=== PATIENT | male | born 1930 | race Two or more races ===

== ENCOUNTER 2016-03-23 20:17 | Inpatient (IN) | payer OTHER ==
[2016-03-23] MEDS ORDERED: SODIUM CHLORIDE 0.9% 1000 ML INFUS.BAG IV PRN (20:52)
[2016-03-23] MEDS ORDERED: ACETAMINOPHEN 1000 MG/100 ML VIAL (NON FORMULARY) IVPB ONE (20:52)
--- NOTE | 2016-03-23 20:52 | PDOC ---
History of Present Illness - General History Source: Patient, Family Exam Limitations: No Limitations - History of Present Illness Initial Comments: 03/23/16 21:26 The patient is a 85 year old male with significant past medical history of CAD , hypertension, hyperlipidemia, constipation, h/o SBO due to adhesions, and prostate CA s/p prostatectomy who presents to the ED BIBA from home with 1 day of not feeling well. As per family, at bedside, noted patient was not alert and not feeling well. At time of evaluation, patient only had complaints of discomfort in the right flank and periumbilical region. He denies nausea, vomiting, and diarrhea. He denies any urinary complaints. Patient states he is compliant with his daily medications. The patient denies fever, chills, diaphoresis, cough, SOB, chest pain, and palpitations. Allergies: NKDA Social History: No alcohol, tobacco, or drug use reported. Past Surgical History: s/p prostatectomy PCP: Dr. Danelle Gaytan <Fransisca Kang - Last Filed: 03/23/16 23:52> - General History Source: Patient, Family <Rah Mcintosh - Last Filed: 03/23/16 23:55> - General Stated Complaint: LETHARGY Time Seen by Provider: 03/23/16 20:48 Past History <Fransisca Kang - Last Filed: 03/23/16 23:52> - Past Medical History HTN: Yes Hypercholesterolemia: Yes - Immunization History Immunization Up to Date: Yes - Psycho/Social/Smoking Cessation Hx Suicidal Ideation: No Smoking Status: No Smoking History: Unknown if ever smoked Have you smoked in the past 12 months: No Number of Cigarettes Smoked Daily: 0 Hx Alcohol Use: No Drug/Substance Use Hx: No Substance Use Type: None Hx Substance Use Treatment: No <Rah Mcintosh - Last Filed: 03/23/16 23:55> - Past Medical History Allergies/Adverse Reactions: Allergies Allergy/AdvReac Type Severity Reaction Status Date / Time No Known Allergies Allergy Verified 03/23/16 20:39 Home Medications: Ambulatory Orders Amlodipine Besylate 10 mg PO DAILY 08/02/15 Atorvastatin Ca [Lipitor] 40 mg PO HS 08/02/15 Carvedilol 6.25 mg PO BID 08/02/15 Aspirin Coated [Ecotrin -] 81 mg PO DAILY tablet.ec 08/05/15 Losartan Potassium 25 mg PO DAILY 03/23/16 Tramadol HCl 50 mg PO PRN 03/23/16 Review of Systems - Review of Systems Able to Perform ROS?: Yes Comments:: 03/23/16 21:27 CONSTITUTIONAL: +not feeling well Absent: fever, chills, diaphoresis, loss of appetite HEENT: Absent: rhinorrhea, nasal congestion, throat pain, throat swelling, difficulty swallowing, mouth swelling, ear pain, eye pain, visual Changes CARDIOVASCULAR: Absent: chest pain, syncope, palpitations, irregular heart rate, lightheadedness , peripheral edema RESPIRATORY: Absent: cough, shortness of breath, dyspnea with exertion, orthopnea, wheezing, stridor, hemoptysis GASTROINTESTINAL: +periumbilical pain Absent: abdominal distension, nausea, vomiting, diarrhea, constipation, melena, hematochezia GENITOURINARY: +right flank pain Absent: dysuria, frequency, urgency, hesitancy, hematuria, genital pain MUSCULOSKELETAL: Absent: myalgia, arthralgia, joint swelling SKIN: Absent: rash, itching, pallor NEUROLOGIC: +not alert Absent: headache, focal weakness or paresthesias, dizziness, unsteady gait, seizure, bladder or bowel incontinence <Fransisca Kang - Last Filed: 03/23/16 23:52> *Physical Exam - Vital Signs Last Vital Signs Temp Pulse Resp BP Pulse Ox 104.7 F H 95 H 21 128/64 91 L 03/23/16 20:35 03/23/16 20:35 03/23/16 20:35 03/23/16 20:35 03/23/16 20:35 - Physical Exam Comments: 03/23/16 21:27 GENERAL: Well developed, well nourished. Awake and alert. No acute distress. HEENT: Normocephalic, atraumatic. PERRLA, EOMI. No conjunctival pallor. Sclera are non- icteric. Moist mucous membranes. Oropharynx is clear. NECK: Supple. Full ROM. No JVD. Carotid pulses 2+ and symmetric, without bruits. No thyromegaly. No lymphadenopathy. CARDIOVASCULAR: Regular rate and rhythm. No murmurs, rubs, or gallops. Distal pulses are 2+ and symmetric. PULMONARY: No evidence of respiratory distress. Lungs clear to auscultation bilaterally. No wheezing, rales or rhonchi. ABDOMINAL: Soft. Non-tender. Non-distended. No rebound or guarding. No organomegaly. Normoactive bowel sounds. MUSCULOSKELETAL Normal range of motion at all joints. No bony deformities or tenderness. No CVA tenderness. EXTREMITIES: No cyanosis. No clubbing. No edema. No calf tenderness. SKIN: Warm and dry. Normal capillary refill. No rashes. No jaundice. NEUROLOGICAL: Alert, awake, appropriate. Cranial nerves 2-12 intact. Moving all extremities. No focal neurological deficits. PSYCHIATRIC: Cooperative. Good eye contact. Appropriate mood and affect. <Fransisca Kang - Last Filed: 03/23/16 23:52> - Vital Signs Last Vital Signs Temp Pulse Resp BP Pulse Ox 104.7 F H 95 H 21 128/64 91 L 03/23/16 20:35 03/23/16 20:35 03/23/16 20:35 03/23/16 20:35 03/23/16 20:35 <Rah Mcintosh - Last Filed: 03/23/16 23:55> Heart Score/ECG Review - ECG Impressions Comment:: 03/23/16 21:27 NSR @95bpm Left axis deviation Incomplete RBBB Left ventricular hypertrophy with repolarization abnormality Cannot r/o septal infarct, age undetermined Abnormal ECG <Fransisca Kang - Last Filed: 03/23/16 23:52> ED Treatment Course - LABORATORY CBC & Chemistry Diagram: 03/23/16 21:06 03/23/16 21:06 - ADDITIONAL ORDERS Additional order review: 03/23/16 21:06 RBC 4.45 MCV 88.2 MCHC 32.8 RDW 13.5 MPV 8.1 Neutrophils % 87.6 H D Lymphocytes % 3.3 L D Monocytes % 7.9 Eosinophils % 0.0 D Basophils % 1.2 <Fransisca Kang - Last Filed: 03/23/16 23:52> - LABORATORY CBC & Chemistry Diagram: 03/23/16 21:06 03/23/16 21:06 <Rah Mcintosh - Last Filed: 03/23/16 23:55> Medical Decision Making - Medical Decision Making 03/23/16 23:[address] Danelle Gaytan (via answering service) at 23:[address] Gaytan responded back at 23:52 and patient's case was discussed <Fransisca Kang - Last Filed: 03/23/16 23:52> - Medical Decision Making 03/23/16 23:55 Dr. Mcintosh: The scribe's documentation has been prepared under my direction and personally reviewed by me in its entirery. I confirm that the note above accurately reflects all work, treatment, procedures, and medical decision making performed by me. <Rah Mcintosh - Last Filed: 03/23/16 23:55> *DC/Admit/Observation/Transfer - Attestations Scribe Attestion: 03/23/16 21:29 Documentation prepared by Fransisca Kang, acting as biomedical engineering professor for Rah Mcintosh MD <Fransisca Kang - Last Filed: 03/23/16 23:52> - Discharge Dispostion Admit: Yes <Rah Mcintosh - Last Filed: 03/23/16 23:55> Diagnosis at time of Disposition: Sepsis Qualifiers: Sepsis type: sepsis due to unspecified organism Qualified Code(s): A41.9 - Sepsis, unspecified organism Pneumonia Qualifiers: Pneumonia type: due to unspecified organism Laterality: left Lung location: lower lobe of lung Qualified Code(s): J18.9 - Pneumonia, unspecified organism - Referrals Referrals: Danelle Gaytan MD [Primary Care Provider] -
[2016-03-23 21:10] LABS: BASOPHIL 1.2 % (0-2.0); MCH 28.9 pg (25.7-33.7); MCHC 32.8 g/dl (32.0-35.9); MEAN CELL VOLUME 88.2 fl (80-96); MEAN PLT VOLUME 8.1 fl (7.5-11.1); NEUTROPHILS 87.6 % (42.8-82.8); PLATELET COUNT 173 K/MM3 (134-434); RDW 13.5 % (11.9-15.9); WHITE BLOOD COUNT 13.5 K/mm3 (4.0-10.0)
[2016-03-23 21:28] LABS: VENOUS BLOOD GAS HCO3 23.5 meq/L (22-29)
[2016-03-23 21:30] LABS: VENOUS PH 7.42 (7.31-7.41)
[2016-03-23 21:32] LABS: INR 1.35 (0.82-1.09); PROTHROMBIN TIME (PATIENT) 14.9 SEC (9.98-11.88)
[2016-03-23 21:35] LABS: ACTIVATED PTT 27.4 SECONDS (26.9-34.4)
[2016-03-23 21:43] LABS: ALBUMIN 3.5 g/dl (3.4-5.0); ANION GAP 8 (8-16); BILIRUBIN,TOTAL 1.2 mg/dL (0.2-1.0); CALCIUM 7.9 mg/dL (8.5-10.1); CO2 26 mmol/L (21-32); CREATININE 1.1 mg/dL (0.7-1.3); GLUCOSE,RANDOM 129 mg/dL (74-106); SGOT/AST 21 U/L (15-37); SGPT/ALT 24 U/L (12-78); TOT PROT 6.5 g/dl (6.4-8.2)
[2016-03-23 21:45] LABS: ALK PHOS 73 U/L (45-117); TROPONIN I < 0.02 ng/ml (0.00-0.05)
[2016-03-23 22:20] LABS: PH,URINE 5.5 (5.0-8.0); URINE APPEARANCE CLEAR; URINE BILIRUBIN NEGATIVE (NEGATIVE); URINE BLOOD NEGATIVE (NEGATIVE); URINE COLOR LT. YELLOW; URINE GLUCOSE (UA) NEGATIVE (NEGATIVE); URINE KETONE NEGATIVE (NEGATIVE); URINE LEUK ESTERASE NEGATIVE (NEGATIVE); URINE NITRITE NEGATIVE (NEGATIVE); URINE PROTEIN NEGATIVE (NEGATIVE); URINE UROBILINOGEN 0.2 E.U/dl E.U./dl (0.2-1.0)
[2016-03-23] MEDS ORDERED: CALCIUM CARBONATE 650 MG TABLET PO STA (23:28)
[2016-03-23] MEDS ORDERED: AZITHROMYCIN 250 MG TABLET (FP) PO STA (23:31)
[2016-03-23] MEDS ORDERED: AZITHROMYCIN 250 MG TABLET (FP) ONE (23:50)
[2016-03-23] MEDS ORDERED: CEFTRIAXONE 50 ML ONE (23:51)
[2016-03-24 01:58] VITALS: BMI 22.4
[2016-03-24 08:09] LABS: BASOPHIL 0.4 % (0-2.0); EOSINOPHIL 0.2 % (0-4.5); MEAN CELL VOLUME 88.4 fl (80-96); MEAN PLT VOLUME 7.9 fl (7.5-11.1); NEUTROPHILS 81.5 % (42.8-82.8); PLATELET COUNT 143 K/MM3 (134-434); RDW 13.5 % (11.9-15.9); WHITE BLOOD COUNT 13.1 K/mm3 (4.0-10.0)
--- NOTE | 2016-03-24 08:22 | CONSULT ---
Consultation: Consult: INFECTIOUS DISEASE CONSULT REQUEST: We have been asked to medically evaluate this patient for Sepsis. HISTORY OF PRESENT ILLNESS: History obtained using [employer] "[employer] interpretation" 85 year old swiss speaking male was brought in from home with the chief complaints of fever x 2 days and not feeling well x 1 week. Initially, patient was not feeling well, had dizziness but didn't fall. Developed fever, on/off, associated with profuse sweating but no chills or rigors. Denies runny nose, close contacts or h/o recent travel. Patient stated that he had right lower quadrant pain, dull in nature, on/off, radiating towards the back. Patient thought it would go away so didn't take any meds or seek medical attention. Denies urinary symptoms like burning urination, urgency, frequency. Moves bowel once in 2-3 days. Moved his bowel today. Denies headache, loss of conciousness, chest pain, cough, palpitation, sob, nausea or vomiting. On admission, patient presented with Tmax 104.7 F and oxygen saturation of 91% . Past Medical Hx: CAD, HTN, HLD, Umbilical hernia, constipation, H/O SBO due to adhesions, prostate CA s/p prastatectomy Allergies: NKDA Surgical Hx- prostate CA s/p Prostatectomy Hospitalization: 6 admissions in 2016, last admitted at [facility] on 01/13/2016 for back pain Social Hx- Doesn't smoke, doesn't drink alcohol or use illicit drugs Home Meds: Medication Instructions Recorded Amlodipine Besylate 10 mg PO DAILY 08/02/15 Atorvastatin Ca [Lipitor] 40 mg PO HS 08/02/15 Carvedilol 6.25 mg PO BID 08/02/15 Aspirin Coated [Ecotrin -] 81 mg PO DAILY tablet.ec 08/05/15 Losartan Potassium 25 mg PO DAILY 03/23/16 Tramadol HCl 50 mg PO PRN 03/23/16 REVIEW OF SYSTEMS: CONSTITUTIONAL: Present: Fever +, diaphoresis Absent: chills, generalized weakness, malaise, loss of appetite, weight change HEENT: Absent: rhinorrhea, nasal congestion, throat pain, throat swelling, difficulty swallowing, mouth swelling, ear pain, eye pain, visual changes CARDIOVASCULAR: Absent: chest pain, syncope, palpitations, irregular heart rate, lightheadedness , peripheral edema RESPIRATORY: Absent: cough, shortness of breath, dyspnea with exertion, orthopnea, wheezing, stridor, hemoptysis GASTROINTESTINAL Present: Abdominal pain Absent: abdominal distension, nausea, vomiting, diarrhea, constipation, melena , hematochezia GENITOURINARY: Absent: dysuria, frequency, urgency, hesitancy, hematuria, flank pain, genital pain MUSCULOSKELETAL: Absent: myalgia, arthralgia, joint swelling, back pain, neck pain SKIN: Absent: rash, itching, pallor HEMATOLOGIC/IMMUNOLOGIC: Absent: easy bleeding, easy bruising, lymphadenopathy, frequent infections ENDOCRINE: Absent: unexplained weight gain, unexplained weight loss, heat intolerance, cold intolerance NEUROLOGIC: Absent: headache, focal weakness or paresthesias, dizziness, unsteady gait, seizure, mental status changes, bladder or bowel incontinence PSYCHIATRIC: Absent: anxiety, depression, suicidal or homicidal ideation, hallucinations. PHYSICAL EXAMINATION GENERAL: Patient lying comfortably in bed, Awake, alert, and fully oriented, in no acute distress. HEAD: Normal with no signs of trauma. EYES: EOM intact, no pallor or icterus EARS, NOSE, THROAT: Ears normal NECK:Supple, no mass. LUNGS: Breath sounds equal, clear to auscultation bilaterally. No wheezes, and no crackles. No accessory muscle use. HEART: Regular rate and rhythm, normal S1 and S2, systolic murmur + ABDOMEN: Surgical scar jourdan +, Soft, nontender, not distended, normoactive bowel sounds, no guarding, no rebound, no masses. No hepatomegaly or splenomegaly. MUSCULOSKELETAL: Normal range of motion at all joints. No bony deformities or tenderness. No CVA tenderness. UPPER EXTREMITIES: 2+ pulses, warm, well-perfused. No cyanosis. No clubbing. No peripheral edema. LOWER EXTREMITIES: 2+ pulses, warm, well-perfused. No calf tenderness. No peripheral edema. NEUROLOGICAL: Cranial nerves II-XII intact. Normal speech. Normal gait. PSYCHIATRIC: Cooperative. Good eye contact. Appropriate mood and affect. SKIN: Warm, dry, normal turgor, no rashes or lesions noted. Laboratory Results - last 24 hr 03/24/16 03/24/16 06:35 07:50 WBC 13.1 H RBC 4.04 Hgb 12.1 Hct 35.7 MCV 88.4 MCHC 34.0 RDW 13.5 Plt Count 143 MPV 7.9 Neutrophils % 81.5 Lymphocytes % 7.8 L D Monocytes % 10.1 Eosinophils % 0.2 D Basophils % 0.4 POC Glucometer 114 Active Medications Generic Name Dose Route Start Last Admin Trade Name Freq PRN Reason Stop Dose Admin Acetaminophen 650 mg 03/24/16 01:25 Tylenol - PO Q4H PRN FEVER OR PAIN Albuterol Sulfate 1 amp 03/24/16 12:00 Ventolin 0.083% Nebulizer Soln - NEB QIDR PRIYANKA Amlodipine Besylate 10 mg 03/24/16 10:00 Norvasc - PO DAILY PRIYANKA Aspirin 81 mg 03/24/16 10:00 Ecotrin - PO DAILY PRIYANKA Atorvastatin Calcium 40 mg 03/24/16 22:00 Lipitor - PO HS PRIYANKA Carvedilol 6.25 mg 03/24/16 10:00 Coreg - PO BID PRIYANKA Heparin Sodium (Porcine) 5,000 unit 03/24/16 10:00 Heparin - SQ BID PRIYANKA Losartan Potassium 25 mg 03/24/16 10:00 Cozaar - PO DAILY [facility] Sodium Chloride 1,000 ml 03/23/16 20:52 03/23/16 21:12 Normal Saline - IV 1,000 ml Q20M PRN Administration MAP<65mm Hg OR SBP <90 Underlying problems:- 85 year old swiss speaking male was brought in from home with the chief complaints of fever x 2 days and not feeling well x 1 week. ASSESSMENT: 1. Sepsis unknown source 2. CAD 3. Hypertension 4. Hyperlipidemia 5. Umbilical hernia 6. Constipation 7. H/O SBO due to adhesions 8. Prostate CA s/p Prostatectomy. PLAN: # Sepsis unknown source Patient presented with Tmax 104.7 F and oxygen saturation of 91%, normal lactic acid. With no flu like symptoms except for fever, the possibility of viral infection is high. Bacterial infection less likely Chest was clear, no h/o cough, no infiltrate in cxr hence pneumonia less likely. In the ED, one dose of 1gm Ceftriaxone and 500mg of Azithromycin given Urine/Blood culture pending Influenza rapid test, Ab pending CXR showed Mild atelectatic changes in the left lung base. No infiltrate Empiric treatment with IV Ceftriaxone 1gm started daily until we get the cultures Monitor Vitals # FEN Not on IV fluids Electrolytes to be repeated tomorrow Sodium controlled diet # Prophylaxis For DVT: On Heparin sq For GI: Not indicated Illness, Investigation and Plan of care explained to the patient. He verbalized understanding. Case seen and discussed with Dr. Hager. Thank you for the consultative opportunity. Visit type - Emergency Visit Emergency Visit: Yes ED Registration Date: 03/24/16 Care time: The patient presented to the Emergency Department on the above date and was hospitalized for further evaluation of their emergent condition. - New Patient This patient is new to me today: Yes Date on this admission: 03/24/16 - Critical Care Critical Care patient: No
--- NOTE | 2016-03-24 08:52 | HP ---
Admitting History and Physical - Admission History of Present Illness: 85 year old male with significant past medical history of CAD , hypertension, hyperlipidemia, constipation, h/o SBO due to adhesions, and prostate CA s/p prostatectomy who presents to the ED BIBA from home with 1 day of not feeling well. As per family, at bedside, noted patient was not alert and not feeling well. At time of evaluation, patient only had complaints of discomfort in the right flank and periumbilical region. He denies nausea, vomiting, and diarrhea. He denies any urinary complaints. Patient states he is compliant with his daily medications. - Past Medical History Cardiovascular: Yes: CAD (non-obstructive per 01/2013 cardiac cath), HTN, Hyperlipdemia, Murmur Gastrointestinal: Yes: Constipation, Other (H/O SBO DUE TO ADHESIONS) Renal/: Yes: Other (PROSTATE CANCER S/P PROSTATECTOMY) - Past Surgical History Past Surgical History: Yes: None - Smoking History Smoking history: Unknown if ever smoked Have you smoked in the past 12 months: No Aproximately how many cigarettes per day: 0 - Alcohol/Substance Use Hx Alcohol Use: No Home Medications - Allergies Allergies/Adverse Reactions: Allergies Allergy/AdvReac Type Severity Reaction Status Date / Time No Known Allergies Allergy Verified 03/23/16 20:39 - Home Medications Home Medications: Ambulatory Orders Amlodipine Besylate 10 mg PO DAILY 08/02/15 Atorvastatin Ca [Lipitor] 40 mg PO HS 08/02/15 Carvedilol 6.25 mg PO BID 08/02/15 Aspirin Coated [Ecotrin -] 81 mg PO DAILY tablet.ec 08/05/15 Losartan Potassium 25 mg PO DAILY 03/23/16 Tramadol HCl 50 mg PO PRN 03/23/16 Review of Systems - Review of Systems Constitutional: reports: Fever, Lethargy, Malaise Cardiovascular: denies: Chest Pain Respiratory: denies: Cough, SOB Gastrointestinal: denies: Abdominal Pain Genitourinary: reports: No Symptoms Physical Examination Vital Signs: Vital Signs Temperature 98.6 F 03/24/16 01:34 Pulse Rate 67 03/24/16 01:34 Respiratory Rate 18 03/24/16 01:34 Blood Pressure 135/65 03/24/16 01:34 O2 Sat by Pulse Oximetry (%) 97 03/24/16 01:34 HENT: Yes: Normocephalic Neck: Yes: Supple Cardiovascular: Yes: Regular Rate and Rhythm Respiratory: Yes: Regular, CTA Bilaterally Gastrointestinal: Yes: Normal Bowel Sounds, Soft. No: Tenderness Edema: No Neurological: Yes: Alert, Oriented Labs: CBC, BMP 03/24/16 07:50 Imaging - Results X-ray: Report Reviewed Problem List - Problems (1) Fever Assessment/Plan: CULURES R/O PNA ABX MONITOR LABS ID Code(s): R50.9 - FEVER, UNSPECIFIED (2) Sepsis Assessment/Plan: ABOVE Code(s): A41.9 - SEPSIS, UNSPECIFIED ORGANISM Qualifiers: Sepsis type: sepsis due to unspecified organism Qualified Code(s): A41.9 - Sepsis, unspecified organism (3) CAD (coronary artery disease) Assessment/Plan: STABLE (4) HTN (hypertension) Assessment/Plan: MONITOR BP
[2016-03-24 08:54] LABS: ALBUMIN 2.8 g/dl (3.4-5.0); ALK PHOS 56 U/L (45-117); ANION GAP 7 (8-16); BILIRUBIN,TOTAL 1.1 mg/dL (0.2-1.0); CALCIUM 8.1 mg/dL (8.5-10.1); CO2 28 mmol/L (21-32); CREATININE 0.9 mg/dL (0.7-1.3); GLUCOSE,RANDOM 114 mg/dL (74-106); SGOT/AST 25 U/L (15-37); SGPT/ALT 23 U/L (12-78); TOT PROT 5.7 g/dl (6.4-8.2); TROPONIN I < 0.02 ng/ml (0.00-0.05)
--- NOTE | 2016-03-24 09:35 | EKG ---
Test Reason : Blood Pressure : / mmHG Vent. Rate : 095 BPM Atrial Rate : 095 BPM P-R Int : 146 ms QRS Dur : 106 ms QT Int : 350 ms P-R-T Axes : 040 -37 051 degrees QTc Int : 439 ms NORMAL SINUS RHYTHM LEFT AXIS DEVIATION INCOMPLETE RIGHT BUNDLE BRANCH BLOCK LEFT VENTRICULAR HYPERTROPHY WITH REPOLARIZATION ABNORMALITY CANNOT RULE OUT SEPTAL INFARCT , AGE UNDETERMINED ABNORMAL ECG WHEN COMPARED WITH ECG OF 08-SEP-2015 11:30, MINIMAL CRITERIA FOR SEPTAL INFARCT ARE NOW PRESENT T WAVE INVERSION NO LONGER EVIDENT IN INFERIOR LEADS Confirmed by ALEXY GORDILLO, JORJE ([id number]) on 03/24/2016 9:35:23 AM Referred By: Confirmed By:JORJE TRACEY MD
[2016-03-24] MEDS: amLODIPine BESYLATE 10 MG TABLET (FP) PO SCH (09:59)
[2016-03-24] MEDS: LOSARTAN POTASSIUM 25 MG TABLET PO SCH (09:59)
[2016-03-24] MEDS: CARVEDILOL 6.25 MG TABLET (FP) PO SCH ×2 (09:59→21:35)
[2016-03-24] MEDS: HEPARIN NA (PORCINE) 5,000 UNITS/ML 1ML VIAL SQ SCH ×2 (09:59→21:35)
[2016-03-24] MEDS: ASPIRIN COATED 81 MG TABLET.EC PO SCH (09:59)
--- NOTE | 2016-03-24 10:38 | PN ---
Progress Note (short form) - Note Progress Note: ID consult per resident note fevers/?pneumonia-abnl cxray, ?viral syndrome continue rocephin influenza screen repeat cxray pa and lateral f/u cultures
[2016-03-24] MEDS: CEFTRIAXONE 50 ML IVPB SCH (11:54)
[2016-03-24] MEDS: ALBUTEROL SO4 0.083% IH SOL 2.5 MG/3 ML VIAL.NEB. NEB SCH ×2 (11:54→18:30)
[2016-03-24] MEDS: ACETAMINOPHEN 325 MG TABLET (FP) PO PRN (15:15)
[2016-03-24] MEDS: ATORVASTATIN CA 40 MG TABLET (FP) PO SCH (21:34)
[2016-03-25] MEDS: ALBUTEROL SO4 0.083% IH SOL 2.5 MG/3 ML VIAL.NEB. NEB SCH ×5 (00:07→23:24)
[2016-03-25 08:06] LABS: BASOPHIL 0.2 % (0-2.0); EOSINOPHIL 0.8 % (0-4.5); MCH 30.5 pg (25.7-33.7); MCHC 34.3 g/dl (32.0-35.9); MEAN CELL VOLUME 89.1 fl (80-96); MEAN PLT VOLUME 8.4 fl (7.5-11.1); NEUTROPHILS 71.8 % (42.8-82.8); PLATELET COUNT 152 K/MM3 (134-434); RDW 13.2 % (11.9-15.9); WHITE BLOOD COUNT 8.7 K/mm3 (4.0-10.0)
--- NOTE | 2016-03-25 08:54 | PN ---
Progress Note, Physician History of Present Illness: FEELS BETTER - Current Medication List Current Medications: Active Medications Acetaminophen (Tylenol -) 650 mg PO Q4H PRN PRN Reason: FEVER OR PAIN Last Admin: 03/24/16 15:15 Dose: 650 mg Albuterol Sulfate (Ventolin 0.083% Nebulizer Soln -) 1 amp NEB QIDR [facility] Last Admin: 03/25/16 07:17 Dose: 1 amp Amlodipine Besylate (Norvasc -) 10 mg PO DAILY [facility] Last Admin: 03/24/16 09:59 Dose: 10 mg Aspirin (Ecotrin -) 81 mg PO DAILY [facility] Last Admin: 03/24/16 09:59 Dose: 81 mg Atorvastatin Calcium (Lipitor -) 40 mg PO HS [facility] Last Admin: 03/24/16 21:34 Dose: 40 mg Carvedilol (Coreg -) 6.25 mg PO BID [facility] Last Admin: 03/24/16 21:35 Dose: 6.25 mg Heparin Sodium (Porcine) (Heparin -) 5,000 unit SQ BID [facility] Last Admin: 03/24/16 21:35 Dose: 5,000 unit Ceftriaxone Sodium (Rocephin 1gm Ivpb (Pre-Docked)) 50 mls @ 100 mls/hr IVPB DAILY [facility] Last Admin: 03/24/16 11:54 Dose: 100 mls/hr Losartan Potassium (Cozaar -) 25 mg PO DAILY [facility] Last Admin: 03/24/16 09:59 Dose: 25 mg Sodium Chloride (Normal Saline -) 1,000 ml IV Q20M PRN PRN Reason: MAP<65mm Hg OR SBP <90 Last Admin: 03/23/16 21:12 Dose: 1,000 ml - Objective Vital Signs: Vital Signs Temperature 99.1 F 03/25/16 06:00 Pulse Rate 73 03/25/16 06:00 Respiratory Rate 20 03/25/16 06:00 Blood Pressure 140/70 03/25/16 06:00 O2 Sat by Pulse Oximetry (%) 96 03/24/16 21:00 Cardiovascular: Yes: Regular Rate and Rhythm Respiratory: Yes: Regular, CTA Bilaterally Gastrointestinal: Yes: Normal Bowel Sounds, Soft Labs: CBC, BMP 03/25/16 07:00 03/24/16 07:50 INR, PTT INR 1.35 (0.82-1.09) H 03/23/16 21:06 Problem List - Problems (1) Fever Assessment/Plan: CULTURES Microbiology 03/23/16 21:06 Blood Culture - Preliminary Blood - Peripheral Venous NO GROWTH OBTAINED AFTER 24 HOURS, INCUBATION TO CONTINUE FOR 4 DAYS. 03/23/16 21:06 Blood Culture - Preliminary Blood - Peripheral Venous NO GROWTH OBTAINED AFTER 24 HOURS, INCUBATION TO CONTINUE FOR 4 DAYS. 03/24/16 11:15 Legionella Antigen - Final Urine For Antigen Detection Streptococcus pneumoniae Antigen (M - Final 03/24/16 06:48 Influenza Types A,B Antigen (JOSEPH) - Final Nasopharyngeal Swab - Final R/O PNA--REPEAT CXR NEGATIVE--ID /U ABX MONITOR LABS ID Code(s): R50.9 - FEVER, UNSPECIFIED (2) Sepsis Assessment/Plan: ABOVE Code(s): A41.9 - SEPSIS, UNSPECIFIED ORGANISM Qualifiers: Sepsis type: sepsis due to unspecified organism Qualified Code(s): A41.9 - Sepsis, unspecified organism (3) CAD (coronary artery disease) Assessment/Plan: STABLE (4) HTN (hypertension) Assessment/Plan: MONITOR BP
[2016-03-25] MEDS: amLODIPine BESYLATE 10 MG TABLET (FP) PO SCH (10:21)
[2016-03-25] MEDS: LOSARTAN POTASSIUM 25 MG TABLET PO SCH (10:21)
[2016-03-25] MEDS: ASPIRIN COATED 81 MG TABLET.EC PO SCH (10:21)
[2016-03-25] MEDS: CARVEDILOL 6.25 MG TABLET (FP) PO SCH ×2 (10:21→23:53)
[2016-03-25] MEDS: HEPARIN NA (PORCINE) 5,000 UNITS/ML 1ML VIAL SQ SCH ×2 (10:21→23:53)
[2016-03-25] MEDS: CEFTRIAXONE 50 ML IVPB SCH (10:21)
--- NOTE | 2016-03-25 14:18 | PN ---
Addendum entered and electronically signed by Alyssia Vaughn RES 03/25/16 16 :53: Ordered CT abd with oral contrast Original Note: Physical Exam: SUBJECTIVE: Patient seen and examined at bed side this morning. Complaints of abdominal discomfort but denies pain. Moved his bowel 3 times today, non bloody , thick in consistency, scanty in amount. Yesterday, had Tmax-101.3 F and today 99F. OBJECTIVE: Vital Signs Period Temp Pulse Resp BP Sys/Escobedo Pulse Ox Last 24 Hr 98.4 F-101.3 F 65-73 20-22 114-145/59-77 94-96 GENERAL: Patient lying comfortably in bed, Awake, alert, and fully oriented, in no acute distress. HEAD: Normal with no signs of trauma. EYES: EOM intact, no pallor or icterus EARS, NOSE, THROAT: Ears normal NECK:Supple, no mass. LUNGS: Breath sounds equal, clear to auscultation bilaterally. No wheezes, and no crackles. No accessory muscle use. HEART: Regular rate and rhythm, normal S1 and S2, systolic murmur + ABDOMEN: Surgical scar jourdan +, Soft, nontender, not distended, normoactive bowel sounds, no guarding, no rebound, no masses. No hepatomegaly or splenomegaly. MUSCULOSKELETAL: Normal range of motion at all joints. No bony deformities or tenderness. No CVA tenderness. UPPER EXTREMITIES: 2+ pulses, warm, well-perfused. No cyanosis. No clubbing. No peripheral edema. LOWER EXTREMITIES: 2+ pulses, warm, well-perfused. No calf tenderness. No peripheral edema. NEUROLOGICAL: Cranial nerves II-XII intact. Normal speech. Normal gait. PSYCHIATRIC: Cooperative. Good eye contact. Appropriate mood and affect. SKIN: Warm, dry, normal turgor, no rashes or lesions noted. Laboratory Results - last 24 hr 03/25/16 03/25/16 06:33 07:00 WBC 8.7 D RBC 4.04 Hgb 12.3 Hct 36.0 MCV 89.1 MCHC 34.3 RDW 13.2 Plt Count 152 MPV 8.4 Neutrophils % 71.8 Lymphocytes % 13.3 D Monocytes % 13.9 H Eosinophils % 0.8 D Basophils % 0.2 POC Glucometer 107 Active Medications Generic Name Dose Route Start Last Admin Trade Name Freq PRN Reason Stop Dose Admin Acetaminophen 650 mg 03/24/16 01:25 03/24/16 15:15 Tylenol - PO 650 mg Q4H PRN Administration FEVER OR PAIN Albuterol Sulfate 1 amp 03/24/16 12:00 03/25/16 07:17 Ventolin 0.083% Nebulizer Soln - NEB 1 amp QIDR PRIYANKA Administration Amlodipine Besylate 10 mg 03/24/16 10:00 03/25/16 10:21 Norvasc - PO 10 mg DAILY PRIYANKA Administration Aspirin 81 mg 03/24/16 10:00 03/25/16 10:21 Ecotrin - PO 81 mg DAILY PRIYANKA Administration Atorvastatin Calcium 40 mg 03/24/16 22:00 03/24/16 21:34 Lipitor - PO 40 mg HS PRIYANKA Administration Carvedilol 6.25 mg 03/24/16 10:00 03/25/16 10:21 Coreg - PO 6.25 mg BID PRIYANKA Administration Heparin Sodium (Porcine) 5,000 unit 03/24/16 10:00 03/25/16 10:21 Heparin - SQ 5,000 unit BID PRIYANKA Administration Ceftriaxone Sodium 50 mls @ 100 mls/hr 03/24/16 11:00 03/25/16 10:21 Rocephin 1gm Ivpb (Pre-Docked) IVPB 100 mls/hr DAILY PRIYANKA Administration Losartan Potassium 25 mg 03/24/16 10:00 03/25/16 10:21 Cozaar - PO 25 mg DAILY PRIYANKA Administration Sodium Chloride 1,000 ml 03/23/16 20:52 03/23/16 21:12 Normal Saline - IV 1,000 ml Q20M PRN Administration MAP<65mm Hg OR SBP <90 Underlying problems:- 85 year old wolof speaking male was brought in from home with the chief complaints of fever x 2 days and not feeling well x 1 week. ASSESSMENT: 1. Sepsis unknown source 2. CAD 3. Hypertension 4. Hyperlipidemia 5. Umbilical hernia 6. Constipation 7. H/O SBO due to adhesions 8. Prostate CA s/p Prostatectomy. PLAN: # Sepsis unknown source Patient presented with Tmax 104.7 F and oxygen saturation of 91%, normal lactic acid. With no flu like symptoms except for fever, the possibility of viral infection is high. Bacterial infection less likely Fever yesterday Tmax-101.3, toay T-99.2F Chest was clear, no h/o cough, no infiltrate in cxr hence pneumonia less likely. In the ED, one dose of 1gm Ceftriaxone and 500mg of Azithromycin given Urine/Blood culture Negative. Influenza test negative. CXR showed Mild atelectatic changes in the left lung base. No infiltrate Empiric treatment with IV Ceftriaxone 1gm started daily until we get the cultures Monitor Vitals # FEN Not on IV fluids Electrolytes to be repeated tomorrow Sodium controlled diet # Prophylaxis For DVT: On Heparin sq For GI: Not indicated Illness, Investigation and Plan of care explained to the patient. He verbalized understanding. Case seen and discussed with Dr. Hager. Thank you for the consultative opportunity. Visit type - Emergency Visit Emergency Visit: Yes ED Registration Date: 03/24/16 Care time: The patient presented to the Emergency Department on the above date and was hospitalized for further evaluation of their emergent condition. - New Patient This patient is new to me today: No - Critical Care Critical Care patient: No
--- NOTE | 2016-03-25 16:36 | EKG ---
Test Reason : Blood Pressure : / mmHG Vent. Rate : 068 BPM Atrial Rate : 068 BPM P-R Int : 156 ms QRS Dur : 110 ms QT Int : 420 ms P-R-T Axes : 054 -26 008 degrees QTc Int : 446 ms NORMAL SINUS RHYTHM INCOMPLETE RIGHT BUNDLE BRANCH BLOCK VOLTAGE CRITERIA FOR LEFT VENTRICULAR HYPERTROPHY ABNORMAL ECG WHEN COMPARED WITH ECG OF 23-MAR-2016 20:29, MINIMAL CRITERIA FOR SEPTAL INFARCT ARE NO LONGER PRESENT Confirmed by BENJAMIN GORDILLO, GAVIOTA ([id number]) on 03/25/2016 4:35:41 PM Referred By: KLEVER PRO Confirmed By:GAVIOTA ALEXANDER MD
--- NOTE | 2016-03-25 16:52 | PN ---
Progress Note (short form) - Note Progress Note: notes abdominal discomfort for last three days- generalized! +BM no cough Vital Signs Period Temp Pulse Resp BP Sys/Escobedo Pulse Ox Last 24 Hr 98.4 F-99.3 F 65-73 20-20 126-145/59-77 94-96 cor-rrr lungs clear abd soft, some nonnspecific discomfort to exam, no rebound or guarding +well healed incision from prior surgery ext no edema CBC, BMP 03/25/16 07:00 03/24/16 07:50 Microbiology 03/24/16 06:48 Nasopharyngeal Swab Respiratory Virus Panel - Preliminary 03/23/16 22:09 Urine - Urine Clean Catch Urine Culture - Final NO GROWTH OBTAINED 03/23/16 21:06 Blood - Peripheral Venous Blood Culture - Preliminary NO GROWTH OBTAINED AFTER 24 HOURS, INCUBATION TO CONTINUE FOR 4 DAYS. 03/23/16 21:06 Blood - Peripheral Venous Blood Culture - Preliminary NO GROWTH OBTAINED AFTER 24 HOURS, INCUBATION TO CONTINUE FOR 4 DAYS. 03/24/16 11:15 Urine For Antigen Detection Legionella Antigen - Final 03/24/16 11:15 Urine For Antigen Detection Streptococcus pneumoniae Antigen (M - Final 03/24/16 06:48 Nasopharyngeal Swab Influenza Types A,B Antigen (JOSEPH) - Final 03/24/16 06:48 Nasopharyngeal Swab - Final a/p fevers- would get ct scan abd/pelvis continue rocephin f/u cultures in am
[2016-03-25] MEDS: ATORVASTATIN CA 40 MG TABLET (FP) PO SCH (23:53)
[2016-03-25] MEDS: ACETAMINOPHEN 325 MG TABLET (FP) PO PRN (23:54)
[2016-03-26] MEDS: ALBUTEROL SO4 0.083% IH SOL 2.5 MG/3 ML VIAL.NEB. NEB SCH ×2 (06:50→11:31)
[2016-03-26 08:31] LABS: BASOPHIL 0.1 % (0-2.0); EOSINOPHIL 0.5 % (0-4.5); MCHC 34.1 g/dl (32.0-35.9); MEAN PLT VOLUME 8.4 fl (7.5-11.1); NEUTROPHILS 79.8 % (42.8-82.8); PLATELET COUNT 169 K/MM3 (134-434); RDW 13.2 % (11.9-15.9); WHITE BLOOD COUNT 8.9 K/mm3 (4.0-10.0)
[2016-03-26 10:17] LABS: ERYTHROCYTE SEDIMENTATION RATE 45 mm/hr (0-20)
--- NOTE | 2016-03-26 10:39 | DS ---
Physical Examination Vital Signs: Vital Signs Temperature 98.3 F 03/26/16 07:00 Pulse Rate 72 03/26/16 07:00 Respiratory Rate 18 03/26/16 07:00 Blood Pressure 106/60 03/26/16 07:00 O2 Sat by Pulse Oximetry (%) 96 03/25/16 21:00 Findings/Remarks: NO COMPLAINTS Neck: Yes: Supple Cardiovascular: Yes: Regular Rate and Rhythm Respiratory: Yes: Regular, CTA Bilaterally Gastrointestinal: Yes: Normal Bowel Sounds, Soft. No: Tenderness Labs: CBC, BMP 03/26/16 08:17 03/24/16 07:50 Discharge Summary Reason For Visit: PNEUMONIA SEPSIS Current Active Problems Fever (Acute) Pneumonia (Acute) Sepsis (Acute) Hospital Course: 85 year old male with significant past medical history of CAD , hypertension, hyperlipidemia, constipation, h/o SBO due to adhesions, and prostate CA s/p prostatectomy who presents to the ED BIBA from home with 1 day of not feeling well. As per family, at bedside, noted patient was not alert and not feeling well. At time of evaluation, patient only had complaints of discomfort in the right flank and periumbilical region. He denies nausea, vomiting, and diarrhea. He denies any urinary complaints. Patient states he is compliant with his daily medications. - Past Medical History Cardiovascular: Yes: CAD (non-obstructive per 01/2013 cardiac cath), HTN, Hyperlipdemia, Murmur Gastrointestinal: Yes: Constipation, Other (H/O SBO DUE TO ADHESIONS) Renal/: Yes: Other (PROSTATE CANCER S/P PROSTATECTOMY) - Past Surgical History Past Surgical History: Yes: None - Problems (1) Fever Assessment/Plan: CULTURES Microbiology Microbiology 03/23/16 21:06 Blood Culture - Preliminary Blood - Peripheral Venous NO GROWTH OBTAINED AFTER 48 HOURS, INCUBATION TO CONTINUE FOR 3 DAYS. 03/23/16 21:06 Blood Culture - Preliminary Blood - Peripheral Venous NO GROWTH OBTAINED AFTER 48 HOURS, INCUBATION TO CONTINUE FOR 3 DAYS. 03/24/16 06:48 Respiratory Virus Panel - Preliminary Nasopharyngeal Swab 03/23/16 22:09 Urine Culture - Final Urine - Urine Clean Catch NO GROWTH OBTAINED R/O PNA--REPEAT CXR NEGATIVE--ID /U--DISCUSSED DC ABX AND DC HOME ABX MONITOR LABS ID Code(s): R50.9 - FEVER, UNSPECIFIED (2) Sepsis Assessment/Plan: ABOVE Code(s): A41.9 - SEPSIS, UNSPECIFIED ORGANISM Qualifiers: Sepsis type: sepsis due to unspecified organism Qualified Code(s): A41.9 - Sepsis, unspecified organism (3) CAD (coronary artery disease) Assessment/Plan: STABLE (4) HTN (hypertension) Assessment/Plan: MONITOR BP - Instructions Referrals: Danelle Gaytan MD [Primary Care Provider] - 1 Week Disposition: HOME - Home Medications Comprehensive Discharge Medication List: Ambulatory Orders Amlodipine Besylate 10 mg PO DAILY 08/02/15 Atorvastatin Ca [Lipitor] 40 mg PO HS 08/02/15 Carvedilol 6.25 mg PO BID 08/02/15 Aspirin Coated [Ecotrin -] 81 mg PO DAILY tablet.ec 08/05/15 Losartan Potassium 25 mg PO DAILY 03/23/16 Tramadol HCl 50 mg PO PRN 03/23/16
[2016-03-26 10:41] VITALS: BP 149/71; TEMP 98.4
[2016-03-26] MEDS: ASPIRIN COATED 81 MG TABLET.EC PO SCH (10:43)
[2016-03-26] MEDS: CARVEDILOL 6.25 MG TABLET (FP) PO SCH (10:43)
[2016-03-26] MEDS: LOSARTAN POTASSIUM 25 MG TABLET PO SCH (10:43)
[2016-03-26] MEDS: HEPARIN NA (PORCINE) 5,000 UNITS/ML 1ML VIAL SQ SCH (10:43)
[2016-03-26] MEDS: amLODIPine BESYLATE 10 MG TABLET (FP) PO SCH (10:44)
[2016-03-26] MEDS: CEFTRIAXONE 50 ML IVPB SCH (10:44)
[2016-03-26 11:31] VITALS: PULSE 72
== END 2016-03-26 13:08 | disposition home or self-care (01) | DRG 871 ==
LOC: JER 20:17 → JERBED 03-24 00:33 → UNDOADMIN 03-24 00:33 → J5S 03-24 02:49 → JERBED 03-24 02:49 → J5S 03-24 06:18 → JERBED 03-24 06:18
PROVIDERS: ADMIT Family Medicine; ATTEND Family Medicine
DX: A41.9 Sepsis, unspecified organism (principal); J18.9 Pneumonia, unspecified organism; E78.5 Hyperlipidemia, unspecified; I10 Essential (primary) hypertension; I25.10 Atherosclerotic heart disease of native coronary artery without angina pectoris; Z85.46 Personal history of malignant neoplasm of prostate; K59.00 Constipation, unspecified; K42.9 Umbilical hernia without obstruction or gangrene
CPT/HCPCS: 36415; 71010-TC; 71020-TC; 74176-TC; 80053; 81003; 82550; 82803; 83605; 84484; 85025; 85610; 85651; 85730; 86710; 86850; 86900; 86901; 87040; 87086; 87254; 87804; 87899; 93005; 93010; 94640; 99284-25; J1644; Q9967

== ENCOUNTER 2016-04-23 18:24 | Inpatient (IN) | payer OTHER ==
[2016-04-23 18:35] VITALS: BMI 22.0
--- NOTE | 2016-04-23 19:28 | PDOC ---
History of Present Illness - General History Source: Patient, Family, Spouse Exam Limitations: No Limitations - History of Present Illness Initial Comments: 04/23/16 20:27 The patient is a 85 year old female, with a significant past medical history of CAD, hypertension, hyperlipidemia, constipation, SBO due to adhesions, and prostate cancer (s/p prostatectomy 2000), who presents to the emergency department complaining of intermittent pain around the liver for several weeks. The patient reports he accompanied his to Dr. Cao office, where Dr. Gaytan suggested the patient receive blood work due to jaundice. The patients blood work revealed elevated liver function, and high levels of bilirubin and alkaline phosphatase.The patients reports, Dr. Gaytan suggested the patient present to the ED for further evaluation. As per son, the patient was found to have a minor cyst in his liver and kidney about 1 month ago. The son states the patient has been experiencing decreased appetite. The patient reports dark yellow urine output and white stool. The patient denies any nausea , vomiting, diarrhea, or constipation. The patient denies any dysuria, hematuria , frequency, or urgency. The patient reports diffuse back pain, but denies any chest pain, diaphoresis, palpitations, or shortness of breath. The patient denies any fever, chills, cough, headache, or dizziness. The patients son reports patient was recently admitted for pneumonia. Allergies: None reported. Past Surgical History: Prostatectomy Social History: Non-smoker. Denies alcohol or drug use. PCP: Dr. Danelle Gaytan <Clemente Padgett - Last Filed: 04/23/16 20:27> - History of Present Illness Initial Comments: 04/23/16 23:51 Fire Alarm Inspector: Dr. Ezequiel Rosas <Esperanza Cano - Last Filed: 04/24/16 01:09> <Kristin Vizcaino - Last Filed: 04/24/16 01:23> - General Chief Complaint: Revisit, Lab Variance Stated Complaint: high billirubin, juindice PCP SENT Time Seen by Provider: 04/23/16 19:21 Past History <Clemente Padgett - Last Filed: 04/23/16 20:27> <Esperanza Cano - Last Filed: 04/24/16 01:09> - Past Medical History HTN: Yes Hypercholesterolemia: Yes - Immunization History Immunization Up to Date: Yes - Psycho/Social/Smoking Cessation Hx Anxiety: No Suicidal Ideation: No Smoking Status: No Smoking History: Never smoked Have you smoked in the past 12 months: No Number of Cigarettes Smoked Daily: 0 Information on smoking cessation initiated: No Hx Alcohol Use: No Drug/Substance Use Hx: No Substance Use Type: None Hx Substance Use Treatment: No <Kristin Vizcaino - Last Filed: 04/24/16 01:23> - Past Medical History Allergies/Adverse Reactions: Allergies Allergy/AdvReac Type Severity Reaction Status Date / Time No Known Allergies Allergy Verified 04/23/16 18:30 Home Medications: Ambulatory Orders Amlodipine Besylate 10 mg PO DAILY 08/02/15 Atorvastatin Ca [Lipitor] 40 mg PO HS 08/02/15 Carvedilol 6.25 mg PO BID 08/02/15 Aspirin Coated [Ecotrin -] 81 mg PO DAILY tablet.ec 08/05/15 Losartan Potassium 25 mg PO DAILY 03/23/16 Tramadol HCl 50 mg PO PRN 03/23/16 Review of Systems - Review of Systems Able to Perform ROS?: Yes Comments:: 04/23/16 20:37 GENERAL/CONSTITUTIONAL: +Jaundice. No fever or chills. No weakness. HEAD, EYES, EARS, NOSE AND THROAT: No change in vision. No ear pain or discharge. No sore throat. CARDIOVASCULAR: No chest pain or shortness of breath. RESPIRATORY: No cough, wheezing, or hemoptysis. GASTROINTESTINAL: No nausea, vomiting, diarrhea or constipation. GENITOURINARY: No dysuria, frequency, or change in urination. MUSCULOSKELETAL: +Back pain. No joint or muscle swelling or pain. No neck pain. SKIN: No rash NEUROLOGIC: No headache, vertigo, loss of consciousness, or change in strength/ sensation. ENDOCRINE: +Decreased appetite, +kidney/liver cyst. No increased thirst. No abnormal weight change. HEMATOLOGIC/LYMPHATIC: No anemia, easy bleeding, or history of blood clots. ALLERGIC/IMMUNOLOGIC: No hives or skin allergy. <Esperanza Cano - Last Filed: 04/24/16 01:09> *Physical Exam - Vital Signs Last Vital Signs Temp Pulse Resp BP Pulse Ox 98.7 F 85 18 159/75 100 04/23/16 18:31 04/23/16 18:31 04/23/16 18:31 04/23/16 18:31 04/23/16 18:31 <Clemente Padgett - Last Filed: 04/23/16 20:27> - Vital Signs Last Vital Signs Temp Pulse Resp BP Pulse Ox 98.7 F 85 18 159/75 100 04/23/16 18:31 04/23/16 18:31 04/23/16 18:31 04/23/16 18:31 04/23/16 18:31 - Physical Exam Comments: 04/23/16 20:40 GENERAL: Awake, alert, and fully oriented, in no acute distress HEAD: No signs of trauma EYES: Scleral icterus. PERRLA, EOMI, conjunctiva clear ENT: Auricles normal inspection, hearing grossly normal, nares patent, oropharynx clear without exudates. Moist mucosa NECK: Normal ROM, supple, no lymphadenopathy, JVD, or masses LUNGS: Coarse breath sounds in right lung field. Left lung field normal. HEART: Regular rate and rhythm, normal S1 and S2, no murmurs, rubs or gallops ABDOMEN: No right upper quadrant tenderness to palpation. Soft, nontender, normoactive bowel sounds. No guarding, no rebound. No masses. EXTREMITIES: Normal range of motion, no edema. No clubbing or cyanosis. No cords, erythema, or tenderness NEUROLOGICAL: Cranial nerves II through XII grossly intact. Normal speech, normal gait SKIN: Jaundice. Warm, Dry, normal turgor, no rashes noted. Midline scar descending from the umbilicus, from colostomy. <Esperanza Cano - Last Filed: 04/24/16 01:09> - Vital Signs Last Vital Signs Temp Pulse Resp BP Pulse Ox 98.7 F 85 18 159/75 100 04/23/16 18:31 04/23/16 18:31 04/23/16 18:31 04/23/16 18:31 04/23/16 18:31 <Kristin Vizcaino - Last Filed: 04/24/16 01:23> Heart Score/ECG Review - ECG Impressions Comment:: 04/23/16 20:36 Vent. Rate: 76 bpm IMPRESSION: Normal sinus rhythm. Left axis deviation. Incomplete right bundle branch block. Voltage criteria for left ventricular hypertrophy. <Esperanza Cano - Last Filed: 04/24/16 01:09> ED Treatment Course - LABORATORY CBC & Chemistry Diagram: 04/23/16 20:10 04/23/16 20:10 - ADDITIONAL ORDERS Additional order review: 04/23/16 20:10 RBC 4.03 MCV 87.3 MCHC 33.7 RDW 13.9 MPV 8.1 Neutrophils % 70.1 Lymphocytes % 16.2 D Monocytes % 9.2 Eosinophils % 2.9 Basophils % 1.6 D - Medications Given in the ED: ED Medications Discontinued Medications Generic Name Dose Route Start Last Admin Trade Name Freq PRN Reason Stop Dose Admin Losartan Potassium 25 mg 04/23/16 19:51 04/23/16 20:23 Cozaar - PO 04/23/16 19:52 25 mg ONCE ONE Administration Sodium Chloride 1,000 ml 04/23/16 19:50 04/23/16 20:16 Normal Saline - IV 04/23/16 19:51 1,000 ml ONCE ONE Administration <Clemente Padgett - Last Filed: 04/23/16 20:27> - LABORATORY CBC & Chemistry Diagram: 04/23/16 20:10 04/23/16 20:10 - ADDITIONAL ORDERS Additional order review: 04/23/16 20:10 RBC 4.03 MCV 87.3 MCHC 33.7 RDW 13.9 MPV 8.1 Neutrophils % 70.1 Lymphocytes % 16.2 D Monocytes % 9.2 Eosinophils % 2.9 Basophils % 1.6 D - RADIOLOGY Radiograph Interpretation: 04/23/16 23:47 EXAM: CT abdomen and pelvis INTERPRETED BY: Dr. Negrete REVIEWED BY: Dr. Vizcaino IMPRESSION: Moderate distention of the biliary tree which abruptly transitions in the pancreatic head. A 16mm hypoattenuating process seen in the head of the pancreas adjacent to the ampulla suspicious for neoplasm. Further evaluation of this process is indicated. EXAM: Abdomen US INTERPRETED BY: Dr. Negrete REVIEWED BY: Dr. Vizcaino IMPRESSION: Cholelithiasis. Otherwise normal appearance of the gallbladder. Distended CBD. The distal CBD is not well visualized. Further evaluation should be considered. Heterogeneous appearance of liver due to fatty infiltration. Heterogeneous appearance of the visualized pancreas with a hypoechoic lesion seen in the pancreatic head adjacent to the duct. Suspect neoplasm. - Medications Given in the ED: ED Medications Discontinued Medications Generic Name Dose Route Start Last Admin Trade Name Wood PRN Reason Stop Dose Admin Losartan Potassium 25 mg 04/23/16 19:51 04/23/16 20:23 Cozaar - PO 04/23/16 19:52 25 mg ONCE ONE Administration Sodium Chloride 1,000 ml 04/23/16 19:50 04/23/16 20:16 Normal Saline - IV 04/23/16 19:51 1,000 ml ONCE ONE Administration <Esperanza Cano - Last Filed: 04/24/16 01:09> - LABORATORY CBC & Chemistry Diagram: 04/23/16 20:10 04/23/16 20:10 <Kristin Vizcaino - Last Filed: 04/24/16 01:23> Medical Decision Making - Medical Decision Making 04/23/16 23:49 First call placed to Dr. Rodriguez at 23:35. Awaiting call back. Case discussed with Dr. Rodriguez at 23:48. <Esperanza Cano - Last Filed: 04/24/16 01:09> - Medical Decision Making 04/23/16 20:29 Pt was sent to the ER for jaundice and elevated LFTs and elevated total bilirubin. Pt and his family didn't notice the jaundice. Pt complains of occasional RUQ pain, but niothing severe. Pt was accompanying his to her doctor's office, when the doctor noted his jaundice, sent him from labs and found the markedly abnormal labs. Pt was sent to the ER for admission. He has a history of prostate cancer that was resected in 2000; he likely has metastasis at this time, as on exam he has no RUQ tenderness with deep palpation. This is unlikely to be a stone or sludge in the GB. No pancreatic pain either on exam. 04/23/16 21:16 EKG: same pattern as old EKG from 08/2015; CXR same as old cxr; no pneumonia; midly enlarged heart Labs returned; mild LFT improvement from earlier today. 04/23/16 23:33 Patient Name: David Mann This is a preliminary report by imaging operations and maintenance technican Exam: Contrast-enhanced CT abdomen and pelvis Images: [id number] Clinical indication : Prostate cancer with elevated LFTs. Rule out metastases. Findings: Subsegmental dependent changes are noted in the lung bases. There is mild to moderate intrahepatic biliary duct dilatation noted. The spleen has a normal appearance. The body and tail of the pancreas are atrophied. A 16mm hypoattenuating process is seen in the pancreatic head posteriorly (image 43) and appears to occlude the distal CBD. Cholelithiasis noted in the gallbladder. The gallbladder is distended to 4.9 cm in diameter. The adrenal glands are unremarkable. A left renal hypodensity is noted. The kidneys have an otherwise normal appearance and enhance symmetrically. There is no evidence of urinary tract obstruction. The gastrointestinal tract does not appear obstructed. No thickened or dilated bowel is seen. Postsurgical changes are noted in an ileal loop in the right lower quadrant. The appendix has a normal appearance. The urinary bladder is unremarkable. The patient is status post prostatectomy. No abdominal or pelvic adenopathy is seen. No lytic or blastic destructive osseous lesions are seen. Impression: Moderate distention of the biliary tree which abruptly transitions in the pancreatic head. A 16mm hypoattenuating process seen in the head of the pancreas adjacent to the ampulla suspicious for neoplasm. Further evaluation of this process is indicated. THIS DOCUMENT HAS BEEN ELECTRONICALLY SIGNED Pt was sent by his PMD Annabi[facility] ; Dr. Rodriguez is covering [employer]. 04/24/16 01:04 Patient Name: David Mann This is a preliminary report by imaging operations and maintenance technican Exam: Abdominal sonogram Images: 45 Clinical indication: Jaundice. Gallstones. Rule out cholecystitis. Findings: The visualized pancreatic parenchyma appears heterogeneous. An area of decreased echogenicity is noted in the pancreatic head measuring approximately 1.8 cm in diameter (image 3). The visualized aorta has a normal caliber. Cholelithiasis is noted no mural thickening or pericholecystic fluid seen. The liver measures 13.2 cm in length within normal limits. The parenchyma is heterogeneous with increased echogenicity seen in the right lobe. he right kidney has a normal appearance a normal echotexture and measures 10 cm in length. No parenchymal mass, shadowing calculus or hydronephrosis is seen. The CBD is distended to 1.3 cm in diameter. Hepatopetal flow is demonstrated in the main portal vein. Impression: Cholelithiasis. Otherwise normal appearance of the gallbladder. Distended CBD. The distal CBD is not well visualized. Further evaluation should be considered. Heterogeneous appearance of liver due to fatty infiltration. Heterogeneous appearance of the visualized pancreas with a hypoechoic lesion seen in the pancreatic head adjacent to the duct. Suspect neoplasm. THIS DOCUMENT HAS BEEN ELECTRONICALLY SIGNED I spoke to Dr. Rodriguez; we discussed the fact that pt will not have MSCP or ERCP over the weekend in the hospital. Pt is stable for discharge home. Pt has been hydrated and he has Lipase normal. Afebrile; no abdominal pain. Dr. Rodriguez feels that this should be taken care of on an outpatient basis. Pt and his family are in agreement. They understand that they can return in the event of worsening symptoms, increased abdominal discomfort or fever. <Kristin Vizcaino - Last Filed: 04/24/16 01:23> *DC/Admit/Observation/Transfer - Attestations Scribe Attestion: 04/23/16 20:28 Documentation prepared by Esperanza Cano, acting as medical staff assistant for Kristin Vizcaino MD. <Clemente Padgett - Last Filed: 04/23/16 20:27> <Esperanza Cano - Last Filed: 04/24/16 01:09> - Discharge Dispostion Admit: No <Kristin Vizcaino - Last Filed: 04/24/16 01:23> Diagnosis at time of Disposition: Prostate CA, Pancreatic neoplasm, Common bile duct (CBD) obstruction, Jaundice of recent onset, Hyperbilirubinemia - Discharge Dispostion Disposition: HOME Condition at time of disposition: Stable - Referrals Referrals: Danelle Gaytan MD [Primary Care Provider] - - Patient Instructions Printed Discharge Instructions: DI for Jaundice, Liver Function Tests
[2016-04-23] MEDS ORDERED: SODIUM CHLORIDE 0.9% 500 ML INFUS.BAG IV ONE (19:50)
[2016-04-23] MEDS ORDERED: LOSARTAN POTASSIUM 25 MG TABLET PO ONE (19:51)
[2016-04-23 20:17] LABS: BASOPHIL 1.6 % (0-2.0); EOSINOPHIL 2.9 % (0-4.5); MCH 29.4 pg (25.7-33.7); MCHC 33.7 g/dl (32.0-35.9); MEAN CELL VOLUME 87.3 fl (80-96); MEAN PLT VOLUME 8.1 fl (7.5-11.1); NEUTROPHILS 70.1 % (42.8-82.8); PLATELET COUNT 288 K/MM3 (134-434); RDW 13.9 % (11.9-15.9)
[2016-04-23] MEDS ORDERED: LOSARTAN POTASSIUM 25 MG TABLET ONE (20:20)
[2016-04-23 20:29] LABS: INR 1.16 (0.82-1.09); PROTHROMBIN TIME (PATIENT) 12.8 SEC (9.98-11.88)
[2016-04-23 20:44] LABS: ALBUMIN 3.2 g/dl (3.4-5.0); AMYLASE 104 U/L (25-115); ANION GAP 10 (8-16); BILIRUBIN,TOTAL 6.6 mg/dL (0.2-1.0); CALCIUM 8.9 mg/dL (8.5-10.1); CO2 26 mmol/L (21-32); GLUCOSE,RANDOM 116 mg/dL (74-106); SGOT/AST 362 U/L (15-37); TOT PROT 6.8 g/dl (6.4-8.2)
[2016-04-23 20:56] LABS: ALK PHOS 978 U/L (45-117)
[2016-04-23 21:01] LABS: SGPT/ALT 424 U/L (12-78)
[2016-04-23 22:07] LABS: URINE APPEARANCE CLEAR; URINE BLOOD NEGATIVE (NEGATIVE); URINE COLOR AMBER; URINE GLUCOSE (UA) NEGATIVE (NEGATIVE); URINE KETONE NEGATIVE (NEGATIVE); URINE LEUK ESTERASE NEGATIVE (NEGATIVE); URINE NITRITE NEGATIVE (NEGATIVE); URINE PROTEIN NEGATIVE (NEGATIVE); URINE UROBILINOGEN 2.0 E.U/dl E.U./dl (0.2-1.0)
[2016-04-24 01:52] VITALS: BP 145/72; PULSE 81; TEMP 98.3
--- NOTE | 2016-04-24 13:17 | EKG ---
Test Reason : Blood Pressure : / mmHG Vent. Rate : 076 BPM Atrial Rate : 076 BPM P-R Int : 160 ms QRS Dur : 110 ms QT Int : 394 ms P-R-T Axes : 060 -35 034 degrees QTc Int : 443 ms NORMAL SINUS RHYTHM LEFT AXIS DEVIATION INCOMPLETE RIGHT BUNDLE BRANCH BLOCK VOLTAGE CRITERIA FOR LEFT VENTRICULAR HYPERTROPHY ABNORMAL ECG WHEN COMPARED WITH ECG OF 25-MAR-2016 08:42, NO SIGNIFICANT CHANGE WAS FOUND Confirmed by WAYLON PEDERSON MD ([id number]) on 04/24/2016 1:17:07 PM Referred By: Confirmed By:WAYLON PEDERSON MD
== END 2016-04-24 01:50 | disposition home or self-care (01) | DRG 442 ==
LOC: JER 18:24 → JERBED 18:25 → UNDOADMIN 23:35 → JER 04-24 01:50
PROVIDERS: ADMIT Family Medicine; ATTEND Family Medicine
DX: E80.6 Other disorders of bilirubin metabolism (principal); K80.51 Calculus of bile duct without cholangitis or cholecystitis with obstruction; R94.5 Abnormal results of liver function studies; D37.8 Neoplasm of uncertain behavior of other specified digestive organs; Z85.46 Personal history of malignant neoplasm of prostate; I10 Essential (primary) hypertension; E78.00 Pure hypercholesterolemia, unspecified
CPT/HCPCS: 36415; 71010-TC; 74177-TC; 76705-TC; 80053; 81003; 82150; 83690; 85025; 85610; 93005; 93010; 99284-25

== ENCOUNTER 2016-04-28 20:04 | Inpatient (IN) | payer OTHER ==
[2016-04-28 12:25] VITALS: BMI 24.1
[~2016-04-28 20:04] MED LIST: INDOMETHACIN 50 MG RECTAL SUPPOSITORY PR ONE; LEVOFLOXACIN 500 MG IVPB 100 ML IVPB ONE; LEVOFLOXACIN 500 MG PREMIX BAG IVPB ONE; LIDOCAINE HCL/PF 1% SDV 5ML VIAL ONE; ONDANSETRON 4 MG/2 ML VIAL IVPB PRN; PROPOFOL 20 ML ONE; SUCCINYLCHOLINE CHLORIDE 200 MG/10 ML VIAL ONE
[2016-04-28] MEDS ORDERED: PIPERACILLIN/TAZOB 3.375 GM/50 ML PRE-DOCKED IVPB SCH (20:15)
[2016-04-28] MEDS: D5-1/2NS+20 MEQ KCL - 1,000 ML IV SCH (21:07)
[2016-04-28] MEDS: CARVEDILOL 6.25 MG TABLET (FP) PO SCH (21:21)
[2016-04-28] MEDS: PIPERACILLIN/TAZOB 3.375 GM/50 ML PRE-DOCKED IVPB SCH (21:21)
[2016-04-28] MEDS: HEPARIN NA (PORCINE) 5,000 UNITS/ML 1ML VIAL SQ SCH (21:21)
[2016-04-29] MEDS: PIPERACILLIN/TAZOB 3.375 GM/50 ML PRE-DOCKED IVPB SCH (05:33)
[2016-04-29 07:07] LABS: INR 1.25 (0.82-1.09); PROTHROMBIN TIME (PATIENT) 13.8 SEC (9.98-11.88)
[2016-04-29 07:29] LABS: AMYLASE 155 U/L (25-115)
--- NOTE | 2016-04-29 09:28 | HP ---
Admitting History and Physical - Admission History of Present Illness: 85 Y/O MALE PRESENTED WITH A SUDDEN ONSET OF JAUNDICE AND WAS FOUND TO HAVE HIGH BILLIRUBIN PT CT SCAN WITH A POSSIBLE PANCREATIC MASS--STENT PLACED - Past Medical History Cardiovascular: Yes: CAD (non-obstructive per 01/2013 cardiac cath), HTN, Hyperlipdemia, Murmur Gastrointestinal: Yes: Constipation, Other (H/O SBO DUE TO ADHESIONS) Renal/: Yes: Other (PROSTATE CANCER S/P PROSTATECTOMY) - Past Surgical History Past Surgical History: Yes: Prostatectomy - Smoking History Smoking history: Never smoked Have you smoked in the past 12 months: No Aproximately how many cigarettes per day: 0 - Alcohol/Substance Use Hx Alcohol Use: No Home Medications - Allergies Allergies/Adverse Reactions: Allergies Allergy/AdvReac Type Severity Reaction Status Date / Time No Known Allergies Allergy Verified 04/23/16 18:30 - Home Medications Home Medications: Ambulatory Orders Amlodipine Besylate 10 mg PO DAILY 08/02/15 Carvedilol 6.25 mg PO BID 08/02/15 Aspirin Coated [Ecotrin -] 81 mg PO DAILY tablet.ec 08/05/15 Diphenhydramine HCl [Benadryl Capsule -] 25 mg PO Q6H PRN #0 capsule 04/30/16 Review of Systems - Review of Systems Constitutional: reports: Loss of Appetite, Weakness Gastrointestinal: denies: Abdominal Pain, Diarrhea, Nausea, Vomiting Physical Examination Vital Signs: Vital Signs Temperature 98.0 F 04/29/16 06:00 Pulse Rate 68 04/29/16 06:00 Respiratory Rate 20 04/29/16 06:00 Blood Pressure 126/66 04/29/16 06:00 O2 Sat by Pulse Oximetry (%) 98 04/28/16 22:00 Cardiovascular: Yes: Regular Rate and Rhythm Respiratory: Yes: Regular, CTA Bilaterally Gastrointestinal: Yes: Normal Bowel Sounds, Soft Edema: No Problem List - Problems (1) Common bile duct (CBD) obstruction Assessment/Plan: STENT PLACED AWAIT LABS Code(s): K83.1 - OBSTRUCTION OF BILE DUCT (2) HTN (hypertension) Assessment/Plan: MONITOR BP (3) Hyperbilirubinemia Assessment/Plan: AWAIT REPEAT LABS Code(s): E80.6 - OTHER DISORDERS OF BILIRUBIN METABOLISM (4) Jaundice of recent onset Code(s): R17 - UNSPECIFIED JAUNDICE (5) Pancreatic neoplasm Assessment/Plan: WILL NEED FURTHER W/U Code(s): D49.0 - NEOPLASM OF UNSPECIFIED BEHAVIOR OF DIGESTIVE SYSTEM (6) Prostate CA Code(s): C61 - MALIGNANT NEOPLASM OF PROSTATE
[2016-04-29] MEDS: D5-1/2NS+20 MEQ KCL - 1,000 ML IV SCH ×3 (10:12→23:40)
[2016-04-29] MEDS: HEPARIN NA (PORCINE) 5,000 UNITS/ML 1ML VIAL SQ SCH ×2 (10:13→21:20)
[2016-04-29] MEDS: CARVEDILOL 6.25 MG TABLET (FP) PO SCH ×2 (10:13→21:20)
[2016-04-29] MEDS: amLODIPine BESYLATE 10 MG TABLET (FP) PO SCH (10:13)
[2016-04-29 10:14] LABS: BASOPHIL 0.3 % (0-2.0); EOSINOPHIL 1.8 % (0-4.5); MCH 29.7 pg (25.7-33.7); MCHC 33.7 g/dl (32.0-35.9); MEAN CELL VOLUME 88.1 fl (80-96); MEAN PLT VOLUME 8.8 fl (7.5-11.1); NEUTROPHILS 79.3 % (42.8-82.8); PLATELET COUNT 282 K/MM3 (134-434); RDW 14.3 % (11.9-15.9); WHITE BLOOD COUNT 6.4 K/mm3 (4.0-10.0)
[2016-04-29 10:33] LABS: ALBUMIN 2.7 g/dl (3.4-5.0); ALK PHOS 836 U/L (45-117); ANION GAP 11 (8-16); BILIRUBIN,TOTAL 11.1 mg/dL (0.2-1.0); CALCIUM 8.7 mg/dL (8.5-10.1); CO2 25 mmol/L (21-32); CREATININE 1.1 mg/dL (0.7-1.3); GLUCOSE,RANDOM 138 mg/dL (74-106); SGOT/AST 215 U/L (15-37); SGPT/ALT 375 U/L (12-78); TOT PROT 6.2 g/dl (6.4-8.2)
--- NOTE | 2016-04-29 16:03 | EKG ---
Test Reason : Blood Pressure : / mmHG Vent. Rate : 066 BPM Atrial Rate : 066 BPM P-R Int : 154 ms QRS Dur : 108 ms QT Int : 414 ms P-R-T Axes : 057 -26 -06 degrees QTc Int : 434 ms NORMAL SINUS RHYTHM INCOMPLETE RIGHT BUNDLE BRANCH BLOCK MODERATE VOLTAGE CRITERIA FOR LVH, MAY BE NORMAL VARIANT BORDERLINE ECG WHEN COMPARED WITH ECG OF 23-APR-2016 20:27, INVERTED T WAVES HAVE REPLACED NONSPECIFIC T WAVE ABNORMALITY IN INFERIOR LEADS Confirmed by GAVIOTA ALEXANDER MD ([id number]) on 04/29/2016 4:02:52 PM Referred By: Ezequiel Rosas Confirmed By:GAVIOTA ALEXANDER MD
[2016-04-29] MEDS: PIPERACILLIN/TAZOB 3.375 GM 50 ML IVPB SCH (17:08)
--- NOTE | 2016-04-29 19:13 | CONS ---
DATE OF CONSULTATION: An 85-year-old male evaluated for possible biliary sepsis. He was recently hospitalized with a viral syndrome. He had presented to his PMD where he was noted to be jaundiced. Liver enzymes were noted to be marked elevated. A CAT scan was performed and showed a pancreatic mass at the pancreatic head with biliary tract obstruction. He underwent an ERCP on April 28, 2016, and a stent was placed. Concern was expressed over possible biliary sepsis. He is presently comfortable. He denies any abdominal pain. He has been afebrile with a normal white blood cell count. Denies any fever or shaking chills, nausea, vomiting, diarrhea. No complaints of chest pain, shortness of breath, cough, or sputum production. No dysuria or hematuria. PAST MEDICAL HISTORY: Positive for mild dementia, coronary artery disease, hypertension, hyperlipidemia, prostate cancer, history of small bowel obstruction. PAST SURGICAL HISTORY: Status post prostatectomy. ALLERGIES: No known allergies. MEDICATION: Norvasc, carvedilol, aspirin, losartan, Lipitor. SOCIAL HISTORY: Lives at home with his , nonsmoker. No alcohol abuse. SYSTEMS REVIEW: Neurologic: No loss of consciousness, seizure activity, or focal weakness. Cardiac: Negative chest pain or palpitations. Respiratory: Negative cough or sputum production. Gastrointestinal: As per HPI. Genitourinary: Negative for urinary tract infection. LABORATORY DATA: White count 6.4, hematocrit 34.4, platelet count 282. BUN 19, creatinine 1.1, total bilirubin 1.1, alkaline phosphatase 836, AST 215. PHYSICAL EXAMINATION: General: He is awake and responsive, ambulatory, in no acute distress. Patient is jaundiced. Vital signs: Temperature 98.4, blood pressure 133/61, pulse 68 regular, respirations 20 per minute. HEENT: Sclerae icteric. Dry mucous membranes. Cardiovascular: Heart sounds S1, S2. Respiratory: Lungs clear. Abdomen: Soft. No tenderness elicited. No mass, rebound, or rigidity. Extremities: Negative for edema. IMPRESSION: 1. Biliary tract obstruction, possible biliary sepsis. 2. Pancreatic mass likely neoplasm. Pending cultures, empiric antibiotic coverage with Zosyn. Tissue diagnosis of pancreatic mass. Thank you for the kind referral. WAYLON JOSE M.D. [id number]
[2016-04-29] MEDS ORDERED: ATORVASTATIN CA 20 MG TABLET (FP) PO SCH (22:00)
[2016-04-30] MEDS: PIPERACILLIN/TAZOB 3.375 GM 50 ML IVPB SCH ×3 (01:31→17:02)
[2016-04-30] MEDS: CARVEDILOL 6.25 MG TABLET (FP) PO SCH (09:46)
[2016-04-30] MEDS: amLODIPine BESYLATE 10 MG TABLET (FP) PO SCH (09:46)
[2016-04-30] MEDS: HEPARIN NA (PORCINE) 5,000 UNITS/ML 1ML VIAL SQ SCH (09:46)
[2016-04-30 10:17] LABS: BASOPHIL 0.6 % (0-2.0); EOSINOPHIL 3.8 % (0-4.5); MCH 29.5 pg (25.7-33.7); MCHC 33.3 g/dl (32.0-35.9); MEAN CELL VOLUME 88.6 fl (80-96); MEAN PLT VOLUME 8.6 fl (7.5-11.1); NEUTROPHILS 73.1 % (42.8-82.8); PLATELET COUNT 321 K/MM3 (134-434); RDW 14.3 % (11.9-15.9); WHITE BLOOD COUNT 5.6 K/mm3 (4.0-10.0)
[2016-04-30 10:51] LABS: ALBUMIN 2.8 g/dl (3.4-5.0); ALK PHOS 750 U/L (45-117); ANION GAP 9 (8-16); BILIRUBIN,TOTAL 6.9 mg/dL (0.2-1.0); CALCIUM 8.8 mg/dL (8.5-10.1); CO2 28 mmol/L (21-32); GLUCOSE,RANDOM 120 mg/dL (74-106); SGOT/AST 190 U/L (15-37); SGPT/ALT 340 U/L (12-78); TOT PROT 6.4 g/dl (6.4-8.2)
[2016-04-30] MEDS ORDERED: diphenhydrAMINE HCL 25 MG CAPSULE (FP) PO PRN (10:58)
[2016-04-30 11:12] VITALS: TEMP 98
[2016-04-30 14:28] VITALS: BP 135/68; PULSE 70
--- NOTE | 2016-04-30 15:00 | DS ---
Physical Examination Vital Signs: Vital Signs Temperature 98.0 F 04/30/16 14:26 Pulse Rate 70 04/30/16 14:26 Respiratory Rate 20 04/30/16 08:00 Blood Pressure 135/68 04/30/16 14:26 O2 Sat by Pulse Oximetry (%) 98 04/30/16 08:00 Labs: CBC, BMP 04/30/16 09:15 04/30/16 09:15 Discharge Summary Reason For Visit: PRURITIS/OBSTRUCTIVE JAUNDICE Hospital Course: 85 Y/O MALE PRESENTED WITH A SUDDEN ONSET OF JAUNDICE AND WAS FOUND TO HAVE HIGH BILLIRUBIN PT CT SCAN WITH A POSSIBLE PANCREATIC MASS--STENT PLACED - Past Medical History Cardiovascular: Yes: CAD (non-obstructive per 01/2013 cardiac cath), HTN, Hyperlipdemia, Murmur Gastrointestinal: Yes: Constipation, Other (H/O SBO DUE TO ADHESIONS) Renal/: Yes: Other (PROSTATE CANCER S/P PROSTATECTOMY) Problems (1) Common bile duct (CBD) obstruction Assessment/Plan: STENT PLACED LABS noted Code(s): K83.1 - OBSTRUCTION OF BILE DUCT (2) HTN (hypertension) Assessment/Plan: MONITOR BP (3) Hyperbilirubinemia Assessment/Plan: AWAIT REPEAT LABS Code(s): E80.6 - OTHER DISORDERS OF BILIRUBIN METABOLISM (4) Jaundice of recent onset Code(s): R17 - UNSPECIFIED JAUNDICE (5) Pancreatic neoplasm Assessment/Plan: WILL NEED FURTHER W/U Code(s): D49.0 - NEOPLASM OF UNSPECIFIED BEHAVIOR OF DIGESTIVE SYSTEM (6) Prostate CA Code(s): C61 - MALIGNANT NEOPLASM OF PROSTATE Condition: Improved - Instructions Referrals: Danelle Gaytan MD [Primary Care Provider] - 1 Week Disposition: HOME - Home Medications Comprehensive Discharge Medication List: Ambulatory Orders Amlodipine Besylate 10 mg PO DAILY 08/02/15 Carvedilol 6.25 mg PO BID 08/02/15 Aspirin Coated [Ecotrin -] 81 mg PO DAILY tablet.ec 08/05/15 Diphenhydramine HCl [Benadryl Capsule -] 25 mg PO Q6H PRN #0 capsule 04/30/16
--- NOTE | 2016-04-30 15:45 | PN ---
Progress Note, Physician History of Present Illness: C/O bilateral mid-abdoinal pain with movement; generalized pruritis No N/V/D No fever/ chills - Current Medication List Current Medications: Active Medications Amlodipine Besylate (Norvasc -) 10 mg PO DAILY [facility] Last Admin: 04/30/16 09:46 Dose: 10 mg Atorvastatin Calcium (Lipitor -) 20 mg PO HS [facility] Last Admin: 04/29/16 21:20 Dose: 20 mg Carvedilol (Coreg -) 6.25 mg PO BID [facility] Last Admin: 04/30/16 09:46 Dose: 6.25 mg Diphenhydramine HCl (Benadryl -) 25 mg PO Q6H PRN PRN Reason: FOR ITCHING Last Admin: 04/30/16 13:13 Dose: 25 mg Heparin Sodium (Porcine) (Heparin -) 5,000 unit SQ BID [facility] Last Admin: 04/30/16 09:46 Dose: 5,000 unit Potassium Chloride/Dextrose/Sod Cl (D5-1/2ns+20 Meq Kcl -) 1,000 mls @ 83 mls/ hr IV ASDIR [facility] Last Admin: 04/29/16 23:40 Dose: 83 mls/hr Piperacillin Sod/Tazobactam Sod (Zosyn 3.375gm Ivpb (Pre-Docked)) 50 mls @ 100 mls/hr IVPB Q8H-IV PRIYANKA PRN Reason: Protocol Last Admin: 04/30/16 09:47 Dose: 100 mls/hr Ondansetron HCl (Zofran Injection) 4 mg IVPB Q6H PRN PRN Reason: NAUSEA - Objective Vital Signs: Vital Signs Temperature 98.0 F 04/30/16 14:26 Pulse Rate 70 04/30/16 14:26 Respiratory Rate 20 04/30/16 08:00 Blood Pressure 135/68 04/30/16 14:26 O2 Sat by Pulse Oximetry (%) 98 04/30/16 08:00 Constitutional: Yes: No Distress Eyes: Yes: Conjunctiva Clear, Sclera Icterus Cardiovascular: Yes: Regular Rate and Rhythm, S1, S2 Respiratory: Yes: CTA Bilaterally Gastrointestinal: Yes: Normal Bowel Sounds, Soft. No: Tenderness Edema: No Integumentary: Yes: Jaundice Labs: CBC, BMP 04/30/16 09:15 04/30/16 09:15 INR, PTT INR 1.25 (0.82-1.09) H 04/29/16 06:30 Assessment/Plan Pancreatitic mass/ obstructive jaundice S/P stent Substitute po levaquin 500g qd x7d Outpatient referral for pancreatic mass bx
[2016-04-30] MEDS: D5-1/2NS+20 MEQ KCL - 1,000 ML IV SCH (16:04)
== END 2016-04-30 18:28 | disposition home or self-care (01) | DRG 446 ==
LOC: J6S 20:04 → JASUSAT 20:04 → J6S 20:30 → JASUSAT 20:30
PROVIDERS: ADMIT Internal Medicine Gastroenterology; ATTEND Internal Medicine Gastroenterology
PROC: 0F798DZ Dilation of Common Bile Duct with Intraluminal Device, Via Natural or Artificial Opening Endoscopic (ICD-10-PCS; principal; 2016-04-28 14:00)
DX: K83.1 Obstruction of bile duct (principal); D49.0 Neoplasm of unspecified behavior of digestive system; I10 Essential (primary) hypertension; E78.5 Hyperlipidemia, unspecified; R01.1 Cardiac murmur, unspecified; Z85.46 Personal history of malignant neoplasm of prostate; I25.10 Atherosclerotic heart disease of native coronary artery without angina pectoris; Z98.61 Coronary angioplasty status
CPT/HCPCS: 36415; 74176-TC; 76001-TC; 80053; 82150; 83690; 85025; 85610; 87040; 93005; 93010; 94760; 97116-GP; 97162-PG; J1644

== ENCOUNTER 2016-07-06 07:07 | Day surgery (SDC) | payer OTHER ==
[2016-07-06] MEDS ORDERED: SODIUM CHLORIDE 250 ML IV ONE (08:00)
[2016-07-06] MEDS ORDERED: DEXAMETHASONE INJECTION 10 MG in SODIUM CHLORIDE 50 ML IVPB ONE (08:00)
[2016-07-06] MEDS ORDERED: PALONOSETRON HCL 0.25 MG in SODIUM CHLORIDE 50 ML IVPB ONE (08:00)
[2016-07-06] MEDS ORDERED: SODIUM CHLORIDE IVPB ONE ×2 (08:30→15:00)
[2016-07-06] MEDS ORDERED: PACLITAXEL PROTEIN BOUND IVPB ONE (08:30)
[2016-07-06] MEDS ORDERED: SODIUM CHLORIDE IV ONE (09:00)
[2016-07-06] MEDS ORDERED: GEMCITABINE HCL IV ONE (09:00)
[2016-07-06 11:20] LABS: BASOPHIL 0.5 % (0-2.0); EOSINOPHIL 1.1 % (0-4.5); MCH 29.1 pg (25.7-33.7); MCHC 33.6 g/dl (32.0-35.9); MEAN CELL VOLUME 86.6 fl (80-96); MEAN PLT VOLUME 7.6 fl (7.5-11.1); NEUTROPHILS 78.9 % (42.8-82.8); PLATELET COUNT 260 K/MM3 (134-434); RDW 14.2 % (11.9-15.9); WHITE BLOOD COUNT 7.6 K/mm3 (4.0-10.0)
[2016-07-06 12:11] VITALS: TEMP 97.9
[2016-07-06 12:15] LABS: ANION GAP 11 (8-16); BILIRUBIN,TOTAL 0.7 mg/dL (0.2-1.0); CALCIUM 9.1 mg/dL (8.5-10.1); CO2 25 mmol/L (21-32); COCKROFT - GAULT 47; CREATININE 1.1 mg/dL (0.7-1.3); GLUCOSE,RANDOM 175 mg/dL (74-106); MAGNESIUM 2.3 mg/dL (1.8-2.4); SGOT/AST 19 U/L (15-37); SGPT/ALT 22 U/L (12-78)
[2016-07-06 12:16] LABS: ALK PHOS 169 U/L (45-117)
[2016-07-06] MEDS: DEXAMETHASONE INJECTION 12 MG in SODIUM CHLORIDE 50 ML IVPB ONE ×2 (14:06→14:15)
[2016-07-06] MEDS ORDERED: ACETAMINOPHEN 325 MG TABLET (FP) ONE (14:17)
[2016-07-06] MEDS ORDERED: ACETAMINOPHEN 325 MG TABLET (FP) PO ONE ×2 (14:30→14:45)
[2016-07-06] MEDS ORDERED: DEXAMETHASONE INJECTION 20 MG in SODIUM CHLORIDE 50 ML IVPB ONE (14:45)
[2016-07-06] MEDS ORDERED: RANITIDINE IVPB ONE (15:00)
[2016-07-06 18:33] VITALS: BP 135/68; PULSE 66
== END 2016-07-06 19:20 | disposition home or self-care (01) ==
LOC: JONCCHEMO 07:07 → J7W 11:52 → JONCCHEMO 19:20
PROVIDERS: ATTEND Internal Medicine Hematology & Oncology
PROC: 3E04305 Introduction of Other Antineoplastic into Central Vein, Percutaneous Approach (ICD-10-PCS; principal; 2016-07-06)
PROC: 3E043GC Introduction of Other Therapeutic Substance into Central Vein, Percutaneous Approach (ICD-10-PCS; 2016-07-06)
PROC: 3E0437Z Introduction of Electrolytic and Water Balance Substance into Central Vein, Percutaneous Approach (ICD-10-PCS; 2016-07-06)
DX: Z51.11 Encounter for antineoplastic chemotherapy (principal); C25.0 Malignant neoplasm of head of pancreas; D70.1 Agranulocytosis secondary to cancer chemotherapy
CPT/HCPCS: 96361; 96375; 96413; 96417; J9201; J9267; 36415; 80053; 83735; 85025; 96360; 96367; J2469; J9264

== ENCOUNTER 2016-07-13 07:05 | Day surgery (SDC) | payer OTHER ==
[2016-07-13] MEDS ORDERED: DEXAMETHASONE INJECTION 12 MG in SODIUM CHLORIDE 50 ML IVPB ONE (08:00)
[2016-07-13] MEDS ORDERED: PALONOSETRON HCL 0.25 MG in SODIUM CHLORIDE 50 ML IVPB ONE (08:00)
[2016-07-13] MEDS ORDERED: SODIUM CHLORIDE 250 ML IV ONE (08:00)
[2016-07-13] MEDS ORDERED: PACLITAXEL PROTEIN BOUND IVPB ONE (08:30)
[2016-07-13] MEDS ORDERED: SODIUM CHLORIDE IVPB ONE (08:30)
[2016-07-13] MEDS ORDERED: SODIUM CHLORIDE IV ONE (09:00)
[2016-07-13] MEDS ORDERED: GEMCITABINE HCL IV ONE (09:00)
[2016-07-13 09:31] LABS: BASOPHIL 0.9 % (0-2.0); EOSINOPHIL 3.7 % (0-4.5); MCH 28.7 pg (25.7-33.7); MCHC 33.2 g/dl (32.0-35.9); MEAN CELL VOLUME 86.5 fl (80-96); MEAN PLT VOLUME 8.1 fl (7.5-11.1); NEUTROPHILS 51.8 % (42.8-82.8); PLATELET COUNT 144 K/MM3 (134-434); RDW 14.2 % (11.9-15.9); WHITE BLOOD COUNT 2.7 K/mm3 (4.0-10.0)
[2016-07-13 09:53] LABS: ALBUMIN 3.8 g/dl (3.4-5.0); ANION GAP 9 (8-16); CALCIUM 8.9 mg/dL (8.5-10.1); CO2 29 mmol/L (21-32); COCKROFT - GAULT 52; GLUCOSE,RANDOM 108 mg/dL (74-106); MAGNESIUM 2.2 mg/dL (1.8-2.4); SGOT/AST 18 U/L (15-37); SGPT/ALT 25 U/L (12-78)
[2016-07-13 09:55] LABS: ALK PHOS 139 U/L (45-117); BILIRUBIN,TOTAL 0.7 mg/dL (0.2-1.0); TOT PROT 7.2 g/dl (6.4-8.2)
[2016-07-13] MEDS ORDERED: PORTA CATH FLUSH 10 ML IVPUSH ONE (14:33)
[2016-07-13 16:57] VITALS: TEMP 98.2
[2016-07-13 17:04] VITALS: BP 136/77; PULSE 76
[2016-07-16 00:10] LABS: HEP B SURFACE AB Reactive (.)
== END 2016-07-13 18:11 | disposition home or self-care (01) ==
LOC: JONCCHEMO 07:05 → J7W 10:55 → JONCCHEMO 18:11
PROVIDERS: ATTEND Internal Medicine Hematology & Oncology
PROC: 3E04305 Introduction of Other Antineoplastic into Central Vein, Percutaneous Approach (ICD-10-PCS; principal; 2016-07-13)
PROC: 3E043GC Introduction of Other Therapeutic Substance into Central Vein, Percutaneous Approach (ICD-10-PCS; 2016-07-13)
PROC: 3E0437Z Introduction of Electrolytic and Water Balance Substance into Central Vein, Percutaneous Approach (ICD-10-PCS; 2016-07-13)
DX: Z51.11 Encounter for antineoplastic chemotherapy (principal); C25.0 Malignant neoplasm of head of pancreas; D70.1 Agranulocytosis secondary to cancer chemotherapy
CPT/HCPCS: 96361; 96375; 96413; 96417; J9201; J9267; 36415; 80053; 82728; 83735; 85025; 86704; 86706; 86708; 87340; 96360; 96367; J2469; J9264

== ENCOUNTER 2016-07-20 07:10 | Day surgery (SDC) | payer OTHER ==
[2016-07-20] MEDS ORDERED: PALONOSETRON HCL 0.25 MG in SODIUM CHLORIDE 50 ML IVPB ONE (08:00)
[2016-07-20] MEDS ORDERED: SODIUM CHLORIDE 250 ML IV ONE (08:00)
[2016-07-20] MEDS ORDERED: DEXAMETHASONE INJECTION 12 MG in SODIUM CHLORIDE 50 ML IVPB ONE (08:00)
[2016-07-20] MEDS ORDERED: PACLITAXEL PROTEIN BOUND IVPB ONE (08:30)
[2016-07-20] MEDS ORDERED: SODIUM CHLORIDE IVPB ONE (08:30)
[2016-07-20] MEDS ORDERED: SODIUM CHLORIDE IV ONE (09:00)
[2016-07-20] MEDS ORDERED: GEMCITABINE HCL IV ONE (09:00)
[2016-07-20 09:36] LABS: MCHC 33.6 g/dl (32.0-35.9); MEAN CELL VOLUME 86.5 fl (80-96); MEAN PLT VOLUME 7.7 fl (7.5-11.1); PLATELET COUNT 115 K/MM3 (134-434); RDW 14.3 % (11.9-15.9); WHITE BLOOD COUNT 5.3 K/mm3 (4.0-10.0)
[2016-07-20 10:07] LABS: ALBUMIN 3.7 g/dl (3.4-5.0); ALK PHOS 150 U/L (45-117); ANION GAP 10 (8-16); BILIRUBIN,TOTAL 0.5 mg/dL (0.2-1.0); CALCIUM 8.6 mg/dL (8.5-10.1); CO2 28 mmol/L (21-32); COCKROFT - GAULT 47; CREATININE 1.1 mg/dL (0.7-1.3); GLUCOSE,RANDOM 105 mg/dL (74-106); MAGNESIUM 2.2 mg/dL (1.8-2.4); SGOT/AST 17 U/L (15-37); SGPT/ALT 31 U/L (12-78)
[2016-07-20] MEDS ORDERED: PORTA CATH FLUSH 10 ML IVPUSH ONE (11:35)
[2016-07-20 14:33] LABS: METAMYELOCYTE 6 % (0-2)
[2016-07-20 14:34] LABS: PLATELET ESTIMATE DECREASED (NORMAL)
--- NOTE | 2016-07-20 16:41 | CON.CARD ---
Cardiology Consult (text) - Consultation Consultation Note: This is an 85 year old male with a PMH of CAD, HTN, HLD, atrial fibrillation, and pancreatic CA. He is receiving chemotherapy for pancreatic Ca. I saw him in the infusion unit and he has no specific complaint. He specifically denies chest pain, palpitaitons, and SOB. He was on apixaban 5 mg BID for atrial fibrillation and was also on aspirin 81 mg for a history of CAD. He has a cardiac cath 01/31/13 at [facility] which showed only luminal irregularities noted in the LAD and RCA. He has had syncope in the past and was hospitalized 07/27 with a negative work up. An echocardiogram was performed on 08/04/15 which showed normal LV function and mild TR with moderate AI. Home medications: Coreg 6.25 mg PO BID Norvasc 10 mg daily NKDA Labs PLT 115 Cr 1.1 Vitals 155/95 mmHg P 70 No JVD Lungs CTA Cor S1S2, 2/4 diastolic M RUSB Ab Soft Ex no edema Neuro Grossly non focal A/P Atrial fibrillation, anticoagulation decision Risks vs Benefits Given the low platlet count and lack of severe CAD on prior cath, as well as no angina, I would DC aspirin for this patient. In terms of anticoagulation with apixaban, would given 5 mg q12 hours. Would only give the lower dose if renal insuffiency develops. Would stop AC all together if PLTs drop below 50. Can always temporarily hold AC if the PLT count seems to be dropping fast. He has a [id number] of 3 and my be even more hypercoaguable in the setting of pancreatic Ca, so would favor AC as long as it remains safe in the setting of low PLTs.
[2016-07-20 16:57] VITALS: BP 126/72; PULSE 86; TEMP 98.4
== END 2016-07-20 18:12 | disposition home or self-care (01) ==
LOC: JONCCHEMO 07:10 → J7W 10:24 → JONCCHEMO 18:12
PROVIDERS: ATTEND Internal Medicine Hematology & Oncology
PROC: 3E04305 Introduction of Other Antineoplastic into Central Vein, Percutaneous Approach (ICD-10-PCS; principal; 2016-07-20)
PROC: 3E043GC Introduction of Other Therapeutic Substance into Central Vein, Percutaneous Approach (ICD-10-PCS; 2016-07-20)
PROC: 3E0437Z Introduction of Electrolytic and Water Balance Substance into Central Vein, Percutaneous Approach (ICD-10-PCS; 2016-07-20)
DX: Z51.11 Encounter for antineoplastic chemotherapy (principal); C25.0 Malignant neoplasm of head of pancreas; D70.1 Agranulocytosis secondary to cancer chemotherapy
CPT/HCPCS: 96361; 96375; 96413; 96417; J9201; J9267; 36415; 80053; 83735; 85025; 96360; 96367; J2469; J9264

== ENCOUNTER 2016-07-26 10:29 | Inpatient (IN) | payer OTHER ==
[2016-07-26 10:34] VITALS: BMI 24.4
--- NOTE | 2016-07-26 12:20 | PDOC ---
History of Present Illness <Alaina Valera - Last Filed: 07/26/16 14:05> <Shira Jaimes - Last Filed: 07/26/16 15:45> - General Chief Complaint: Blood Pressure Problem Stated Complaint: PRESSURE PROBLEM Time Seen by Provider: 07/26/16 12:09 - History of Present Illness Initial Comments: 07/26/16 12:21 Patient is an 85 year old male with significant medical hx of pancreatic CA ( last chemo one week ago), CAD (non-obstructive per 01/2013 cardiac cath), HTN, HLD, prostate CA s/p prostatectomy who is presenting to the ED with intermittent chest pain and lightheadedness for the past year. Patient reports having episodes of sudden chest tightness with lightheadedness that are occasionally followed with brief syncope. The patient states that his episodes only last for a few seconds at a time and are relieved with sitting down. His episodes have become more frequent over the past few days; family member notes that the patient had three episodes today. Family member also reports that the patient experiences rapid heart rate prior to these episodes, as high at 138 bpm , that go down after his chest tightness passes. Patient called PMD today and was referred to the ED. Patient had a stress test within the past year that was WNL. Denies any vertigo, weakness, peripheral edema, palpitations, fever, chills, cough, nausea, vomiting, or diarrhea. Denies any hx of MN or CVA. PMD: Danelle Gaytan MD Rack Pusher: Gustavo Riley MD Social Hx: Denies tobacco use or alcohol use. (Alaina Valera) Past History <Alaina Valera - Last Filed: 07/26/16 14:05> - Past Medical History Cancer: Yes (PROSTATE,Pancreas) Cardiac Disorders: Yes (CAD) HTN: Yes Hypercholesterolemia: Yes - Immunization History Immunization Up to Date: Yes - Psycho/Social/Smoking Cessation Hx Anxiety: No Suicidal Ideation: No Smoking Status: No Smoking History: Never smoked Have you smoked in the past 12 months: No Number of Cigarettes Smoked Daily: 0 Information on smoking cessation initiated: No Hx Alcohol Use: No Drug/Substance Use Hx: No Substance Use Type: None Hx Substance Use Treatment: No <Shira Jaimes - Last Filed: 07/26/16 15:45> - Past Medical History Allergies/Adverse Reactions: Allergies Allergy/AdvReac Type Severity Reaction Status Date / Time No Known Allergies Allergy Verified 07/26/16 10:34 Home Medications: Ambulatory Orders Amlodipine Besylate 10 mg PO DAILY 08/02/15 Apixaban [Eliquis] 5 mg PO BID 07/26/16 Hydrochlorothiazide [Hctz -] 12.5 mg PO DAILY 07/26/16 Losartan Potassium 50 mg PO DAILY 07/26/16 Metoprolol Tartrate 25 mg PO DAILY 07/26/16 Pantoprazole Sodium 40 mg PO DAILY 07/26/16 Review of Systems <Alaina Valera - Last Filed: 07/26/16 14:05> <Shira Jaimes - Last Filed: 07/26/16 15:45> - Review of Systems Comments:: 07/26/16 12:22 CONSTITUTIONAL: Absent: fever, chills, diaphoresis, generalized weakness, malaise, loss of appetite HEENT: Absent: rhinorrhea, nasal congestion, throat pain, throat swelling, difficulty swallowing, mouth swelling, ear pain, eye pain, visual changes CARDIOVASCULAR: Present: chest pain, syncope, lightheadedness, rapid heart rate Absent: palpitations, peripheral edema RESPIRATORY: Absent: cough, shortness of breath, dyspnea with exertion, orthopnea, wheezing, stridor, hemoptysis GASTROINTESTINAL: Absent: abdominal pain, abdominal distension, nausea, vomiting, diarrhea, constipation, melena, hematochezia GENITOURINARY: Absent: dysuria, frequency, urgency, hesitancy, hematuria, flank pain, genital pain MUSCULOSKELETAL: Absent: myalgia, arthralgia, joint swelling SKIN: Absent: rash, itching, pallor HEMATOLOGIC/IMMUNOLOGIC: Absent: easy bleeding, easy bruising, lymphadenopathy, frequent infections ENDOCRINE: Absent: unexplained weight gain, unexplained weight loss, heat intolerance, cold intolerance NEUROLOGIC: Absent: headache, focal weakness or paresthesia, dizziness, unsteady gait, seizure, mental status changes, bladder or bowel incontinence. PSYCHIATRIC: Absent: anxiety, depression, suicidal or homicidal ideation, hallucinations (Alaina Valera) *Physical Exam <Alaina Valera - Last Filed: 07/26/16 14:05> <Shira Jaimes - Last Filed: 07/26/16 15:45> - Vital Signs Last Vital Signs Temp Pulse Resp BP Pulse Ox 98.1 F 81 18 141/75 99 07/26/16 10:32 07/26/16 15:00 07/26/16 15:00 07/26/16 15:00 07/26/16 15:00 - Physical Exam Comments: 07/26/16 12:26 GENERAL: Well developed, well nourished. Awake and alert. No acute distress. HEENT: Normocephalic, atraumatic. PERRLA, EOMI. No conjunctival pallor. Sclera are non- icteric. Moist mucous membranes. Oropharynx is clear. NECK: Supple. Full ROM. No JVD. Carotid pulses 2+ and symmetric, without bruits. No thyromegaly. No lymphadenopathy. CARDIOVASCULAR: Regular rate and rhythm. Small murmur. No rubs or gallops. Distal pulses are 2+ and symmetric. PULMONARY: No evidence of respiratory distress. Lungs clear to auscultation bilaterally. No wheezing, rales or rhonchi. ABDOMINAL: Soft. Non-tender. Non-distended. No rebound or guarding. No organomegaly. Normoactive bowel sounds. MUSCULOSKELETAL: Normal range of motion at all joints. No bony deformities or tenderness. No CVA tenderness. EXTREMITIES: Well profused. No cyanosis. No clubbing. No edema. No calf tenderness. SKIN: Right chest port that is clean, intact, without any swelling. Infraumbilical scar. Warm and dry. Normal capillary refill. No rashes. No jaundice. NEUROLOGICAL: Alert, awake, appropriate. Moving all extremities. Normal speech. PSYCHIATRIC: Cooperative. Good eye contact. Appropriate mood and affect. (Alaina Valera) Heart Score/ECG Review <Alaina Valera - Last Filed: 07/26/16 14:05> <Shira Jaimes - Last Filed: 07/26/16 15:45> #1 07/26/16 14:04 Normal sinus rhythm at 80 bpm Incomplete right bundle branch block Minimal voltage criteria for LVH, may be normal variant Borderline ECG (Alaina Valera) ED Treatment Course - LABORATORY CBC & Chemistry Diagram: 07/26/16 12:21 07/26/16 12:23 <Alaina Valera - Last Filed: 07/26/16 14:05> - LABORATORY CBC & Chemistry Diagram: 07/26/16 12:21 07/26/16 12:23 <Shira Jaimes - Last Filed: 07/26/16 15:45> - ADDITIONAL ORDERS Additional order review: Laboratory Results 07/26/16 12:23 Sodium 142 Potassium 4.6 Chloride 105 Carbon Dioxide 28 Anion Gap 9 BUN 19 H Creatinine 1.0 Creat Clearance w eGFR > 60 Random Glucose 113 H Calcium 8.3 L Magnesium 2.3 Total Bilirubin 0.5 AST 11 L D ALT 23 D Alkaline Phosphatase 131 H Creatine Kinase 33 L Troponin I < 0.02 Total Protein 6.1 L Albumin 3.2 L TSH 2.21 07/26/16 12:21 RBC 3.84 L MCV 86.4 MCHC 33.2 RDW 14.4 MPV 8.5 D Neutrophils % 83.8 H D Lymphocytes % 12.0 D Monocytes % 3.6 L Eosinophils % 0.4 D Basophils % 0.2 - RADIOLOGY Radiology Studies Ordered: Category Date Time Status CHEST PA & LAT [RAD] Stat Radiology 07/26/16 12:21 Completed Radiograph Interpretation: 07/26/16 14:05 Chest X-Ray Impression: No evidence of active pulmonary disease. Reported By: Chadwick Chavez MD (Alaina Valera) - Medications Given in the ED: ED Medications Discontinued Medications Generic Name Dose Route Start Last Admin Trade Name Freq PRN Reason Stop Dose Admin Sodium Chloride 1,000 mls @ 1,000 mls/hr 07/26/16 12:21 07/26/16 12:57 Normal Saline - IV 07/26/16 13:20 1,000 mls/hr ASDIR STA Administration Medical Decision Making <Alaina Valera - Last Filed: 07/26/16 14:05> <Shira Jaimes - Last Filed: 07/26/16 15:45> - Medical Decision Making 07/26/16 12:10 85 yo M wtih recently diagnosed pancreatic cancer ( on chemo, last treated 1 week ago) hTN CAD, HLD murmer, afib here with recurrent syncopal episodes. has been happending intermittently over the last year, last week happened more frequently, including three times today. describes episodes of chest pain, followed by lightheaded episodes. has had episdoes of LOC. last few seconds. heart rate on home monitor as high as 138bpm. no f/c eating ok. has had constipation. on exam pt wtih nad, lungs CTAB. port right chest clean and dry no erythema. cardiac murmur 2/6, reg rate rhythm, abd soft. MDM : differential hypothyroid, dehydration, electrolyte abnormality poor rate control afib with intermittent RVR. plan hydrate. labs tsh cardiac workup ekg tele will d/w alison, and cardiology dr. Riley oncologist dr. gomes (Shira Jaimes) *DC/Admit/Observation/Transfer <Alaina Valera - Last Filed: 07/26/16 14:05> - Discharge Dispostion Admit: Yes <Shira Jaimes - Last Filed: 07/26/16 15:45> Diagnosis at time of Disposition: Syncope and collapse, Malignant neoplasm of pancreas - Referrals Referrals: Danelle Gaytan MD [Primary Care Provider] - - Attestations Scribe Attestion: 07/26/16 12:28 Documentation prepared by Alaina Valera, acting as diagnostic medical sonographer for Shira Jaimes MD. (Alaina Valera)
[2016-07-26] MEDS ORDERED: SODIUM CHLORIDE 1,000 ML IV STA (12:21)
[2016-07-26 13:03] LABS: ALBUMIN 3.2 g/dl (3.4-5.0); ANION GAP 9 (8-16); BILIRUBIN,TOTAL 0.5 mg/dL (0.2-1.0); CALCIUM 8.3 mg/dL (8.5-10.1); CO2 28 mmol/L (21-32); COCKROFT - GAULT 52.78; GLUCOSE,RANDOM 113 mg/dL (74-106); MAGNESIUM 2.3 mg/dL (1.8-2.4); SGOT/AST 11 U/L (15-37); SGPT/ALT 23 U/L (12-78); TOT PROT 6.1 g/dl (6.4-8.2)
[2016-07-26 13:12] LABS: ALK PHOS 131 U/L (45-117); THYROID STIMULATING HORMONE 2.21 uIU/ml (0.358-3.74); TROPONIN I < 0.02 ng/ml (0.00-0.05)
[2016-07-26 13:33] LABS: MCH 28.7 pg (25.7-33.7); MCHC 33.2 g/dl (32.0-35.9); MEAN CELL VOLUME 86.4 fl (80-96); PLATELET COUNT 152 K/MM3 (134-434); RDW 14.4 % (11.9-15.9); WHITE BLOOD COUNT 6.6 K/mm3 (4.0-10.0)
[2016-07-26 13:34] LABS: BASOPHIL 0.2 % (0-2.0); EOSINOPHIL 0.4 % (0-4.5); MEAN PLT VOLUME 8.5 fl (7.5-11.1); NEUTROPHILS 83.8 % (42.8-82.8)
[2016-07-26 13:42] LABS: INR 1.43 (0.82-1.09); PROTHROMBIN TIME (PATIENT) 15.9 SEC (9.98-11.88)
--- NOTE | 2016-07-26 14:08 | EKG ---
Test Reason : Blood Pressure : / mmHG Vent. Rate : 080 BPM Atrial Rate : 080 BPM P-R Int : 138 ms QRS Dur : 108 ms QT Int : 380 ms P-R-T Axes : 052 -28 016 degrees QTc Int : 438 ms NORMAL SINUS RHYTHM MINIMAL VOLTAGE CRITERIA FOR LVH, MAY BE NORMAL VARIANT BORDERLINE ECG WHEN COMPARED WITH ECG OF 29-APR-2016 08:31, NO SIGNIFICANT CHANGE WAS FOUND Confirmed by MICHELLE LAUREN MD ([id number]) on 07/26/2016 2:07:48 PM Referred By: Confirmed By:MICHELLE LAUREN MD
[2016-07-26 21:34] LABS: URINE APPEARANCE CLEAR; URINE BILIRUBIN NEGATIVE (NEGATIVE); URINE BLOOD NEGATIVE (NEGATIVE); URINE COLOR STRAW; URINE GLUCOSE (UA) NEGATIVE (NEGATIVE); URINE KETONE NEGATIVE (NEGATIVE); URINE LEUK ESTERASE NEGATIVE (NEGATIVE); URINE NITRITE NEGATIVE (NEGATIVE); URINE PROTEIN NEGATIVE (NEGATIVE); URINE UROBILINOGEN NEGATIVE E.U./dl (0.2-1.0)
[2016-07-26] MEDS ORDERED: ATORVASTATIN CA 40 MG TABLET (FP) ONE (22:37)
[2016-07-26] MEDS: ATORVASTATIN CA 20 MG TABLET (FP) PO SCH (22:45)
[2016-07-26] MEDS: APIXABAN 5 MG TABLET PO SCH (22:45)
[2016-07-26 23:49] LABS: TROPONIN I < 0.02 ng/ml (0.00-0.05)
[2016-07-27 06:52] LABS: MCHC 33.5 g/dl (32.0-35.9); MEAN CELL VOLUME 86.4 fl (80-96); MEAN PLT VOLUME 7.9 fl (7.5-11.1); PLATELET COUNT 157 K/MM3 (134-434); RDW 14.1 % (11.9-15.9); WHITE BLOOD COUNT 6.5 K/mm3 (4.0-10.0)
[2016-07-27 07:04] LABS: ALBUMIN 3.3 g/dl (3.4-5.0); ANION GAP 8 (8-16); CALCIUM 8.6 mg/dL (8.5-10.1); CHOLESTEROL 197 mg/dL (50-200); CO2 28 mmol/L (21-32); COCKROFT - GAULT 58.65; CREATININE 0.9 mg/dL (0.7-1.3); GLUCOSE,RANDOM 98 mg/dL (74-106); SGOT/AST 15 U/L (15-37); SGPT/ALT 22 U/L (12-78)
[2016-07-27 07:06] LABS: ALK PHOS 126 U/L (45-117); BILIRUBIN,TOTAL 0.5 mg/dL (0.2-1.0); LDL CHOLESTEROL (ONLY SJRH) 90 mg/dL (5-100); TOT PROT 6.6 g/dl (6.4-8.2); TROPONIN I < 0.02 ng/ml (0.00-0.05)
--- NOTE | 2016-07-27 09:14 | HP ---
Admitting History and Physical - Admission History of Present Illness: 85 year old male with significant medical hx of pancreatic CA (last chemo one week ago), CAD (non-obstructive per 01/2013 cardiac cath), HTN, HLD, prostate CA s/p prostatectomy who is presenting to the ED with episodes of sudden chest tightness with lightheadedness that are occasionally followed with brief syncope. The patient states that his episodes only last for a few seconds at a time and are relieved with sitting down. His episodes have become more frequent over the past few days; family member notes that the patient had three episodes yesterday. Family member also reports that the patient experiences rapid heart rate prior to these episodes, as high at 138 bpm, that go down after his chest tightness passes. Patient had a stress test within the past year that was WNL. Denies any vertigo, weakness, peripheral edema, palpitations, fever, chills, cough, nausea, vomiting, or diarrhea. PT STATES HE DID LOSE CONSCIOUSNESS - Past Medical History Cardiovascular: Yes: CAD (non-obstructive per 01/2013 cardiac cath), HTN, Hyperlipdemia, Murmur Gastrointestinal: Yes: Constipation, Other (H/O SBO DUE TO ADHESIONS) Renal/: Yes: Other (PROSTATE CANCER S/P PROSTATECTOMY) - Past Surgical History Past Surgical History: Yes: Prostatectomy - Smoking History Smoking history: Never smoked Have you smoked in the past 12 months: No Aproximately how many cigarettes per day: 0 - Alcohol/Substance Use Hx Alcohol Use: No Home Medications - Allergies Allergies/Adverse Reactions: Allergies Allergy/AdvReac Type Severity Reaction Status Date / Time No Known Allergies Allergy Verified 07/26/16 10:34 - Home Medications Home Medications: Ambulatory Orders Amlodipine Besylate 10 mg PO DAILY 08/02/15 Apixaban [Eliquis] 5 mg PO BID 07/26/16 Hydrochlorothiazide [Hctz -] 12.5 mg PO DAILY 07/26/16 Losartan Potassium 50 mg PO DAILY 07/26/16 Metoprolol Tartrate 25 mg PO DAILY 07/26/16 Pantoprazole Sodium 40 mg PO DAILY 07/26/16 Review of Systems - Review of Systems Cardiovascular: reports: Chest Pain Respiratory: denies: SOB, SOB on Exertion Gastrointestinal: reports: No Symptoms Genitourinary: reports: No Symptoms Neurological: reports: Change in LOC, Syncope Physical Examination Vital Signs: Vital Signs Temperature 98.1 F 07/27/16 06:28 Pulse Rate 78 07/27/16 06:28 Respiratory Rate 18 07/27/16 06:28 Blood Pressure 130/73 07/27/16 06:28 O2 Sat by Pulse Oximetry (%) 98 07/27/16 06:28 Cardiovascular: Yes: Regular Rate and Rhythm Respiratory: Yes: Regular, CTA Bilaterally Gastrointestinal: Yes: Normal Bowel Sounds, Soft Edema: No Neurological: Yes: Alert, Oriented. No: Confusion, Facial Droop, Tremors Labs: CBC, BMP 07/27/16 06:10 07/27/16 06:10 Problem List - Problems (1) Syncope and collapse Assessment/Plan: R/O ARRYTHMIA--R/O METS--R/O SEIZURE MONITOR CARDIO MRI OF HEAD NEURO Code(s): R55 - SYNCOPE AND COLLAPSE (2) Pancreatic cancer Assessment/Plan: ONCOLOGY CONSULT Code(s): C25.9 - MALIGNANT NEOPLASM OF PANCREAS, UNSPECIFIED (3) CAD (coronary artery disease) Assessment/Plan: FOLLOW CE (4) HTN (hypertension) Assessment/Plan: MONITOR ON CURRENT MEDS
[2016-07-27 09:19] LABS: PLATELET ESTIMATE ADEQUATE (NORMAL)
[2016-07-27] MEDS: amLODIPine BESYLATE 10 MG TABLET (FP) PO SCH (12:00)
[2016-07-27] MEDS: HYDROCHLOROTHIAZIDE 12.5 MG CAPSULE (FP) PO SCH (12:00)
[2016-07-27] MEDS: APIXABAN 5 MG TABLET PO SCH ×2 (12:00→21:50)
[2016-07-27] MEDS: LOSARTAN POTASSIUM 50 MG TABLET (FP) PO SCH (12:00)
[2016-07-27] MEDS: METOPROLOL TARTRATE 25 MG TABLET (FP) PO SCH (12:00)
[2016-07-27] MEDS: PANTOPRAZOLE 40 MG TABLET (FP) PO SCH (12:00)
[2016-07-27] MEDS: ASPIRIN 81 MG CHEWABLE TABLETS PO SCH (13:00)
--- NOTE | 2016-07-27 15:03 | CON.CARD ---
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 As per the patient, he has had chronic feelings of lightheaded and dizzy but recently more frequent and associated with very brief syncope lasting seconds. Symptoms seem to improve with sitting down. Chest pain as per chart but denies any chest pain to me. No palpitations. No pnd, orthopnea, or dyspnea. No edema. As per the chart, the femily member reported that the HR was elevated prior to events (as high as 138bpm). Echocardiogram 09/08/15: lv normal size, normal lv systolic function, no wall motion abnormalities, mild TR, mild aortic sclerosis, moderate aortic regurgitation. No pericardial effusion. As per the chart, patient had a stress test within the past year that was WNL. - History Source History Provided By: Patient, Family Member, Medical Record - Past Medical History Cardio/Vascular: Yes: CAD (non-obstructive per 01/2013 cardiac cath), HTN, Hyperlipdemia, Murmur Gastrointestinal: Yes: Constipation, Other (H/O SBO DUE TO ADHESIONS) Renal/: Yes: Other (PROSTATE CANCER S/P PROSTATECTOMY) - Past Surgical History Past Surgical History: Yes: Prostatectomy - Alcohol/Substance Use Hx Alcohol Use: No - Smoking History Smoking history: Never smoked Have you smoked in the past 12 months: No Aproximately how many cigarettes per day: 0 Home Medications - Allergies Allergies/Adverse Reactions: Allergies Allergy/AdvReac Type Severity Reaction Status Date / Time No Known Allergies Allergy Verified 07/26/16 10:34 - Home Medications Home Medications: Ambulatory Orders Amlodipine Besylate 10 mg PO DAILY 08/02/15 Apixaban [Eliquis] 5 mg PO BID 07/26/16 Hydrochlorothiazide [Hctz -] 12.5 mg PO DAILY 07/26/16 Losartan Potassium 50 mg PO DAILY 07/26/16 Metoprolol Tartrate 25 mg PO DAILY 07/26/16 Pantoprazole Sodium 40 mg PO DAILY 07/26/16 Vital Signs: Vital Signs Temperature 98.6 F 07/27/16 13:20 Pulse Rate 77 07/27/16 13:20 Respiratory Rate 18 07/27/16 13:20 Blood Pressure 129/77 07/27/16 13:20 O2 Sat by Pulse Oximetry (%) 98 07/27/16 13:20 Constitutional: Yes: No Distress Neck: Yes: WNL Respiratory: Yes: CTA Bilaterally Gastrointestinal: Yes: WNL Cardiovascular: Yes: Regular Rate and Rhythm JVD: No Carotid Bruit: No Heart Sounds: Yes: S1, S2 Murmur: Yes: Systolic Murmur, Grade 3 (HSM upper sternal border) Extremities: Yes: WNL Edema: No - Other Data Labs, Other Data: CBC, BMP 07/27/16 06:10 07/27/16 06:10 INR, PTT INR 1.43 (0.82-1.09) H 07/26/16 12:21 Troponin, BNP 07/26/16 07/27/16 23:05 06:10 Troponin I < 0.02 < 0.02 Troponin, BNP 07/26/16 07/27/16 23:05 06:10 Troponin I < 0.02 < 0.02 Echo: Image Reviewed Imaging - Results Chest X-ray: Report Reviewed EKG: Image Reviewed Problem List - Problems (1) Syncope and collapse Code(s): R55 - SYNCOPE AND COLLAPSE Assessment/Plan 85 year old male with a pmhx of htn, hld, 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 1) Syncope/Afib Symptoms could be related to orthostatics or afib with rvr (family reports elevated HR's at home during events). Would monitor on tele which have been sinus so far. Continue metoprolol. Check orthostatics on home bp meds. Would monitor on telemetry to r/o arrhythmia especially useful if has any symptoms while on the monitor. Would repeat echocardiogram Brain imaging to r/o mets. 2) CAD nonobstructive CAD on cath 01/2013 report is that stress test within one year ago wnl On aspirin/statin/beta eladia EKG with no acute changes. CE's negative On telemetry.
--- NOTE | 2016-07-27 17:08 | EKG ---
Test Reason : Blood Pressure : / mmHG Vent. Rate : 077 BPM Atrial Rate : 077 BPM P-R Int : 146 ms QRS Dur : 108 ms QT Int : 396 ms P-R-T Axes : 058 -35 025 degrees QTc Int : 448 ms NORMAL SINUS RHYTHM LEFT AXIS DEVIATION EARLY TRANSITION OF R WAVE IN V2 MINIMAL VOLTAGE CRITERIA FOR LVH, MAY BE NORMAL VARIANT ABNORMAL ECG WHEN COMPARED WITH ECG OF 26-JUL-2016 19:38, NO SIGNIFICANT CHANGE WAS FOUND Confirmed by XIN GORDILLO, MICHELLE ([id number]) on 07/27/2016 5:08:17 PM Referred By: Flynn CHAN Confirmed By:MICHELLE LAUREN MD
--- NOTE | 2016-07-27 17:10 | EKG ---
Test Reason : Blood Pressure : / mmHG Vent. Rate : 078 BPM Atrial Rate : 078 BPM P-R Int : 144 ms QRS Dur : 106 ms QT Int : 388 ms P-R-T Axes : 053 -27 032 degrees QTc Int : 442 ms NORMAL SINUS RHYTHM EARLY TRANSITION OF R WAVE BORDERLINE ECG WHEN COMPARED WITH ECG OF 26-JUL-2016 10:57, NO SIGNIFICANT CHANGE WAS FOUND Confirmed by MICHELLE LAUREN MD ([id number]) on 07/27/2016 5:10:24 PM Referred By: Confirmed By:MICHELLE LAUREN MD
--- NOTE | 2016-07-27 21:20 | CONSULT ---
Consult Consult Specialty:: Oncology Referred by:: Dr. Gaytan Reason for Consultation:: Near syncope in a patient receiving chemotherapy for pancreatic ca. - History of Present Illness Chief Complaint: Near syncope, tacycardia - History Source History Provided By: Patient, Medical Record - Past Medical History Cardio/Vascular: Yes: CAD (non-obstructive per 01/2013 cardiac cath), HTN, Hyperlipdemia, Murmur Gastrointestinal: Yes: Constipation, Other (H/O SBO DUE TO ADHESIONS) Renal/: Yes: Cancer Heme/Onc: Yes: Hypercoaguable State - Past Surgical History Past Surgical History: Yes: Prostatectomy - Alcohol/Substance Use Hx Alcohol Use: No - Smoking History Smoking history: Never smoked Have you smoked in the past 12 months: No Aproximately how many cigarettes per day: 0 Home Medications - Allergies Allergies/Adverse Reactions: Allergies Allergy/AdvReac Type Severity Reaction Status Date / Time No Known Allergies Allergy Verified 07/26/16 10:34 - Home Medications Home Medications: Ambulatory Orders Amlodipine Besylate 10 mg PO DAILY 08/02/15 Apixaban [Eliquis] 5 mg PO BID 07/26/16 Hydrochlorothiazide [Hctz -] 12.5 mg PO DAILY 07/26/16 Losartan Potassium 50 mg PO DAILY 07/26/16 Metoprolol Tartrate 25 mg PO DAILY 07/26/16 Pantoprazole Sodium 40 mg PO DAILY 07/26/16 Review of Systems - Review of Systems Constitutional: reports: Malaise, Weakness. denies: Fever, Night Sweats Eyes: denies: Blurred Vision, Double Vision HENT: reports: Epistaxis. denies: Difficult Swallowing, Throat Pain Neck: denies: Stiffness, Tenderness Cardiovascular: denies: Chest Pain, Shortness of Breath Respiratory: denies: Hemoptysis, SOB, SOB on Exertion Gastrointestinal: reports: Constipation. denies: Diarrhea, Nausea, Vomiting Genitourinary: denies: Burning, Dysuria, Frequency Musculoskeletal: denies: Back Pain Integumentary: denies: Bruising Neurological: reports: No Symptoms Endocrine: reports: No Symptoms Hematology/Lymphatic: denies: Excessive Bleeding, Swollen Glands Psychiatric: reports: No Symptoms Physical Exam Vital Signs: Vital Signs Temperature 98.4 F 07/27/16 18:00 Pulse Rate 69 07/27/16 18:00 Respiratory Rate 20 07/27/16 18:00 Blood Pressure 124/67 07/27/16 18:00 O2 Sat by Pulse Oximetry (%) 98 07/27/16 17:05 Constitutional: Yes: No Distress Eyes: Yes: PERRL. No: Ptosis, Sclera Icterus HENT: No: Epistaxis, Hoarseness, Pharyngeal Erythema, Tonsillar Exudate Neck: Yes: Trachea Midline. No: Lymphadenopathy, Tenderness, Thyromegaly Cardiovascular: Yes: Regular Rate and Rhythm Respiratory: Yes: CTA Bilaterally Gastrointestinal: Yes: Normal Bowel Sounds, Other (surgical scar). No: Abdomen , Obese, Ascites, Hepatomegaly, Splenomegaly Musculoskeletal: No: Back Pain, Muscle Pain Extremities: No: Calf Tenderness, Cyanosis Edema: No Integumentary: No: Erythema, Jaundice ...Motor Strength: WNL Psychiatric: Yes: WNL Labs: CBC, BMP 07/27/16 06:10 07/27/16 06:10 Imaging - Results X-ray: Report Reviewed, Image Reviewed Problem List - Problems (1) Pancreatic cancer Assessment/Plan: Receiving chemotherapy with abraxane and gemzar. Tolerating well to date. Need to monitor and follow cbc s/p treatment. Code(s): C25.9 - MALIGNANT NEOPLASM OF PANCREAS, UNSPECIFIED (2) Syncope and collapse Assessment/Plan: For cardiac and neurologic evaluation Code(s): R55 - SYNCOPE AND COLLAPSE (3) Fever Assessment/Plan: Spiked temp- jean culture . If fevers persist - coverage to inclde GI and biliary tract. Code(s): R50.9 - FEVER, UNSPECIFIED (4) Prostate CA Assessment/Plan: S/P prostatectomy Code(s): C61 - MALIGNANT NEOPLASM OF PROSTATE (5) Pulmonary embolism Assessment/Plan: Hypercoagulable with pancreatic ca and on chemotheapy. Continue with a/c. Code(s): I26.99 - OTHER PULMONARY EMBOLISM WITHOUT ACUTE COR PULMONALE Qualifiers: Pulmonary embolism type: other Chronicity: chronic Acute cor pulmonale presence: without acute cor pulmonale Qualified Code(s): I27.82 - Chronic pulmonary embolism
[2016-07-27] MEDS: ATORVASTATIN CA 20 MG TABLET (FP) PO SCH (21:50)
--- NOTE | 2016-07-28 09:05 | PN ---
Progress Note, Physician History of Present Illness: NO FURTHER EPISODES - Current Medication List Current Medications: Active Medications Amlodipine Besylate (Norvasc -) 10 mg PO DAILY [facility] Last Admin: 07/27/16 12:00 Dose: 10 mg Apixaban (Eliquis -) 5 mg PO BID [facility] Last Admin: 07/27/16 21:50 Dose: 5 mg Aspirin (Asa -) 81 mg PO DAILY [facility] Last Admin: 07/27/16 13:00 Dose: 81 mg Atorvastatin Calcium (Lipitor -) 20 mg PO HS [facility] Last Admin: 07/27/16 21:50 Dose: 20 mg Hydrochlorothiazide (Hctz -) 12.5 mg PO DAILY [facility] Last Admin: 07/27/16 12:00 Dose: 12.5 mg Losartan Potassium (Cozaar -) 50 mg PO DAILY [facility] Last Admin: 07/27/16 12:00 Dose: 50 mg Metoprolol Tartrate (Lopressor -) 25 mg PO DAILY [facility] Last Admin: 07/27/16 12:00 Dose: 25 mg Pantoprazole Sodium (Protonix -) 40 mg PO DAILY [facility] Last Admin: 07/27/16 12:00 Dose: 40 mg - Objective Vital Signs: Vital Signs Temperature 98.1 F 07/28/16 06:00 Pulse Rate 75 07/28/16 06:00 Respiratory Rate 18 07/28/16 06:00 Blood Pressure 116/60 07/28/16 06:00 O2 Sat by Pulse Oximetry (%) 98 07/27/16 21:00 Cardiovascular: Yes: Regular Rate and Rhythm Respiratory: Yes: Regular, CTA Bilaterally Gastrointestinal: Yes: Normal Bowel Sounds, Soft Edema: No Labs: CBC, BMP 07/27/16 06:10 07/27/16 06:10 INR, PTT INR 1.43 (0.82-1.09) H 07/26/16 12:21 Problem List - Problems (1) Syncope and collapse Assessment/Plan: R/O ARRYTHMIA--R/O METS--R/O SEIZURE MONITOR--NO SIG ARRYTHMIA CARDIO NOTED MRI OF HEAD----- NAD NEURO PENDING Code(s): R55 - SYNCOPE AND COLLAPSE (2) Pancreatic cancer Assessment/Plan: ONCOLOGY CONSULT NOTED Code(s): C25.9 - MALIGNANT NEOPLASM OF PANCREAS, UNSPECIFIED (3) CAD (coronary artery disease) Assessment/Plan: FOLLOW CE (4) HTN (hypertension) Assessment/Plan: MONITOR ON CURRENT MEDS
[2016-07-28] MEDS: PANTOPRAZOLE 40 MG TABLET (FP) PO SCH (09:53)
[2016-07-28] MEDS: HYDROCHLOROTHIAZIDE 12.5 MG CAPSULE (FP) PO SCH (09:53)
[2016-07-28] MEDS: APIXABAN 5 MG TABLET PO SCH ×2 (09:53→22:03)
[2016-07-28] MEDS: METOPROLOL TARTRATE 25 MG TABLET (FP) PO SCH (09:53)
[2016-07-28] MEDS: amLODIPine BESYLATE 10 MG TABLET (FP) PO SCH (09:53)
[2016-07-28] MEDS: ASPIRIN 81 MG CHEWABLE TABLETS PO SCH (09:53)
[2016-07-28] MEDS: LOSARTAN POTASSIUM 50 MG TABLET (FP) PO SCH (09:53)
[2016-07-28 09:57] LABS: MCH 28.9 pg (25.7-33.7); MCHC 33.4 g/dl (32.0-35.9); MEAN CELL VOLUME 86.4 fl (80-96); PLATELET COUNT 163 K/MM3 (134-434); RDW 14.8 % (11.9-15.9); WHITE BLOOD COUNT 6.8 K/mm3 (4.0-10.0)
[2016-07-28 10:21] LABS: ALBUMIN 3.4 g/dl (3.4-5.0); BILIRUBIN,TOTAL 0.5 mg/dL (0.2-1.0); CALCIUM 8.6 mg/dL (8.5-10.1); COCKROFT - GAULT 42.64; CREATININE 1.2 mg/dL (0.7-1.3); TOT PROT 6.5 g/dl (6.4-8.2)
[2016-07-28 10:58] LABS: URINE APPEARANCE CLEAR; URINE BILIRUBIN NEGATIVE (NEGATIVE); URINE BLOOD NEGATIVE (NEGATIVE); URINE COLOR YELLOW; URINE GLUCOSE (UA) NEGATIVE (NEGATIVE); URINE KETONE NEGATIVE (NEGATIVE); URINE LEUK ESTERASE NEGATIVE (NEGATIVE); URINE NITRITE NEGATIVE (NEGATIVE); URINE PROTEIN NEGATIVE (NEGATIVE); URINE UROBILINOGEN NEGATIVE E.U./dl (0.2-1.0)
--- NOTE | 2016-07-28 15:03 | PN ---
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 - Current Medication List Current Medications: Active Medications Amlodipine Besylate (Norvasc -) 10 mg PO DAILY [facility] Last Admin: 07/28/16 09:53 Dose: 10 mg Apixaban (Eliquis -) 5 mg PO BID [facility] Last Admin: 07/28/16 09:53 Dose: 5 mg Aspirin (Asa -) 81 mg PO DAILY [facility] Last Admin: 07/28/16 09:53 Dose: 81 mg Atorvastatin Calcium (Lipitor -) 20 mg PO HS [facility] Last Admin: 07/27/16 21:50 Dose: 20 mg Hydrochlorothiazide (Hctz -) 12.5 mg PO DAILY [facility] Last Admin: 07/28/16 09:53 Dose: 12.5 mg Losartan Potassium (Cozaar -) 50 mg PO DAILY [facility] Last Admin: 07/28/16 09:53 Dose: 50 mg Metoprolol Tartrate (Lopressor -) 25 mg PO DAILY [facility] Last Admin: 07/28/16 09:53 Dose: 25 mg Pantoprazole Sodium (Protonix -) 40 mg PO DAILY [facility] Last Admin: 07/28/16 09:53 Dose: 40 mg - Objective Vital Signs: Vital Signs Temperature 98.1 F 07/28/16 06:00 Pulse Rate 75 07/28/16 06:00 Respiratory Rate 18 07/28/16 06:00 Blood Pressure 116/60 07/28/16 06:00 O2 Sat by Pulse Oximetry (%) 98 07/27/16 21:00 Constitutional: Yes: No Distress Neck: Yes: WNL Cardiovascular: Yes: Regular Rate and Rhythm, S1, S2 Respiratory: Yes: CTA Bilaterally Gastrointestinal: Yes: Normal Bowel Sounds, Soft Edema: No Labs: CBC, BMP 07/28/16 09:35 07/28/16 09:35 INR, PTT INR 1.43 (0.82-1.09) H 07/26/16 12:21 Problem List - Problems (1) Syncope and collapse Code(s): R55 - SYNCOPE AND COLLAPSE Assessment/Plan 85 year old male with a pmhx of htn, hld, 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 1) Syncope/Afib Symptoms could be related to orthostatics or afib with rvr however no tachyarrhythmias or bradycardic events on radiation monitor over last 24 hours. MRI brain no mets Continue metoprolol. Would repeat echocardiogram If blood pressure stays on low normal sign or if signs of orthostatic hypotension (recent supine bp 116/60) than would consider stopping hctz Brain imaging to r/o mets. Consider outpatient event monitor if no etiology of syncope discovered 2) CAD nonobstructive CAD on cath 01/2013 report is that stress test within one year ago wnl On aspirin/statin/beta eladia EKG with no acute changes. CE's negative No further invasive cardiac testing.
[2016-07-28 17:57] LABS: METAMYELOCYTE 2 % (0-2); PLATELET ESTIMATE ADEQUATE (NORMAL)
--- NOTE | 2016-07-28 18:12 | PN ---
Progress Note (short form) - Note Progress Note: PAtient seen and examined Denies any complaints Last Vital Signs Temp Pulse Resp BP Pulse Ox 98.8 F 65 18 101/53 98 07/28/16 14:00 07/28/16 14:00 07/28/16 14:00 07/28/16 14:00 07/28/16 10:00 Cor: RSR, No murmurs, No gallops Lungs: Clear to P&A Abd: Soft, Normal bowel sounds, No organomegaly Ext:No significant edema Abnormal Lab Results 07/28/16 07/28/16 09:35 09:35 RBC 3.97 L Hgb 11.5 L Hct 34.3 L Monocytes % 12.0 H D Myelocytes 4 H D BUN 23 H D Random Glucose 152 H D AST 14 L Alkaline Phosphatase 127 H Active Medications Amlodipine Besylate (Norvasc -) 10 mg PO DAILY [facility] Last Admin: 07/28/16 09:53 Dose: 10 mg Apixaban (Eliquis -) 5 mg PO BID [facility] Last Admin: 07/28/16 09:53 Dose: 5 mg Aspirin (Asa -) 81 mg PO DAILY [facility] Last Admin: 07/28/16 09:53 Dose: 81 mg Atorvastatin Calcium (Lipitor -) 20 mg PO HS [facility] Last Admin: 07/27/16 21:50 Dose: 20 mg Hydrochlorothiazide (Hctz -) 12.5 mg PO DAILY [facility] Last Admin: 07/28/16 09:53 Dose: 12.5 mg Losartan Potassium (Cozaar -) 50 mg PO DAILY [facility] Last Admin: 07/28/16 09:53 Dose: 50 mg Metoprolol Tartrate (Lopressor -) 25 mg PO DAILY [facility] Last Admin: 07/28/16 09:53 Dose: 25 mg Pantoprazole Sodium (Protonix -) 40 mg PO DAILY [facility] Last Admin: 07/28/16 09:53 Dose: 40 mg A/P 85 y/o patient with pancreatic cancer, on neoadjuvant gem/abraxane, admitted with syncopal episodes [id number] MRI brain neg. not orthostatic cardiology following --? outpatient event monitor on eliquis/asa will discuss with cardio/neuro f/u cultures gentle hydration
[2016-07-28] MEDS ORDERED: SODIUM CHLORIDE 1,000 ML IV SCH (18:15)
--- NOTE | 2016-07-28 19:31 | CONSULT ---
Consult - text type - Consultation Consultation Note: NEUROLOGY CONSULTATION is greatly appreciated: This 85 yo man lives with his family. PMH sig for Pancreatic Ca currently on Chemo RX (last Rx-last week). Also HTN, Chol, ASHD, AFib (?), Prostatic Ca. Maintained on Amlodipine (10 mg), elixis, HCTZ, Losartan, metoprolol, atorvastatin and pantoprazoale. Now admitted after three to four days of increasing dizziness with lightheadedness with positional changes and one syncopal episode following stereotyped (recurrent) prodromal lightheadedness. Patient c/o pain and fullness in his ears but denies spinning vertigo or tinnitus. MRI of brain (reviewed): Moderate, diffuse atrophy with periventricular and subcortical microvascular changes. BP's as low as 101/53 documented without orthostatic changes. H/H= JOSE: No bruits. No head trauma. Cor: Reg NEURO: MS/speech: Normal CN II-XII: Normal without nystagmus Motor: No drift or tremor. Normal strength, bulk and tone. Normal reflexes. Toes downgoing. Coord: No FTN dystaxia Sensory: Normal. Romberg Neg. Gait: Normal IMP: Normal neurological exam. Syncope/Presyncope. Orthostatic hypotension. R/O arrhythmia. Suggest: Reduce BP meds slightly. Agree with telemetry. Consider Halter and ambulatory BP recording as out patient. ENT as out pt if ear complaints persist. Thank you very much, Abilio Gay MD
[2016-07-28] MEDS: ATORVASTATIN CA 20 MG TABLET (FP) PO SCH (22:03)
[2016-07-29 07:44] VITALS: BP 115/59; PULSE 85; TEMP 98.1
[2016-07-29 08:22] LABS: ALBUMIN 3.4 g/dl (3.4-5.0); ANION GAP 12 (8-16); CO2 27 mmol/L (21-32); GLUCOSE,RANDOM 94 mg/dL (74-106)
--- NOTE | 2016-07-29 08:25 | DS ---
Physical Examination Vital Signs: Vital Signs Temperature 98.1 F 07/29/16 07:44 Pulse Rate 85 07/29/16 07:44 Respiratory Rate 20 07/29/16 07:44 Blood Pressure 115/59 07/29/16 07:44 O2 Sat by Pulse Oximetry (%) 96 07/28/16 21:00 Cardiovascular: Yes: Regular Rate and Rhythm Respiratory: Yes: Regular, CTA Bilaterally Gastrointestinal: Yes: Normal Bowel Sounds, Soft. No: Tenderness Edema: No Neurological: Yes: Alert, Oriented Discharge Summary Reason For Visit: SYNCOPE Current Active Problems Pancreatic cancer (Acute) Syncope and collapse (Acute) Hospital Course: 85 year old male with significant medical hx of pancreatic CA (last chemo one week ago), CAD (non-obstructive per 01/2013 cardiac cath), HTN, HLD, prostate CA s/p prostatectomy who is presenting to the ED with episodes of sudden chest tightness with lightheadedness that are occasionally followed with brief syncope. The patient states that his episodes only last for a few seconds at a time and are relieved with sitting down. His episodes have become more frequent over the past few days; family member notes that the patient had three episodes yesterday. Family member also reports that the patient experiences rapid heart rate prior to these episodes, as high at 138 bpm, that go down after his chest tightness passes. Patient had a stress test within the past year that was WNL. Denies any vertigo, weakness, peripheral edema, palpitations, fever, chills, cough, nausea, vomiting, or diarrhea. PT STATES HE DID LOSE CONSCIOUSNESS - Past Medical History Cardiovascular: Yes: CAD (non-obstructive per 01/2013 cardiac cath), HTN, Hyperlipdemia, Murmur Gastrointestinal: Yes: Constipation, Other (H/O SBO DUE TO ADHESIONS) Renal/: Yes: Other (PROSTATE CANCER S/P PROSTATECTOMY) - Past Surgical History Past Surgical History: Yes: Prostatectomy - Problems (1) Syncope and collapse Assessment/Plan: R/O ARRYTHMIA--R/O METS--R/O SEIZURE MONITOR CARDIO MRI OF HEAD NEURO IMP: Normal neurological exam. Syncope/Presyncope. Orthostatic hypotension. R/O arrhythmia. Suggest: Reduce BP meds slightly. Agree with telemetry. Consider Halter and ambulatory BP recording as out patient. ENT as out pt if ear complaints persist. Code(s): R55 - SYNCOPE AND COLLAPSE (2) Pancreatic cancer Assessment/Plan: ONCOLOGY CONSULT Code(s): C25.9 - MALIGNANT NEOPLASM OF PANCREAS, UNSPECIFIED (3) CAD (coronary artery disease) Assessment/Plan: FOLLOW CE CARDIO CONSULT 1) Syncope/Afib Symptoms could be related to orthostatics or afib with rvr however no tachyarrhythmias or bradycardic events on oleo hasher and renderer over last 24 hours. MRI brain no mets Continue metoprolol. Would repeat echocardiogram If blood pressure stays on low normal sign or if signs of orthostatic hypotension (recent supine bp 116/60) than would consider stopping hctz Brain imaging to r/o mets. Consider outpatient event monitor if no etiology of syncope discovered 2) CAD nonobstructive CAD on cath 01/2013 report is that stress test within one year ago wnl On aspirin/statin/beta eladia EKG with no acute changes. CE's negative No further invasive cardiac testing. (4) HTN (hypertension) Assessment/Plan: MONITOR ON CURRENT MEDS Condition: Improved - Instructions Referrals: Danelle Gaytan MD [Primary Care Provider] - 2 Weeks Disposition: HOME - Home Medications Comprehensive Discharge Medication List: Ambulatory Orders Amlodipine Besylate 10 mg PO DAILY 08/02/15 Apixaban [Eliquis] 5 mg PO BID 07/26/16 Losartan Potassium 50 mg PO DAILY 07/26/16 Metoprolol Tartrate 25 mg PO DAILY 07/26/16 Pantoprazole Sodium 40 mg PO DAILY 07/26/16 Atorvastatin Ca [Lipitor] 20 mg PO HS #30 tablet 07/29/16
[2016-07-29 08:26] LABS: ALK PHOS 142 U/L (45-117); BILIRUBIN,TOTAL 0.9 mg/dL (0.2-1.0); COCKROFT - GAULT 46.43; CREATININE 1.1 mg/dL (0.7-1.3); SGOT/AST 13 U/L (15-37); SGPT/ALT 21 U/L (12-78); TOT PROT 6.9 g/dl (6.4-8.2)
[2016-07-29 08:35] LABS: MCH 28.9 pg (25.7-33.7); MCHC 33.4 g/dl (32.0-35.9); MEAN CELL VOLUME 86.5 fl (80-96); MEAN PLT VOLUME 8.6 fl (7.5-11.1); PLATELET COUNT 201 K/MM3 (134-434); RDW 14.5 % (11.9-15.9); WHITE BLOOD COUNT 8.6 K/mm3 (4.0-10.0)
[2016-07-29] MEDS: PANTOPRAZOLE 40 MG TABLET (FP) PO SCH (09:14)
[2016-07-29] MEDS: APIXABAN 5 MG TABLET PO SCH (09:14)
[2016-07-29] MEDS: ASPIRIN 81 MG CHEWABLE TABLETS PO SCH (09:14)
[2016-07-29] MEDS: LOSARTAN POTASSIUM 50 MG TABLET (FP) PO SCH (09:15)
[2016-07-29] MEDS: amLODIPine BESYLATE 10 MG TABLET (FP) PO SCH (09:15)
[2016-07-29] MEDS: METOPROLOL TARTRATE 25 MG TABLET (FP) PO SCH (09:15)
[2016-07-29 10:30] LABS: METAMYELOCYTE 3 % (0-2); PLATELET ESTIMATE ADEQUATE (NORMAL)
== END 2016-07-29 12:00 | disposition home or self-care (01) | DRG 312 ==
LOC: JER 10:29 → JERBED 15:46 → J4W 07-27 13:23
PROVIDERS: ADMIT Family Medicine; ATTEND Family Medicine
DX: R55 Syncope and collapse (principal); C25.9 Malignant neoplasm of pancreas, unspecified; I27.82 Chronic pulmonary embolism; I25.10 Atherosclerotic heart disease of native coronary artery without angina pectoris; I10 Essential (primary) hypertension; E78.5 Hyperlipidemia, unspecified; E78.00 Pure hypercholesterolemia, unspecified; I48.91 Unspecified atrial fibrillation; R01.1 Cardiac murmur, unspecified; Z85.46 Personal history of malignant neoplasm of prostate
CPT/HCPCS: 36415; 70552-TC; 71020-TC; 80053; 80061; 81003; 82550; 83036; 83721; 83735; 84443; 84484; 85025; 85610; 87040; 87086; 93005; 93010; 93306-TC; 99285-25

== ENCOUNTER 2016-08-03 07:21 | Day surgery (SDC) | payer OTHER ==
[2016-08-03 09:17] LABS: BASOPHIL 0.9 % (0-2.0); EOSINOPHIL 2.5 % (0-4.5); MCH 28.9 pg (25.7-33.7); MCHC 33.6 g/dl (32.0-35.9); MEAN CELL VOLUME 86.1 fl (80-96); MEAN PLT VOLUME 8.2 fl (7.5-11.1); NEUTROPHILS 71.5 % (42.8-82.8); PLATELET COUNT 288 K/MM3 (134-434); RDW 14.9 % (11.9-15.9); WHITE BLOOD COUNT 7.4 K/mm3 (4.0-10.0)
[2016-08-03 09:35] LABS: ALBUMIN 3.8 g/dl (3.4-5.0); CALCIUM 8.9 mg/dL (8.5-10.1); CREATININE 1.3 mg/dL (0.7-1.3); MAGNESIUM 2.3 mg/dL (1.8-2.4)
[2016-08-03 09:37] LABS: BILIRUBIN,TOTAL 0.4 mg/dL (0.2-1.0); TOT PROT 7.2 g/dl (6.4-8.2)
[2016-08-03] MEDS ORDERED: PALONOSETRON HCL 0.25 MG in SODIUM CHLORIDE 50 ML IVPB ONE (10:00)
[2016-08-03] MEDS ORDERED: DEXAMETHASONE INJECTION 12 MG in SODIUM CHLORIDE 50 ML IVPB ONE (10:00)
[2016-08-03] MEDS ORDERED: SODIUM CHLORIDE 250 ML IV ONE (10:00)
[2016-08-03] MEDS ORDERED: SODIUM CHLORIDE 500 ML IV ONE (10:15)
[2016-08-03] MEDS ORDERED: PORTA CATH FLUSH 10 ML IVPUSH ONE (10:15)
[2016-08-03] MEDS ORDERED: SODIUM CHLORIDE IVPB ONE (10:30)
[2016-08-03] MEDS ORDERED: PACLITAXEL PROTEIN BOUND IVPB ONE (10:30)
[2016-08-03] MEDS ORDERED: GEMCITABINE HCL IV ONE (11:00)
[2016-08-03] MEDS ORDERED: SODIUM CHLORIDE IV ONE (11:00)
[2016-08-03 16:20] VITALS: BP 130/66; PULSE 71; TEMP 98.1
== END 2016-08-03 16:29 | disposition home or self-care (01) ==
LOC: JONCCHEMO 07:21 → J7W 09:47 → JONCCHEMO 16:29
PROVIDERS: ATTEND Internal Medicine Hematology & Oncology
PROC: 3E04305 Introduction of Other Antineoplastic into Central Vein, Percutaneous Approach (ICD-10-PCS; principal; 2016-08-03)
PROC: 3E043GC Introduction of Other Therapeutic Substance into Central Vein, Percutaneous Approach (ICD-10-PCS; 2016-08-03)
PROC: 3E0437Z Introduction of Electrolytic and Water Balance Substance into Central Vein, Percutaneous Approach (ICD-10-PCS; 2016-08-03)
DX: Z51.11 Encounter for antineoplastic chemotherapy (principal); C25.0 Malignant neoplasm of head of pancreas; D70.1 Agranulocytosis secondary to cancer chemotherapy
CPT/HCPCS: 96361; 96375; 96411; 96413; J9201; J9267; 36415; 80053; 83735; 85025; 96360; 96367; 96417; J2469; J9264

== ENCOUNTER 2016-08-10 07:23 | Day surgery (SDC) | payer OTHER ==
[2016-08-10 09:22] LABS: MCH 29.2 pg (25.7-33.7); MCHC 33.7 g/dl (32.0-35.9); MEAN CELL VOLUME 86.6 fl (80-96); MEAN PLT VOLUME 8.4 fl (7.5-11.1); PLATELET COUNT 294 K/MM3 (134-434); RDW 14.7 % (11.9-15.9); WHITE BLOOD COUNT 5.2 K/mm3 (4.0-10.0)
[2016-08-10 09:42] LABS: ALBUMIN 3.3 g/dl (3.4-5.0); ANION GAP 10 (8-16); BILIRUBIN,TOTAL 0.5 mg/dL (0.2-1.0); CALCIUM 8.9 mg/dL (8.5-10.1); CO2 21 mmol/L (21-32); COCKROFT - GAULT 58; CREATININE 0.9 mg/dL (0.7-1.3); GLUCOSE,RANDOM 123 mg/dL (74-106); MAGNESIUM 2.4 mg/dL (1.8-2.4); SGOT/AST 27 U/L (15-37); SGPT/ALT 22 U/L (12-78); TOT PROT 6.6 g/dl (6.4-8.2)
[2016-08-10 09:43] LABS: ALK PHOS 141 U/L (45-117)
[2016-08-10] MEDS ORDERED: PALONOSETRON HCL 0.25 MG in SODIUM CHLORIDE 50 ML IVPB ONE (10:00)
[2016-08-10] MEDS ORDERED: SODIUM CHLORIDE 250 ML IV ONE (10:00)
[2016-08-10] MEDS ORDERED: DEXAMETHASONE INJECTION 12 MG in SODIUM CHLORIDE 50 ML IVPB ONE (10:00)
[2016-08-10 10:14] LABS: PLATELET ESTIMATE ADEQUATE (NORMAL)
[2016-08-10] MEDS ORDERED: SODIUM CHLORIDE IVPB ONE (10:30)
[2016-08-10] MEDS ORDERED: PACLITAXEL PROTEIN BOUND IVPB ONE (10:30)
[2016-08-10] MEDS ORDERED: SODIUM CHLORIDE IV ONE (11:00)
[2016-08-10] MEDS ORDERED: GEMCITABINE HCL IV ONE (11:00)
[2016-08-10] MEDS ORDERED: DEXAMETHASONE INJECTION 8 MG in SODIUM CHLORIDE 50 ML IVPB ONE (11:00)
[2016-08-10 11:05] VITALS: TEMP 97.9
[2016-08-10] MEDS ORDERED: PORTA CATH FLUSH 10 ML IVPUSH ONE (11:05)
[2016-08-10 13:02] VITALS: BP 127/76; PULSE 100
--- NOTE | 2016-08-10 13:36 | CON.CARD ---
Consult Consult Specialty:: Oncology - History of Present Illness History of Present Illness: Asked to evaluate this 85 yo M in the chemotherapy room. He has PAF, HTN and pancreatic cancer and is getting Gemzar and Abraxane. There is no history of LV dysfunction. He was recently admitted with frequent bouts of syncope thought to be due to low BP and orthopstatic hypotension which have improved with lowering of BP medications. There has been no orthopnea or PND and there is mile edema. No palpitations. His HR remains elevated at times and is being worked up by his professor in family studies Dr. Chung as an out patient. There is no history of obstructive CAD. Meds Amlodipne, Eliquis, Losartan 50qd, pantoprazole, lipitor. - History Source History Provided By: Patient, Family Member Limitations to Obtaining History: No Limitations - Past Medical History Cardio/Vascular: Yes: CAD (non-obstructive per 01/2013 cardiac cath), HTN, Hyperlipdemia, Murmur Gastrointestinal: Yes: Constipation, Other (H/O SBO DUE TO ADHESIONS) Renal/: Yes: Cancer - Past Surgical History Past Surgical History: Yes: Prostatectomy - Alcohol/Substance Use Hx Alcohol Use: No - Smoking History Smoking history: Never smoked Have you smoked in the past 12 months: No Aproximately how many cigarettes per day: 0 Home Medications - Allergies Allergies/Adverse Reactions: Allergies Allergy/AdvReac Type Severity Reaction Status Date / Time No Known Allergies Allergy Verified 07/26/16 10:34 - Home Medications Home Medications: Ambulatory Orders Amlodipine Besylate 10 mg PO DAILY 08/02/15 Apixaban [Eliquis] 5 mg PO BID 07/26/16 Losartan Potassium 50 mg PO DAILY 07/26/16 Metoprolol Tartrate 25 mg PO DAILY 07/26/16 Pantoprazole Sodium 40 mg PO DAILY 07/26/16 Atorvastatin Ca [Lipitor] 20 mg PO HS #30 tablet 07/29/16 Review of Systems - Review of Systems Constitutional: reports: No Symptoms Eyes: reports: No Symptoms HENT: reports: No Symptoms Neck: reports: No Symptoms Cardiovascular: reports: No Symptoms Respiratory: reports: No Symptoms Gastrointestinal: reports: No Symptoms Genitourinary: reports: No Symptoms Vital Signs: Vital Signs Temperature 97.9 F 08/10/16 12:58 Pulse Rate 100 H 08/10/16 12:58 Respiratory Rate 16 08/10/16 12:58 Blood Pressure 127/76 08/10/16 12:58 O2 Sat by Pulse Oximetry (%) Constitutional: Yes: Thin Eyes: Yes: WNL HENT: Yes: WNL Neck: Yes: WNL Respiratory: Yes: WNL Gastrointestinal: Yes: WNL Cardiovascular: Yes: Pulse Irregular JVD: No Carotid Bruit: No PMI: Non-Displaced Heart Sounds: Yes: S1, S2 Extremities: Yes: WNL Edema: Yes Edema: LLE: Trace, RLE: Trace - Other Data Labs, Other Data: CBC, BMP 08/10/16 08:53 08/10/16 08:53 Echo: Report Reviewed (From 08/2015 showed preserved LV function with mild and mod AR.) Ejection Fraction %: LVEF > or = 40 % Imaging - Results Chest X-ray: Report Reviewed Problem List - Problems (1) Prostate CA Assessment/Plan: 85 M with PAF and episodes of rapid ventricular response. He is taking Metoprolol XL bid. A holter is planned as an out patient to determine adequacy of HR control. There are no clinical signs of heart failure or uncontrolled atrial arrhythmia. ECG today with Afib and HR 100 BPM no STT changes. No cardiac contraindications to starting Abraxane. Follow up with professor in family studies Dr. Riley for holter. Code(s): C61 - MALIGNANT NEOPLASM OF PROSTATE
--- NOTE | 2016-08-10 14:04 | EKG ---
Test Reason : Blood Pressure : / mmHG Vent. Rate : 100 BPM Atrial Rate : 044 BPM P-R Int : 000 ms QRS Dur : 098 ms QT Int : 304 ms P-R-T Axes : 000 -14 013 degrees QTc Int : 392 ms ATRIAL FIBRILLATION MINIMAL VOLTAGE CRITERIA FOR LVH, MAY BE NORMAL VARIANT ABNORMAL ECG WHEN COMPARED WITH ECG OF 27-JUL-2016 09:14, ATRIAL FIBRILLATION HAS REPLACED SINUS RHYTHM QT HAS SHORTENED Confirmed by XIN GORDILLO, MICHELLE ([id number]) on 08/10/2016 2:03:55 PM Referred By: MOHSEN MARTINEZ DRDZILTH-NA-O-DITH-HLE HEALTH CENTERJacquelin Confirmed By:MICHELLE LAUREN MD
== END 2016-08-10 14:37 | disposition home or self-care (01) ==
LOC: JONCCHEMO 07:23 → J7W 09:53 → JONCCHEMO 14:37
PROVIDERS: ATTEND Internal Medicine Hematology & Oncology
DX: Z51.11 Encounter for antineoplastic chemotherapy (principal); C25.0 Malignant neoplasm of head of pancreas; D70.1 Agranulocytosis secondary to cancer chemotherapy
CPT/HCPCS: 36415; 71020-TC; 80053; 83735; 85025; 93005; 93010; 96367; 96375; 96413; J2469

== ENCOUNTER 2016-08-14 17:12 | Inpatient (IN) | payer OTHER ==
[2016-08-14 17:18] VITALS: BMI 25.4
--- NOTE | 2016-08-14 17:34 | PDOC ---
History of Present Illness - General History Source: Patient, Family Exam Limitations: No Limitations <Amber Rae - Last Filed: 08/14/16 20:13> <Karis Lea - Last Filed: 08/14/16 20:16> - General Chief Complaint: Syncope/Near Syncope Stated Complaint: FALL/HEAD INJURY Time Seen by Provider: 08/14/16 17:34 - History of Present Illness Initial Comments: 08/14/16 18:19 The patient is a 85 year old male, with significant past medical history of syncopal episodes, pancreatic cancer (last chemo was 4 days ago), CAD (non- obstructive per 01/2013 cardiac cath),HTN, HLD, prostate cancer s/p prostatectomy , who presents today after 1 syncopal episode today at approximately 3:30pm. The patient explains that he was in his basement when he felt like something was "grabbing his neck" for a couple of seconds, then he suddenly lost consciousness and hit his head on the floor. He denies dizziness , headache, or chest pain prior to LOC. He immediately regained consciousness and denies any confusion. After the fall, he reports a bruise on the back of the head and neck pain. He denies any other injuries or pain. The patient notes that he is taking eliquis. He denies chest pain, SOB. He denies headache, dizziness, lightheadedness. He denies changes in vision. He denies fever, chills, nausea, vomiting Allergies: none reported Social Hx: No tobacco use. PCP- Dr. Danelle Gaytan (Amber Rae) Past History <Amber Rae - Last Filed: 08/14/16 20:13> - Past Medical History Cancer: Yes (PROSTATE,Pancreas) Cardiac Disorders: Yes (CAD) HTN: Yes Hypercholesterolemia: Yes - Surgical History Abdominal Surgery: Yes (EXP LAP) GI Surgery: Yes (COLOSTOMY WITH REVERSAL) - Immunization History Immunization Up to Date: Yes - Psycho/Social/Smoking Cessation Hx Anxiety: No Suicidal Ideation: No Smoking Status: No Smoking History: Never smoked Have you smoked in the past 12 months: No Number of Cigarettes Smoked Daily: 0 Hx Alcohol Use: No Drug/Substance Use Hx: No Substance Use Type: None Hx Substance Use Treatment: No <Karis Lea - Last Filed: 08/14/16 20:16> - Past Medical History Allergies/Adverse Reactions: Allergies Allergy/AdvReac Type Severity Reaction Status Date / Time No Known Allergies Allergy Verified 08/14/16 17:19 Home Medications: Ambulatory Orders Amlodipine Besylate 10 mg PO DAILY 08/02/15 Apixaban [Eliquis] 5 mg PO BID 07/26/16 Losartan Potassium 50 mg PO DAILY 07/26/16 Pantoprazole Sodium 40 mg PO DAILY 07/26/16 Atorvastatin Ca [Lipitor] 20 mg PO HS #30 tablet 07/29/16 Metoprolol Succinate [Toprol Xl -] 25 mg PO DAILY 08/14/16 Review of Systems - Review of Systems Able to Perform ROS?: Yes <Amber Rae - Last Filed: 08/14/16 20:13> <Karis Lea - Last Filed: 08/14/16 20:16> - Review of Systems Comments:: 08/14/16 18:21 GENERAL/CONSTITUTIONAL: No fever or chills. No weakness. HEAD, EYES, EARS, NOSE AND THROAT: +bruising to the back of the head. No change in vision. No ear pain or discharge. No sore throat. CARDIOVASCULAR: No chest pain or shortness of breath. RESPIRATORY: No cough, wheezing, or hemoptysis. GASTROINTESTINAL: No nausea, vomiting, diarrhea or constipation. GENITOURINARY: No dysuria, frequency, or change in urination. MUSCULOSKELETAL: +neck pain. No joint or muscle swelling or pain. No back pain. SKIN: No rash NEUROLOGIC: Yes: Loss of consciousness. No headache, vertigo, or change in strength/sensation. ENDOCRINE: No increased thirst. No abnormal weight change. HEMATOLOGIC/LYMPHATIC: No anemia, easy bleeding, or history of blood clots. ALLERGIC/IMMUNOLOGIC: No hives or skin allergy. (Amber Rae) *Physical Exam <Amber Rae - Last Filed: 08/14/16 20:13> <Karis Lea - Last Filed: 08/14/16 20:16> - Vital Signs Last Vital Signs Temp Pulse Resp BP Pulse Ox 98.1 F 88 20 144/74 98 08/14/16 17:15 08/14/16 17:15 08/14/16 17:15 08/14/16 17:15 08/14/16 17:40 - Physical Exam Comments: 08/14/16 18:23 GENERAL: Awake, alert, and fully oriented, in no acute distress HEAD: +2cm ecchymosis to the posterior head. EYES: PERRLA, EOMI, sclera anicteric, conjunctiva clear ENT: Auricles normal inspection, hearing grossly normal, nares patent, oropharynx clear without exudates. Moist mucosa NECK: Normal ROM, supple, no lymphadenopathy, JVD, or masses LUNGS: Breath sounds equal, clear to auscultation bilaterally. No wheezes, and no crackles HEART: Regular rate and rhythm, normal S1 and S2, no murmurs, rubs or gallops ABDOMEN: Soft, nontender, normoactive bowel sounds. No guarding, no rebound. No masses EXTREMITIES: Normal range of motion, no edema. No clubbing or cyanosis. No cords, erythema, or tenderness NEUROLOGICAL: Cranial nerves II through XII grossly intact. Normal speech, normal gait SKIN: +right chest port. Warm, Dry, normal turgor, no rashes or lesions noted. (Amber Rae) ED Treatment Course - LABORATORY CBC & Chemistry Diagram: 08/14/16 18:15 08/14/16 18:15 <Amber Rae - Last Filed: 08/14/16 20:13> - LABORATORY CBC & Chemistry Diagram: 08/14/16 18:15 08/14/16 18:15 <Karis Lea - Last Filed: 08/14/16 20:16> - ADDITIONAL ORDERS Additional order review: Laboratory Results 08/14/16 18:15 Sodium 142 Potassium 4.4 D Chloride 107 Carbon Dioxide 27 D Anion Gap 8 BUN 20 H Creatinine 0.9 Creat Clearance w eGFR > 60 Random Glucose 116 H Calcium 8.7 Total Bilirubin 0.4 AST 18 D ALT 39 D Alkaline Phosphatase 153 H Creatine Kinase 42 Troponin I < 0.02 Total Protein 6.3 L Albumin 3.4 08/14/16 18:15 RBC 3.40 L MCV 86.7 MCHC 33.1 RDW 15.5 MPV 7.9 Neutrophils % 87.6 H D Lymphocytes % 9.3 D Monocytes % 1.0 L D Eosinophils % 1.8 Basophils % 0.3 D - RADIOLOGY Radiology Studies Ordered: Category Date Time Status CERVICAL SPINE CT W/O CONTR [CT] Stat CT Scan 08/14/16 17:[address] WITHOUT CONTRAST [CT] Stat CT Scan 08/14/16 17:45 Taken Radiograph Interpretation: 08/14/16 19:41 EXAM: CT of the cervical spine without contrast HISTORY:Trauma COMPARISON: None. FINDINGS:Serial transaxial images of the cervical spine are available without subarachnoid contrast agent. Sagittal and coronal reformatted imaging is available. Alignment is within normal limits. There is generalized mild osteopenia. There is intervertebral disc space narrowing at all levels with vacuum signs at C5-C6 and C6-C7. No acute osseous abnormality is seen. Mild arthritic changes of the facet joints are seen at several levels. Incidental note is made of fusion of the spinous processes C7 and T1. IMPRESSION: Degenerative changes THIS DOCUMENT HAS BEEN ELECTRONICALLY SIGNED Kareem Rosas MD 08/14/2016 19: 06 BOB Garza Please call Imaging Boat Outfitting Supervisor [phone] with questions. EXAM: CT of the brain without contrast HISTORY:Trauma COMPARISON: None. FINDINGS:Serial transaxial images of the brain are available without intravenous contrast agent. There is generalized cortical atrophy with associated ventricular prominence. There is no midline shift or mass-effect or acute hemorrhage. No abnormal fluid collections are seen. The mastoid air cells are well-aerated. The paranasal sinuses are well-aerated. The calvarium appears intact IMPRESSION: Findings of chronic parenchymal changes THIS DOCUMENT HAS BEEN ELECTRONICALLY SIGNED Kareem Rosas MD 08/14/2016 19: 03 EST Natalie. Please call Imaging Boat Outfitting Supervisor [phone] with questions. (Amber Rae) Medical Decision Making <Amber Rae - Last Filed: 08/14/16 20:13> <Karis Lea - Last Filed: 08/14/16 20:16> - Medical Decision Making 08/14/16 19:42 Dr. Gaytan was paged via paging service at 7:40pm. Awaiting call back. A second page was placed for Dr. Gaytan at 8:04pm. Dr. Gaytan called at 8:12pm and spoke with Dr. Lea regarding the patient's care. (Amber Rae) 08/14/16 18:28 Pt presents to the ED after unwitnessed syncope today. Patient denies prodromal symptoms except for momentary sensation that "someone was chocking" him. Patient has a history of a fib and is on eliquis. Hit his head when he fell and syncopized, has large ecchymosis on top of his head. Will check CT head to rule out intracranial bleed. After previous admission for syncope, patient was diagnosed with orthostatic hypotension. Given multiple episodes of syncope and history of fall on eliquis, I do not feel that the patient is safe to be discharged. Will admit to observation for continued cardiac monitoring. (Karis Lea) *DC/Admit/Observation/Transfer <Amber Rae - Last Filed: 08/14/16 20:13> - Discharge Dispostion Admit: Yes <Karis Lea - Last Filed: 08/14/16 20:16> Diagnosis at time of Disposition: Syncope - Discharge Dispostion Condition at time of disposition: Good Decision to Admit order Date/Time: 08/14/16 20:15 (Karis Lea) - Referrals Referrals: Danelle Gaytan MD [Primary Care Provider] - - Attestations Scribe Attestion: 08/14/16 18:24 Documentation prepared by ZACKERY Avendano, acting as medical equipment repair technician for Karis Lea MD. (Amber Rae)
[2016-08-14 18:27] LABS: BASOPHIL 0.3 % (0-2.0); EOSINOPHIL 1.8 % (0-4.5); MCH 28.7 pg (25.7-33.7); MCHC 33.1 g/dl (32.0-35.9); MEAN CELL VOLUME 86.7 fl (80-96); MEAN PLT VOLUME 7.9 fl (7.5-11.1); NEUTROPHILS 87.6 % (42.8-82.8); PLATELET COUNT 225 K/MM3 (134-434); RDW 15.5 % (11.9-15.9); WHITE BLOOD COUNT 7.4 K/mm3 (4.0-10.0)
[2016-08-14 18:48] LABS: ALBUMIN 3.4 g/dl (3.4-5.0); ANION GAP 8 (8-16); CALCIUM 8.7 mg/dL (8.5-10.1); CO2 27 mmol/L (21-32); COCKROFT - GAULT 61; CREATININE 0.9 mg/dL (0.7-1.3); GLUCOSE,RANDOM 116 mg/dL (74-106); SGOT/AST 18 U/L (15-37); SGPT/ALT 39 U/L (12-78)
[2016-08-14 18:51] LABS: ALK PHOS 153 U/L (45-117); BILIRUBIN,TOTAL 0.4 mg/dL (0.2-1.0); TOT PROT 6.3 g/dl (6.4-8.2); TROPONIN I < 0.02 ng/ml (0.00-0.05)
[2016-08-15 00:20] LABS: TROPONIN I < 0.02 ng/ml (0.00-0.05)
[2016-08-15 07:18] LABS: ALBUMIN 3.2 g/dl (3.4-5.0); ANION GAP 8 (8-16); CALCIUM 8.3 mg/dL (8.5-10.1); CO2 27 mmol/L (21-32); GLUCOSE,RANDOM 93 mg/dL (74-106)
[2016-08-15 07:24] LABS: ALK PHOS 133 U/L (45-117); BILIRUBIN,TOTAL 0.7 mg/dL (0.2-1.0); CREATININE 0.9 mg/dL (0.7-1.3); SGOT/AST 16 U/L (15-37); SGPT/ALT 36 U/L (12-78); TROPONIN I < 0.02 ng/ml (0.00-0.05)
[2016-08-15 08:29] LABS: BASOPHIL 0.4 % (0-2.0); EOSINOPHIL 2.4 % (0-4.5); MCH 29.3 pg (25.7-33.7); MCHC 34.2 g/dl (32.0-35.9); MEAN CELL VOLUME 85.7 fl (80-96); MEAN PLT VOLUME 8.1 fl (7.5-11.1); NEUTROPHILS 81.2 % (42.8-82.8); PLATELET COUNT 208 K/MM3 (134-434); RDW 14.9 % (11.9-15.9); WHITE BLOOD COUNT 6.8 K/mm3 (4.0-10.0)
[2016-08-15] MEDS: METOPROLOL SUCCINATE 25 MG TAB.SR.24H (FP) PO SCH (09:11)
[2016-08-15] MEDS: LOSARTAN POTASSIUM 50 MG TABLET (FP) PO SCH (09:11)
[2016-08-15] MEDS: amLODIPine BESYLATE 10 MG TABLET (FP) PO SCH (09:11)
[2016-08-15] MEDS: PANTOPRAZOLE 40 MG TABLET (FP) PO SCH (09:11)
[2016-08-15] MEDS: APIXABAN 5 MG TABLET PO SCH ×2 (09:11→21:30)
--- NOTE | 2016-08-15 12:44 | HP ---
Admitting History and Physical - Admission History of Present Illness: 85 year old male, with significant past medical history of syncopal episodes, pancreatic cancer (last chemo was 4 days ago), CAD (non-obstructive per 2012 cardiac cath),HTN, HLD, prostate cancer s/p prostatectomy , who presents after 1 syncopal episode today at approximately 3:30pm yesterday. The patient explains that he was in his basement when he felt like something was "grabbing his neck" for a couple of seconds, then he suddenly lost consciousness and hit his head on the floor. He denies dizziness, headache, or chest pain prior to LOC. He immediately regained consciousness and denies any confusion. After the fall, he reports a bruise on the back of the head and neck pain. He denies any other injuries or pain. The patient notes that he is taking eliquis. - Past Medical History Cardiovascular: Yes: CAD (non-obstructive per 01/2013 cardiac cath), HTN, Hyperlipdemia, Murmur Gastrointestinal: Yes: Constipation, Other (H/O SBO DUE TO ADHESIONS) Renal/: Yes: Cancer Heme/Onc: Yes: Hypercoaguable State - Past Surgical History Past Surgical History: Yes: Prostatectomy - Smoking History Smoking history: Never smoked Have you smoked in the past 12 months: No Aproximately how many cigarettes per day: 0 - Alcohol/Substance Use Hx Alcohol Use: No Home Medications - Allergies Allergies/Adverse Reactions: Allergies Allergy/AdvReac Type Severity Reaction Status Date / Time No Known Allergies Allergy Verified 08/14/16 17:19 - Home Medications Home Medications: Ambulatory Orders Amlodipine Besylate 10 mg PO DAILY 08/02/15 Apixaban [Eliquis] 5 mg PO BID 07/26/16 Losartan Potassium 50 mg PO DAILY 07/26/16 Pantoprazole Sodium 40 mg PO DAILY 07/26/16 Atorvastatin Ca [Lipitor] 20 mg PO HS #30 tablet 07/29/16 Metoprolol Succinate [Toprol Xl -] 25 mg PO DAILY 08/14/16 Review of Systems - Review of Systems Cardiovascular: denies: Chest Pain, Shortness of Breath Respiratory: denies: Cough, PND, SOB Gastrointestinal: reports: No Symptoms Genitourinary: reports: No Symptoms Neurological: reports: Syncope Physical Examination Vital Signs: Vital Signs Temperature 98.8 F 08/15/16 02:00 Pulse Rate 81 08/15/16 05:54 Respiratory Rate 16 08/15/16 05:54 Blood Pressure 131/64 08/15/16 05:54 O2 Sat by Pulse Oximetry (%) 98 08/14/16 23:16 HENT: Yes: Normocephalic Cardiovascular: Yes: S1, S2 Respiratory: Yes: Regular, CTA Bilaterally Gastrointestinal: Yes: Normal Bowel Sounds, Soft Labs: CBC, BMP 08/15/16 05:35 08/15/16 05:35 Imaging - Results Cat Scan: Report Reviewed Problem List - Problems (1) Syncope Assessment/Plan: RECURRENT F/U CT NEURO AND CARDIO (2) CAD (coronary artery disease) Assessment/Plan: SAME MEDS Troponin, BNP 08/14/16 08/14/16 08/15/16 18:15 23:00 05:35 Troponin I < 0.02 < 0.02 < 0.02 (3) Pancreatic cancer Assessment/Plan: ONCOLOGY CONSULT Code(s): C25.9 - MALIGNANT NEOPLASM OF PANCREAS, UNSPECIFIED (4) Afib Assessment/Plan: ON ELIQUIS Code(s): I48.91 - UNSPECIFIED ATRIAL FIBRILLATION
--- NOTE | 2016-08-15 15:51 | CON.CARD ---
Consult Consult Specialty:: Cardiology Reason for Consultation:: Syncope - History of Present Illness Chief Complaint: Syncope History of Present Illness: This is as 85 year old male with a PMH of CAD, HTN, HLD, atrial fibrillation ( on Eliquis)n and pancreatic Ca on chemo. The patient presents to the ED today with a syncopal event that was unwitnessed. Prior to the LOC, he fe3lt like someone was chocking him. He hit his head with the event and has an area of ecchymosis. Presently he is comfortable and denies new complaints. - Past Medical History Cardio/Vascular: Yes: AFIB, CAD (non-obstructive per 01/2013 cardiac cath), HTN , Hyperlipdemia, Murmur Gastrointestinal: Yes: Constipation, Other (H/O SBO DUE TO ADHESIONS, pancreatic Ca) Renal/: Yes: Cancer - Past Surgical History Past Surgical History: Yes: Prostatectomy - Alcohol/Substance Use Hx Alcohol Use: No - Smoking History Smoking history: Never smoked Have you smoked in the past 12 months: No Aproximately how many cigarettes per day: 0 Home Medications - Allergies Allergies/Adverse Reactions: Allergies Allergy/AdvReac Type Severity Reaction Status Date / Time No Known Allergies Allergy Verified 08/14/16 17:19 - Home Medications Home Medications: Ambulatory Orders Amlodipine Besylate 10 mg PO DAILY 08/02/15 Apixaban [Eliquis] 5 mg PO BID 07/26/16 Losartan Potassium 50 mg PO DAILY 07/26/16 Pantoprazole Sodium 40 mg PO DAILY 07/26/16 Atorvastatin Ca [Lipitor] 20 mg PO HS #30 tablet 07/29/16 Metoprolol Succinate [Toprol Xl -] 25 mg PO DAILY 08/14/16 Review of Systems Findings/Remarks: As Per HPI Vital Signs: Vital Signs Temperature 98 F 08/15/16 15:00 Pulse Rate 80 08/15/16 15:00 Respiratory Rate 20 08/15/16 15:00 Blood Pressure 140/82 08/15/16 15:00 O2 Sat by Pulse Oximetry (%) 98 08/15/16 15:00 Constitutional: Yes: No Distress Neck: Yes: WNL Respiratory: Yes: CTA Bilaterally Gastrointestinal: Yes: Soft Cardiovascular: Yes: Regular Rate and Rhythm JVD: No Carotid Bruit: No PMI: Non-Displaced Heart Sounds: Yes: S1, S2 (No MRHG) Edema: LLE: Trace, RLE: Trace Neurological: Yes: Alert, Oriented (Grossly non focal) - Other Data Labs, Other Data: CBC, BMP 08/15/16 05:35 08/15/16 05:35 Troponin, BNP 08/14/16 08/15/16 23:00 05:35 Troponin I < 0.02 < 0.02 Troponin, BNP 08/14/16 08/15/16 23:00 05:35 Troponin I < 0.02 < 0.02 Assessment/Plan [facility] *LIVE* Syncope Telem monitoring Check Othostatic BP's Obtain an echocardiogram Watch for the development of a subdural hematoma with Neuro checks Would continue metoprolol and Losartan but would consider DC'ing Norvasc ( amlodipine) as it can contribute to syncope May consider Tilt Table testing depending on clinical course Will follow with you.
--- NOTE | 2016-08-15 16:25 | EKG ---
Test Reason : Blood Pressure : / mmHG Vent. Rate : 084 BPM Atrial Rate : 084 BPM P-R Int : 144 ms QRS Dur : 106 ms QT Int : 378 ms P-R-T Axes : 056 -27 025 degrees QTc Int : 446 ms NORMAL SINUS RHYTHM INCOMPLETE RIGHT BUNDLE BRANCH BLOCK MINIMAL VOLTAGE CRITERIA FOR LVH, MAY BE NORMAL VARIANT BORDERLINE ECG WHEN COMPARED WITH ECG OF 14-AUG-2016 18:10, NO SIGNIFICANT CHANGE WAS FOUND Confirmed by DOLORES OROPEZA MD ([id number]) on 08/15/2016 4:24:52 PM Referred By: Flynn CHAN Confirmed By:DOLORES OROPEZA MD
--- NOTE | 2016-08-15 16:28 | EKG ---
Test Reason : Blood Pressure : / mmHG Vent. Rate : 083 BPM Atrial Rate : 083 BPM P-R Int : 144 ms QRS Dur : 106 ms QT Int : 376 ms P-R-T Axes : 054 -19 031 degrees QTc Int : 441 ms NORMAL SINUS RHYTHM INCOMPLETE RIGHT BUNDLE BRANCH BLOCK MINIMAL VOLTAGE CRITERIA FOR LVH, MAY BE NORMAL VARIANT BORDERLINE ECG WHEN COMPARED WITH ECG OF 10-AUG-2016 10:53, SINUS RHYTHM HAS REPLACED ATRIAL FIBRILLATION Confirmed by DOLORES OROPEZA MD ([id number]) on 08/15/2016 4:27:55 PM Referred By: Confirmed By:DOLORES OROPEZA MD
[2016-08-15] MEDS: ATORVASTATIN CA 20 MG TABLET (FP) PO SCH (21:30)
--- NOTE | 2016-08-16 09:30 | PN ---
Progress Note, Physician History of Present Illness: no cp or sob - Current Medication List Current Medications: Active Medications Amlodipine Besylate (Norvasc -) 10 mg PO DAILY [facility] Last Admin: 08/15/16 09:11 Dose: 10 mg Apixaban (Eliquis -) 5 mg PO BID [facility] Last Admin: 08/15/16 21:30 Dose: 5 mg Atorvastatin Calcium (Lipitor -) 20 mg PO HS [facility] Last Admin: 08/15/16 21:30 Dose: 20 mg Losartan Potassium (Cozaar -) 50 mg PO DAILY [facility] Last Admin: 08/15/16 09:11 Dose: 50 mg Metoprolol Succinate (Toprol Xl -) 25 mg PO DAILY [facility] Last Admin: 08/15/16 09:11 Dose: 25 mg Pantoprazole Sodium (Protonix -) 40 mg PO DAILY [facility] Last Admin: 08/15/16 09:11 Dose: 40 mg - Objective Vital Signs: Vital Signs Temperature 98.2 F 08/16/16 05:59 Pulse Rate 70 08/16/16 05:59 Respiratory Rate 16 08/16/16 05:59 Blood Pressure 155/73 08/16/16 05:59 O2 Sat by Pulse Oximetry (%) 98 08/15/16 21:00 Neck: Yes: Supple Cardiovascular: Yes: Regular Rate and Rhythm Respiratory: Yes: Regular, CTA Bilaterally Gastrointestinal: Yes: Normal Bowel Sounds, Soft Edema: No Neurological: Yes: Alert, Oriented Labs: CBC, BMP 08/15/16 05:35 08/15/16 05:35 Problem List - Problems (1) Syncope Assessment/Plan: RECURRENT F/U CT NEURO PENDING CARDIO--NOTED--TILT TABLE--??EP (2) CAD (coronary artery disease) Assessment/Plan: SAME MEDS Troponin, BNP 08/14/16 08/14/16 08/15/16 18:15 23:00 05:35 Troponin I < 0.02 < 0.02 < 0.02 (3) Pancreatic cancer Assessment/Plan: ONCOLOGY CONSULT Code(s): C25.9 - MALIGNANT NEOPLASM OF PANCREAS, UNSPECIFIED (4) Afib Assessment/Plan: ON ELIQUIS Code(s): I48.91 - UNSPECIFIED ATRIAL FIBRILLATION (5) Anemia Assessment/Plan: MONITOR Code(s): D64.9 - ANEMIA, UNSPECIFIED
[2016-08-16] MEDS: PANTOPRAZOLE 40 MG TABLET (FP) PO SCH (09:38)
[2016-08-16] MEDS: METOPROLOL SUCCINATE 25 MG TAB.SR.24H (FP) PO SCH (09:39)
[2016-08-16] MEDS: APIXABAN 5 MG TABLET PO SCH ×2 (09:39→21:01)
[2016-08-16] MEDS: amLODIPine BESYLATE 10 MG TABLET (FP) PO SCH (09:39)
[2016-08-16] MEDS: LOSARTAN POTASSIUM 50 MG TABLET (FP) PO SCH (09:39)
--- NOTE | 2016-08-16 15:59 | PN ---
Progress Note, Physician Chief Complaint: No complaints today Tele: sinus with HR 70s History of Present Illness: This is as 85 year old male with a PMH of CAD, HTN, HLD, atrial fibrillation ( on Eliquis)n and pancreatic Ca on chemo. The patient presents to the ED today with a syncopal event that was unwitnessed. Prior to the LOC, he felt like someone was chocking him. He hit his head with the event and has an area of ecchymosis. Presently he is comfortable and denies new complaints. - Current Medication List Current Medications: Active Medications Amlodipine Besylate (Norvasc -) 10 mg PO DAILY [facility] Last Admin: 08/16/16 09:39 Dose: 10 mg Apixaban (Eliquis -) 5 mg PO BID [facility] Last Admin: 08/16/16 09:39 Dose: 5 mg Atorvastatin Calcium (Lipitor -) 20 mg PO HS [facility] Last Admin: 08/15/16 21:30 Dose: 20 mg Losartan Potassium (Cozaar -) 50 mg PO DAILY [facility] Last Admin: 08/16/16 09:39 Dose: 50 mg Metoprolol Succinate (Toprol Xl -) 25 mg PO DAILY [facility] Last Admin: 08/16/16 09:39 Dose: 25 mg Pantoprazole Sodium (Protonix -) 40 mg PO DAILY [facility] Last Admin: 08/16/16 09:38 Dose: 40 mg - Objective Vital Signs: Vital Signs Temperature 98.2 F 08/16/16 15:50 Pulse Rate 71 08/16/16 15:50 Respiratory Rate 20 08/16/16 15:50 Blood Pressure 126/70 08/16/16 15:50 O2 Sat by Pulse Oximetry (%) 98 08/16/16 09:00 Constitutional: Yes: No Distress Cardiovascular: Yes: Regular Rate and Rhythm, S1, S2. No: JVD, Murmur Respiratory: Yes: CTA Bilaterally Gastrointestinal: Yes: Normal Bowel Sounds, Soft Edema: LLE: Trace, RLE: Trace Labs: CBC, BMP 08/15/16 05:35 08/15/16 05:35 Problem List - Problems (1) Afib Code(s): I48.91 - UNSPECIFIED ATRIAL FIBRILLATION Assessment/Plan This is as 85 year old male with a PMH of CAD, HTN, HLD, atrial fibrillation ( on Eliquis)n and pancreatic Ca on chemo admitted after syncope event 1) Syncope -continue telemetry monitoring -Continue frequent neuro checks given on apixaban. -On losartan, metoprolol, and amlodipine for htn. Would consider lowering amlodipine to 5mg daily and treating standing blood pressure. Check orthostatics -Would get an echocardiogram . Consider carotid duplex study if no previous carotid studies available. Will need outpatient event monitor placed
[2016-08-16] MEDS: ATORVASTATIN CA 20 MG TABLET (FP) PO SCH (21:01)
--- NOTE | 2016-08-16 21:25 | CONSULT ---
Consult - text type - Consultation Consultation Note: NEUROLOGY CONSULTATION is greatly appreciated: This 85 yo RH man with h/o HTN, Chol, ASHD, and Pancreatic cancer last received ChemoRx last week. On amlodipine, apixaban, losartan, pantoprazole, atorvastatin, and metoprolol. Admitted after unwitnessed syncope with occipital head trauma. Patient relates other, brief, milder, "dizzy" spells over the last 2 weeks. He felt Choked prior to LOC but denies diaphoresis. No headaches or sequellae. CT scans of head (both reviewed): Mild atrophy. Calcified vertebrobasilar system. No bleeding or focal lesions. JOSE: Tender Occipital hematoma NEURO: Awake, alert. Ox [facility]. August,. Fluent ion Setswana CN II-XII: Normal Motor: No drift or tremor. Normal strength, tone, bulk and reflexes ( symmetrically brisk). Toes downgoing. Coord: No FTN dystaxia Sensory: Normal; Romberg Neg Gait: Normal IMP: Non-focal exam sig for mild, B/L cerebral dysfunction (MIld OMS). Sycope vs seizure. Suggest: Cont on telemetry. May need out patient, ambulatory EEG (72 hrs). Check orthostatic BP's Check with oncology Re: cardiotoxic chemoRx? Thank you very much, Abilio Gay MD
--- NOTE | 2016-08-16 22:43 | CONSULT ---
Consult - text type - Consultation Consultation Note: Patient seen and examined 85 y/o with h/o pancreatic cancer, was on gemzar/abraxane for pancreatic cancer Readmitted for syncope/fall/occipital trauma Abraxane could potentiate arrhythmias Abraxane was stopped last week Received only gemzar last week will discuss with cardiology/neurology
--- NOTE | 2016-08-17 09:29 | PN ---
Progress Note, Physician History of Present Illness: no cp or sob NO DIZZINESS - Current Medication List Current Medications: Active Medications Amlodipine Besylate (Norvasc -) 10 mg PO DAILY COUNT INCLUDES [facility] Last Admin: 08/16/16 09:39 Dose: 10 mg Apixaban (Eliquis -) 5 mg PO BID [facility]CLUD[facility] Last Admin: 08/16/16 21:01 Dose: 5 mg Atorvastatin Calcium (Lipitor -) 20 mg PO HS [facility]CLUD[facility] Last Admin: 08/16/16 21:01 Dose: 20 mg Losartan Potassium (Cozaar -) 50 mg PO DAILY [facility] Last Admin: 08/16/16 09:39 Dose: 50 mg Metoprolol Succinate (Toprol Xl -) 25 mg PO DAILY [facility] Last Admin: 08/16/16 09:39 Dose: 25 mg Pantoprazole Sodium (Protonix -) 40 mg PO DAILY [facility]CLUD[facility] Last Admin: 08/16/16 09:38 Dose: 40 mg - Objective Vital Signs: Vital Signs Temperature 99.3 F 08/17/16 05:00 Pulse Rate 75 08/17/16 05:00 Respiratory Rate 18 08/17/16 05:00 Blood Pressure 128/65 08/17/16 05:00 O2 Sat by Pulse Oximetry (%) 98 08/16/16 21:00 Cardiovascular: Yes: Regular Rate and Rhythm Respiratory: Yes: Regular, CTA Bilaterally Gastrointestinal: Yes: Normal Bowel Sounds, Soft Edema: No Neurological: Yes: Alert, Oriented Labs: CBC, BMP 08/15/16 05:35 08/15/16 05:35 Problem List - Problems (1) Syncope Assessment/Plan: RECURRENT F/U CT NEURO NOTED---EEG OUTPATIENT CARDIO--NOTED--TILT TABLE--??EP (2) CAD (coronary artery disease) Assessment/Plan: SAME MEDS Troponin, BNP 08/14/16 08/14/16 08/15/16 18:15 23:00 05:35 Troponin I < 0.02 < 0.02 < 0.02 (3) Pancreatic cancer Assessment/Plan: ONCOLOGY CONSULT NOTED-- Code(s): C25.9 - MALIGNANT NEOPLASM OF PANCREAS, UNSPECIFIED (4) Afib Assessment/Plan: ON ELIQUIS Code(s): I48.91 - UNSPECIFIED ATRIAL FIBRILLATION (5) Anemia Assessment/Plan: MONITOR Code(s): D64.9 - ANEMIA, UNSPECIFIED
[2016-08-17] MEDS: APIXABAN 5 MG TABLET PO SCH ×2 (09:43→21:39)
[2016-08-17] MEDS: METOPROLOL SUCCINATE 25 MG TAB.SR.24H (FP) PO SCH (09:43)
[2016-08-17] MEDS: amLODIPine BESYLATE 10 MG TABLET (FP) PO SCH (09:43)
[2016-08-17] MEDS: PANTOPRAZOLE 40 MG TABLET (FP) PO SCH (09:43)
[2016-08-17] MEDS: LOSARTAN POTASSIUM 50 MG TABLET (FP) PO SCH (09:44)
[2016-08-17 10:35] LABS: MCH 29.1 pg (25.7-33.7); MCHC 33.4 g/dl (32.0-35.9); MEAN CELL VOLUME 87.2 fl (80-96); MEAN PLT VOLUME 7.4 fl (7.5-11.1); PLATELET COUNT 187 K/MM3 (134-434); RDW 15.5 % (11.9-15.9); WHITE BLOOD COUNT 3.8 K/mm3 (4.0-10.0)
[2016-08-17 10:59] LABS: ALBUMIN 3.8 g/dl (3.4-5.0); ANION GAP 9 (8-16); CALCIUM 9.1 mg/dL (8.5-10.1); CO2 28 mmol/L (21-32); COCKROFT - GAULT 52.92; GLUCOSE,RANDOM 94 mg/dL (74-106); SGOT/AST 16 U/L (15-37); SGPT/ALT 30 U/L (12-78); TOT PROT 7.3 g/dl (6.4-8.2)
[2016-08-17 11:00] LABS: ALK PHOS 156 U/L (45-117)
[2016-08-17 12:00] LABS: PLATELET ESTIMATE ADEQUATE (NORMAL)
--- NOTE | 2016-08-17 16:21 | PN ---
Progress Note, Physician Chief Complaint: No complaints today Tele: sinus with episodes of afib rvr to 140s Conversion pauses 2-3 seconds History of Present Illness: This is as 85 year old male with a PMH of CAD, HTN, HLD, atrial fibrillation ( on Eliquis)n and pancreatic Ca on chemo. The patient presents to the ED today with a syncopal event that was unwitnessed. Prior to the LOC, he felt like someone was chocking him. He hit his head with the event and has an area of ecchymosis. Presently he is comfortable and denies new complaints. - Current Medication List Current Medications: Active Medications Amlodipine Besylate (Norvasc -) 10 mg PO DAILY [facility] Last Admin: 08/17/16 09:43 Dose: 10 mg Apixaban (Eliquis -) 5 mg PO BID [facility] Last Admin: 08/17/16 09:43 Dose: 5 mg Atorvastatin Calcium (Lipitor -) 20 mg PO HS [facility] Last Admin: 08/16/16 21:01 Dose: 20 mg Losartan Potassium (Cozaar -) 50 mg PO DAILY [facility] Last Admin: 08/17/16 09:44 Dose: 50 mg Metoprolol Succinate (Toprol Xl -) 25 mg PO DAILY [facility] Last Admin: 08/17/16 09:43 Dose: 25 mg Pantoprazole Sodium (Protonix -) 40 mg PO DAILY [facility] Last Admin: 08/17/16 09:43 Dose: 40 mg - Objective Vital Signs: Vital Signs Temperature 99.2 F 08/17/16 15:11 Pulse Rate 73 08/17/16 15:11 Respiratory Rate 18 08/17/16 15:11 Blood Pressure 130/71 08/17/16 15:11 O2 Sat by Pulse Oximetry (%) 98 08/17/16 09:00 Constitutional: Yes: No Distress Neck: Yes: Supple, Trachea Midline Cardiovascular: Yes: Tachycardia, Murmur (2/6 HSM upper sternal border), S1, S2. No: Regular Rate and Rhythm, JVD Respiratory: Yes: CTA Bilaterally Gastrointestinal: Yes: Normal Bowel Sounds, Soft Edema: No Labs: CBC, BMP 08/17/16 10:15 08/17/16 10:15 Problem List - Problems (1) Afib Code(s): I48.91 - UNSPECIFIED ATRIAL FIBRILLATION Assessment/Plan This is as 85 year old male with a PMH of CAD, HTN, HLD, atrial fibrillation ( on Eliquis)n and pancreatic Ca on chemo admitted after syncope event 1) Syncope -continue telemetry monitoring -Continue frequent neuro checks given on apixaban. -On losartan, metoprolol, and amlodipine for htn. Check orthostatics -Would get an echocardiogram . On tele sinus at rest around 70 bpm but has episodes of Afib with RVR to 140s. Conversion pauses are little more than 2 seconds with some sinus daisy right after pause followed by HR 70bpm. Question whether this tachy/daisy is causing his syncope even though no significant pause and no symptoms during episode in the hospital. Will discuss with arrhythmia service at [facility] regarding EP study and also possibility of amiodarone to keep him out of afib. Reports of elevated lfts in past but believe it was in setting of obstruction but would have to clarify.
[2016-08-17] MEDS: ATORVASTATIN CA 20 MG TABLET (FP) PO SCH (21:39)
[2016-08-18 08:58] VITALS: BP 132/72; PULSE 80; TEMP 98.5
[2016-08-18] MEDS: METOPROLOL SUCCINATE 25 MG TAB.SR.24H (FP) PO SCH (10:03)
[2016-08-18] MEDS: PANTOPRAZOLE 40 MG TABLET (FP) PO SCH (10:03)
[2016-08-18] MEDS: LOSARTAN POTASSIUM 50 MG TABLET (FP) PO SCH (10:03)
[2016-08-18] MEDS: APIXABAN 5 MG TABLET PO SCH (10:03)
[2016-08-18] MEDS: amLODIPine BESYLATE 10 MG TABLET (FP) PO SCH (10:03)
--- NOTE | 2016-08-18 12:27 | CONSULT ---
Consultation: REQUESTING PROVIDER: CONSULT REQUEST: We have been asked to medically evaluate this patient for ( specify). HISTORY OF PRESENT ILLNESS: REVIEW OF SYSTEMS: CONSTITUTIONAL: Absent: fever, chills, diaphoresis, generalized weakness, malaise, loss of appetite, weight change HEENT: Absent: rhinorrhea, nasal congestion, throat pain, throat swelling, difficulty swallowing, mouth swelling, ear pain, eye pain, visual changes CARDIOVASCULAR: Absent: chest pain, syncope, palpitations, irregular heart rate, lightheadedness , peripheral edema RESPIRATORY: Absent: cough, shortness of breath, dyspnea with exertion, orthopnea, wheezing, stridor, hemoptysis GASTROINTESTINAL: Absent: abdominal pain, abdominal distension, nausea, vomiting, diarrhea, constipation, melena, hematochezia GENITOURINARY: Absent: dysuria, frequency, urgency, hesitancy, hematuria, flank pain, genital pain MUSCULOSKELETAL: Absent: myalgia, arthralgia, joint swelling, back pain, neck pain SKIN: Absent: rash, itching, pallor HEMATOLOGIC/IMMUNOLOGIC: Absent: easy bleeding, easy bruising, lymphadenopathy, frequent infections ENDOCRINE: Absent: unexplained weight gain, unexplained weight loss, heat intolerance, cold intolerance NEUROLOGIC: Absent: headache, focal weakness or paresthesias, dizziness, unsteady gait, seizure, mental status changes, bladder or bowel incontinence PSYCHIATRIC: Absent: anxiety, depression, suicidal or homicidal ideation, hallucinations. PHYSICAL EXAMINATION Vital Signs - 24 hr 08/17/16 08/17/16 08/17/16 15:11 17:00 21:00 Temperature 99.2 F 99.1 F Pulse Rate 73 66 Respiratory 18 20 20 Rate Blood Pressure 130/71 133/64 O2 Sat by Pulse 98 Oximetry (%) 08/17/16 08/18/16 08/18/16 22:00 02:00 06:00 Temperature 97.8 F 99.4 F 98.2 F Pulse Rate 68 68 68 Respiratory 20 20 20 Rate Blood Pressure 124/58 113/59 119/59 O2 Sat by Pulse Oximetry (%) 08/18/16 08:55 Temperature 98.5 F Pulse Rate 80 Respiratory 20 Rate Blood Pressure 132/72 O2 Sat by Pulse 98 Oximetry (%) GENERAL: Awake, alert, and fully oriented, in no acute distress. HEAD: Normal with no signs of trauma. EYES: Pupils equal, round and reactive to light, extraocular movements intact, sclera anicteric, conjunctiva clear. No lid lag. EARS, NOSE, THROAT: Ears normal, nares patent, oropharynx clear without exudates. Moist mucous membranes. NECK: Normal range of motion, supple without lymphadenopathy, JVD, or masses. LUNGS: Breath sounds equal, clear to auscultation bilaterally. No wheezes, and no crackles. No accessory muscle use. HEART: Regular rate and rhythm, normal S1 and S2 without murmur, rub or gallop. ABDOMEN: Soft, nontender, not distended, normoactive bowel sounds, no guarding, no rebound, no masses. No hepatomegaly or splenomegaly. MUSCULOSKELETAL: Normal range of motion at all joints. No bony deformities or tenderness. No CVA tenderness. UPPER EXTREMITIES: 2+ pulses, warm, well-perfused. No cyanosis. No clubbing. Cap refill <2 seconds. No peripheral edema. LOWER EXTREMITIES: 2+ pulses, warm, well-perfused. No calf tenderness. No peripheral edema. NEUROLOGICAL: Cranial nerves II-XII intact. Normal speech. Normal gait. PSYCHIATRIC: Cooperative. Good eye contact. Appropriate mood and affect. SKIN: Warm, dry, normal turgor, no rashes or lesions noted. Laboratory Results - last 24 hr 08/18/16 05:19 POC Glucometer 99 Active Medications Generic Name Dose Route Start Last Admin Trade Name Freq PRN Reason Stop Dose Admin Amlodipine Besylate 10 mg 08/15/16 10:00 08/18/16 10:03 Norvasc - PO 10 mg DAILY PRIYANKA Administration Apixaban 5 mg 08/15/16 10:00 08/18/16 10:03 Eliquis - PO 5 mg BID PRIYANKA Administration Atorvastatin Calcium 20 mg 08/15/16 22:00 08/17/16 21:39 Lipitor - PO 20 mg HS PRIYANKA Administration Losartan Potassium 50 mg 08/15/16 10:00 08/18/16 10:03 Cozaar - PO 50 mg DAILY PRIYANKA Administration Metoprolol Succinate 25 mg 08/15/16 10:00 08/18/16 10:03 Toprol Xl - PO 25 mg DAILY PRIYANKA Administration Pantoprazole Sodium 40 mg 08/15/16 10:00 08/18/16 10:03 Protonix - PO 40 mg DAILY PRIYANKA Administration ASSESSMENT/PLAN: Dispo: We will continue to follow the patient. Thank you for this consultative opportunity.
--- NOTE | 2016-08-18 12:35 | HOSP ---
Subjective - Review of Symptoms General: No: Chills HEENT: No: Head Aches, Visual Changes Pulmonary: Yes: Dyspnea Cardiovascular: Yes: Palpitations, Light Headedness Gastrointestinal: No: Nausea, Vomiting, Abdominal Pain Physical Examination Vital Signs: Vital Signs Temperature 98.5 F 08/18/16 08:55 Pulse Rate 80 08/18/16 08:55 Respiratory Rate 20 08/18/16 08:55 Blood Pressure 132/72 08/18/16 08:55 O2 Sat by Pulse Oximetry (%) 98 08/18/16 08:55 Constitutional: Yes: Well Nourished, No Distress, Calm Eyes: Yes: WNL, Conjunctiva Clear, EOM Intact HENT: Yes: WNL Cardiovascular: Yes: Tachycardia, Pulse Irregular, Murmur, S1, S2. No: JVD Respiratory: Yes: CTA Bilaterally. No: Accessory Muscle Use Gastrointestinal: Yes: Normal Bowel Sounds, Soft. No: Tenderness Peripheral Pulses: Left Radial: 2+, Right Radial: 2+, Left Doralis Pedis: 2+, Right Dorsalis Pedis: 2+ Neurological: Yes: Alert, Oriented, Cran Nerves II-XII Intact. No: Facial Droop , Numbness ...Motor Strength: WNL Labs: CBC, BMP 08/17/16 10:15 08/17/16 10:15 Hospitalist Encounter Assessment: I was called to bedside s/p pre-syncopal episode. Upon arrival, patient was supine in bed. AA&Ox3. Telemetry review revealed episode of tachycardia with rate of 130-140 followed by a 2 second pause at the time of the event. Patient is scheduled for transfer to [facility] for evaluation and further w/u of these symptoms. FSBG- 89. VS as recorded. Repeat EKG ordered. Neuro exam as documented. Outcome: P: pre-syncope - EKG - FSBG- 89 - transfer as planned to [facility] for continued w/u Primary Physician Notified: Danelle Gaytan (MARYA Fernando) Time PMD Notified: 12:40 Recommendations/Interventions: MARYA Fernando to evaluate further.
--- NOTE | 2016-08-18 15:24 | PN ---
Progress Note, Physician Chief Complaint: Episode of dizziness this morning Appears to be related to when patient converts from afib rvr 140s to sinus as is briefly in sinus daisy 40 before HR picks up to 60s History of Present Illness: This is as 85 year old male with a PMH of CAD, HTN, HLD, atrial fibrillation ( on Eliquis)n and pancreatic Ca on chemo. The patient presents to the ED today with a syncopal event that was unwitnessed. Prior to the LOC, he felt like someone was chocking him. He hit his head with the event and has an area of ecchymosis. Presently he is comfortable and denies new complaints. - Current Medication List Current Medications: Active Medications Amlodipine Besylate (Norvasc -) 10 mg PO DAILY [facility] Last Admin: 08/18/16 10:03 Dose: 10 mg Apixaban (Eliquis -) 5 mg PO BID [facility] Last Admin: 08/18/16 10:03 Dose: 5 mg Atorvastatin Calcium (Lipitor -) 20 mg PO [facility] Last Admin: 08/17/16 21:39 Dose: 20 mg Losartan Potassium (Cozaar -) 50 mg PO DAILY [facility] Last Admin: 08/18/16 10:03 Dose: 50 mg Metoprolol Succinate (Toprol Xl -) 25 mg PO DAILY [facility] Last Admin: 08/18/16 10:03 Dose: 25 mg Pantoprazole Sodium (Protonix -) 40 mg PO DAILY [facility] Last Admin: 08/18/16 10:03 Dose: 40 mg - Objective Vital Signs: Vital Signs Temperature 98.5 F 08/18/16 08:55 Pulse Rate 80 08/18/16 08:55 Respiratory Rate 20 08/18/16 08:55 Blood Pressure 132/72 08/18/16 08:55 O2 Sat by Pulse Oximetry (%) 98 08/18/16 08:55 Constitutional: Yes: No Distress Neck: Yes: Supple Cardiovascular: Yes: Pulse Irregular, Murmur (2/6 HSM upper sternal border), S1 , S2. No: JVD Respiratory: Yes: CTA Bilaterally Gastrointestinal: Yes: Normal Bowel Sounds, Soft Edema: No Labs: CBC, BMP 08/17/16 10:15 08/17/16 10:15 Problem List - Problems (1) Afib Code(s): I48.91 - UNSPECIFIED ATRIAL FIBRILLATION Assessment/Plan This is as 85 year old male with a PMH of CAD, HTN, HLD, atrial fibrillation ( on Eliquis)n and pancreatic Ca on chemo admitted after syncope event 1) Syncope -continue telemetry monitoring -Continue frequent neuro checks given on apixaban. -On losartan, metoprolol, and amlodipine for htn. Check orthostatics -Echocardiogram with normal LVEF. CARRIE 1.7cm2, CARRIE mean grad 9, AV PHT 435 Appears to be related to when patient converts from afib rvr 140s to sinus as is briefly in sinus daisy 40 before HR picks up to 60s. Will plan to transfer to [facility] for evaluation by arrhythmia service for possible EP study/PPM and also possibility of amiodarone to keep him out of afib.
--- NOTE | 2016-08-18 15:55 | PN ---
Progress Note, Physician Chief Complaint: Syncope History of Present Illness: PATIENT CAME IN THE HOSPITAL WITH SYNCOPAL EPISODE. TODAY HE HAD AN EPISODE OF HIS HR INCREASING TO 140'S FOLLOWED BY 2 SECOND PAUSE,DURING WHICH HE FELT LIGHT HEADED. HE LIED DOWN IN THE BED, FELT BETTER. - Current Medication List Current Medications: Active Medications Amlodipine Besylate (Norvasc -) 10 mg PO DAILY [facility] Last Admin: 08/18/16 10:03 Dose: 10 mg Apixaban (Eliquis -) 5 mg PO BID [facility] Last Admin: 08/18/16 10:03 Dose: 5 mg Atorvastatin Calcium (Lipitor -) 20 mg PO HS [facility] Last Admin: 08/17/16 21:39 Dose: 20 mg Losartan Potassium (Cozaar -) 50 mg PO DAILY [facility] Last Admin: 08/18/16 10:03 Dose: 50 mg Metoprolol Succinate (Toprol Xl -) 25 mg PO DAILY [facility] Last Admin: 08/18/16 10:03 Dose: 25 mg Pantoprazole Sodium (Protonix -) 40 mg PO DAILY [facility] Last Admin: 08/18/16 10:03 Dose: 40 mg - Objective Vital Signs: Vital Signs Temperature 98.5 F 08/18/16 08:55 Pulse Rate 80 08/18/16 08:55 Respiratory Rate 20 08/18/16 08:55 Blood Pressure 132/72 08/18/16 08:55 O2 Sat by Pulse Oximetry (%) 98 08/18/16 08:55 Constitutional: Yes: Well Nourished, No Distress, Calm Cardiovascular: Yes: Pulse Irregular Respiratory: Yes: Regular Gastrointestinal: Yes: Normal Bowel Sounds Musculoskeletal: Yes: WNL Extremities: Yes: WNL Edema: No Peripheral Pulses WNL: Yes Neurological: Yes: Alert, Oriented Psychiatric: Yes: Alert, Oriented Labs: CBC, BMP 08/17/16 10:15 08/17/16 10:15 Problem List - Problems (1) Afib Assessment/Plan: ON Code(s): I48.91 - UNSPECIFIED ATRIAL FIBRILLATION Qualifiers: Atrial fibrillation type: chronic Qualified Code(s): I48.2 - Chronic atrial fibrillation (2) Syncope Assessment/Plan: BEING TRANSFERRED TO [facility] FOR EP STUDIES Assessment/Plan TRANSFER TO [facility] FOR EP STUDIES CAROTID STUDIES? CONTINUE TELEMETRY MONITORING
--- NOTE | 2016-08-19 10:32 | EKG ---
Test Reason : Blood Pressure : / mmHG Vent. Rate : 106 BPM Atrial Rate : 108 BPM P-R Int : 000 ms QRS Dur : 098 ms QT Int : 310 ms P-R-T Axes : 000 -23 037 degrees QTc Int : 411 ms ATRIAL FIBRILLATION WITH RAPID VENTRICULAR RESPONSE INCOMPLETE RIGHT BUNDLE BRANCH BLOCK MODERATE VOLTAGE CRITERIA FOR LVH, MAY BE NORMAL VARIANT NONSPECIFIC ST ABNORMALITY ABNORMAL ECG WHEN COMPARED WITH ECG OF 15-AUG-2016 09:22, ATRIAL FIBRILLATION HAS REPLACED SINUS RHYTHM Confirmed by GAVIOTA ALEXANDER MD ([id number]) on 08/19/2016 10:32:34 AM Referred By: KLEVER PRO Confirmed By:GAVIOTA ALEXANDER MD
== END 2016-08-18 18:11 | disposition short-term general hospital (02) | DRG 312 ==
LOC: JER 17:12 → JERBED 20:16 → J4W 21:42
PROVIDERS: ADMIT Family Medicine; ATTEND Family Medicine
DX: R55 Syncope and collapse (principal); C25.9 Malignant neoplasm of pancreas, unspecified; S09.90XA Unspecified injury of head, initial encounter; I48.2 Chronic atrial fibrillation; I25.10 Atherosclerotic heart disease of native coronary artery without angina pectoris; I10 Essential (primary) hypertension; E78.5 Hyperlipidemia, unspecified; Z85.46 Personal history of malignant neoplasm of prostate; Z79.01 Long term (current) use of anticoagulants; D64.9 Anemia, unspecified; W18.30XA Fall on same level, unspecified, initial encounter; Y93.89 Activity, other specified; Y92.89 Other specified places as the place of occurrence of the external cause; Y99.8 Other external cause status
CPT/HCPCS: 36415; 70450-TC; 72125-TC; 80053; 82550; 84484; 85025; 87040; 87086; 93005; 93010; 93306-TC; 99285-25

== ENCOUNTER 2016-08-31 07:40 | Day surgery (SDC) | payer OTHER ==
[2016-08-31 09:07] LABS: BASOPHIL 1.2 % (0-2.0); EOSINOPHIL 3.6 % (0-4.5); MCH 28.8 pg (25.7-33.7); MCHC 33.4 g/dl (32.0-35.9); MEAN CELL VOLUME 86.3 fl (80-96); NEUTROPHILS 75.8 % (42.8-82.8); PLATELET COUNT 360 K/MM3 (134-434); RDW 16.6 % (11.9-15.9); WHITE BLOOD COUNT 8.2 K/mm3 (4.0-10.0)
[2016-08-31 09:35] LABS: ALBUMIN 3.5 g/dl (3.4-5.0); ANION GAP 10 (8-16); BILIRUBIN,TOTAL 0.4 mg/dL (0.2-1.0); CO2 23 mmol/L (21-32); GLUCOSE,RANDOM 151 mg/dL (74-106); MAGNESIUM 2.2 mg/dL (1.8-2.4); SGOT/AST 31 U/L (15-37); SGPT/ALT 32 U/L (12-78); TOT PROT 6.9 g/dl (6.4-8.2)
[2016-08-31 09:36] LABS: ALK PHOS 224 U/L (45-117)
[2016-08-31] MEDS ORDERED: PALONOSETRON HCL 0.25 MG in SODIUM CHLORIDE 50 ML IVPB ONE (10:00)
[2016-08-31] MEDS ORDERED: DEXAMETHASONE INJECTION 12 MG in SODIUM CHLORIDE 50 ML IVPB ONE (10:00)
[2016-08-31] MEDS ORDERED: SODIUM CHLORIDE 250 ML IV ONE (10:00)
[2016-08-31] MEDS ORDERED: PORTA CATH FLUSH 10 ML IVPUSH ONE (10:22)
[2016-08-31] MEDS ORDERED: PACLITAXEL PROTEIN BOUND IVPB ONE (10:30)
[2016-08-31] MEDS ORDERED: SODIUM CHLORIDE IVPB ONE (10:30)
[2016-08-31] MEDS ORDERED: GEMCITABINE HCL IV ONE (11:00)
[2016-08-31] MEDS ORDERED: SODIUM CHLORIDE IV ONE (11:00)
[2016-08-31 13:25] VITALS: BP 135/82; PULSE 79; TEMP 98.2
== END 2016-08-31 14:00 | disposition home or self-care (01) ==
LOC: JONCCHEMO 07:40 → J7W 10:11 → JONCCHEMO 14:00
PROVIDERS: ATTEND Internal Medicine Hematology & Oncology
PROC: 3E04305 Introduction of Other Antineoplastic into Central Vein, Percutaneous Approach (ICD-10-PCS; principal; 2016-08-31)
PROC: 3E043GC Introduction of Other Therapeutic Substance into Central Vein, Percutaneous Approach (ICD-10-PCS; 2016-08-31)
PROC: 3E0437Z Introduction of Electrolytic and Water Balance Substance into Central Vein, Percutaneous Approach (ICD-10-PCS; 2016-08-31)
DX: Z51.11 Encounter for antineoplastic chemotherapy (principal); C25.0 Malignant neoplasm of head of pancreas; D70.1 Agranulocytosis secondary to cancer chemotherapy
CPT/HCPCS: 96361; 96375; 96413; J9201; 36415; 80053; 83735; 85025; 86301; J2469

== ENCOUNTER 2016-09-07 07:45 | Day surgery (SDC) | payer OTHER ==
[~2016-09-07 07:45] MED LIST changes: +DEXAMETHASONE INJECTION 12 MG in SODIUM CHLORIDE 50 ML IVPB ONE; +GEMCITABINE HCL IV ONE; -INDOMETHACIN 50 MG RECTAL SUPPOSITORY PR ONE; -LEVOFLOXACIN 500 MG IVPB 100 ML IVPB ONE; -LEVOFLOXACIN 500 MG PREMIX BAG IVPB ONE; -LIDOCAINE HCL/PF 1% SDV 5ML VIAL ONE; -ONDANSETRON 4 MG/2 ML VIAL IVPB PRN; +PACLITAXEL PROTEIN BOUND IVPB ONE; +PALONOSETRON HCL 0.25 MG in SODIUM CHLORIDE 50 ML IVPB ONE; -PROPOFOL 20 ML ONE; +SODIUM CHLORIDE 250 ML IV ONE; +SODIUM CHLORIDE IV ONE; +SODIUM CHLORIDE IVPB ONE; -SUCCINYLCHOLINE CHLORIDE 200 MG/10 ML VIAL ONE
[2016-09-07 09:03] LABS: MCH 28.8 pg (25.7-33.7); MCHC 33.2 g/dl (32.0-35.9); MEAN CELL VOLUME 86.7 fl (80-96); PLATELET COUNT 202 K/MM3 (134-434); RDW 16.5 % (11.9-15.9); WHITE BLOOD COUNT 3.3 K/mm3 (4.0-10.0)
[2016-09-07 09:40] LABS: ALBUMIN 3.4 g/dl (3.4-5.0); ALK PHOS 169 U/L (45-117); ANION GAP 7 (8-16); BILIRUBIN,DIRECT 0.2 mg/dL (0.0-0.2); BILIRUBIN,TOTAL 0.7 mg/dL (0.2-1.0); CALCIUM 8.7 mg/dL (8.5-10.1); CO2 28 mmol/L (21-32); GLUCOSE,RANDOM 109 mg/dL (74-106); MAGNESIUM 2.1 mg/dL (1.8-2.4); SGOT/AST 20 U/L (15-37); SGPT/ALT 28 U/L (12-78); TOT PROT 6.9 g/dl (6.4-8.2)
[2016-09-07 09:59] LABS: PLATELET ESTIMATE ADEQUATE (NORMAL)
[2016-09-07] MEDS ORDERED: DEXAMETHASONE INJECTION 8 MG in SODIUM CHLORIDE 50 ML IVPB ONE (10:00)
[2016-09-07] MEDS ORDERED: PALONOSETRON HCL 0.25 MG in SODIUM CHLORIDE 50 ML IVPB ONE (10:00)
[2016-09-07] MEDS ORDERED: amLODIPine BESYLATE 5 MG TABLET (FP) PO ONE ×2 (10:00→12:45)
[2016-09-07] MEDS ORDERED: DEXAMETHASONE INJECTION 12 MG in SODIUM CHLORIDE 50 ML IVPB ONE (10:00)
[2016-09-07] MEDS ORDERED: SODIUM CHLORIDE 250 ML IV ONE (10:00)
[2016-09-07] MEDS ORDERED: PORTA CATH FLUSH 10 ML IVPUSH ONE (10:06)
[2016-09-07] MEDS ORDERED: SODIUM CHLORIDE IV ONE (10:30)
[2016-09-07] MEDS ORDERED: GEMCITABINE HCL IV ONE (10:30)
[2016-09-07 12:39] VITALS: PULSE 70; TEMP 98.2
[2016-09-07 13:08] VITALS: BP 159/81
--- NOTE | 2016-09-09 15:08 | PN ---
Progress Note (short form) - Note Progress Note: ID Consult dictated Leukocytosis- suspect secondary to Filgrastim/ Dexamethasone Pancreatic ca Chest pain syndrome Await c/s Observe off antibiotics
== END 2016-09-07 14:45 | disposition home or self-care (01) ==
LOC: JONCCHEMO 07:45 → J7W 09:50 → JONCCHEMO 14:45
PROVIDERS: ATTEND Internal Medicine Hematology & Oncology
PROC: 3E04305 Introduction of Other Antineoplastic into Central Vein, Percutaneous Approach (ICD-10-PCS; principal; 2016-09-07)
PROC: 3E043GC Introduction of Other Therapeutic Substance into Central Vein, Percutaneous Approach (ICD-10-PCS; 2016-09-07)
PROC: 3E0437Z Introduction of Electrolytic and Water Balance Substance into Central Vein, Percutaneous Approach (ICD-10-PCS; 2016-09-07)
DX: Z51.11 Encounter for antineoplastic chemotherapy (principal); C25.0 Malignant neoplasm of head of pancreas; I10 Essential (primary) hypertension; E78.00 Pure hypercholesterolemia, unspecified; I25.10 Atherosclerotic heart disease of native coronary artery without angina pectoris; I48.91 Unspecified atrial fibrillation
CPT/HCPCS: 96361; 96375; 96413; J9201; 36415; 80053; 80076; 83735; 85025; J2469

== ENCOUNTER 2016-09-09 04:30 | Inpatient (IN) | payer OTHER ==
[2016-09-09 04:38] VITALS: BMI 25.7
--- NOTE | 2016-09-09 04:38 | PDOC ---
History of Present Illness - General History Source: Patient Exam Limitations: No Limitations - History of Present Illness Initial Comments: 09/09/16 04:53 The patient is a 85 year old male with significant past medical history of Syncopal episodes, pancreatic CA (last chemo 2 days ago), CAD (non-obstructive per 01/2013 cardiac cath), hypertension, hyperlipidemia, prostate CA s/p prostatectomy who presents to the ED for chest pain and SOB prior to arrival. Patient reports he was in his usual state of health prior to going to bed last night when he awoke with chest pain and SOB around 3am. He describes his pain as nonradiating and pressure-like sensation around the mid sternal and epigastric region. States he has not been able to take his medications yet as he normally takes his medications in the morning. Denies lightheadedness, diaphoresis, jaw pain, shoulder pain, arm pain, leg swelling, nausea, or vomiting. The patient denies fever, chills, cough, abdominal pain and diarrhea. Allergies: NKDA Social History: No alcohol, tobacco, or drug use reported. Past Surgical History: s/p prostatectomy PCP: Dr. Danelle Gaytan <Fransisca Kang - Last Filed: 09/09/16 06:17> - General History Source: Patient <Rah Mcintosh - Last Filed: 09/09/16 19:32> - General Chief Complaint: Chest Pain Stated Complaint: CHEST PAIN/JAW PAIN Time Seen by Provider: 09/09/16 04:38 Past History <Fransisca Kang - Last Filed: 09/09/16 06:17> - Past Medical History Cancer: Yes (PROSTATE,Pancreas) Cardiac Disorders: Yes (CAD) HTN: Yes Hypercholesterolemia: Yes - Surgical History Abdominal Surgery: Yes (EXP LAP) GI Surgery: Yes (COLOSTOMY WITH REVERSAL) - Immunization History Immunization Up to Date: Yes - Psycho/Social/Smoking Cessation Hx Anxiety: No Suicidal Ideation: No Smoking Status: No Smoking History: Never smoked Have you smoked in the past 12 months: No Number of Cigarettes Smoked Daily: 0 Hx Alcohol Use: No Drug/Substance Use Hx: No Substance Use Type: None Hx Substance Use Treatment: No <Rah Mcintosh - Last Filed: 09/09/16 19:32> - Past Medical History Allergies/Adverse Reactions: Allergies Allergy/AdvReac Type Severity Reaction Status Date / Time No Known Allergies Allergy Verified 09/09/16 04:35 Home Medications: Ambulatory Orders Amlodipine Besylate 10 mg PO DAILY 08/02/15 Apixaban [Eliquis] 5 mg PO BID 07/26/16 Losartan Potassium 50 mg PO DAILY 07/26/16 Pantoprazole Sodium 40 mg PO DAILY 07/26/16 Atorvastatin Ca [Lipitor] 20 mg PO HS #30 tablet 07/29/16 Metoprolol Succinate [Toprol Xl -] 25 mg PO DAILY 08/14/16 Filgrastim-Sndz [Zarxio] 300 mcg IJ PRN 09/09/16 Review of Systems - Review of Systems Able to Perform ROS?: Yes Comments:: 09/09/16 04:53 CONSTITUTIONAL: Absent: fever, chills, diaphoresis, generalized weakness, malaise, loss of appetite HEENT: Absent: rhinorrhea, nasal congestion, throat pain, throat swelling, difficulty swallowing, ear pain, eye pain, visual Changes CARDIOVASCULAR: +chest pain Absent: chest pain, syncope, palpitations, lightheadedness, peripheral edema RESPIRATORY: +SOB Absent: cough, dyspnea with exertion, orthopnea, wheezing, stridor, hemoptysis GASTROINTESTINAL: Absent: abdominal pain, abdominal distension, nausea, vomiting, diarrhea, constipation, melena, hematochezia GENITOURINARY: Absent: dysuria, frequency, urgency, hesitancy, hematuria, flank pain, genital pain MUSCULOSKELETAL: Absent: myalgia, arthralgia, joint swelling SKIN: Absent: rash, itching, pallor NEUROLOGIC: Absent: headache, focal weakness or paresthesias, dizziness, unsteady gait, seizure, mental status changes, bladder or bowel incontinence <Fransisca Kang - Last Filed: 09/09/16 06:17> *Physical Exam - Vital Signs Last Vital Signs Temp Pulse Resp BP Pulse Ox 97.5 F L 146 H 14 157/116 99 09/09/16 04:36 09/09/16 04:36 09/09/16 04:36 09/09/16 04:36 09/09/16 04:36 - Physical Exam Comments: 09/09/16 04:53 GENERAL: Well developed, well nourished. Awake and alert. Mild distress. HEENT: Normocephalic, atraumatic. PERRLA, EOMI. No conjunctival pallor. Sclera are non- icteric. Moist mucous membranes. Oropharynx is clear. NECK: Supple. Full ROM. No JVD. Carotid pulses 2+ and symmetric, without bruits. No thyromegaly. No lymphadenopathy. CARDIOVASCULAR: Irregularly irregular. Tachycardia. No murmurs, rubs, or gallops. Distal pulses are 2+ and symmetric. PULMONARY: No evidence of respiratory distress. Lungs clear to auscultation bilaterally. No wheezing, rales or rhonchi. ABDOMINAL: Soft. Non-tender. Non-distended. No rebound or guarding. No organomegaly. Normoactive bowel sounds. MUSCULOSKELETAL Normal range of motion at all joints. No bony deformities or tenderness. No CVA tenderness. EXTREMITIES: No cyanosis. No clubbing. No edema. No calf tenderness. SKIN: Warm and dry. Normal capillary refill. No rashes. No jaundice. NEUROLOGICAL: Alert, awake, appropriate. Cranial nerves 2-12 intact. Moving all extremities equally. No gross neurological deficits. <Fransisca Kang - Last Filed: 09/09/16 06:17> Heart Score/ECG Review - ECG Impressions Comment:: 09/09/16 04:54 Atrial fibrillation with rapid ventricular response @150bpm Moderate voltage criteria for LVH, may be normal variant ST & T wave abnormality, consider lateral ischemia Abnormal ECG <Fransisca Kang - Last Filed: 09/09/16 06:17> ED Treatment Course - LABORATORY CBC & Chemistry Diagram: 09/09/16 04:49 09/09/16 04:49 - Medications Given in the ED: ED Medications Discontinued Medications Generic Name Dose Route Start Last Admin Trade Name Freq PRN Reason Stop Dose Admin Diltiazem HCl 20 mg 09/09/16 04:42 09/09/16 04:53 Cardizem Injection - IVPUSH 09/09/16 04:43 20 mg ONCE ONE Administration <Fransisca Kang - Last Filed: 09/09/16 06:17> - LABORATORY CBC & Chemistry Diagram: 09/09/16 04:49 09/09/16 04:49 <Rah Mcintosh - Last Filed: 09/09/16 19:32> Medical Decision Making - Medical Decision Making 09/09/16 06:[address] Juan Ramon Rodriguez who is covering for Dr. Danelle Gaytan (via answering service) and patient's case was discussed. <Fransisca Kang - Last Filed: 09/09/16 06:17> - Medical Decision Making 09/09/16 19:32 Dr. Mcintosh: The scribe's documentation has been prepared under my direction and personally reviewed by me in its entirery. I confirm that the note above accurately reflects all work, treatment, procedures, and medical decision making performed by me. <Rah Mcintosh - Last Filed: 09/09/16 19:32> *DC/Admit/Observation/Transfer - Attestations Scribe Attestion: 09/09/16 04:55 Documentation prepared by Fransisca Kang, acting as medical management specialist for Rah Mcintosh MD/DO. <Fransisca Kang - Last Filed: 09/09/16 06:17> - Discharge Dispostion Admit: Yes <Rah Mcintosh - Last Filed: 09/09/16 19:32> Diagnosis at time of Disposition: Afib, Pancreatic neoplasm, Leukocytosis
[2016-09-09] MEDS ORDERED: APIXABAN 5 MG TABLET PO STA (04:42)
[2016-09-09] MEDS ORDERED: dilTIAZem HCL 50 MG/10 ML - 10 ML VIAL IVPUSH ONE (04:42)
[2016-09-09] MEDS ORDERED: dilTIAZem HCL 50 MG/10 ML - 10 ML VIAL ONE (04:46)
[2016-09-09 05:08] LABS: MCH 27.5 pg (25.7-33.7); MCHC 31.9 g/dl (32.0-35.9); MEAN CELL VOLUME 86.1 fl (80-96); MEAN PLT VOLUME 8.9 fl (7.5-11.1); PLATELET COUNT 198 K/MM3 (134-434); RDW 16.5 % (11.9-15.9); WHITE BLOOD COUNT 28.5 K/mm3 (4.0-10.0)
[2016-09-09 05:22] LABS: INR 1.3 (0.82-1.09); PROTHROMBIN TIME (PATIENT) 14.4 SEC (9.98-11.88)
[2016-09-09 05:30] LABS: ALBUMIN 3.7 g/dl (3.4-5.0); ANION GAP 11 (8-16); BILIRUBIN,TOTAL 0.7 mg/dL (0.2-1.0); CALCIUM 8.5 mg/dL (8.5-10.1); CO2 25 mmol/L (21-32); GLUCOSE,RANDOM 114 mg/dL (74-106); MAGNESIUM 2.2 mg/dL (1.8-2.4); SGOT/AST 25 U/L (15-37); SGPT/ALT 28 U/L (12-78); TOT PROT 7.1 g/dl (6.4-8.2)
[2016-09-09 05:32] LABS: ALK PHOS 159 U/L (45-117); TROPONIN I < 0.02 ng/ml (0.00-0.05)
[2016-09-09 07:22] LABS: PLATELET ESTIMATE ADEQUATE (NORMAL)
[2016-09-09] MEDS ORDERED: ACETAMINOPHEN 325 MG TABLET (FP) PO PRN (07:25)
[2016-09-09] MEDS: METOPROLOL SUCCINATE 25 MG TAB.SR.24H (FP) PO SCH (09:28)
[2016-09-09] MEDS: LOSARTAN POTASSIUM 50 MG TABLET (FP) PO SCH (09:28)
[2016-09-09] MEDS: amLODIPine BESYLATE 10 MG TABLET (FP) PO SCH (09:28)
[2016-09-09] MEDS: APIXABAN 5 MG TABLET PO SCH ×3 (09:29→21:51)
[2016-09-09] MEDS: PANTOPRAZOLE 40 MG TABLET (FP) PO SCH (09:36)
--- NOTE | 2016-09-09 11:05 | EKG ---
Test Reason : Blood Pressure : / mmHG Vent. Rate : 150 BPM Atrial Rate : 159 BPM P-R Int : 000 ms QRS Dur : 096 ms QT Int : 316 ms P-R-T Axes : 000 -25 127 degrees QTc Int : 499 ms ATRIAL FIBRILLATION WITH RAPID VENTRICULAR RESPONSE MODERATE VOLTAGE CRITERIA FOR LVH, MAY BE NORMAL VARIANT ABNORMAL ECG WHEN COMPARED WITH ECG OF 18-AUG-2016 15:52, ST NOW DEPRESSED IN ANTEROLATERAL LEADS Confirmed by BENJAMIN GORDILLO, GAVIOTA ([id number]) on 09/09/2016 11:04:41 AM Referred By: Confirmed By:GAVIOTA ALEXANDER MD
--- NOTE | 2016-09-09 12:06 | HP ---
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 Patient reports he was in his usual state of health prior to going to bed last night when he awoke with chest pain and SOB around 3am. He describes his pain as nonradiating and pressure-like sensation around the mid sternal and epigastric region. States he has not been able to take his medications yet as he normally takes his medications in the morning. Denies lightheadedness, diaphoresis, jaw pain, shoulder pain, arm pain, leg swelling, nausea, or vomiting. The patient denies fever, chills, cough, abdominal pain and diarrhea. Allergies: NKDA Social History: No alcohol, tobacco, or drug use reported. Past Surgical History: s/p prostatectomy PCP: Dr. Danelle Gaytan currently in bed says he has chest pressure and found to have elevated WBC on labs EKG found to be in afib History Source: Patient, Medical Record Limitations to Obtaining History: Language Barrier - Past Medical History Cardiovascular: Yes: AFIB, CAD (non-obstructive per 01/2013 cardiac cath), HTN, Hyperlipdemia, Murmur Pulmonary: Yes: Other (chronic lung disease) Gastrointestinal: Yes: Constipation, Other (H/O SBO DUE TO ADHESIONS, pancreatic Ca) Renal/: Yes: Cancer Heme/Onc: Yes: Hypercoaguable State - Past Surgical History Past Surgical History: Yes: Prostatectomy - Smoking History Smoking history: Never smoked Have you smoked in the past 12 months: No Aproximately how many cigarettes per day: 0 - Alcohol/Substance Use Hx Alcohol Use: No Home Medications - Allergies Allergies/Adverse Reactions: Allergies Allergy/AdvReac Type Severity Reaction Status Date / Time No Known Allergies Allergy Verified 09/09/16 04:35 - Home Medications Home Medications: Ambulatory Orders Amlodipine Besylate 10 mg PO DAILY 08/02/15 Apixaban [Eliquis] 5 mg PO BID 07/26/16 Losartan Potassium 50 mg PO DAILY 07/26/16 Pantoprazole Sodium 40 mg PO DAILY 07/26/16 Atorvastatin Ca [Lipitor] 20 mg PO HS #30 tablet 07/29/16 Metoprolol Succinate [Toprol Xl -] 25 mg PO DAILY 08/14/16 Filgrastim-Sndz [Zarxio] 300 mcg IJ PRN 09/09/16 Physical Examination Vital Signs: Vital Signs Temperature 98 F 09/09/16 08:57 Pulse Rate 94 H 09/09/16 08:57 Respiratory Rate 20 09/09/16 09:09 Blood Pressure 110/60 09/09/16 08:57 O2 Sat by Pulse Oximetry (%) 95 09/09/16 09:09 Respiratory: Yes: SOB Imaging - Results Chest X-ray: Report Reviewed Cat Scan: Report Reviewed Problem List - Problems (1) Afib Assessment/Plan: tele cardio check tsh rate control eliquis echo Code(s): I48.91 - UNSPECIFIED ATRIAL FIBRILLATION Qualifiers: (2) Leukocytosis Assessment/Plan: check esr, crp,LAP ID and heme eval Code(s): D72.829 - ELEVATED WHITE BLOOD CELL COUNT, UNSPECIFIED (3) Pancreatic neoplasm Assessment/Plan: oncology eval Code(s): D49.0 - NEOPLASM OF UNSPECIFIED BEHAVIOR OF DIGESTIVE SYSTEM (4) SOB (shortness of breath) Assessment/Plan: CTA negative chronic lung changes pulm eval trend cardiac enzymes Code(s): R06.02 - SHORTNESS OF BREATH
[2016-09-09 12:34] LABS: URINE APPEARANCE CLEAR; URINE BILIRUBIN NEGATIVE (NEGATIVE); URINE BLOOD NEGATIVE (NEGATIVE); URINE COLOR LTYELLOW; URINE GLUCOSE (UA) NEGATIVE (NEGATIVE); URINE KETONE NEGATIVE (NEGATIVE); URINE LEUK ESTERASE NEGATIVE (NEGATIVE); URINE NITRITE NEGATIVE (NEGATIVE); URINE PROTEIN NEGATIVE (NEGATIVE); URINE UROBILINOGEN NEGATIVE E.U./dl (0.2-1.0)
--- NOTE | 2016-09-09 12:47 | CON.PULM ---
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 Apparent life long non-smoker. Admitted via the ER due chest pain and SOB hilda woke him up out of sleep at 3 AM. No overt history consistent with OSAS. No travel history or sick contacts. No fever or chills. No night sweats or hemoptysis. No URI symptoms, cough, sputum etc. CTA : No PE / mild chronic interstitial changes. ECHO : reviewed (+) Valvular disease / Diastolic dysfunction / Moderate PAH - History Source History Provided By: Patient Limitations to Obtaining History: No Limitations - Past Medical History Cardio/Vascular: Yes: AFIB, CAD (non-obstructive per 01/2013 cardiac cath), HTN , Hyperlipdemia, Murmur Pulmonary: Yes: Other (chronic lung disease) Gastrointestinal: Yes: Constipation, Other (H/O SBO DUE TO ADHESIONS, pancreatic Ca) Renal/: Yes: Cancer - Past Surgical History Past Surgical History: Yes: Prostatectomy - Alcohol/Substance Use Hx Alcohol Use: No - Smoking History Smoking history: Never smoked Have you smoked in the past 12 months: No Aproximately how many cigarettes per day: 0 Home Medications - Allergies Allergies/Adverse Reactions: Allergies Allergy/AdvReac Type Severity Reaction Status Date / Time No Known Allergies Allergy Verified 09/09/16 04:35 - Home Medications Home Medications: Ambulatory Orders Amlodipine Besylate 10 mg PO DAILY 08/02/15 Apixaban [Eliquis] 5 mg PO BID 07/26/16 Losartan Potassium 50 mg PO DAILY 07/26/16 Pantoprazole Sodium 40 mg PO DAILY 07/26/16 Atorvastatin Ca [Lipitor] 20 mg PO HS #30 tablet 07/29/16 Metoprolol Succinate [Toprol Xl -] 25 mg PO DAILY 08/14/16 Filgrastim-Sndz [Zarxio] 300 mcg IJ PRN 09/09/16 Review of Systems - Review of Systems Constitutional: denies: Chills, Fever, Night Sweats, Unintentional Wgt. Loss, Weakness Eyes: reports: No Symptoms HENT: reports: No Symptoms Neck: reports: No Symptoms Cardiovascular: reports: Chest Pain, Shortness of Breath. denies: Edema, Palpitations Respiratory: reports: SOB, SOB on Exertion. denies: Cough, Hemoptysis, Orthopnea, Snoring, Wheezing Gastrointestinal: reports: Constipation Genitourinary: reports: No Symptoms Breasts: reports: No Symptoms Reported Musculoskeletal: reports: No Symptoms Integumentary: reports: No Symptoms Neurological: reports: No Symptoms Endocrine: reports: No Symptoms Hematology/Lymphatic: reports: No Symptoms Psychiatric: reports: No Symptoms Physical Exam Vital Sings: Vital Signs Temperature 98 F 09/09/16 08:57 Pulse Rate 94 H 09/09/16 08:57 Respiratory Rate 20 09/09/16 09:09 Blood Pressure 110/60 09/09/16 08:57 O2 Sat by Pulse Oximetry (%) 95 09/09/16 09:09 Constitutional: Yes: No Distress, Thin Eyes: Yes: Conjunctiva Clear HENT: Yes: Atraumatic, Normocephalic Neck: Yes: Supple, Trachea Midline Cardiovascular: Yes: Pulse Irregular Respiratory: No: Accessory Muscle Use, Cough, Dullness, Rales, Rhonchi, Stridor , Tachypnea, Wheezes ...Inspection: Yes: WNL ...Clubbing: No Gastrointestinal: Yes: Normal Bowel Sounds, Soft Renal/: Yes: WNL Breast(s): Yes: WNL Musculoskeletal: Yes: WNL Extremities: Yes: WNL Edema: No Peripheral Pulses WNL: Yes Integumentary: Yes: WNL Neurological: Yes: Alert, Oriented ...Motor Strength: WNL Psychiatric: Yes: WNL, Alert, Oriented Imaging - Results Chest X-ray: Report Reviewed, Image Reviewed Cat Scan: Report Reviewed, Image Reviewed Problem List - Problems (1) Afib Code(s): I48.91 - UNSPECIFIED ATRIAL FIBRILLATION Qualifiers: (2) Leukocytosis Code(s): D72.829 - ELEVATED WHITE BLOOD CELL COUNT, UNSPECIFIED (3) Pancreatic neoplasm Code(s): D49.0 - NEOPLASM OF UNSPECIFIED BEHAVIOR OF DIGESTIVE SYSTEM (4) SOB (shortness of breath) Code(s): R06.02 - SHORTNESS OF BREATH (5) Anemia Code(s): D64.9 - ANEMIA, UNSPECIFIED (7) Constipation Code(s): K59.00 - CONSTIPATION, UNSPECIFIED (9) Pancreatic cancer Code(s): C25.9 - MALIGNANT NEOPLASM OF PANCREAS, UNSPECIFIED Assessment/Plan PLAN: Suspect patient's symptoms are multifactorial and due in part to PAH/ deconditioning/and possible cardiac factors Low suspicion for OSAS No occult lung pathology noted on CTA / O2 saturation normal on RA Do not suspect PNA Do not suspect Bronchospasm Leukocytosis to be further evaluated O2 as needed VTE prophylaxis PFTs after D/C Will follow Thank you. Dr Hurst
--- NOTE | 2016-09-09 14:32 | CON.CARD ---
Consult Consult Specialty:: cardiology Referred by:: Lucila Reason for Consultation:: Chest pain - History of Present Illness Chief Complaint: Chest pain History of Present Illness: The patient is an 85-year-old man, with a history of hypertension, hyperlipidemia, paroxysmal atrial fibrillation, on Eliquis, status post permanent pacemaker, pancreatic cancer on chemotherapy, recent syncopal event, nonobstructive coronary artery disease (cardiac catheterization 01/24), now presenting after waking up with retrosternal chest tightness and pressure radiating to his jaw. The symptoms lasted approximately 10 minutes. The patient is currently comfortable and symptom free. Chest pains did not recur. The patient reports no exertional chest pains. Denied dyspnea on effort. Denied any other associated symptoms. - History Source History Provided By: Patient Limitations to Obtaining History: No Limitations - Past Medical History Cardio/Vascular: Yes: AFIB, CAD (non-obstructive per 01/2013 cardiac cath), HTN , Hyperlipdemia, Murmur Pulmonary: Yes: Other (chronic lung disease) Gastrointestinal: Yes: Constipation, Other (H/O SBO DUE TO ADHESIONS, pancreatic Ca) Renal/: Yes: Cancer - Past Surgical History Past Surgical History: Yes: Prostatectomy - Alcohol/Substance Use Hx Alcohol Use: No - Smoking History Smoking history: Never smoked Have you smoked in the past 12 months: No Aproximately how many cigarettes per day: 0 Home Medications - Allergies Allergies/Adverse Reactions: Allergies Allergy/AdvReac Type Severity Reaction Status Date / Time No Known Allergies Allergy Verified 09/09/16 04:35 - Home Medications Home Medications: Ambulatory Orders Amlodipine Besylate 10 mg PO DAILY 08/02/15 Apixaban [Eliquis] 5 mg PO BID 07/26/16 Losartan Potassium 50 mg PO DAILY 07/26/16 Pantoprazole Sodium 40 mg PO DAILY 07/26/16 Atorvastatin Ca [Lipitor] 20 mg PO HS #30 tablet 07/29/16 Metoprolol Succinate [Toprol Xl -] 25 mg PO DAILY 08/14/16 Filgrastim-Sndz [Zarxio] 300 mcg IJ PRN 09/09/16 Review of Systems - Review of Systems Constitutional: reports: No Symptoms Eyes: reports: No Symptoms HENT: reports: No Symptoms Neck: reports: No Symptoms Cardiovascular: reports: Chest Pain, Palpitations Respiratory: reports: No Symptoms Gastrointestinal: reports: No Symptoms Genitourinary: reports: No Symptoms Breasts: reports: No Symptoms Reported Musculoskeletal: reports: No Symptoms Integumentary: reports: No Symptoms Neurological: reports: No Symptoms Endocrine: reports: No Symptoms Hematology/Lymphatic: reports: No Symptoms Psychiatric: reports: No Symptoms - Risk Factors Known Risk Factors: Yes: Hypercholesterolemia, Hypertension Vital Signs: Vital Signs Temperature 98 F 09/09/16 08:57 Pulse Rate 94 H 09/09/16 08:57 Respiratory Rate 20 09/09/16 09:09 Blood Pressure 110/60 09/09/16 08:57 O2 Sat by Pulse Oximetry (%) 95 09/09/16 09:09 Constitutional: Yes: Well Nourished, No Distress, Calm Eyes: Yes: WNL HENT: Yes: WNL Neck: Yes: WNL, Supple Respiratory: Yes: WNL Gastrointestinal: Yes: WNL Renal/: Yes: WNL Cardiovascular: Yes: Pulse Irregular JVD: No Carotid Bruit: No PMI: Non-Displaced Heart Sounds: Yes: S1, S2 Murmur: Yes: Systolic Murmur, Grade 2 - Other Data Labs, Other Data: INR, PTT INR 1.30 (0.82-1.09) H 09/09/16 04:49 Assessment/Plan Elderly man with multiple medical problems, now presenting with chest pains at rest. There is no evidence of ischemia nor acute coronary syndrome. The symptoms did not recur. The echocardiogram showed normal biventricular systolic function. No segmental wall motion abnormalities noted. Telemetry showed paroxysmal atrial fibrillation with demand ventricular pacing. No ventricular tachycardias documented. Continue current regimen. Starting imdur 30 mg daily. I will arrange for a pharmacological stress test. The patient should not consume any caffeinated fluids or foods, until the stress test is completed. There is no need for further cardiac workup at this point. The patient is stable and symptom-free.
--- NOTE | 2016-09-09 15:59 | CONS ---
INFECTIOUS DISEASE CONSULTATION DATE OF CONSULTATION: 09/09/2016 The patient is an 85-year-old male with a history of pancreatic CA on chemotherapy, evaluated for elevated white blood cell count. The patient was admitted to the hospital on September 09, with complaints of chest pain and shortness of breath. A CAT scan of the chest was negative for pulmonary embolism or pneumonitis. His admitting laboratories showed a white count of 28. Of note, the patient received chemotherapy for his pancreatic CA on September 07, 2016. It appears that he received filgrastim as well as a dose of dexamethasone on the . At the present time, he is awake and alert. He has no complaints of chest pain. He denies any shortness of breath, cough, or sputum production. No vomiting or diarrhea. No complaints of dysuria or hematuria. He has no complaints of erythema or tenderness at the port site. PAST MEDICAL HISTORY: Positive for pancreatic CA on chemotherapy, history of coronary artery disease, hypertension, hyperlipidemia, prostate cancer. PAST SURGICAL HISTORY: Status post prostatectomy, status post biliary stent placement, and permanent pacemaker. ALLERGIES: No known allergies. MEDICATIONS: Amlodipine, Eliquis, losartan, Lipitor, Toprol, filgrastim. SOCIAL HISTORY: Negative for tobacco and alcohol use. SYSTEMS REVIEW: Neurologic: No loss of consciousness, seizure activity, or focal weakness. Cardiac: As per HPI. Respiratory: Negative cough or sputum production. Gastrointestinal: Negative vomiting or diarrhea. Genitourinary: Negative for urinary tract infection. LABORATORY DATA: White count 28.5, neutrophils 88, lymphocytes 4, monocytes 2, bands 6; hematocrit 33.9; platelet count 198. BUN 24, creatinine 1.0. CAT scan of the chest negative for acute infiltrate. Urinalysis negative. PHYSICAL EXAMINATION: General: He is awake and alert. He is not acutely toxic appearing. Vital Signs: Temperature is 97.5; blood pressure 157/116; pulse 140, irregular; respirations 14 per minute. Eyes: Sclerae are anicteric. Heart: Sounds S1 and S2. A 2/6 pansystolic murmur. Lungs: Clear bilaterally. No rhonchi, rales, or wheezing. Abdomen: Soft, obese. Healed midline surgical scar. Extremities: Negative for edema. Chest: There is a pacemaker present in the left upper chest and a port placement in the right upper chest. No evidence of infection. IMPRESSION: 1. Leukocytosis, suspect leukemoid reaction secondary to filgrastim and dexamethasone. 2. Pancreatic cancer status post chemotherapy. 3. Chest pain syndrome. Suspect elevated white blood cell count is as a result of filgrastim and dexamethasone. At the present time, he is afebrile, without clear focus of infection. We will observe off antibiotic therapy. Await cultures. Should he develop fever or have any change in his clinical condition, we will empirically start treatment for possible biliary sepsis. However, in the interim, we will observe. We will follow. Thank you for the kind referral. WAYLON JOSE M.D. [id number]
--- NOTE | 2016-09-09 18:51 | CONSULT ---
Consult - text type - Consultation Consultation Note: The patient is a 85 year old male with significant past medical history of Syncopal episodes, pancreatic CA (last chemo 2 days ago), CAD (non-obstructive per 01/2013 cardiac cath), hypertension, hyperlipidemia, prostate CA s/p prostatectomy who presents to the ED for chest pain and SOB prior to arrival. Patient reports he was in his usual state of health prior to going to bed last night when he awoke with chest pain and SOB around 3am. He describes his pain as nonradiating and pressure-like sensation around the mid sternal and epigastric region. Denies lightheadedness, diaphoresis, jaw pain, shoulder pain , arm pain, leg swelling, nausea, or vomiting. The patient denies fever, chills, cough, abdominal pain and diarrhea. Allergies: NKDA Past Surgical History: s/p prostatectomy - Past Medical History Cancer: Yes (PROSTATE,Pancreas) Cardiac Disorders: Yes (CAD) HTN: Yes Hypercholesterolemia: Yes - Surgical History Abdominal Surgery: Yes (EXP LAP) GI Surgery: Yes (COLOSTOMY WITH REVERSAL) - Immunization History Immunization Up to Date: Yes - Psycho/Social/Smoking Cessation Hx Smoking History: Never smoked - Past Medical History Allergies/Adverse Reactions: Allergies Allergy/AdvReac Type Severity Reaction Status Date / Time No Known Allergies Allergy Verified 09/09/16 04:35 Home Medications: Ambulatory Orders Amlodipine Besylate 10 mg PO DAILY 08/02/15 Apixaban [Eliquis] 5 mg PO BID 07/26/16 Losartan Potassium 50 mg PO DAILY 07/26/16 Pantoprazole Sodium 40 mg PO DAILY 07/26/16 Atorvastatin Ca [Lipitor] 20 mg PO HS #30 tablet 07/29/16 Metoprolol Succinate [Toprol Xl -] 25 mg PO DAILY 08/14/16 Filgrastim-Sndz [Zarxio] 300 mcg IJ PRN 09/09/16 - Vital Signs Last Vital Signs Temp Pulse Resp BP Pulse Ox 97.5 F L 146 H 14 157/116 99 09/09/16 04:36 09/09/16 04:36 09/09/16 04:36 09/09/16 04:36 09/09/16 04:36 HEENT: [place], EOM Intact Oropharynx: No thrush, No mucositis Cor: RSR, No murmurs, No gallops Lungs: Clear to P&A Abd: Soft, Normal bowel sounds, No organomegaly Ext:No significant edema Abnormal Lab Results 09/09/16 09/09/16 09/09/16 04:49 04:49 04:49 WBC 28.5 H D RBC 3.94 L Hgb 10.8 L Hct 33.9 L MCHC 31.9 L RDW 16.5 H Neutrophils % 88.0 H D Lymphocytes % 4.0 L D Monocytes % 2.0 L INR 1.30 H BUN 24 H D Random Glucose 114 H Alkaline Phosphatase 159 H A?P 85 y/o patient with pancreativc cancer, on neoadjuvant gemzar C3 D11 Abraxane had been stopped due to recent arrhythmia/Afib ? SSS s/p pacemaker Comes in with chest pain and shortness of breath CTA--no PE, cardiomegaly, chronic interstitial lung disease for cardiology f/u cultures pendong s/p chemotherapy and neupogen Chest pain possibly related to neupogen use for PET-CT after C3
[2016-09-09] MEDS: ISOSORBIDE MONONITRATE 30 MG TAB.SR.24H (FP) PO SCH (18:54)
[2016-09-09] MEDS ORDERED: ATORVASTATIN CA 20 MG TABLET (FP) PO SCH (22:00)
[2016-09-10 07:37] LABS: MCH 28.8 pg (25.7-33.7); MCHC 33.4 g/dl (32.0-35.9); MEAN CELL VOLUME 86.3 fl (80-96); MEAN PLT VOLUME 8.4 fl (7.5-11.1); PLATELET COUNT 155 K/MM3 (134-434); RDW 16.6 % (11.9-15.9); WHITE BLOOD COUNT 22.9 K/mm3 (4.0-10.0)
[2016-09-10 08:41] LABS: C-REACTIVE PROTEIN 0.3 MG/DL (0.00-0.3); TROPONIN I 0.02 ng/ml (0.00-0.05)
--- NOTE | 2016-09-10 08:47 | PN ---
Progress Note, Physician History of Present Illness: no cp breathing better - Current Medication List Current Medications: Active Medications Acetaminophen (Tylenol -) 650 mg PO Q6H PRN PRN Reason: FEVER OR PAIN Amlodipine Besylate (Norvasc -) 10 mg PO DAILY [facility] Last Admin: 09/09/16 09:28 Dose: 10 mg Apixaban (Eliquis -) 5 mg PO BID [facility] Last Admin: 09/09/16 21:51 Dose: 5 mg Atorvastatin Calcium (Lipitor -) 20 mg PO HS [facility] Last Admin: 09/09/16 21:52 Dose: 20 mg Isosorbide Mononitrate (Imdur -) 30 mg PO DAILY [facility] Last Admin: 09/09/16 18:54 Dose: 30 mg Losartan Potassium (Cozaar -) 50 mg PO DAILY [facility] Last Admin: 09/09/16 09:28 Dose: 50 mg Metoprolol Succinate (Toprol Xl -) 25 mg PO DAILY [facility] Last Admin: 09/09/16 09:28 Dose: 25 mg Pantoprazole Sodium (Protonix -) 40 mg PO DAILY [facility] Last Admin: 09/09/16 09:36 Dose: 40 mg - Objective Vital Signs: Vital Signs Temperature 97.8 F 09/10/16 02:00 Pulse Rate 67 09/10/16 02:00 Respiratory Rate 20 09/10/16 02:00 Blood Pressure 117/67 09/10/16 02:00 O2 Sat by Pulse Oximetry (%) 98 09/09/16 21:00 Cardiovascular: Yes: Regular Rate and Rhythm Respiratory: Yes: Regular, CTA Bilaterally Gastrointestinal: Yes: Normal Bowel Sounds, Soft. No: Tenderness Labs: CBC, BMP 09/10/16 06:00 INR, PTT INR 1.30 (0.82-1.09) H 09/09/16 04:49 Assessment/Plan Problems (1) Afib Assessment/Plan: tele cardio check tsh rate control eliquis echo Code(s): I48.91 - UNSPECIFIED ATRIAL FIBRILLATION Qualifiers: (2) Leukocytosis Assessment/Plan: may be due to neupogen check esr, crp,LAP ID and heme eval Code(s): D72.829 - ELEVATED WHITE BLOOD CELL COUNT, UNSPECIFIED (3) Pancreatic neoplasm Assessment/Plan: oncology eval Code(s): D49.0 - NEOPLASM OF UNSPECIFIED BEHAVIOR OF DIGESTIVE SYSTEM (4) SOB (shortness of breath) Assessment/Plan: CTA negative chronic lung changes pulm eval trend cardiac enzymes cardio--stress test today Code(s): R06.02 - SHORTNESS OF BREATH
[2016-09-10] MEDS ORDERED: DIPYRIDAMOLE 50 MG/10 ML VIAL IVPB ONE (10:45)
[2016-09-10 11:48] LABS: PLATELET ESTIMATE ADEQUATE (NORMAL)
[2016-09-10] MEDS: ISOSORBIDE MONONITRATE 30 MG TAB.SR.24H (FP) PO SCH (12:54)
[2016-09-10] MEDS: PANTOPRAZOLE 40 MG TABLET (FP) PO SCH (12:55)
[2016-09-10] MEDS: METOPROLOL SUCCINATE 25 MG TAB.SR.24H (FP) PO SCH (12:55)
[2016-09-10] MEDS: amLODIPine BESYLATE 10 MG TABLET (FP) PO SCH (12:55)
[2016-09-10] MEDS: APIXABAN 5 MG TABLET PO SCH (12:55)
[2016-09-10] MEDS: LOSARTAN POTASSIUM 50 MG TABLET (FP) PO SCH (12:56)
--- NOTE | 2016-09-10 13:26 | PN ---
Progress Note, Physician Chief Complaint: The patient has been comfortable and well. Reports no further chest pains. History of Present Illness: The patient is an 85-year-old man, with a history of hypertension, hyperlipidemia, paroxysmal atrial fibrillation, on Eliquis, status post permanent pacemaker, pancreatic cancer on chemotherapy, recent syncopal event, nonobstructive coronary artery disease (cardiac catheterization 01/24), now presenting after waking up with retrosternal chest tightness and pressure radiating to his jaw. The symptoms lasted approximately 10 minutes. The patient is currently comfortable and symptom free. Chest pains did not recur. The patient reports no exertional chest pains. Denied dyspnea on effort. Denied any other associated symptoms. - Current Medication List Current Medications: Active Medications Acetaminophen (Tylenol -) 650 mg PO Q6H PRN PRN Reason: FEVER OR PAIN Amlodipine Besylate (Norvasc -) 10 mg PO DAILY [facility] Last Admin: 09/10/16 12:55 Dose: 10 mg Apixaban (Eliquis -) 5 mg PO BID [facility] Last Admin: 09/10/16 12:55 Dose: 5 mg Atorvastatin Calcium (Lipitor -) 20 mg PO HS [facility] Last Admin: 09/09/16 21:52 Dose: 20 mg Isosorbide Mononitrate (Imdur -) 30 mg PO DAILY [facility] Last Admin: 09/10/16 12:54 Dose: 30 mg Losartan Potassium (Cozaar -) 50 mg PO DAILY [facility] Last Admin: 09/10/16 12:56 Dose: 50 mg Metoprolol Succinate (Toprol Xl -) 25 mg PO DAILY [facility] Last Admin: 09/10/16 12:55 Dose: 25 mg Pantoprazole Sodium (Protonix -) 40 mg PO DAILY [facility] Last Admin: 09/10/16 12:55 Dose: 40 mg - Objective Vital Signs: Vital Signs Temperature 97.8 F 09/10/16 02:00 Pulse Rate 67 09/10/16 02:00 Respiratory Rate 20 09/10/16 02:00 Blood Pressure 117/67 09/10/16 02:00 O2 Sat by Pulse Oximetry (%) 98 09/09/16 21:00 Constitutional: Yes: Well Nourished, No Distress Eyes: Yes: WNL HENT: Yes: WNL Neck: Yes: WNL Cardiovascular: Yes: Pulse Irregular, S1, S2 Respiratory: Yes: WNL Gastrointestinal: Yes: WNL ...Rectal Exam: Yes: Deferred Musculoskeletal: Yes: WNL Extremities: Yes: WNL Edema: No Peripheral Pulses: Left Radial: 2+, Right Radial: 2+, Left Doralis Pedis: 1+, Right Dorsalis Pedis: 1+, Left Femoral: 2+, Right Femoral: 2+ Integumentary: Yes: WNL Labs: CBC, BMP 09/10/16 06:00 INR, PTT INR 1.30 (0.82-1.09) H 09/09/16 04:49 Assessment/Plan The patient has been stable from the cardiac standpoint. He reports no recurrence of the chest pains. Exercise nuclear stress test performed earlier today showed normal myocardial perfusion, with apical thinning, and normal left ventricular systolic function. Telemetry shows atrial fibrillation with demand ventricular pacing. There is no need for further cardiac workup at this point. Continue present regimen. May stop telemetry. Please call us PRN.
--- NOTE | 2016-09-10 14:10 | PN ---
Progress Note (short form) - Note Progress Note: Patient seen and examined Denies chest pain or SOB Had neupogen injection day prior to chest and jaw pain. Prior neupogen - not associated with any bony pains. Last Vital Signs Temp Pulse Resp BP Pulse Ox 97.8 F 67 20 117/67 98 09/10/16 02:00 09/10/16 02:00 09/10/16 02:00 09/10/16 02:00 09/09/16 21:00 HEENT: [place], EOM Intact Oropharynx: No thrush, No mucositis, upper bite plate Cor: RSR, systolic murmur Lungs:diminished breath sounds bilaterally Abd: Soft, Normal bowel sounds, No organomegaly Ext:No significant edema Skin: No rashes, Integument intact CBC, BMP 09/10/16 06:00 09/09/16 04:49 Current Medications Generic Name Dose Route Start Last Admin Trade Name Freq PRN Reason Stop Dose Admin Acetaminophen 650 mg 09/09/16 07:25 Tylenol - PO Q6H PRN FEVER OR PAIN Amlodipine Besylate 10 mg 09/09/16 10:00 09/10/16 12:55 Norvasc - PO 10 mg DAILY PRIYANKA Administration Apixaban 5 mg 09/09/16 10:00 09/10/16 12:55 Eliquis - PO 5 mg BID PRIYANKA Administration Atorvastatin Calcium 20 mg 09/09/16 22:00 09/09/16 21:52 Lipitor - PO 20 mg HS PRIYANKA Administration Isosorbide Mononitrate 30 mg 09/09/16 15:00 09/10/16 12:54 Imdur - PO 30 mg DAILY PRIYANKA Administration Losartan Potassium 50 mg 09/09/16 10:00 09/10/16 12:56 Cozaar - PO 50 mg DAILY PRIYANKA Administration Metoprolol Succinate 25 mg 09/09/16 10:00 09/10/16 12:55 Toprol Xl - PO 25 mg DAILY PRIYANKA Administration Pantoprazole Sodium 40 mg 09/09/16 10:00 09/10/16 12:55 Protonix - PO 40 mg DAILY PRIYANKA Administration Impression: Chest pain syndrome Pancreatic ca Neoadjuvant chemothrpay Leucocytosis secondary to neupogen Chest pain - no prior bone pains with neupogen - likely not related Out patient f/u when discharged.
--- NOTE | 2016-09-10 14:15 | PN ---
Progress Note (short form) - Note Progress Note: ID ID follow up for leukocytosis Remains afebrile and no antibiotics given Selected Entries 09/10/16 02:00 Temperature 97.8 F Pulse Rate 67 Respiratory 20 Rate Blood Pressure 117/67 Microbiology 09/09/16 07:11 Blood - Peripheral Venous Blood Culture - Preliminary NO GROWTH OBTAINED AFTER 24 HOURS, INCUBATION TO CONTINUE FOR 4 DAYS. 09/09/16 07:11 Blood - Peripheral Venous Blood Culture - Preliminary NO GROWTH OBTAINED AFTER 24 HOURS, INCUBATION TO CONTINUE FOR 4 DAYS. Assessment Pancreatic CA / Neupogen/ steroids/ Post chemotherapy PLan No ID issue/ Will sign off Adam GORDILLO
[2016-09-10 19:26] VITALS: BP 143/65; PULSE 71; TEMP 98.8
[2016-09-11 06:06] LABS: SERUM IRON 49 ug/dL (38-169); TOTAL IRON BINDING CAPACITY 237 ug/dL (250-450); UIBC 188 ug/dL (111-343)
== END 2016-09-10 18:07 | disposition home or self-care (01) | DRG 309 ==
LOC: JER 04:30 → JERBED 06:25 → UNDOADMIN 06:49 → JERBED 06:49 → J4W 07:46
PROVIDERS: ADMIT Family Medicine; ATTEND Family Medicine
DX: I48.0 Paroxysmal atrial fibrillation (principal); C25.9 Malignant neoplasm of pancreas, unspecified; D68.69 Other thrombophilia; T45.1X5A Adverse effect of antineoplastic and immunosuppressive drugs, initial encounter; R55 Syncope and collapse; I25.10 Atherosclerotic heart disease of native coronary artery without angina pectoris; I10 Essential (primary) hypertension; E78.5 Hyperlipidemia, unspecified; D72.828 Other elevated white blood cell count; J98.4 Other disorders of lung; K59.09 Other constipation; R07.89 Other chest pain; R01.1 Cardiac murmur, unspecified; D64.9 Anemia, unspecified; Z95.0 Presence of cardiac pacemaker; Z85.46 Personal history of malignant neoplasm of prostate; Z95.5 Presence of coronary angioplasty implant and graft
CPT/HCPCS: 36415; 71010-TC; 71275-TC; 78452-TC; 80053; 81003; 82550; 82728; 83540; 83550; 83735; 84484; 85025; 85610; 85651; 86140; 87040; 87086; 93005; 93010; 93017; 93306-TC; 99284-25; A9502

== ENCOUNTER 2016-09-15 07:48 | Day surgery (SDC) | payer OTHER ==
[2016-09-15] MEDS ORDERED: DEXAMETHASONE INJECTION 12 MG in SODIUM CHLORIDE 50 ML IVPB ONE (10:00)
[2016-09-15] MEDS ORDERED: SODIUM CHLORIDE 250 ML IV ONE (10:00)
[2016-09-15] MEDS ORDERED: PALONOSETRON HCL 0.25 MG in SODIUM CHLORIDE 50 ML IVPB ONE (10:00)
[2016-09-15] MEDS ORDERED: GEMCITABINE HCL IV ONE (10:30)
[2016-09-15] MEDS ORDERED: SODIUM CHLORIDE IV ONE (10:30)
[2016-09-15 12:59] LABS: MCH 28.6 pg (25.7-33.7); MEAN CELL VOLUME 86.6 fl (80-96); MEAN PLT VOLUME 8.3 fl (7.5-11.1); PLATELET COUNT 130 K/MM3 (134-434); RDW 16.4 % (11.9-15.9); WHITE BLOOD COUNT 6.9 K/mm3 (4.0-10.0)
[2016-09-15 13:30] LABS: ALBUMIN 3.8 g/dl (3.4-5.0); ANION GAP 6 (8-16); CALCIUM 8.7 mg/dL (8.5-10.1); CO2 31 mmol/L (21-32); GLUCOSE,RANDOM 91 mg/dL (74-106); MAGNESIUM 2.4 mg/dL (1.8-2.4); SGOT/AST 25 U/L (15-37); SGPT/ALT 36 U/L (12-78)
[2016-09-15 13:32] LABS: ALK PHOS 210 U/L (45-117); BILIRUBIN,TOTAL 0.8 mg/dL (0.2-1.0)
[2016-09-15] MEDS ORDERED: PORTA CATH FLUSH 10 ML IVPUSH ONE (13:55)
[2016-09-15 13:58] LABS: METAMYELOCYTE 1 % (0-2); PLATELET ESTIMATE DECREASED (NORMAL)
[2016-09-15 16:29] VITALS: BP 133/65; PULSE 65; TEMP 98.1
== END 2016-09-15 17:58 | disposition home or self-care (01) ==
LOC: JONCCHEMO 07:48 → J7W 13:48 → JONCCHEMO 17:58
PROVIDERS: ATTEND Internal Medicine Hematology & Oncology
DX: Z51.11 Encounter for antineoplastic chemotherapy (principal); C25.0 Malignant neoplasm of head of pancreas
CPT/HCPCS: 36415; 80053; 83735; 85025; 96361; 96375; 96413; J2469

== ENCOUNTER 2016-09-28 07:43 | Day surgery (SDC) | payer OTHER ==
[2016-09-28] MEDS ORDERED: SODIUM CHLORIDE 250 ML IV ONE (08:00)
[2016-09-28] MEDS ORDERED: DEXAMETHASONE INJECTION 12 MG in SODIUM CHLORIDE 50 ML IVPB ONE (08:30)
[2016-09-28] MEDS ORDERED: PALONOSETRON HCL 0.25 MG in SODIUM CHLORIDE 50 ML IVPB ONE (08:30)
[2016-09-28] MEDS ORDERED: SODIUM CHLORIDE IV ONE (09:00)
[2016-09-28] MEDS ORDERED: GEMCITABINE HCL IV ONE (09:00)
[2016-09-28 09:14] VITALS: TEMP 97.9
[2016-09-28 09:19] LABS: BASOPHIL 0.5 % (0-2.0); EOSINOPHIL 2.7 % (0-4.5); MCH 28.4 pg (25.7-33.7); MCHC 33.2 g/dl (32.0-35.9); MEAN CELL VOLUME 85.6 fl (80-96); MEAN PLT VOLUME 8.2 fl (7.5-11.1); NEUTROPHILS 62.4 % (42.8-82.8); PLATELET COUNT 278 K/MM3 (134-434); RDW 17.3 % (11.9-15.9); WHITE BLOOD COUNT 5.7 K/mm3 (4.0-10.0)
[2016-09-28 09:44] LABS: ALBUMIN 3.5 g/dl (3.4-5.0); ANION GAP 9 (8-16); BILIRUBIN,DIRECT 0.2 mg/dL (0.0-0.2); CALCIUM 8.7 mg/dL (8.5-10.1); CO2 25 mmol/L (21-32); GLUCOSE,RANDOM 111 mg/dL (74-106); MAGNESIUM 2.2 mg/dL (1.8-2.4); SGOT/AST 20 U/L (15-37); SGPT/ALT 25 U/L (12-78)
[2016-09-28 09:46] LABS: ALK PHOS 187 U/L (45-117); BILIRUBIN,TOTAL 0.5 mg/dL (0.2-1.0)
[2016-09-28] MEDS ORDERED: PORTA CATH FLUSH 10 ML IVPUSH ONE (10:13)
[2016-09-28] MEDS ORDERED: SODIUM CHLORIDE 125 ML IVPB ONE (11:00)
[2016-09-28 14:53] VITALS: BP 111/67; PULSE 66
== END 2016-09-28 13:30 | disposition home or self-care (01) ==
LOC: JONCCHEMO 07:43 → J7W 10:00 → JONCCHEMO 13:30
PROVIDERS: ATTEND Internal Medicine Hematology & Oncology
PROC: 3E04305 Introduction of Other Antineoplastic into Central Vein, Percutaneous Approach (ICD-10-PCS; principal; 2016-09-28)
PROC: 3E043GC Introduction of Other Therapeutic Substance into Central Vein, Percutaneous Approach (ICD-10-PCS; 2016-09-28)
PROC: 3E0437Z Introduction of Electrolytic and Water Balance Substance into Central Vein, Percutaneous Approach (ICD-10-PCS; 2016-09-28)
DX: Z51.11 Encounter for antineoplastic chemotherapy (principal); C25.0 Malignant neoplasm of head of pancreas; D70.1 Agranulocytosis secondary to cancer chemotherapy
CPT/HCPCS: 96361; 96375; 96413; J9201; 36415; 80053; 80076; 83735; 85025; 86301; J2469

== ENCOUNTER 2016-10-05 07:25 | Day surgery (SDC) | payer OTHER ==
[2016-10-05] MEDS ORDERED: SODIUM CHLORIDE 250 ML IV ONE (08:00)
[2016-10-05] MEDS ORDERED: PALONOSETRON HCL 0.25 MG in SODIUM CHLORIDE 50 ML IVPB ONE (08:30)
[2016-10-05] MEDS ORDERED: DEXAMETHASONE INJECTION 12 MG in SODIUM CHLORIDE 50 ML IVPB ONE (08:30)
[2016-10-05] MEDS ORDERED: SODIUM CHLORIDE IV ONE (09:00)
[2016-10-05] MEDS ORDERED: GEMCITABINE HCL IV ONE (09:00)
[2016-10-05 10:41] LABS: MCH 28.5 pg (25.7-33.7); MCHC 33.4 g/dl (32.0-35.9); MEAN CELL VOLUME 85.2 fl (80-96); MEAN PLT VOLUME 7.8 fl (7.5-11.1); PLATELET COUNT 227 K/MM3 (134-434); RDW 16.6 % (11.9-15.9); WHITE BLOOD COUNT 3.3 K/mm3 (4.0-10.0)
[2016-10-05 12:05] LABS: ALBUMIN 3.6 g/dl (3.4-5.0); ANION GAP 5 (8-16); BILIRUBIN,DIRECT 0.2 mg/dL (0.0-0.2); CALCIUM 9.3 mg/dL (8.5-10.1); CO2 30 mmol/L (21-32); CREATININE 0.8 mg/dL (0.7-1.3); GLUCOSE,RANDOM 96 mg/dL (74-106); MAGNESIUM 2.4 mg/dL (1.8-2.4); SGOT/AST 25 U/L (15-37); SGPT/ALT 27 U/L (12-78); TOT PROT 6.7 g/dl (6.4-8.2)
[2016-10-05 12:09] LABS: ALK PHOS 133 U/L (45-117); BILIRUBIN,TOTAL 0.7 mg/dL (0.2-1.0)
[2016-10-05 14:00] LABS: METAMYELOCYTE 2 % (0-2); PLATELET ESTIMATE ADEQUATE (NORMAL)
[2016-10-05 15:11] VITALS: BP 163/70; PULSE 67; TEMP 98.3
== END 2016-10-05 13:00 | disposition home or self-care (01) ==
LOC: JONCCHEMO 07:25 → J7W 09:50 → JONCCHEMO 13:00
PROVIDERS: ATTEND Internal Medicine Hematology & Oncology
PROC: 3E04305 Introduction of Other Antineoplastic into Central Vein, Percutaneous Approach (ICD-10-PCS; principal; 2016-10-05)
PROC: 3E043GC Introduction of Other Therapeutic Substance into Central Vein, Percutaneous Approach (ICD-10-PCS; 2016-10-05)
PROC: 3E0437Z Introduction of Electrolytic and Water Balance Substance into Central Vein, Percutaneous Approach (ICD-10-PCS; 2016-10-05)
DX: Z51.11 Encounter for antineoplastic chemotherapy (principal); C25.0 Malignant neoplasm of head of pancreas; D70.1 Agranulocytosis secondary to cancer chemotherapy
CPT/HCPCS: 96361; 96375; 96413; J9201; 36415; 80048; 80076; 83735; 85025; J2469

== ENCOUNTER 2016-10-12 07:29 | Day surgery (SDC) | payer OTHER ==
[2016-10-12] MEDS ORDERED: SODIUM CHLORIDE 250 ML IV ONE (08:00)
[2016-10-12] MEDS ORDERED: DEXAMETHASONE INJECTION 12 MG in SODIUM CHLORIDE 50 ML IVPB ONE (08:30)
[2016-10-12] MEDS ORDERED: PALONOSETRON HCL 0.25 MG in SODIUM CHLORIDE 50 ML IVPB ONE (08:30)
[2016-10-12] MEDS ORDERED: GEMCITABINE HCL IV ONE (09:00)
[2016-10-12] MEDS ORDERED: SODIUM CHLORIDE IV ONE (09:00)
[2016-10-12 10:46] LABS: MCH 28.5 pg (25.7-33.7); MCHC 33.4 g/dl (32.0-35.9); MEAN CELL VOLUME 85.1 fl (80-96); PLATELET COUNT 117 K/MM3 (134-434); RDW 16.9 % (11.9-15.9); WHITE BLOOD COUNT 3.2 K/mm3 (4.0-10.0)
[2016-10-12 11:03] LABS: ALBUMIN 3.3 g/dl (3.4-5.0); BILIRUBIN,DIRECT 0.2 mg/dL (0.0-0.2); BILIRUBIN,TOTAL 0.7 mg/dL (0.2-1.0); CALCIUM 8.3 mg/dL (8.5-10.1); CO2 28 mmol/L (21-32); CREATININE 0.9 mg/dL (0.7-1.3); GLUCOSE,RANDOM 84 mg/dL (74-106); MAGNESIUM 2.2 mg/dL (1.8-2.4); SGOT/AST 20 U/L (15-37); SGPT/ALT 27 U/L (12-78); TOT PROT 6.4 g/dl (6.4-8.2)
[2016-10-12 11:12] LABS: ALK PHOS 113 U/L (45-117)
[2016-10-12 11:37] LABS: PLATELET ESTIMATE DECREASED (NORMAL)
[2016-10-12 12:14] LABS: ANION GAP 6 (8-16)
[2016-10-12 13:53] VITALS: BP 133/71; PULSE 66; TEMP 97.9
== END 2016-10-12 14:00 | disposition home or self-care (01) ==
LOC: JONCCHEMO 07:29 → J7W 10:04 → JONCCHEMO 14:00
PROVIDERS: ATTEND Internal Medicine Hematology & Oncology
DX: Z51.11 Encounter for antineoplastic chemotherapy (principal); C25.0 Malignant neoplasm of head of pancreas; D70.1 Agranulocytosis secondary to cancer chemotherapy
CPT/HCPCS: 36415; 80048; 80076; 83735; 85025; 96361; 96367; 96375; 96413; J2469

== ENCOUNTER 2016-10-26 07:46 | Day surgery (SDC) | payer OTHER ==
[2016-10-26] MEDS ORDERED: DEXAMETHASONE INJECTION 12 MG in SODIUM CHLORIDE 50 ML IVPB ONE (10:00)
[2016-10-26] MEDS ORDERED: PALONOSETRON HCL 0.25 MG in SODIUM CHLORIDE 50 ML IVPB ONE (10:00)
[2016-10-26] MEDS ORDERED: SODIUM CHLORIDE 250 ML IV ONE (10:00)
[2016-10-26] MEDS ORDERED: SODIUM CHLORIDE IV ONE (10:30)
[2016-10-26] MEDS ORDERED: GEMCITABINE HCL IV ONE (10:30)
[2016-10-26] MEDS ORDERED: DEXAMETHASONE INJECTION 8 MG in SODIUM CHLORIDE 50 ML IVPB ONE (10:45)
[2016-10-26 10:46] LABS: MCH 27.8 pg (25.7-33.7); MCHC 32.6 g/dl (32.0-35.9); MEAN CELL VOLUME 85.2 fl (80-96); PLATELET COUNT 330 K/MM3 (134-434); RDW 16.9 % (11.9-15.9); WHITE BLOOD COUNT 6.8 K/mm3 (4.0-10.0)
[2016-10-26 11:18] LABS: ALBUMIN 3.5 g/dl (3.4-5.0); ANION GAP 5 (8-16); BILIRUBIN,TOTAL 0.7 mg/dL (0.2-1.0); CO2 29 mmol/L (21-32); GLUCOSE,RANDOM 99 mg/dL (74-106); MAGNESIUM 2.3 mg/dL (1.8-2.4); SGOT/AST 45 U/L (15-37); SGPT/ALT 64 U/L (12-78); TOT PROT 6.5 g/dl (6.4-8.2)
[2016-10-26 11:19] LABS: ALK PHOS 295 U/L (45-117)
[2016-10-26 13:57] VITALS: BP 128/66; PULSE 74
[2016-10-26 14:00] VITALS: TEMP 97.8
== END 2016-10-26 13:30 | disposition home or self-care (01) ==
LOC: JONCCHEMO 07:46 → J7W 09:57 → JONCCHEMO 13:30
PROVIDERS: ATTEND Internal Medicine Hematology & Oncology
PROC: 3E04305 Introduction of Other Antineoplastic into Central Vein, Percutaneous Approach (ICD-10-PCS; principal; 2016-10-26)
PROC: 3E043GC Introduction of Other Therapeutic Substance into Central Vein, Percutaneous Approach (ICD-10-PCS; 2016-10-26)
PROC: 3E0437Z Introduction of Electrolytic and Water Balance Substance into Central Vein, Percutaneous Approach (ICD-10-PCS; 2016-10-26)
DX: Z51.11 Encounter for antineoplastic chemotherapy (principal); C25.0 Malignant neoplasm of head of pancreas; D70.1 Agranulocytosis secondary to cancer chemotherapy
CPT/HCPCS: 96361; 96375; 96413; J9201; 36415; 80053; 83735; 85027; 86301; J2469

== ENCOUNTER 2016-11-02 07:35 | Day surgery (SDC) | payer OTHER ==
[2016-11-02] MEDS ORDERED: DEXAMETHASONE INJECTION 12 MG in SODIUM CHLORIDE 50 ML IVPB ONE (10:00)
[2016-11-02] MEDS ORDERED: PALONOSETRON HCL 0.25 MG in SODIUM CHLORIDE 50 ML IVPB ONE (10:00)
[2016-11-02 10:14] LABS: BASOPHIL 0.3 % (0-2.0); EOSINOPHIL 0.4 % (0-4.5); MCHC 33.3 g/dl (32.0-35.9); MEAN CELL VOLUME 84.3 fl (80-96); NEUTROPHILS 84.1 % (42.8-82.8); PLATELET COUNT 182 K/MM3 (134-434); RDW 16.4 % (11.9-15.9); WHITE BLOOD COUNT 5.8 K/mm3 (4.0-10.0)
[2016-11-02] MEDS ORDERED: SODIUM CHLORIDE IV ONE (10:30)
[2016-11-02] MEDS ORDERED: GEMCITABINE HCL IV ONE (10:30)
[2016-11-02 10:50] LABS: ALBUMIN 3.2 g/dl (3.4-5.0); ANION GAP 10 (8-16); CALCIUM 8.3 mg/dL (8.5-10.1); CO2 25 mmol/L (21-32); CREATININE 1.2 mg/dL (0.7-1.3); GLUCOSE,RANDOM 120 mg/dL (74-106); SGOT/AST 293 U/L (15-37); SGPT/ALT 380 U/L (12-78)
[2016-11-02 10:51] LABS: ALK PHOS 524 U/L (45-117); BILIRUBIN,TOTAL 2.4 mg/dL (0.2-1.0); TOT PROT 6.2 g/dl (6.4-8.2)
[2016-11-02 11:23] LABS: ALBUMIN 3.1 g/dl (3.4-5.0); BILIRUBIN,TOTAL 2.3 mg/dL (0.2-1.0); TOT PROT 6.2 g/dl (6.4-8.2)
[2016-11-02] MEDS ORDERED: DEXAMETHASONE INJECTION 10 MG in SODIUM CHLORIDE 50 ML IVPB ONE (12:00)
[2016-11-02 14:26] VITALS: BP 119/56; PULSE 51; TEMP 98.1
--- NOTE | 2016-11-02 16:39 | PN ---
Progress Note (short form) - Note Progress Note: Patient seen and examined. Patient developed infusion reaction with itchy , erythematous palms. This was when the IV rate had been increased. Rituxin discontinued. Decadron and benadryl administered with saline. Condition improved and patient began Rituxin once again at a slower rate. Clinically stable.
[2016-11-04 00:06] LABS: HEP B SURFACE AB Reactive (.)
== END 2016-11-02 13:30 | disposition home or self-care (01) ==
LOC: JONCCHEMO 07:35 → J7W 11:16 → JONCCHEMO 13:30
PROVIDERS: ATTEND Internal Medicine Hematology & Oncology
PROC: 3E0437Z Introduction of Electrolytic and Water Balance Substance into Central Vein, Percutaneous Approach (ICD-10-PCS; principal; 2016-11-02)
DX: Z51.11 Encounter for antineoplastic chemotherapy (principal); Z53.8 Procedure and treatment not carried out for other reasons; C25.0 Malignant neoplasm of head of pancreas
CPT/HCPCS: 36415; 80053; 80076; 83735; 85025; 86704; 86706; 86708; 86803; 87040; 87086; 87340; 96360; 96361

== ENCOUNTER 2016-11-03 08:07 | Inpatient (IN) | payer OTHER ==
[2016-11-03 08:14] VITALS: BMI 27.3
--- NOTE | 2016-11-03 09:08 | PDOC ---
History of Present Illness - General Chief Complaint: SIRS, Suspected/Possible Stated Complaint: FEVER, CHILLS Time Seen by Provider: 11/03/16 08:57 History Source: Patient Exam Limitations: No Limitations - History of Present Illness Initial Comments: 11/03/16 10:06 Patient is a 86-year-old male with past medical history of recurrent pancreatic cancer, last chemotherapy 11/02/16, hypertension, CAD, prostate cancer in remission, pacemaker, who presents to the emergency department today complaining of fevers and chills. Patient states that his symptoms started on Tuesday11/01/16. He presented for chemotherapy yesterday and was stable, afebrile. He received his chemotherapy dose. He had some irregular labs including elevated liver enzymes yesterday as per Dr. Brandon. The results are in the chart according to the son. Today when he awoke he had worsening fevers and chills. He also states that he feels short of breath and is having some chest tightness. Endorses cough with phlegm production. Patient states that he feels weak. Denies abdominal pain nausea, vomiting, diarrhea, hematuria, frequency, urgency. Past History - Travel Traveled outside of the country in the last 30 days: No Close contact w/someone who was outside of country & ill: No - Past Medical History Allergies/Adverse Reactions: Allergies Allergy/AdvReac Type Severity Reaction Status Date / Time No Known Allergies Allergy Verified 11/03/16 08:14 Home Medications: Ambulatory Orders Amlodipine Besylate 10 mg PO DAILY 08/02/15 Apixaban [Eliquis] 5 mg PO BID 07/26/16 Losartan Potassium 50 mg PO DAILY 07/26/16 Pantoprazole Sodium 40 mg PO DAILY 07/26/16 Atorvastatin Ca [Lipitor] 20 mg PO HS #30 tablet 07/29/16 Metoprolol Succinate [Toprol XL -] 25 mg PO DAILY 08/14/16 Filgrastim-Sndz [Zarxio] 300 mcg IJ PRN 09/09/16 Cancer: Yes (PROSTATE,Pancreas) Cardiac Disorders: Yes (CAD) HTN: Yes Hypercholesterolemia: Yes - Surgical History Abdominal Surgery: Yes (EXP LAP) Cardiac Surgery: Yes (pacer placed 07/20/16) GI Surgery: Yes (COLOSTOMY WITH REVERSAL) - Immunization History Immunization Up to Date: Yes - Psycho/Social/Smoking Cessation Hx Anxiety: No Suicidal Ideation: No Smoking Status: No Smoking History: Never smoked Have you smoked in the past 12 months: No Number of Cigarettes Smoked Daily: 0 Hx Alcohol Use: No Drug/Substance Use Hx: No Substance Use Type: None Hx Substance Use Treatment: No Review of Systems - Review of Systems Able to Perform ROS?: Yes Is the patient limited Slovenian proficient: No Constitutional: Yes: Chills, Fever, Malaise, Weakness Respiratory: Yes: Cough, Shortness of Breath, Productive cough. No: Wheezing Cardiac (ROS): Yes: Chest Tightness. No: Edema, Lightheadedness, Palpitations, Syncope ABD/GI: No: Constipated, Diarrhea, Nausea, Vomiting, Abdominal cramping : No: Burning, Dysuria, Frequency, Flank Pain, Hematuria Neurological: No: Headache, Numbness, Paresthesia, Weakness, Dizziness All Other Systems: Reviewed and Negative *Physical Exam - Vital Signs Last Vital Signs Temp Pulse Resp BP Pulse Ox 103.2 F H 57 L 24 213/146 97 11/03/16 08:11 11/03/16 08:11 11/03/16 08:11 11/03/16 08:11 11/03/16 08:11 - Physical Exam Comments: 11/03/16 10:07 GENERAL: Well developed, well nourished. AAOx3. No acute distress, sitting in exam bed breathing easily. VVS notable for T of 103.0 Oral, Pulse 110's, O2 sat 92% HEENT: Normocephalic, atraumatic. PERRLA, EOMI. No conjunctival pallor. Sclera are non- icteric. Moist mucous membranes. Oropharynx is clear. NECK: Supple. Full ROM. No JVD. Carotid pulses 2+ and symmetric, without bruits. No thyromegaly. No lymphadenopathy. CARDIOVASCULAR: Tachycardic, 3+ midsystolic murmur appreciated over the L 3rd intercostal space and 5th intercostal space. Regular rhythm. No rubs, or gallops. Distal pulses are 2+ and symmetric. PULMONARY: No evidence of respiratory distress. Lungs sounds diminished at the bases. No wheezing, rales or rhonchi. ABDOMINAL: Soft. Non-tender. Non-distended. No rebound or guarding. No organomegaly. Normoactive bowel sounds. MUSCULOSKELETAL Normal range of motion at all joints. No bony deformities or tenderness. No CVA tenderness. EXTREMITIES: No cyanosis. No clubbing. No edema. No calf tenderness. SKIN: Warm and dry. Normal capillary refill. No rashes. No jaundice. NEUROLOGICAL: Alert, awake, appropriate. Cranial nerves 2-12 intact. No deficits to light touch and temperature in face, upper extremities and lower extremities. No motor deficits in the in face, upper extremities and lower extremities. Normoreflexic in the upper and lower extremities. Normal speech. Toes are down- going bilaterally. Gait is normal without ataxia. PSYCHIATRIC: Cooperative. Good eye contact. Appropriate mood and affect. ED Treatment Course - LABORATORY CBC & Chemistry Diagram: 11/03/16 09:34 11/03/16 09:34 Medical Decision Making - Medical Decision Making 11/03/16 10:12 Patient is a 86-year-old male with past medical history of recurrent pancreatic cancer, last chemotherapy 11/02/16, hypertension, CAD, prostate cancer in remission, pacemaker, who presents to the emergency department today complaining of fevers and chills. We will treat the patient as a sepsis/ neutropenic fever workup given last dose of chemotherapy was yesterday. Also possible chemotherapy reaction. Son has paperwork from Dr. Brandon who requests a right upper extremity duplex to evaluate his port, duplex of his liver given elevated liver enzymes from yesterday and CXR given shortness of breath and cough. 1.sepsis protocol 2.fluids, IV antibiotics (Zosyn, vancomycin) 3.CXR, EKG, abdominal ultrasound, right upper extremity ultrasound 4.reevaluate 11/03/16 11:23 Abdominal ultrasound impression: 1. diffuse fatty infiltration of the liver with right lobe hemangioma and left lobe cyst. 2. cholelithiasis and biliary stents. Gallbladder wall is thick. No surrounding fluid fluid. EKG:Sinus tachycardia 117, left axis deviation, normal intervals. No ST-T wave pathology 11/03/16 12:47 Lab work is notable for elevated liver enzymes, elevated bilirubin. White count is within normal limits. Patient is still febrile to 100 after Tylenol. Heart rate has come down to the 80s. Possible cholecystitis with may be infected gallstones. Could be possible source for patient's fever. Spoke with Dr. Carver the patient's oncologist. She is concerned about possible infected gallstones causing fever and would like to admit the patient patient's primary care doctor is Dr. Gaytan. First page to Dr. Gaytan 11/03/16 13:01 Call back received from Dr. Gaytan's [employer]. Accepts the pt. to tele. Consults placed for Dr. Barrientos surgery, Dr. Rosas GI, Dr. Joaquin ID. 11/03/16 14:[address] Barrientos. Would like HIDA scan at this time. Feels that if it is cholecystitis, pt will need PERC treatment of the gallbladder given complex medical history. 11/03/16 14:[address] Rosas, GI. Will follow patient in the hospital, agrees with HIDA and further work up. Considering cholecystitis vs obstruction d/t pancreatic cx. 11/03/16 16:[address] Vizcarra radiology. HIDA scan shows no evidence of uptake after two hours in either the gallbladder or CBD suggesting a complete blockage of the duct. Spoke with Dr. Barrientos and he was made aware. *DC/Admit/Observation/Transfer Diagnosis at time of Disposition: Fever, Severe sepsis, Cholecystitis - Discharge Dispostion Condition at time of disposition: Stable Admit: Yes
[2016-11-03] MEDS ORDERED: ACETAMINOPHEN 1000 MG/100 ML VIAL (NON FORMULARY) IVPB ONE (09:15)
[2016-11-03] MEDS ORDERED: SODIUM CHLORIDE 1,000 ML IV STA (09:16)
[2016-11-03] MEDS ORDERED: VANCOMYCIN 1,000 MG in DEXTROSE 5%-WATER - 250 ML IVPB ONE (09:29)
[2016-11-03] MEDS ORDERED: PIPERACILLIN/TAZOB 2.25 GM 2.25 GM in DEXTROSE 5%-WATER - 50 ML IVPB ONE (09:29)
[2016-11-03] MEDS ORDERED: ACETAMINOPHEN INJECTION 100 ML IVPB ONE (10:03)
[2016-11-03 10:08] LABS: URINE APPEARANCE CLEAR; URINE BILIRUBIN NEGATIVE (NEGATIVE); URINE BLOOD 1+ (NEGATIVE); URINE COLOR YELLOW; URINE GLUCOSE (UA) NEGATIVE (NEGATIVE); URINE KETONE NEGATIVE (NEGATIVE); URINE LEUK ESTERASE NEGATIVE (NEGATIVE); URINE NITRITE NEGATIVE (NEGATIVE); URINE UROBILINOGEN NEGATIVE mg/dL (0.2-1.0)
[2016-11-03 10:10] LABS: BASOPHIL 0.2 % (0-2.0); EOSINOPHIL 0.1 % (0-4.5); MCH 27.9 pg (25.7-33.7); MCHC 33.2 g/dl (32.0-35.9); MEAN CELL VOLUME 84.2 fl (80-96); MEAN PLT VOLUME 8.7 fl (7.5-11.1); NEUTROPHILS 91.9 % (42.8-82.8); PLATELET COUNT 142 K/MM3 (134-434); RDW 16.8 % (11.9-15.9)
[2016-11-03 10:23] LABS: URINE PROTEIN 1+ (NEGATIVE)
[2016-11-03 10:25] LABS: VENOUS BLOOD GAS HCO3 25.1 meq/L (19-25); VENOUS PH 7.42 (7.32-7.42)
[2016-11-03 10:27] LABS: URINE MUCUS RARE; URINE RBC <1 /hpf (0-3); URINE WBC 2 /hpf (3-5)
[2016-11-03 10:32] LABS: INR 2.8 (0.82-1.09); PROTHROMBIN TIME (PATIENT) 31.4 SEC (9.98-11.88)
[2016-11-03 10:35] LABS: ACTIVATED PTT 30.8 SECONDS (26.9-34.4); ALBUMIN 3.1 g/dl (3.4-5.0); ALK PHOS 426 U/L (45-117); ANION GAP 9 (8-16); BILIRUBIN,TOTAL 1.6 mg/dL (0.2-1.0); CALCIUM 8.2 mg/dL (8.5-10.1); CO2 24 mmol/L (21-32); CPK 44 IU/L (39-308); CREATININE 1.1 mg/dL (0.7-1.3); GLUCOSE,RANDOM 133 mg/dL (74-106); SGOT/AST 103 U/L (15-37); TOT PROT 6.2 g/dl (6.4-8.2)
[2016-11-03 10:39] LABS: SGPT/ALT 230 U/L (12-78); TROPONIN I 0.03 ng/ml (0.00-0.05)
[2016-11-03] MEDS ORDERED: VANCOMYCIN 1 GRAM (PRE-DOCKED) 250 ML IVPB ONE (13:00)
[2016-11-03] MEDS ORDERED: ACETAMINOPHEN 325 MG TABLET (FP) PO PRN (14:29)
[2016-11-03] MEDS ORDERED: FILGRASTIM SNDZ IJ SCH (14:30)
--- NOTE | 2016-11-03 14:32 | PDOC ---
*Physical Exam - Vital Signs Last Vital Signs Temp Pulse Resp BP Pulse Ox 99.9 F H 67 18 116/52 97 11/03/16 14:16 11/03/16 14:16 11/03/16 14:16 11/03/16 14:16 11/03/16 14:16 - Physical Exam General Appearance: Yes: Nourished Respiratory/Chest: positive: Lungs Clear, Normal Breath Sounds Cardiovascular: positive: Regular Rhythm, Regular Rate, S1, S2 Gastrointestinal/Abdominal: positive: Normal Bowel Sounds, Flat, Soft Musculoskeletal: positive: Normal Inspection Extremity: positive: Normal Capillary Refill, Normal Inspection Integumentary: positive: Normal Color, Dry, Warm Neurologic: positive: Alert ED Treatment Course - LABORATORY CBC & Chemistry Diagram: 11/03/16 09:34 11/03/16 09:34 - ADDITIONAL ORDERS Additional order review: Laboratory Results 11/03/16 11/03/16 11/03/16 10:15 09:34 09:34 INR PTT (Actin FS) VBG pH 7.42 POC VBG pCO2 39.6 POC VBG pO2 21.4 L D Mixed VBG HCO3 25.1 H Sodium Potassium Chloride Carbon Dioxide Anion Gap BUN Creatinine Creat Clearance w eGFR Random Glucose Lactic Acid 1.5 Calcium Total Bilirubin AST ALT Alkaline Phosphatase Creatine Kinase Troponin I Total Protein Albumin Urine Color Urine Appearance Urine pH Urine Protein Urine Glucose (UA) Urine Ketones Urine Blood Urine Nitrite Urine Bilirubin Urine Urobilinogen Ur Leukocyte Esterase Urine RBC Urine WBC Urine Mucus Blood Type O POSITIVE Antibody Screen Negative 11/03/16 11/03/16 11/03/16 09:34 09:34 09:34 INR 2.80 H D PTT (Actin FS) 30.8 VBG pH POC VBG pCO2 POC VBG pO2 Mixed VBG HCO3 Sodium 136 Potassium 3.6 Chloride 103 Carbon Dioxide 24 Anion Gap 9 BUN 20 H Creatinine 1.1 Creat Clearance w eGFR > 60 Random Glucose 133 H Lactic Acid Calcium 8.2 L Total Bilirubin 1.6 H D AST 103 H D ALT 230 H D Alkaline Phosphatase 426 H Creatine Kinase 44 Troponin I 0.03 D Total Protein 6.2 L Albumin 3.1 L Urine Color Yellow Urine Appearance Clear Urine pH 5.0 Urine Protein 1+ H Urine Glucose (UA) Negative Urine Ketones Negative Urine Blood 1+ H Urine Nitrite Negative Urine Bilirubin Negative Urine Urobilinogen Negative Ur Leukocyte Esterase Negative Urine RBC <1 Urine WBC 2 Urine Mucus Rare Blood Type Antibody Screen 11/03/16 09:34 RBC 3.53 L MCV 84.2 MCHC 33.2 RDW 16.8 H MPV 8.7 Neutrophils % 91.9 H Lymphocytes % 2.1 L D Monocytes % 5.7 Eosinophils % 0.1 Basophils % 0.2 - Medications Given in the ED: ED Medications Discontinued Medications Generic Name Dose Route Start Last Admin Trade Name Freq PRN Reason Stop Dose Admin Acetaminophen 1,000 mg 11/03/16 09:15 11/03/16 10:08 Ofirmev Injection - IVPB 11/03/16 09:16 1,000 mg ONCE ONE Administration Sodium Chloride 1,000 mls @ 200 mls/hr 11/03/16 09:16 11/03/16 10:08 Normal Saline - IV 11/03/16 14:15 200 mls/hr ASDIR STA Administration Vancomycin HCl 1,000 mg/ 250 mls @ 250 mls/hr 11/03/16 09:29 11/03/16 13:41 Dextrose IVPB 11/03/16 10:28 250 mls/hr ONCE ONE Administration Protocol Piperacillin Sod/Tazobactam 50 mls @ 100 mls/hr 11/03/16 09:29 11/03/16 11:30 Sod 2.25 gm/ Dextrose IVPB 11/03/16 09:58 100 mls/hr ONCE ONE Administration Protocol Medical Decision Making - Medical Decision Making 11/03/16 14:31 86 yo male with pancreatic cancer here wtih c/o fever. no sob no cough. no urinary complaints. pt seen and examined. case d/w atul Gupta agree with asessment and plan. *DC/Admit/Observation/Transfer Diagnosis at time of Disposition: Fever, Severe sepsis, Cholecystitis - Discharge Dispostion Condition at time of disposition: Stable - Referrals Referrals: Danelle Gaytan MD [Primary Care Provider] - - Patient Instructions - Post Discharge Activity
[2016-11-03] MEDS ORDERED: SODIUM CHLORIDE 0.9% 1000 ML INFUS.BAG IV SCH (14:45)
--- NOTE | 2016-11-03 17:25 | CONSULT ---
Consult Consult Specialty:: Surgery Reason for Consultation:: Fevers, elevated LFTs - History of Present Illness History of Present Illness: 86 male with pancreatic CA s/p biliary stent seen in the ER for fevers Noted to have elevated LFTs Denies abdominal pain Currently being treated for pancreatic CA with chemotherapy + Fevers noted in ER Denies nausea/vomiting - History Source History Provided By: Patient, Family Member - Past Medical History Cardio/Vascular: Yes: AFIB, CAD (non-obstructive per 01/2013 cardiac cath), HTN , Hyperlipdemia, Murmur Pulmonary: Yes: Other (chronic lung disease) Gastrointestinal: Yes: Constipation, Other (H/O SBO DUE TO ADHESIONS, pancreatic Ca) Hepatobiliary: Yes: Other (Pancreatic CA on chemo) Renal/: Yes: Cancer - Past Surgical History Past Surgical History: Yes: Prostatectomy - Alcohol/Substance Use Hx Alcohol Use: No - Smoking History Smoking history: Never smoked Have you smoked in the past 12 months: No Aproximately how many cigarettes per day: 0 Home Medications - Allergies Allergies/Adverse Reactions: Allergies Allergy/AdvReac Type Severity Reaction Status Date / Time No Known Allergies Allergy Verified 11/03/16 08:14 - Home Medications Home Medications: Ambulatory Orders Amlodipine Besylate 10 mg PO DAILY 08/02/15 Apixaban [Eliquis] 5 mg PO BID 07/26/16 Losartan Potassium 50 mg PO DAILY 07/26/16 Pantoprazole Sodium 40 mg PO DAILY 07/26/16 Atorvastatin Ca [Lipitor] 20 mg PO HS #30 tablet 07/29/16 Metoprolol Succinate [Toprol XL -] 25 mg PO DAILY 08/14/16 Filgrastim-Sndz [Zarxio] 300 mcg IJ PRN 09/09/16 Family Disease History - Family Disease History Family History: Denies Review of Systems - Review of Systems Constitutional: reports: Chills, Fever Cardiovascular: denies: Chest Pain Respiratory: denies: Cough Gastrointestinal: denies: Abdominal Pain, Diarrhea, Nausea, Vomiting Genitourinary: reports: No Symptoms Neurological: denies: Change in LOC Pain Intensity: 2 Physical Exam Vital Signs: Vital Signs Temperature 99.9 F H 11/03/16 14:16 Pulse Rate 67 11/03/16 14:16 Respiratory Rate 18 11/03/16 14:16 Blood Pressure 116/52 11/03/16 14:16 O2 Sat by Pulse Oximetry (%) 97 11/03/16 14:16 Constitutional: Yes: Calm Neck: Yes: Supple Cardiovascular: Yes: Regular Rate and Rhythm Respiratory: Yes: Regular Gastrointestinal: Yes: Soft. No: Tenderness, Tenderness, Rebound Neurological: Yes: Alert, Oriented Labs: CBC,CMP WBC 9.0 K/mm3 (4.0-10.0) D 11/03/16 09:34 RBC 3.53 M/mm3 (4.00-5.60) L 11/03/16 09:34 Hgb 9.9 GM/dL (11.7-16.9) L 11/03/16 09:34 Hct 29.7 % (35.4-49) L 11/03/16 09:34 MCV 84.2 fl (80-96) 11/03/16 09:34 MCH 27.9 pg (25.7-33.7) 11/03/16 09:34 MCHC 33.2 g/dl (32.0-35.9) 11/03/16 09:34 RDW 16.8 % (11.9-15.9) H 11/03/16 09:34 Plt Count 142 K/MM3 (134-434) D 11/03/16 09:34 MPV 8.7 fl (7.5-11.1) 11/03/16 09:34 Neutrophils % 91.9 % (42.8-82.8) H 11/03/16 09:34 Lymphocytes % 2.1 % (8-40) L D 11/03/16 09:34 Monocytes % 5.7 % (3.8-10.2) 11/03/16 09:34 Eosinophils % 0.1 % (0-4.5) 11/03/16 09:34 Basophils % 0.2 % (0-2.0) 11/03/16 09:34 Sodium 136 mmol/L (136-145) 11/03/16 09:34 Potassium 3.6 mmol/L (3.5-5.1) 11/03/16 09:34 Chloride 103 mmol/L (98-107) 11/03/16 09:34 Carbon Dioxide 24 mmol/L (21-32) 11/03/16 09:34 Anion Gap 9 (8-16) 11/03/16 09:34 BUN 20 mg/dL (7-18) H 11/03/16 09:34 Creatinine 1.1 mg/dL (0.7-1.3) 11/03/16 09:34 Creat Clearance w eGFR > 60 (>60) 11/03/16 09:34 Random Glucose 133 mg/dL (74-106) H 11/03/16 09:34 Lactic Acid 1.5 mmol/L (0.4-2.0) 11/03/16 09:34 Calcium 8.2 mg/dL (8.5-10.1) L 11/03/16 09:34 Total Bilirubin 1.6 mg/dL (0.2-1.0) H D 11/03/16 09:34 AST 103 U/L (15-37) H D 11/03/16 09:34 ALT 230 U/L (12-78) H D 11/03/16 09:34 Alkaline Phosphatase 426 U/L (45-117) H 11/03/16 09:34 Creatine Kinase 44 IU/L (39-308) 11/03/16 09:34 Troponin I 0.03 ng/ml (0.00-0.05) D 11/03/16 09:34 Total Protein 6.2 g/dl (6.4-8.2) L 11/03/16 09:34 Albumin 3.1 g/dl (3.4-5.0) L 11/03/16 09:34 Imaging - Results Ultrasound: Report Reviewed, Image Reviewed Assessment/Plan 86 male with pancreatic CA treated with chemo + Fevers No abdominal pain + gallstones with biliary stent seen on ultrasound HIDA NPO Elevated LFTs and fever possible related to pancreatic CA vs gallbladder If acute cholecystitis seen on HIDA, will need percuatenous cholecystostomy tube by Interventional Radiology
[2016-11-03] MEDS: SODIUM CHLORIDE 1,000 ML IV SCH (18:42)
[2016-11-03] MEDS: PIPERACILLIN/TAZOB 3.375 GM 50 ML IVPB SCH (18:43)
--- NOTE | 2016-11-03 19:51 | CONSULT ---
Consult - text type - Consultation Consultation Note: Patient is a 86-year-old male with past medical history of pancreatic cancer, last chemotherapy with gemzar 10/26/16, hypertension, CAD, prostate cancer in remission, pacemaker, who presents to the emergency department today complaining of fevers and chills. Patient states that his symptoms started on Tuesday11/01/16.He had 1 episode of feveron Tue. chemotherapy was held yesterday today he comes in with fever/chills no abdominalpain/nausea/vomiting Allergies/Adverse Reactions: Allergies Allergy/AdvReac Type Severity Reaction Status Date / Time No Known Allergies Allergy Verified 11/03/16 08:14 Home Medications: Ambulatory Orders Amlodipine Besylate 10 mg PO DAILY 08/02/15 Apixaban [Eliquis] 5 mg PO BID 07/26/16 Losartan Potassium 50 mg PO DAILY 07/26/16 Pantoprazole Sodium 40 mg PO DAILY 07/26/16 Atorvastatin Ca [Lipitor] 20 mg PO HS #30 tablet 07/29/16 Metoprolol Succinate [Toprol XL -] 25 mg PO DAILY 08/14/16 Filgrastim-Sndz [Zarxio] 300 mcg IJ PRN 09/09/16 PMH Cancer: Yes (PROSTATE,Pancreas) Cardiac Disorders: Yes (CAD) HTN: Yes Hypercholesterolemia: Yes - Surgical History Abdominal Surgery: Yes (EXP LAP) Cardiac Surgery: Yes (pacer placed 07/20/16) GI Surgery: Yes (COLOSTOMY WITH REVERSAL) - Immunization History Immunization Up to Date: Yes - Psycho/Social/Smoking Cessation Hx nonsmoker - Vital Signs Last Vital Signs Temp Pulse Resp BP Pulse Ox 97.8 F 61 18 138/68 97 11/03/16 18:43 11/03/16 18:43 11/03/16 18:43 11/03/16 18:43 11/03/16 14:16 Cor: RSR, No murmurs, No gallops Lungs: Clear to P&A Abd: Soft, Normal bowel sounds, No organomegaly Ext:No significant edema Skin: No rashes, Integument intact A/P Patient is a 86-year-old male with past medical history of recurrent pancreatic cancer, last chemotherapy 11/02/16, hypertension, CAD, prostate cancer in remission, pacemaker, who presents to the emergency department today complaining of fevers and chills. PAtient has been on gemzar -- C5 W2-- chemotherapy was held yesterday due to bump in LFTs LAst dose gemzar was 10/26/16 Patient had a good response on PET-CT and was due to get next CT a/p at [facility] , per liver team with Dr. Lim He now comes in with fever/chills/abnormal LFTs On Vanc/zosyn U/S --r/o cholecystitis but clinically no pain. Will check HIDA. Patient with biliary stent --will request consult with Dr. Rosas Gi and ID f/u
--- NOTE | 2016-11-03 20:38 | HP ---
Admitting History and Physical - Primary Care Physician PCP: Danelle Gaytan - Admission Chief Complaint: Fever,chills History of Present Illness: Mr. Mann is a pleasant 86-year-old male with PMH of recurrent pancreatic cancer , last chemotherapy 11/01/16, hypertension, CAD, prostate cancer in remission, pacemaker, who presented to the emergency department today complaining of fevers and chills. Patient stated that his symptoms started on Tuesday11/01/16 after chemotherapy with a fever spike. He presented for chemotherapy yesterday and was stable, afebrile but had elevated LFT's. Chemotherapy was held. Today he woke up with worsening fevers, chills and weakness. He also had mild SOB and chest tightness with mild productive cough. Pt. denies abdominal pain nausea, vomiting, diarrhea, hematuria, frequency, urgency. History Source: Patient Limitations to Obtaining History: No Limitations - Past Medical History Cardiovascular: Yes: AFIB, CAD (non-obstructive per 01/2013 cardiac cath), HTN, Hyperlipdemia, Murmur Pulmonary: Yes: Other (chronic lung disease) Gastrointestinal: Yes: Constipation, Other (H/O SBO DUE TO ADHESIONS, pancreatic Ca) Hepatobiliary: Yes: Other (Pancreatic CA on chemo) Renal/: Yes: Cancer Heme/Onc: Yes: Hypercoaguable State - Past Surgical History Past Surgical History: Yes: Prostatectomy - Smoking History Smoking history: Never smoked Have you smoked in the past 12 months: No Aproximately how many cigarettes per day: 0 - Alcohol/Substance Use Hx Alcohol Use: No Home Medications - Allergies Allergies/Adverse Reactions: Allergies Allergy/AdvReac Type Severity Reaction Status Date / Time No Known Allergies Allergy Verified 11/03/16 08:14 - Home Medications Home Medications: Ambulatory Orders Amlodipine Besylate 10 mg PO DAILY 08/02/15 Apixaban [Eliquis] 5 mg PO BID 07/26/16 Losartan Potassium 50 mg PO DAILY 07/26/16 Pantoprazole Sodium 40 mg PO DAILY 07/26/16 Atorvastatin Ca [Lipitor] 20 mg PO HS #30 tablet 07/29/16 Metoprolol Succinate [Toprol XL -] 25 mg PO DAILY 08/14/16 Filgrastim-Sndz [Zarxio] 300 mcg IJ PRN 09/09/16 Review of Systems - Review of Systems Constitutional: reports: Chills, Fever, Loss of Appetite, Weakness Eyes: reports: No Symptoms HENT: reports: No Symptoms Neck: reports: No Symptoms Cardiovascular: reports: No Symptoms, Shortness of Breath Respiratory: reports: Cough, SOB on Exertion Gastrointestinal: reports: No Symptoms Genitourinary: reports: No Symptoms Breasts: reports: No Symptoms Reported Musculoskeletal: reports: Muscle Weakness Integumentary: reports: No Symptoms Neurological: reports: No Symptoms Endocrine: reports: No Symptoms Hematology/Lymphatic: reports: No Symptoms Psychiatric: reports: No Symptoms Pain Intensity: 0 Physical Examination Vital Signs: Vital Signs Temperature 97.8 F 11/03/16 18:43 Pulse Rate 61 11/03/16 18:43 Respiratory Rate 18 11/03/16 18:43 Blood Pressure 138/68 11/03/16 18:43 O2 Sat by Pulse Oximetry (%) 97 11/03/16 14:16 Constitutional: Yes: Well Nourished, No Distress, Calm Cardiovascular: Yes: Regular Rate and Rhythm Respiratory: Yes: Regular Gastrointestinal: Yes: Normal Bowel Sounds, Soft, Tenderness, Rebound (RUQ) Musculoskeletal: Yes: WNL Extremities: Yes: WNL Neurological: Yes: Alert, Oriented Psychiatric: Yes: Alert, Oriented Imaging - Results Chest X-ray: Report Reviewed Ultrasound: Report Reviewed Problem List - Problems (1) Cholecystitis Assessment/Plan: -U/S negative for cholecystitis -HIDA pending -to be seen by GI -seen by GI surgery Code(s): K81.9 - CHOLECYSTITIS, UNSPECIFIED (2) Fever Assessment/Plan: -BC,UC -HIDA -no leukocytosis -labs in AM -tylenol for fever Code(s): R50.9 - FEVER, UNSPECIFIED (3) Common bile duct (CBD) obstruction Assessment/Plan: -HIDA -bilirubin mildly elevated Code(s): K83.1 - OBSTRUCTION OF BILE DUCT (4) Pancreatic cancer Assessment/Plan: -is being followed by Oncology team Code(s): C25.9 - MALIGNANT NEOPLASM OF PANCREAS, UNSPECIFIED (5) Elevated LFTs Assessment/Plan: gallbladder vs pancreatic CA Code(s): R79.89 - OTHER SPECIFIED ABNORMAL FINDINGS OF BLOOD CHEMISTRY Assessment/Plan see problem list
[2016-11-03] MEDS: APIXABAN 5 MG TABLET PO SCH (22:15)
[2016-11-03] MEDS: ATORVASTATIN CA 20 MG TABLET (FP) PO SCH (22:15)
[2016-11-03] MEDS ORDERED: METOPROLOL TARTRATE 5 MG/5 ML VIAL IVPUSH ONE (23:45)
[2016-11-03] MEDS ORDERED: METOPROLOL TARTRATE 25 MG TABLET (FP) PO ONE (23:45)
[2016-11-04] MEDS: PIPERACILLIN/TAZOB 3.375 GM 50 ML IVPB SCH ×2 (02:00→09:18)
[2016-11-04 08:12] LABS: BASOPHIL 0.1 % (0-2.0); MCH 27.8 pg (25.7-33.7); MCHC 32.8 g/dl (32.0-35.9); MEAN CELL VOLUME 84.6 fl (80-96); MEAN PLT VOLUME 8.6 fl (7.5-11.1); NEUTROPHILS 76.6 % (42.8-82.8); PLATELET COUNT 139 K/MM3 (134-434); RDW 17.2 % (11.9-15.9)
[2016-11-04 08:22] LABS: INR 1.81 (0.82-1.09); PROTHROMBIN TIME (PATIENT) 20.1 SEC (9.98-11.88)
[2016-11-04 08:53] LABS: MAGNESIUM 2.1 mg/dL (1.8-2.4)
--- NOTE | 2016-11-04 08:53 | CON.GI ---
Consult Consult Specialty:: GI Referred by:: Dr Gaytan Reason for Consultation:: fever and chills - History of Present Illness Chief Complaint: fever and rigors History of Present Illness: 86 M with h/o Ca of pancreas, on chemo for recurrent pancreatic Ca admitted with fever and chills. He denied abdominal pain.. CT and sono show cholecystitis with cystic duct obstruction but good biliary to bowel transit suggesting patent CBD. Other PMH -prostate ca, HTN, CAD with PPM, - History Source History Provided By: Medical Record - Past Medical History Cardio/Vascular: Yes: AFIB, CAD (non-obstructive per 01/2013 cardiac cath), HTN , Hyperlipdemia, Murmur Pulmonary: Yes: Other (chronic lung disease) Gastrointestinal: Yes: Constipation, Other (H/O SBO DUE TO ADHESIONS, pancreatic Ca) Hepatobiliary: Yes: Other (Pancreatic CA on chemo) Renal/: Yes: Cancer - Past Surgical History Past Surgical History: Yes: Prostatectomy - Alcohol/Substance Use Hx Alcohol Use: No - Smoking History Smoking history: Never smoked Have you smoked in the past 12 months: No Aproximately how many cigarettes per day: 0 Home Medications - Allergies Allergies/Adverse Reactions: Allergies Allergy/AdvReac Type Severity Reaction Status Date / Time No Known Allergies Allergy Verified 11/03/16 08:14 - Home Medications Home Medications: Ambulatory Orders Amlodipine Besylate 10 mg PO DAILY 08/02/15 Apixaban [Eliquis] 5 mg PO BID 07/26/16 Losartan Potassium 50 mg PO DAILY 07/26/16 Pantoprazole Sodium 40 mg PO DAILY 07/26/16 Atorvastatin Ca [Lipitor] 20 mg PO HS #30 tablet 07/29/16 Metoprolol Succinate [Toprol XL -] 25 mg PO DAILY 08/14/16 Filgrastim-Sndz [Zarxio] 300 mcg IJ PRN 09/09/16 Physical Exam-GI Vital Signs: Vital Signs Temperature 98 F 11/04/16 05:20 Pulse Rate 90 11/04/16 05:20 Respiratory Rate 20 11/04/16 05:20 Blood Pressure 127/59 11/04/16 05:20 O2 Sat by Pulse Oximetry (%) 94 L 11/03/16 21:09 Constitutional: Yes: Well Nourished, Calm HENT: Yes: Normocephalic Neck: Yes: Supple Cardiovascular: Yes: Regular Rate and Rhythm Respiratory: Yes: CTA Bilaterally ...Auscultate: Yes: Normoactive Bowel Sounds ...Palpate: Yes: Soft. No: Tenderness Labs: CBC, BMP 11/04/16 05:50 INR, PTT INR 1.81 (0.82-1.09) H D 11/04/16 05:50 Imaging - Results Other: Report Reviewed (HIDA reviewed-suggests cystic duct obstruction. S/P stent in CBD in Apr 2016) Assessment/Plan Likely cholecystitis Agree with percutaneous drainage of the gb by interventional Poor candidate for any surgical procedure
[2016-11-04 08:54] LABS: FERRITIN 163.749 ng/ml (16.4-293.9)
[2016-11-04] MEDS: LOSARTAN POTASSIUM 50 MG TABLET (FP) PO SCH (09:53)
[2016-11-04] MEDS: PANTOPRAZOLE 40 MG TABLET (FP) PO SCH (09:53)
[2016-11-04] MEDS: APIXABAN 5 MG TABLET PO SCH ×3 (09:53→21:52)
[2016-11-04] MEDS: amLODIPine BESYLATE 10 MG TABLET (FP) PO SCH (09:53)
[2016-11-04] MEDS ORDERED: METOPROLOL SUCCINATE 25 MG TAB.SR.24H (FP) PO SCH (10:00)
--- NOTE | 2016-11-04 10:38 | PN ---
Progress Note, Physician Chief Complaint: patient seen and examined no complaints to get drainage of GB via IR got dose of iv metoprolol for elevate HR last night currently afebrile - Current Medication List Current Medications: Active Medications Acetaminophen (Tylenol -) 650 mg PO Q6H PRN PRN Reason: FEVER Amlodipine Besylate (Norvasc -) 10 mg PO DAILY [facility] Last Admin: 11/04/16 09:53 Dose: 10 mg Apixaban (Eliquis -) 5 mg PO BID [facility] Last Admin: 11/03/16 22:15 Dose: 5 mg Atorvastatin Calcium (Lipitor -) 20 mg PO HS [facility] Last Admin: 11/03/16 22:15 Dose: 20 mg Sodium Chloride (Normal Saline -) 1,000 mls @ 50 mls/hr IV ASDIR [facility] Last Admin: 11/03/16 18:42 Dose: 50 mls/hr Piperacillin Sod/Tazobactam Sod (Zosyn 3.375gm Ivpb (Pre-Docked)) 50 mls @ 100 mls/hr IVPB Q8H-IV PRIYANKA PRN Reason: Protocol Last Admin: 11/04/16 09:18 Dose: 100 mls/hr Losartan Potassium (Cozaar -) 50 mg PO DAILY [facility] Last Admin: 11/04/16 09:53 Dose: 50 mg Metoprolol Succinate (Toprol Xl -) 25 mg PO DAILY [facility] Last Admin: 11/04/16 09:53 Dose: 25 mg Pantoprazole Sodium (Protonix -) 40 mg PO DAILY [facility] Last Admin: 11/04/16 09:53 Dose: 40 mg - Objective Vital Signs: Vital Signs Temperature 98 F 11/04/16 10:00 Pulse Rate 90 11/04/16 10:00 Respiratory Rate 18 11/04/16 10:00 Blood Pressure 120/70 11/04/16 10:00 O2 Sat by Pulse Oximetry (%) 94 L 11/03/16 21:09 Constitutional: Yes: Calm, Thin Neck: Yes: Trachea Midline Cardiovascular: Yes: Regular Rate and Rhythm, S1, S2 Respiratory: Yes: CTA Bilaterally Gastrointestinal: Yes: Normal Bowel Sounds, Soft Edema: No Neurological: Yes: Alert, Oriented Labs: CBC, BMP 11/04/16 05:50 INR, PTT INR 1.81 (0.82-1.09) H D 11/04/16 05:50 Problem List - Problems (1) Cholecystitis Assessment/Plan: to get IR drainage of GB tmw morning as today INR is 1.8 eliquis dose held for today iv abx per ID Code(s): K81.9 - CHOLECYSTITIS, UNSPECIFIED (2) Elevated LFTs Assessment/Plan: appreciate GI consult not surgical candidate needs GB drainage via IR Code(s): R79.89 - OTHER SPECIFIED ABNORMAL FINDINGS OF BLOOD CHEMISTRY (3) Afib Assessment/Plan: metoprolol hold eliquis check inr in am cardio eval Code(s): I48.91 - UNSPECIFIED ATRIAL FIBRILLATION Qualifiers: (4) Common bile duct (CBD) obstruction Assessment/Plan: drainage by IR tmw morning if INR < 1.5 Code(s): K83.1 - OBSTRUCTION OF BILE DUCT
--- NOTE | 2016-11-04 11:13 | EKG ---
Test Reason : Blood Pressure : / mmHG Vent. Rate : 117 BPM Atrial Rate : 117 BPM P-R Int : 136 ms QRS Dur : 100 ms QT Int : 316 ms P-R-T Axes : 055 -37 074 degrees QTc Int : 440 ms SINUS TACHYCARDIA LEFT AXIS DEVIATION LEFT VENTRICULAR HYPERTROPHY WITH REPOLARIZATION ABNORMALITY ABNORMAL ECG WHEN COMPARED WITH ECG OF 09-SEP-2016 04:36, SINUS RHYTHM HAS REPLACED ATRIAL FIBRILLATION ST NO LONGER DEPRESSED IN INFERIOR LEADS ST NO LONGER DEPRESSED IN ANTEROLATERAL LEADS Confirmed by GAVIOTA ALEXANDER MD ([id number]) on 11/04/2016 11:13:38 AM Referred By: Confirmed By:GAVIOTA ALEXANDER MD
--- NOTE | 2016-11-04 11:59 | CONSULT ---
Consultation: REQUESTING PROVIDER: CONSULT REQUEST: ID. HISTORY OF PRESENT ILLNESS: Patient is an 86 yo m with a PMH of Pancreatic cancer (last chemo 11/02), HTN, CAD, presented to the ED yesterday with fevers and chills that has been going on since Tuesday (). He also had shortness of breath and felt very weak that day. The next day he had chemo () where he was stable and afebrile as per Dr. Brandon. Patient states he feels better today and comfortable. He denies nausea/vomiting, diarrhea, weight loss, recent travel , chest pain, abdominal pain, urinary symptoms and fever. Cardio/Vascular: Yes: AFIB, CAD (non-obstructive per 01/2013 cardiac cath), HTN , Hyperlipdemia, Murmur Pulmonary: Yes: Other (chronic lung disease) Gastrointestinal: Yes: Constipation, Other (H/O SBO DUE TO ADHESIONS, pancreatic Ca) Hepatobiliary: Yes: Other (Pancreatic CA on chemo) Renal/: Yes: Prostate Cancer (remission) SH: Denies smoking, drinking, illicit drug use Home Meds Amlodipine Besylate 10 mg PO DAILY 08/02/15 Apixaban [Eliquis] 5 mg PO BID 07/26/16 Losartan Potassium 50 mg PO DAILY 07/26/16 Pantoprazole Sodium 40 mg PO DAILY 07/26/16 Atorvastatin Ca [Lipitor] 20 mg PO HS #30 tablet 07/29/16 Metoprolol Succinate [Toprol XL -] 25 mg PO DAILY 08/14/16 Filgrastim-Sndz [Zarxio] 300 mcg IJ PRN 09/09/16 REVIEW OF SYSTEMS: CONSTITUTIONAL: Absent: fever, chills, diaphoresis, generalized weakness, malaise, loss of appetite, weight change HEENT: Absent: rhinorrhea, nasal congestion, throat pain, throat swelling, difficulty swallowing, mouth swelling, ear pain, eye pain, visual changes CARDIOVASCULAR: Absent: chest pain, syncope, palpitations, irregular heart rate, lightheadedness , peripheral edema RESPIRATORY: Absent: cough, shortness of breath, dyspnea with exertion, orthopnea, wheezing, stridor, hemoptysis GASTROINTESTINAL: Absent: abdominal pain, abdominal distension, nausea, vomiting, diarrhea, constipation, melena, hematochezia GENITOURINARY: Absent: dysuria, frequency, urgency, hesitancy, hematuria, flank pain, genital pain MUSCULOSKELETAL: Absent: myalgia, arthralgia, joint swelling, back pain, neck pain SKIN: Absent: rash, itching, pallor HEMATOLOGIC/IMMUNOLOGIC: Absent: easy bleeding, easy bruising, lymphadenopathy, frequent infections ENDOCRINE: Absent: unexplained weight gain, unexplained weight loss, heat intolerance, cold intolerance NEUROLOGIC: Absent: headache, focal weakness or paresthesias, dizziness, unsteady gait, seizure, mental status changes, bladder or bowel incontinence PSYCHIATRIC: Absent: anxiety, depression, suicidal or homicidal ideation, hallucinations. PHYSICAL EXAMINATION Vital Signs - 24 hr 11/03/16 11/03/16 11/03/16 18:43 20:37 21:09 Temperature 97.8 F 98.9 F Pulse Rate 61 60 Respiratory 18 20 20 Rate Blood Pressure 138/68 124/56 O2 Sat by Pulse 94 L Oximetry (%) 11/03/16 11/03/16 11/04/16 23:35 23:52 00:05 Temperature Pulse Rate 132 H 140 H 110 H Respiratory 19 20 Rate Blood Pressure 141/82 140/80 123/60 O2 Sat by Pulse Oximetry (%) 11/04/16 11/04/16 11/04/16 02:12 05:20 10:00 Temperature 98.8 F 98 F 98 F Pulse Rate 95 H 90 90 Respiratory 20 20 18 Rate Blood Pressure 109/60 127/59 120/70 O2 Sat by Pulse Oximetry (%) GENERAL: Awake, alert, and fully oriented, in no acute distress. HEAD: Normal with no signs of trauma. EYES: sclera anicteric, conjunctiva clear. No lid lag. EARS, NOSE, THROAT: Ears normal, nares patent, oropharynx clear without exudates. Moist mucous membranes. NECK: supple without lymphadenopathy, JVD, or masses. LUNGS: Breath sounds equal, clear to auscultation bilaterally. No wheezes, and no crackles. No accessory muscle use. HEART: Regular rate and rhythm, normal S1 and S2 without murmur, rub or gallop. ABDOMEN: scars from previous surgeries. Soft, nontender, not distended, normoactive bowel sounds, no guarding, no rebound, no masses. - lucas's sign No hepatomegaly or splenomegaly. UPPER EXTREMITIES: 2+ pulses, warm, well-perfused. No cyanosis. No clubbing. Cap refill <2 seconds. No peripheral edema. LOWER EXTREMITIES: 2+ pulses, warm, well-perfused. No calf tenderness. No peripheral edema. PSYCHIATRIC: Cooperative. Good eye contact. Appropriate mood and affect. SKIN: Warm, dry, normal turgor, no rashes or lesions noted. Laboratory Results - last 24 hr 11/04/16 11/04/16 11/04/16 05:50 05:50 05:50 WBC 6.0 D RBC 3.64 L Hgb 10.1 L Hct 30.8 L MCV 84.6 MCH 27.8 MCHC 32.8 RDW 17.2 H Plt Count 139 MPV 8.6 Neutrophils % 76.6 Lymphocytes % 9.0 D Monocytes % 13.3 H D Eosinophils % 1.0 D Basophils % 0.1 INR 1.81 H D Magnesium 2.1 Ferritin 163.749 Active Medications Generic Name Dose Route Start Last Admin Trade Name Freq PRN Reason Stop Dose Admin Acetaminophen 650 mg 11/03/16 14:29 Tylenol - PO Q6H PRN FEVER Amlodipine Besylate 10 mg 11/04/16 10:00 11/04/16 09:53 Norvasc - PO 10 mg DAILY PRIYANKA Administration Apixaban 5 mg 11/03/16 22:00 11/03/16 22:15 Eliquis - PO 5 mg BID PRIYANKA Administration Atorvastatin Calcium 20 mg 11/03/16 22:00 11/03/16 22:15 Lipitor - PO 20 mg HS PRIYANKA Administration Sodium Chloride 1,000 mls @ 50 mls/hr 11/03/16 15:00 11/03/16 18:42 Normal Saline - IV 50 mls/hr ASDIR PRIYANKA Administration Piperacillin Sod/Tazobactam Sod 50 mls @ 100 mls/hr 11/03/16 18:30 11/04/16 09: 18 Zosyn 3.375gm Ivpb (Pre-Docked) IVPB 100 mls/hr Q8H-IV PRIYANKA Administration Protocol Losartan Potassium 50 mg 11/04/16 10:00 11/04/16 09:53 Cozaar - PO 50 mg DAILY PRIYANKA Administration Metoprolol Succinate 25 mg 11/04/16 10:00 11/04/16 09:53 Toprol Xl - PO 25 mg DAILY PRIYANKA Administration Pantoprazole Sodium 40 mg 11/04/16 10:00 11/04/16 09:53 Protonix - PO 40 mg DAILY PRIYANKA Administration ASSESSMENT/PLAN: 1) Gram - Bacteremia likely secondary to biliary source -Continue Zosyn -elevated LFTs -HIDA scan: Nonvisualization of the gallbladder compatible with cystic duct obstruction -Hx of pancreatic CA on chemo -GI and surgical F/Up Dispo: We will continue to follow the patient. Thank you for this consultative opportunity. Visit type - Emergency Visit Emergency Visit: Yes ED Registration Date: 11/03/16 Care time: The patient presented to the Emergency Department on the above date and was hospitalized for further evaluation of their emergent condition. - New Patient This patient is new to me today: Yes Date on this admission: 11/04/16 - Critical Care Critical Care patient: No
--- NOTE | 2016-11-04 12:09 | PN ---
Teaching Attending Note Name of Resident: Asher Hill ATTENDING PHYSICIAN STATEMENT I saw and evaluated the patient. I reviewed the resident's note and discussed the case with the resident. I agree with the resident's findings and plan as documented. SUBJECTIVE: OBJECTIVE: ASSESSMENT AND PLAN: Gram Negative bacteremia/ sepsis Probable biliary sepsis Cholecystitis pancreatic ca on chemotherapy Pending identification of blood isolate, empiric zosyn
--- NOTE | 2016-11-04 13:10 | PN ---
Progress Note (short form) - Note Progress Note: No acute events No pain NPO Vital Signs Period Temp Pulse Resp BP Sys/Escobedo Pulse Ox Last 24 Hr 97.8 F-99.9 F 60-140 18-20 109-141/52-82 94-97 Abd soft, NT CBC,CMP WBC 6.0 K/mm3 (4.0-10.0) D 11/04/16 05:50 RBC 3.64 M/mm3 (4.00-5.60) L 11/04/16 05:50 Hgb 10.1 GM/dL (11.7-16.9) L 11/04/16 05:50 Hct 30.8 % (35.4-49) L 11/04/16 05:50 MCV 84.6 fl (80-96) 11/04/16 05:50 MCH 27.8 pg (25.7-33.7) 11/04/16 05:50 MCHC 32.8 g/dl (32.0-35.9) 11/04/16 05:50 RDW 17.2 % (11.9-15.9) H 11/04/16 05:50 Plt Count 139 K/MM3 (134-434) 11/04/16 05:50 MPV 8.6 fl (7.5-11.1) 11/04/16 05:50 Neutrophils % 76.6 % (42.8-82.8) 11/04/16 05:50 Lymphocytes % 9.0 % (8-40) D 11/04/16 05:50 Monocytes % 13.3 % (3.8-10.2) H D 11/04/16 05:50 Eosinophils % 1.0 % (0-4.5) D 11/04/16 05:50 Basophils % 0.1 % (0-2.0) 11/04/16 05:50 Sodium 136 mmol/L (136-145) 11/03/16 09:34 Potassium 3.6 mmol/L (3.5-5.1) 11/03/16 09:34 Chloride 103 mmol/L (98-107) 11/03/16 09:34 Carbon Dioxide 24 mmol/L (21-32) 11/03/16 09:34 Anion Gap 9 (8-16) 11/03/16 09:34 BUN 20 mg/dL (7-18) H 11/03/16 09:34 Creatinine 1.1 mg/dL (0.7-1.3) 11/03/16 09:34 Creat Clearance w eGFR > 60 (>60) 11/03/16 09:34 Random Glucose 133 mg/dL (74-106) H 11/03/16 09:34 Lactic Acid 1.5 mmol/L (0.4-2.0) 11/03/16 09:34 Calcium 8.2 mg/dL (8.5-10.1) L 11/03/16 09:34 Magnesium 2.1 mg/dL (1.8-2.4) 11/04/16 05:50 Ferritin 163.749 ng/ml (16.4-293.9) 11/04/16 05:50 Total Bilirubin 1.6 mg/dL (0.2-1.0) H D 11/03/16 09:34 AST 103 U/L (15-37) H D 11/03/16 09:34 ALT 230 U/L (12-78) H D 11/03/16 09:34 Alkaline Phosphatase 426 U/L (45-117) H 11/03/16 09:34 Creatine Kinase 44 IU/L (39-308) 11/03/16 09:34 Troponin I 0.03 ng/ml (0.00-0.05) D 11/03/16 09:34 Total Protein 6.2 g/dl (6.4-8.2) L 11/03/16 09:34 Albumin 3.1 g/dl (3.4-5.0) L 11/03/16 09:34 HIDA- nonfilling of the gallbladder consistent with cystic duct obstruction Not a surgical candidate Percutaneous cholecystostomy by IR Antibiotics NPO until drain placed
--- NOTE | 2016-11-04 14:54 | CON.CARD ---
Consult Consult Specialty:: Cardiology - History of Present Illness Chief Complaint: Preop Eval for cholesystostomy and Afib History of Present Illness: 86 M with pancreatic cancer, Paroxysmal Afib with tachy-daisy sp PPM. There is no prior history of obstructive CAD or heart failure and the patient is on anticoagulation. A recent stress test was negative. He is admitted with fevers and chest discomfort with concern for cholesystitis. Telemetry shows PAF with HR in the 130s at times, occasionally paced. - History Source History Provided By: Patient, Family Member Limitations to Obtaining History: No Limitations - Past Medical History Cardio/Vascular: Yes: AFIB, CAD (non-obstructive per 01/2013 cardiac cath), HTN , Hyperlipdemia, Murmur Pulmonary: Yes: Other (chronic lung disease) Gastrointestinal: Yes: Constipation, Other (H/O SBO DUE TO ADHESIONS, pancreatic Ca) Hepatobiliary: Yes: Other (Pancreatic CA on chemo) Renal/: Yes: Cancer - Past Surgical History Past Surgical History: Yes: Prostatectomy - Alcohol/Substance Use Hx Alcohol Use: No - Smoking History Smoking history: Never smoked Have you smoked in the past 12 months: No Aproximately how many cigarettes per day: 0 Home Medications - Allergies Allergies/Adverse Reactions: Allergies Allergy/AdvReac Type Severity Reaction Status Date / Time No Known Allergies Allergy Verified 11/03/16 08:14 - Home Medications Home Medications: Ambulatory Orders Amlodipine Besylate 10 mg PO DAILY 08/02/15 Apixaban [Eliquis] 5 mg PO BID 07/26/16 Losartan Potassium 50 mg PO DAILY 07/26/16 Pantoprazole Sodium 40 mg PO DAILY 07/26/16 Atorvastatin Ca [Lipitor] 20 mg PO HS #30 tablet 07/29/16 Metoprolol Succinate [Toprol XL -] 25 mg PO DAILY 08/14/16 Filgrastim-Sndz [Zarxio] 300 mcg IJ PRN 09/09/16 Review of Systems - Review of Systems Constitutional: reports: Chills, Fever Eyes: reports: No Symptoms HENT: reports: No Symptoms Cardiovascular: reports: Chest Pain, Palpitations Respiratory: reports: SOB Vital Signs: Vital Signs Temperature 98 F 11/04/16 10:00 Pulse Rate 90 11/04/16 10:00 Respiratory Rate 18 11/04/16 10:00 Blood Pressure 120/70 11/04/16 10:00 O2 Sat by Pulse Oximetry (%) 94 L 11/03/16 21:09 Constitutional: Yes: Well Nourished, No Distress Eyes: Yes: Conjunctiva Clear, EOM Intact HENT: Yes: Atraumatic, Normocephalic Neck: Yes: Supple, Trachea Midline Respiratory: Yes: Regular, CTA Bilaterally Gastrointestinal: Yes: Normal Bowel Sounds JVD: No Carotid Bruit: No PMI: Non-Displaced Heart Sounds: Yes: S1, S2 Murmur: No: Systolic Murmur, Diastolic Murmur, Grade 1, Grade 2, Grade 3, Grade 4, Grade 5, Grade 6 - Other Data Labs, Other Data: CBC, BMP 11/04/16 05:50 INR, PTT INR 1.81 (0.82-1.09) H D 11/04/16 05:50 Sinus tachycardia LAD no STT changes Imaging - Results Chest X-ray: Report Reviewed Problem List - Problems (1) Afib Code(s): I48.91 - UNSPECIFIED ATRIAL FIBRILLATION Qualifiers: Assessment/Plan 86 M with Pancreatic CA acute chhaya and PAF. No heart failure or angina. Asymptomatic PAF in the setting of acute infection. Recommend Increasing Metoprolol XL 50mg qd No cardiac contraindication to Cholesystostomy. Resume AC after procedure if ok from a surgical perspective.
[2016-11-04] MEDS ORDERED: PIPERACILLIN/TAZOBACTAM 3.375 GM VIAL IVPB ONE (17:23)
[2016-11-04] MEDS ORDERED: DEXTROSE 5%-WATER - 50 ML IVPB ONE (17:23)
[2016-11-04] MEDS: SODIUM CHLORIDE 1,000 ML IV SCH (17:26)
[2016-11-04] MEDS: PIPERACILLIN/TAZOB 3.375 GM 3.375 GM in DEXTROSE 5%-WATER - 50 ML IVPB SCH (17:27)
[2016-11-04] MEDS: ATORVASTATIN CA 20 MG TABLET (FP) PO SCH (21:52)
[2016-11-05] MEDS ORDERED: PIPERACILLIN/TAZOBACTAM 3.375 GM VIAL IVPB ONE ×2 (00:52→08:45)
[2016-11-05] MEDS ORDERED: DEXTROSE 5%-WATER - 50 ML IVPB ONE ×2 (00:53→08:46)
[2016-11-05] MEDS: PIPERACILLIN/TAZOB 3.375 GM 3.375 GM in DEXTROSE 5%-WATER - 50 ML IVPB SCH ×2 (01:11→09:30)
[2016-11-05 06:06] LABS: SERUM IRON 17 ug/dL (38-169); TOTAL IRON BINDING CAPACITY 187 ug/dL (250-450); UIBC 170 ug/dL (111-343)
[2016-11-05 07:57] LABS: BASOPHIL 0.5 % (0-2.0); EOSINOPHIL 2.5 % (0-4.5); MCH 27.5 pg (25.7-33.7); MCHC 32.8 g/dl (32.0-35.9); MEAN CELL VOLUME 84.1 fl (80-96); MEAN PLT VOLUME 8.6 fl (7.5-11.1); NEUTROPHILS 68.3 % (42.8-82.8); PLATELET COUNT 157 K/MM3 (134-434); RDW 16.3 % (11.9-15.9); WHITE BLOOD COUNT 5.2 K/mm3 (4.0-10.0)
[2016-11-05] MEDS ORDERED: METOPROLOL SUCCINATE 50 MG TAB.SR.24H (FP) PO SCH (08:06)
[2016-11-05 08:09] LABS: INR 1.5 (0.82-1.09); PROTHROMBIN TIME (PATIENT) 16.6 SEC (9.98-11.88)
--- NOTE | 2016-11-05 08:10 | PN ---
Progress Note, Physician - Current Medication List Current Medications: Active Medications Acetaminophen (Tylenol -) 650 mg PO Q6H PRN PRN Reason: FEVER Amlodipine Besylate (Norvasc -) 10 mg PO DAILY [facility] Last Admin: 11/04/16 09:53 Dose: 10 mg Apixaban (Eliquis -) 5 mg PO BID [facility] Last Admin: 11/04/16 21:52 Dose: 5 mg Atorvastatin Calcium (Lipitor -) 20 mg PO HS [facility] Last Admin: 11/04/16 21:52 Dose: 20 mg Piperacillin Sod/Tazobactam (Sod 3.375 gm/ Dextrose) 50 mls @ 100 mls/hr IVPB Q8H-IV PRIYANKA PRN Reason: Protocol Stop: 11/06/16 10:29 Last Admin: 11/05/16 01:11 Dose: 100 mls/hr Losartan Potassium (Cozaar -) 50 mg PO DAILY [facility] Last Admin: 11/04/16 09:53 Dose: 50 mg Metoprolol Succinate (Toprol Xl -) 50 mg PO DAILY [facility] Pantoprazole Sodium (Protonix -) 40 mg PO DAILY [facility] Last Admin: 11/04/16 09:53 Dose: 40 mg - Objective Vital Signs: Vital Signs Temperature 98.6 F 11/05/16 06:00 Pulse Rate 66 11/05/16 06:00 Respiratory Rate 18 11/05/16 06:00 Blood Pressure 140/68 11/05/16 06:00 O2 Sat by Pulse Oximetry (%) 96 11/04/16 21:00 Labs: INR, PTT INR 1.81 (0.82-1.09) H D 11/04/16 05:50 Problem List - Problems (1) Cholecystitis Assessment/Plan: to get IR drainage of GB--procedure cancelled?? eliquis was restarted iv abx per ID Code(s): K81.9 - CHOLECYSTITIS, UNSPECIFIED (2) Elevated LFTs Assessment/Plan: as above Code(s): R79.89 - OTHER SPECIFIED ABNORMAL FINDINGS OF BLOOD CHEMISTRY (3) Afib Assessment/Plan: increase metoprolol to 50 Code(s): I48.91 - UNSPECIFIED ATRIAL FIBRILLATION Qualifiers: (4) CAD (coronary artery disease) Assessment/Plan: add nitrates (5) Pancreatic cancer Assessment/Plan: per oncology Code(s): C25.9 - MALIGNANT NEOPLASM OF PANCREAS, UNSPECIFIED
[2016-11-05 08:23] LABS: ALBUMIN 2.9 g/dl (3.4-5.0); ANION GAP 9 (8-16); BILIRUBIN,TOTAL 0.8 mg/dL (0.2-1.0); CALCIUM 8.2 mg/dL (8.5-10.1); CO2 27 mmol/L (21-32); GLUCOSE,RANDOM 87 mg/dL (74-106); SGOT/AST 29 U/L (15-37); SGPT/ALT 117 U/L (12-78); TOT PROT 5.9 g/dl (6.4-8.2)
[2016-11-05 08:24] LABS: ALK PHOS 298 U/L (45-117)
[2016-11-05] MEDS: PANTOPRAZOLE 40 MG TABLET (FP) PO SCH (09:29)
[2016-11-05] MEDS: LOSARTAN POTASSIUM 50 MG TABLET (FP) PO SCH (09:29)
[2016-11-05] MEDS: amLODIPine BESYLATE 10 MG TABLET (FP) PO SCH (09:29)
[2016-11-05] MEDS ORDERED: ISOSORBIDE MONONITRATE 30 MG TAB.SR.24H (FP) PO SCH (10:00)
[2016-11-05] MEDS: APIXABAN 5 MG TABLET PO SCH (11:00)
[2016-11-05] MEDS ORDERED: MEROPENEM 500 MG VIAL (RESTRICTED TO ID) IVPB SCH (12:00)
[2016-11-05] MEDS: MEROPENEM 500 MG in DEXTROSE 5%-WATER - 100 ML IVPB SCH ×2 (13:05→17:56)
--- NOTE | 2016-11-05 13:41 | PN ---
Physical Exam: SUBJECTIVE: Patient seen and examined. No overnight events. Patient offers no new complaints. Feels much better today. Denies pain, cough, fever, chills, diarrhea, and urinary symptoms OBJECTIVE: Vital Signs Period Temp Pulse Resp BP Sys/Escobedo Pulse Ox Last 24 Hr 97.8 F-98.6 F 64-600 18-18 116-160/56-77 96 GENERAL: Awake, alert, and fully oriented, in no acute distress. HEAD: Normal with no signs of trauma. EYES: sclera anicteric, conjunctiva clear. No lid lag. EARS, NOSE, THROAT: Ears normal, nares patent, oropharynx clear without exudates. Moist mucous membranes. NECK: supple without lymphadenopathy, JVD, or masses. LUNGS: Breath sounds equal, clear to auscultation bilaterally. No wheezes, and no crackles. No accessory muscle use. HEART: Regular rate and rhythm, normal S1 and S2 without murmur, rub or gallop. ABDOMEN: scars from previous surgeries. Soft, nontender, not distended, normoactive bowel sounds, no guarding, no rebound, no masses. - lucas's sign No hepatomegaly or splenomegaly. UPPER EXTREMITIES: 2+ pulses, warm, well-perfused. No cyanosis. No clubbing. Cap refill <2 seconds. No peripheral edema. LOWER EXTREMITIES: 2+ pulses, warm, well-perfused. No calf tenderness. No peripheral edema. PSYCHIATRIC: Cooperative. Good eye contact. Appropriate mood and affect. SKIN: Warm, dry, normal turgor, no rashes or lesions noted. Laboratory Results - last 24 hr 11/04/16 11/05/16 11/05/16 05:50 05:45 05:45 WBC 5.2 RBC 3.60 L Hgb 9.9 L Hct 30.2 L MCV 84.1 MCH 27.5 MCHC 32.8 RDW 16.3 H Plt Count 157 MPV 8.6 Neutrophils % 68.3 Lymphocytes % 13.9 D Monocytes % 14.8 H Eosinophils % 2.5 D Basophils % 0.5 D INR 1.50 H PTT (Actin FS) Sodium Potassium Chloride Carbon Dioxide Anion Gap BUN Creatinine Creat Clearance w eGFR Random Glucose Calcium Iron 17 L TIBC 187 L Iron Saturation 9 L Total Bilirubin AST ALT Alkaline Phosphatase Total Protein Albumin 08/25/17 08/25/17 05:45 05:45 WBC RBC Hgb Hct MCV MCH MCHC RDW Plt Count MPV Neutrophils % Lymphocytes % Monocytes % Eosinophils % Basophils % INR PTT (Actin FS) 33.0 Sodium 142 Potassium 3.3 L Chloride 106 Carbon Dioxide 27 Anion Gap 9 BUN 15 D Creatinine 1.0 Creat Clearance w eGFR > 60 Random Glucose 87 D Calcium 8.2 L Iron TIBC Iron Saturation Total Bilirubin 0.8 D AST 29 D ALT 117 H D Alkaline Phosphatase 298 H D Total Protein 5.9 L Albumin 2.9 L Active Medications Generic Name Dose Route Start Last Admin Trade Name Freq PRN Reason Stop Dose Admin Acetaminophen 650 mg 11/03/16 14:29 Tylenol - PO Q6H PRN FEVER Amlodipine Besylate 10 mg 11/04/16 10:00 11/05/16 09:29 Norvasc - PO 10 mg DAILY PRIYANKA Administration Atorvastatin Calcium 20 mg 11/03/16 22:00 11/04/16 21:52 Lipitor - PO 20 mg HS PRIYANKA Administration Meropenem 500 mg/ Dextrose 100 mls @ 400 mls/hr 11/05/16 12:45 11/05/16 13:05 IVPB 400 mls/hr Q8H-IV PRIYANKA Administration Isosorbide Mononitrate 30 mg 11/05/16 10:00 11/05/16 09:29 Imdur - PO 30 mg DAILY PRIYANKA Administration Losartan Potassium 50 mg 11/04/16 10:00 11/05/16 09:29 Cozaar - PO 50 mg DAILY PRIYANKA Administration Metoprolol Succinate 50 mg 11/05/16 08:06 11/05/16 09:29 Toprol Xl - PO 50 mg DAILY PRIYANKA Administration Pantoprazole Sodium 40 mg 11/04/16 10:00 11/05/16 09:29 Protonix - PO 40 mg DAILY PRIYANKA Administration ASSESSMENT/PLAN: 1) Gram neg Bacteremia/Sepsis -ESBL positive cultures -Switch IV antibiotics to Meropenem -repeat cultures Visit type - Emergency Visit Emergency Visit: Yes ED Registration Date: 11/03/16 Care time: The patient presented to the Emergency Department on the above date and was hospitalized for further evaluation of their emergent condition. - New Patient This patient is new to me today: No - Critical Care Critical Care patient: No
--- NOTE | 2016-11-05 13:42 | PN ---
Progress Note (short form) - Note Progress Note: Patient seen and examined 11/04 and 11/05/16 Feels well Denies any complaaints Last Vital Signs Temp Pulse Resp BP Pulse Ox 98 F 76 18 160/77 96 11/05/16 10:00 11/05/16 10:00 11/05/16 10:00 11/05/16 10:00 11/04/16 21:00 Cor: RSR, No murmurs, No gallops Lungs: Clear to P&A Abd: Soft, Normal bowel sounds, No organomegaly Ext:No significant edema Abnormal Lab Results 11/04/16 11/05/16 11/05/16 05:50 05:45 05:45 RBC 3.60 L Hgb 9.9 L Hct 30.2 L RDW 16.3 H Monocytes % 14.8 H INR 1.50 H Potassium Calcium Iron 17 L TIBC 187 L Iron Saturation 9 L ALT Alkaline Phosphatase Total Protein Albumin 11/05/16 05:45 RBC Hgb Hct RDW Monocytes % INR Potassium 3.3 L Calcium 8.2 L Iron TIBC Iron Saturation ALT 117 H D Alkaline Phosphatase 298 H D Total Protein 5.9 L Albumin 2.9 L Active Medications Generic Name Dose Route Start Last Admin Trade Name Freq PRN Reason Stop Dose Admin Acetaminophen 650 mg 11/03/16 14:29 Tylenol - PO Q6H PRN FEVER Amlodipine Besylate 10 mg 11/04/16 10:00 11/05/16 09:29 Norvasc - PO 10 mg DAILY PRIYANKA Administration Atorvastatin Calcium 20 mg 11/03/16 22:00 11/04/16 21:52 Lipitor - PO 20 mg HS PRIYANKA Administration Meropenem 500 mg/ Dextrose 100 mls @ 400 mls/hr 11/05/16 12:45 11/05/16 13:05 IVPB 400 mls/hr Q8H-IV PRIYANKA Administration Isosorbide Mononitrate 30 mg 11/05/16 10:00 11/05/16 09:29 Imdur - PO 30 mg DAILY PRIYANKA Administration Losartan Potassium 50 mg 11/04/16 10:00 11/05/16 09:29 Cozaar - PO 50 mg DAILY PRIYANKA Administration Metoprolol Succinate 50 mg 11/05/16 08:06 11/05/16 09:29 Toprol Xl - PO 50 mg DAILY PRIYANKA Administration Pantoprazole Sodium 40 mg 11/04/16 10:00 11/05/16 09:29 Protonix - PO 40 mg DAILY PRIYANKA Administration A/P 86 y/o patient with pancreatic cancer, on gemzar, with good response on PET-CT, was scheduled to have CT scan on 11/08, now comes in with abnormal LFTs HIDA scan--patent biliary stent/cholecystitis Gneg. bacteremia improveing on antibiotics. Hemodynamically stable. Afebrile Discussed with all teams involved. Discussed with liver team at [facility]. continue current antibiotics/management If deteriorates clinically will need percutaneous cholecystostomy via IR ( discussed with surgery/IR and team at [facility]) will hold eliquis Consider heparin bridging after holding eliquis for > 48hrs. will discuss with patients son
--- NOTE | 2016-11-05 14:20 | PN ---
Progress Note, Physician Chief Complaint: Cardiology Follow up Telem NSR No events History of Present Illness: 86 M with pancreatic cancer, Paroxysmal Afib with tachy-daisy sp PPM. There is no prior history of obstructive CAD or heart failure and the patient is on anticoagulation. A recent stress test was negative. He is admitted with fevers and chest discomfort with concern for cholesystitis. - Current Medication List Current Medications: Active Medications Acetaminophen (Tylenol -) 650 mg PO Q6H PRN PRN Reason: FEVER Amlodipine Besylate (Norvasc -) 10 mg PO DAILY [facility] Last Admin: 11/05/16 09:29 Dose: 10 mg Atorvastatin Calcium (Lipitor -) 20 mg PO HS [facility] Last Admin: 11/04/16 21:52 Dose: 20 mg Meropenem 500 mg/ Dextrose 100 mls @ 400 mls/hr IVPB Q8H-IV [facility] Last Admin: 11/05/16 13:05 Dose: 400 mls/hr Isosorbide Mononitrate (Imdur -) 30 mg PO DAILY [facility] Last Admin: 11/05/16 09:29 Dose: 30 mg Losartan Potassium (Cozaar -) 50 mg PO DAILY [facility] Last Admin: 11/05/16 09:29 Dose: 50 mg Metoprolol Succinate (Toprol Xl -) 50 mg PO DAILY [facility] Last Admin: 11/05/16 09:29 Dose: 50 mg Pantoprazole Sodium (Protonix -) 40 mg PO DAILY [facility] Last Admin: 11/05/16 09:29 Dose: 40 mg - Objective Vital Signs: Vital Signs Temperature 98 F 11/05/16 10:00 Pulse Rate 76 11/05/16 10:00 Respiratory Rate 18 11/05/16 10:00 Blood Pressure 160/77 11/05/16 10:00 O2 Sat by Pulse Oximetry (%) 96 11/04/16 21:00 Constitutional: Yes: Well Nourished, No Distress Eyes: Yes: Conjunctiva Clear, EOM Intact HENT: Yes: Atraumatic, Normocephalic Neck: Yes: Supple, Trachea Midline Cardiovascular: Yes: Regular Rate and Rhythm Respiratory: Yes: Regular, CTA Bilaterally Gastrointestinal: Yes: Normal Bowel Sounds Edema: No Labs: CBC, BMP 11/05/16 05:45 11/05/16 05:45 INR, PTT INR 1.50 (0.82-1.09) H 11/05/16 05:45 Problem List - Problems (1) Afib Code(s): I48.91 - UNSPECIFIED ATRIAL FIBRILLATION Qualifiers: Assessment/Plan Asymptomatic PAF in the setting of acute infection. Please continue with Metoprolol XL 50mg daily No cardiac contraindication to Cholesystostomy. Resume AC after procedure if ok from a surgical perspective. Will see as needed
[2016-11-05 14:22] VITALS: PULSE 61
--- NOTE | 2016-11-05 14:51 | PN ---
Teaching Attending Note Name of Resident: Asher Hill ATTENDING PHYSICIAN STATEMENT I saw and evaluated the patient. I reviewed the resident's note and discussed the case with the resident. I agree with the resident's findings and plan as documented. SUBJECTIVE: Awake, alert No complaints no abdominal pain, N/V No c/o fever/ chills Temps down afebrile BC + ESBL OBJECTIVE: Non- toxic appearing anicteric cor S1S2 lungs clear Abdmen soft, non tender ASSESSMENT AND PLAN: ESBL bacteremia/ sepsis, likely biliary tract source Elevated LFTs- improved Pancreatic ca Substitute meropenem q8h Contact precautions
[2016-11-05] MEDS ORDERED: PT OWN MED DRAWER 7, Y5N ONE (16:45)
--- NOTE | 2016-11-05 17:04 | PN ---
GI Progress Note Subjective: Patient is comfortable and in no pain. - Objective Vital Signs: Vital Signs Temperature 98.0 F 11/05/16 14:15 Pulse Rate 61 11/05/16 14:15 Respiratory Rate 18 11/05/16 10:00 Blood Pressure 135/71 11/05/16 14:15 O2 Sat by Pulse Oximetry (%) 96 11/04/16 21:00 Constitutional: Well Nourished, Calm HENT: Yes: Normocephalic Cardiovascular: Yes: Regular Rate and Rhythm Respiratory: Yes: CTA Bilaterally Gastrointestinal Inspection: Yes: Distention (mild) ...Auscultate: Yes: Hypoactive Bowel Sounds ...Palpate: Yes: Soft. No: Tenderness ...Percussion: Yes: Dullness Labs: CBC, BMP 11/05/16 05:45 11/05/16 05:45 INR, PTT INR 1.50 (0.82-1.09) H 11/05/16 05:45 Hepatic Panel Total Bilirubin 0.8 mg/dL (0.2-1.0) D 11/05/16 05:45 AST 29 U/L (15-37) D 11/05/16 05:45 ALT 117 U/L (12-78) H D 11/05/16 05:45 Alkaline Phosphatase 298 U/L (45-117) H D 11/05/16 05:45 Albumin 2.9 g/dl (3.4-5.0) L 11/05/16 05:45 Assessment/Plan Likely cholecystitis but may be a malignancy related issue as there has been no pain and no tenderness in the RUQ Agree with percutaneous drainage of the gb by interventional as well as transfer to [facility] for further management. Poor candidate for any surgical procedure
[2016-11-05 18:16] VITALS: BP 131/69; TEMP 98.5
== END 2016-11-05 19:07 | disposition short-term general hospital (02) | DRG 871 ==
LOC: JER 08:07 → JERBED 14:27 → J4W 18:25
PROVIDERS: ADMIT Family Medicine; ATTEND Family Medicine
DX: A41.59 Other Gram-negative sepsis (principal); K83.1 Obstruction of bile duct; C25.9 Malignant neoplasm of pancreas, unspecified; K81.0 Acute cholecystitis; I25.10 Atherosclerotic heart disease of native coronary artery without angina pectoris; Z95.0 Presence of cardiac pacemaker; I10 Essential (primary) hypertension; C61 Malignant neoplasm of prostate; Z92.21 Personal history of antineoplastic chemotherapy; I48.0 Paroxysmal atrial fibrillation
CPT/HCPCS: 36415; 71010-TC; 71020-TC; 76700-TC; 78226-TC; 80053; 81003; 81015; 82728; 82803; 83540; 83550; 83605; 83735; 84484; 85025; 85027; 85610; 85730; 86850; 86900; 86901; 87040; 87086; 87186; 93005; 93010; 93971; 99285-25; A9537

== ENCOUNTER 2016-12-31 23:47 | Inpatient (IN) | payer OTHER ==
--- NOTE | 2017-01-01 00:42 | PDOC ---
History of Present Illness <Karis Lea - Last Filed: 01/01/17 00:42> - General History Source: Patient Exam Limitations: No Limitations - History of Present Illness Initial Comments: 01/01/17 01:35 The patient is an 86 year old male with past medical history of hypertension, CAD s/p pacemaker, ruptured bladder, prostate cancer (in remission), and pancreatic cancer (currently undergoing chemo) who presents to the ED with worsening shortness of breath for a week and a half. The patient states that his symptoms began while he was at [facility]. The patient was in the hospital for surgery to remove a tumor on the head of his pancreas, however, due to his bladder rupture and prostate cancer, there was too much scar tissue for the sugeon to perform on. The patient began having a dry cough while in the hospital which has since worsened to shortness of breath, chest tightness and fatigue. His symptoms are worsened with movement and lying flat. The patient also complains of a lack of appetite for the past two days. He denies any fever , chills, nausea, vomiting, diarrhea, chest pain, or urinary symptoms. The patient stopped chemo for the time that he was hospitalized for his surgery. <Vania Barnes - Last Filed: 01/01/17 01:35> <Kristin Vizcaino - Last Filed: 01/01/17 06:51> - General Chief Complaint: Respiratory Stated Complaint: TROUBLE BREATHING Time Seen by Provider: 01/01/17 00:42 Past History - Past Medical History Cancer: Yes (PROSTATE,Pancreas) Cardiac Disorders: Yes (CAD) HTN: Yes Hypercholesterolemia: Yes - Surgical History Abdominal Surgery: Yes (EXP LAP) Cardiac Surgery: Yes (pacer placed 07/20/16) GI Surgery: Yes (COLOSTOMY WITH REVERSAL) - Immunization History Immunization Up to Date: Yes - Suicide/Smoking/Psychosocial Hx Smoking Status: No Smoking History: Never smoked Have you smoked in the past 12 months: No Number of Cigarettes Smoked Daily: 0 Hx Alcohol Use: No Drug/Substance Use Hx: No Substance Use Type: None Hx Substance Use Treatment: No <Karis Lea - Last Filed: 01/01/17 00:42> <Vania Barnes - Last Filed: 01/01/17 01:35> <Kristin Vizcaino - Last Filed: 01/01/17 06:51> - Past Medical History Allergies/Adverse Reactions: Allergies Allergy/AdvReac Type Severity Reaction Status Date / Time No Known Allergies Allergy Verified 01/01/17 00:00 Home Medications: Ambulatory Orders Apixaban [Eliquis] 2.5 mg PO BID 07/26/16 Pantoprazole Sodium 40 mg PO DAILY 07/26/16 Atorvastatin Ca [Lipitor] 20 mg PO HS #30 tablet 07/29/16 Amiodarone HCl 200 mg PO DAILY 01/01/17 Aspirin [ASA -] 81 mg PO DAILY 01/01/17 Metoprolol Succinate [Toprol Xl] 50 mg PO BID 01/01/17 Review of Systems - Review of Systems Able to Perform ROS?: Yes Comments:: 01/01/17 01:36 GENERAL/CONSTITUTIONAL: Present: loss of appetite No fever or chills. No weakness. HEAD, EYES, EARS, NOSE AND THROAT: No change in vision. No ear pain or discharge. No sore throat CARDIOVASCULAR: Present: chest tightness No shortness of breath. RESPIRATORY: Present: dry cough, shortness of breath No wheezing, or hemoptysis. GASTROINTESTINAL: No nausea, vomiting, diarrhea or constipation. GENITOURINARY: No dysuria, frequency, or change in urination. MUSCULOSKELETAL: No joint or muscle swelling or pain. No neck or back pain. SKIN: No rash NEUROLOGIC: No headache, vertigo, loss of consciousness, or change in strength/ sensation. ENDOCRINE: No increased thirst. No abnormal weight change. HEMATOLOGIC/LYMPHATIC: No anemia, easy bleeding, or history of blood clots. ALLERGIC/IMMUNOLOGIC: No hives or skin allergy. All Other Systems: Reviewed and Negative <Vania Barnes - Last Filed: 01/01/17 01:35> *Physical Exam - Vital Signs Last Vital Signs Temp Pulse Resp BP Pulse Ox 98.2 F 60 18 133/58 99 12/31/16 23:58 12/31/16 23:58 12/31/16 23:58 12/31/16 23:58 12/31/16 23:58 <Karis Lea - Last Filed: 01/01/17 00:42> - Vital Signs Last Vital Signs Temp Pulse Resp BP Pulse Ox 98.2 F 60 18 133/58 99 12/31/16 23:58 12/31/16 23:58 10 23:58 12/31/16 23:58 12/31/16 23:58 - Physical Exam Comments: 01/01/17 01:38 GENERAL: Awake, alert, and fully oriented, ill appearing HEAD: No signs of trauma EYES: PERRLA, EOMI, sclera anicteric, conjunctiva clear ENT: Auricles normal inspection, hearing grossly normal, nares patent, oropharynx clear without exudates. Moist mucosa NECK: Normal ROM, supple, no lymphadenopathy, JVD, or masses LUNGS:Mildly tachypneic, Breath sounds equal, clear to auscultation bilaterally. No wheezes, and no crackles HEART: Healing midline surgical scar. Regular rate and rhythm, normal S1 and S2 , no murmurs, rubs or gallops ABDOMEN: Soft, nontender, normoactive bowel sounds. No guarding, no rebound. No masses EXTREMITIES: Normal range of motion, no edema. No clubbing or cyanosis. No cords, erythema, or tenderness NEUROLOGICAL: Cranial nerves II through XII grossly intact. Normal speech, normal gait <Vania Barnes - Last Filed: 01/01/17 01:35> - Vital Signs Last Vital Signs Temp Pulse Resp BP Pulse Ox 98.2 F 60 18 133/58 99 12/31/16 23:58 12/31/16 23:58 12/31/16 23:58 12/31/16 23:58 12/31/16 23:58 <Kristin Vizcaino - Last Filed: 01/01/17 06:51> ED Treatment Course - LABORATORY CBC & Chemistry Diagram: 01/01/17 01:39 01/01/17 01:39 - ADDITIONAL ORDERS Additional order review: Laboratory Results 01/01/17 01/01/17 01:39 01:39 PT with INR 15.70 H INR 1.39 H PTT (Actin FS) 29.6 Sodium 137 Potassium 4.1 D Chloride 103 Carbon Dioxide 25 Anion Gap 9 BUN 16 Creatinine 1.3 D Creat Clearance w eGFR 52.59 Random Glucose 109 H D Calcium 8.2 L Total Bilirubin 0.5 D AST 15 D ALT 18 D Alkaline Phosphatase 103 D Creatine Kinase 95 Troponin I 0.02 D Total Protein 6.6 Albumin 3.4 01/01/17 01:39 RBC 3.26 L MCV 81.8 MCHC 33.2 RDW 17.6 H MPV 8.9 Neutrophils % 85.3 H D Lymphocytes % 6.7 L D Monocytes % 6.8 Eosinophils % 0.7 Basophils % 0.5 <Kristin Vizcaino - Last Filed: 01/01/17 06:51> Medical Decision Making - Medical Decision Making 01/01/17 06:48 Pt comes with SOB; I received pt on sign out at 2am. Pt has pneumonia and he [facility]. Dr. Rosas's PA accepted the patient. <Kristin Vizcaino - Last Filed: 01/01/17 06:51> *DC/Admit/Observation/Transfer <Karis Lea - Last Filed: 01/01/17 00:42> - Attestations Scribe Attestion: 01/01/17 01:52 Documentation prepared by Vania Barnes, acting as medical records tech for Karis Lea MD. <Vania Barnes - Last Filed: 01/01/17 01:35> - Discharge Dispostion Admit: Yes <Kristin Vizcaino - Last Filed: 01/01/17 06:51> Diagnosis at time of Disposition: Anemia, SOB (shortness of breath), Pneumonia - Discharge Dispostion Condition at time of disposition: Guarded - Referrals
[2017-01-01 01:43] LABS: BASOPHIL 0.5 % (0-2.0); EOSINOPHIL 0.7 % (0-4.5); MCH 27.2 pg (25.7-33.7); MCHC 33.2 g/dl (32.0-35.9); MEAN CELL VOLUME 81.8 fl (80-96); MEAN PLT VOLUME 8.9 fl (7.5-11.1); NEUTROPHILS 85.3 % (42.8-82.8); PLATELET COUNT 215 K/MM3 (134-434); RDW 17.6 % (11.9-15.9); WHITE BLOOD COUNT 9.5 K/mm3 (4.0-10.0)
[2017-01-01] MEDS ORDERED: LEVOFLOXACIN 750 MG IVPB 150 ML IVPB ONE ×2 (02:02→02:13)
[2017-01-01 02:06] LABS: INR 1.39 (0.82-1.09); PROTHROMBIN TIME (PATIENT) 15.7 SEC (9.98-11.88)
[2017-01-01 02:08] LABS: ACTIVATED PTT 29.6 SECONDS (26.9-34.4)
[2017-01-01 02:16] LABS: ALBUMIN 3.4 g/dl (3.4-5.0); ANION GAP 9 (8-16); BILIRUBIN,TOTAL 0.5 mg/dL (0.2-1.0); CALCIUM 8.2 mg/dL (8.5-10.1); CO2 25 mmol/L (21-32); CREATININE 1.3 mg/dL (0.7-1.3); GLUCOSE,RANDOM 109 mg/dL (74-106); SGOT/AST 15 U/L (15-37); SGPT/ALT 18 U/L (12-78); TOT PROT 6.6 g/dl (6.4-8.2)
[2017-01-01 02:19] LABS: ALK PHOS 103 U/L (45-117); CPK 95 IU/L (39-308); TROPONIN I 0.02 ng/ml (0.00-0.05)
[2017-01-01 04:36] VITALS: BMI 26.5
[2017-01-01] MEDS ORDERED: ACETAMINOPHEN 325 MG TABLET (FP) PO PRN (05:20)
[2017-01-01] MEDS ORDERED: ALBUTEROL SO4 2.5/IPRATROPIUM 0.5 INH SOL 3 ML VIAL.NEB. NEB PRN (05:55)
[2017-01-01] MEDS ORDERED: METOPROLOL SUCCINATE 50 MG TAB.SR.24H (FP) PO SCH ×2 (10:00→14:17)
[2017-01-01] MEDS: ASPIRIN 81 MG CHEWABLE TABLETS PO SCH (10:10)
[2017-01-01] MEDS: PANTOPRAZOLE 40 MG TABLET (FP) PO SCH (10:10)
[2017-01-01] MEDS: AMIODARONE HCL 200 MG TABLET (FP) PO SCH (10:10)
[2017-01-01] MEDS: APIXABAN 2.5 MG TABLET PO SCH ×2 (10:10→21:27)
--- NOTE | 2017-01-01 10:17 | CON.PULM ---
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 WHIPPLE BUT ABORTED DUE TO SCAR TISSUE), Prostatectomy - Alcohol/Substance Use Hx Alcohol Use: No History of Substance Use: reports: None - Smoking History Smoking history: Never smoked Have you smoked in the past 12 months: No Aproximately how many cigarettes per day: 0 - Social History Place of : Other History of Recent Travel: No Home Medications - Allergies Allergies/Adverse Reactions: Allergies Allergy/AdvReac Type Severity Reaction Status Date / Time No Known Allergies Allergy Verified 01/01/17 00:00 - Home Medications Home Medications: Ambulatory Orders Apixaban [Eliquis] 2.5 mg PO BID 07/26/16 Pantoprazole Sodium 40 mg PO DAILY 07/26/16 Atorvastatin Ca [Lipitor] 20 mg PO HS #30 tablet 07/29/16 Amiodarone HCl 200 mg PO DAILY 01/01/17 Aspirin [ASA -] 81 mg PO DAILY 01/01/17 Metoprolol Succinate [Toprol Xl] 50 mg PO BID 01/01/17 Family Disease History - Family Disease History Family History: Unable to Obtain Review of Systems - Review of Systems Cardiovascular: denies: Chest Pain Respiratory: reports: Cough, Exercise Intolerance, Orthopnea, SOB, SOB on Exertion. denies: Hemoptysis, Wheezing Physical Exam Vital Sings: Vital Signs Temperature 98.9 F 01/01/17 06:55 Pulse Rate 62 01/01/17 06:55 Respiratory Rate 24 01/01/17 06:55 Blood Pressure 172/78 01/01/17 06:55 O2 Sat by Pulse Oximetry (%) 98 01/01/17 04:00 Constitutional: Yes: Anxious Eyes: Yes: EOM Intact HENT: Yes: Normocephalic Neck: Yes: Trachea Midline Cardiovascular: Yes: Regular Rate and Rhythm, S1, S2 Respiratory: Yes: Diminished (RIGHT BASE/SCATTERED INSP CRACKLES) Gastrointestinal: Yes: Normal Bowel Sounds, Other (S/P HEALING MIDLINE INCISION) Renal/: Yes: WNL Edema: No Imaging - Results Chest X-ray: Report Reviewed, Image Reviewed Problem List - Problems (1) Anemia Code(s): D64.9 - ANEMIA, UNSPECIFIED (2) Pneumonia Code(s): J18.9 - PNEUMONIA, UNSPECIFIED ORGANISM (3) SOB (shortness of breath) Code(s): R06.02 - SHORTNESS OF BREATH (4) Afib Code(s): I48.91 - UNSPECIFIED ATRIAL FIBRILLATION Qualifiers: (6) CHF (congestive heart failure) Code(s): I50.9 - HEART FAILURE, UNSPECIFIED Assessment/Plan LIKELY VOLUME OVERLOAD CAUSE FOR DYSPNEA AFEBRILE AND NL WBC'S SPEAK AGAINST FACILITY ACQUIRED PNEUMONIA WOULD HAVE A TRIAL OF DIURESIS/MONITOR LYTES/OUTPUT/DAILY WEIGHT/RENAL FUNCTION AGREE WITH O2/BRONCHODILATORS CHECK BLOOD CULTURES/SPUTUM/NASAL SWAB/URINARY ANTIGENS WILL CONTINUE TO MONITOR ON THE MEDICAL [place]ILL[place] Mandeep SALDIVAR MD
[2017-01-01] MEDS ORDERED: FUROSEMIDE 40 MG/4 ML INJECTABLE VIAL IVPUSH ONE (10:30)
--- NOTE | 2017-01-01 12:59 | EKG ---
Test Reason : Blood Pressure : / mmHG Vent. Rate : 060 BPM Atrial Rate : 060 BPM P-R Int : 174 ms QRS Dur : 106 ms QT Int : 470 ms P-R-T Axes : -15 -08 023 degrees QTc Int : 470 ms Atrial-paced rhythm MINIMAL VOLTAGE CRITERIA FOR LVH, MAY BE NORMAL VARIANT ABNORMAL ECG WHEN COMPARED WITH ECG OF 03-NOV-2016 08:38, ELECTRONIC ATRIAL PACEMAKER HAS REPLACED SINUS RHYTHM VENT. RATE HAS DECREASED BY 57 BPM CLINICAL CORRELATION IS RECOMMENDED Confirmed by DAV BLACK MD ([id number]) on 01/01/2017 12:59:48 PM Referred By: Confirmed By:DAV BLACK MD
--- NOTE | 2017-01-01 14:24 | HP ---
Admitting History and Physical - Primary Care Physician PCP: Danelle Gaytan - Admission Chief Complaint: SOB History of Present Illness: The patient is an 86 year old male with past medical history of hypertension, CAD s/p pacemaker, ruptured bladder, prostate cancer (in remission), and pancreatic cancer (currently undergoing chemo) who presents to the ED with worsening shortness of breath for a week and a half. The patient states that his symptoms began while he was at [facility]. The patient was in the hospital for surgery to remove a tumor on the head of his pancreas, however, due to his bladder rupture and prostate cancer, there was too much scar tissue for the sugeon to perform on. The patient began having a dry cough while in the hospital which has since worsened to shortness of breath, chest tightness and fatigue. His symptoms are worsened with movement and lying flat. The patient also complains of a lack of appetite for the past two days. He denies any fever , chills, nausea, vomiting, diarrhea, chest pain, or urinary symptoms. The patient stopped chemo for the time that he was hospitalized for his surgery. 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 WHIPPLE BUT ABORTED DUE TO SCAR TISSUE), Prostatectomy - Smoking History Smoking history: Never smoked Have you smoked in the past 12 months: No Aproximately how many cigarettes per day: 0 - Alcohol/Substance Use Hx Alcohol Use: No History of Substance Use: reports: None - Social History History of Recent Travel: No Home Medications - Allergies Allergies/Adverse Reactions: Allergies Allergy/AdvReac Type Severity Reaction Status Date / Time No Known Allergies Allergy Verified 01/01/17 00:00 - Home Medications Home Medications: Ambulatory Orders Apixaban [Eliquis] 2.5 mg PO BID 07/26/16 Pantoprazole Sodium 40 mg PO DAILY 07/26/16 Atorvastatin Ca [Lipitor] 20 mg PO HS #30 tablet 07/29/16 Amiodarone HCl 200 mg PO DAILY 01/01/17 Aspirin [ASA -] 81 mg PO DAILY 01/01/17 Metoprolol Succinate [Toprol Xl] 50 mg PO BID 01/01/17 Review of Systems - Review of Systems Constitutional: reports: No Symptoms Eyes: reports: No Symptoms HENT: reports: No Symptoms Neck: reports: No Symptoms Cardiovascular: reports: No Symptoms, Shortness of Breath Respiratory: reports: SOB, SOB on Exertion Gastrointestinal: reports: No Symptoms Genitourinary: reports: No Symptoms Breasts: reports: No Symptoms Reported Musculoskeletal: reports: No Symptoms Integumentary: reports: No Symptoms Neurological: reports: No Symptoms Endocrine: reports: No Symptoms Hematology/Lymphatic: reports: No Symptoms Psychiatric: reports: No Symptoms Physical Examination Vital Signs: Vital Signs Temperature 97.7 F 01/01/17 10:00 Pulse Rate 67 01/01/17 10:00 Respiratory Rate 18 01/01/17 10:00 Blood Pressure 173/62 01/01/17 10:00 O2 Sat by Pulse Oximetry (%) 98 01/01/17 09:00 Findings/Remarks: NAD, sitting in chair, complaining of cough Constitutional: Yes: Well Nourished, No Distress, Calm Cardiovascular: Yes: Regular Rate and Rhythm Respiratory: Yes: Regular, Other (Cough) Gastrointestinal: Yes: Normal Bowel Sounds Musculoskeletal: Yes: WNL Extremities: Yes: WNL Edema: No Peripheral Pulses WNL: Yes Neurological: Yes: Alert, Oriented Psychiatric: Yes: Alert, Oriented Imaging - Results Chest X-ray: Report Reviewed Problem List - Problems (1) Anemia Assessment/Plan: -stool guaiac -iron studies -check B12 and folate -repeat labs in AM Code(s): D64.9 - ANEMIA, UNSPECIFIED (2) Pneumonia Assessment/Plan: -repeat CXR shows mild improvement -IV abx -nebulizer tx -acetaminophen 650 mg po Q6HPRN for fever >100.0F -seen by Pulmonary Code(s): J18.9 - PNEUMONIA, UNSPECIFIED ORGANISM (3) SOB (shortness of breath) Assessment/Plan: -nasal o2 as needed -neb tx -improved after a dose of Furosemide -improvement in repeat CXR -blood, sputum culture pending -Urine antigen PNE Code(s): R06.02 - SHORTNESS OF BREATH (5) HTN (hypertension) Assessment/Plan: -likely secondary to fluid overload -improved after furosemide 40 mg IVP -cardiology consult -last echo 09/09/16 EF-70.6%, LV function intact Assessment/Plan see problem list
[2017-01-01] MEDS ORDERED: guaiFENesin/D-M SUGAR-FREE/ACLHOL-FREE 118 ML BOTTLE PO PRN (14:48)
--- NOTE | 2017-01-01 15:28 | CON.CARD ---
Consult Consult Specialty:: Cardiology Reason for Consultation:: MEADE and HTN - History of Present Illness Chief Complaint: SOB History of Present Illness: This is an 86 year old with a PMH of CAD, HTN, HLD, AFIB (on Eliquis), s/p PPM, and pancreatic CA on chemo. He presents now to the hospital with progressive MEADE x 2weeks. He is noted to have elevated BP's. 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 WHIPPLE BUT ABORTED DUE TO SCAR TISSUE), Prostatectomy - Alcohol/Substance Use Hx Alcohol Use: No History of Substance Use: reports: None - Smoking History Smoking history: Never smoked Have you smoked in the past 12 months: No Aproximately how many cigarettes per day: 0 - Social History History of Recent Travel: No Home Medications - Allergies Allergies/Adverse Reactions: Allergies Allergy/AdvReac Type Severity Reaction Status Date / Time No Known Allergies Allergy Verified 01/01/17 00:00 - Home Medications Home Medications: Ambulatory Orders Apixaban [Eliquis] 2.5 mg PO BID 07/26/16 Pantoprazole Sodium 40 mg PO DAILY 07/26/16 Atorvastatin Ca [Lipitor] 20 mg PO HS #30 tablet 07/29/16 Amiodarone HCl 200 mg PO DAILY 01/01/17 Aspirin [ASA -] 81 mg PO DAILY 01/01/17 Metoprolol Succinate [Toprol Xl] 50 mg PO BID 01/01/17 Review of Systems Unable to obtain ROS, reason: As per HPI Vital Signs: Vital Signs Temperature 97.7 F 01/01/17 10:00 Pulse Rate 67 01/01/17 10:00 Respiratory Rate 18 01/01/17 10:00 Blood Pressure 173/62 01/01/17 10:00 O2 Sat by Pulse Oximetry (%) 98 01/01/17 09:00 Constitutional: Yes: No Distress Neck: Yes: WNL Respiratory: Yes: CTA Bilaterally Gastrointestinal: Yes: Soft Cardiovascular: Yes: Regular Rate and Rhythm (NL S1 S2, No MRHG) Extremities: Yes: WNL Edema: No Neurological: Yes: Alert, Oriented (Grossly nonfocal) Psychiatric: Yes: WNL - Other Data Labs, Other Data: INR, PTT INR 1.39 (0.82-1.09) H 01/01/17 01:39 Assessment/Plan Diastolic CHF (HFpEF) Acute on chronic Diastolic CHF BNP 1243.58 Would Give Lasix 40 mg IVSS Daily Daily I's/O's/Wt's/Lytes Continue Metoprolol Succinate [Toprol Xl] 50 mg PO BID AFIB Continue Apixaban [Eliquis] 2.5 mg PO BID Continue Amiodarone HCl 200 mg PO DAILY HTN Current BP is 172/62 mmHg Reevaluate after diuresis and if necessary may need to add a med Would opt for a thiazide diuretic such as chlorthalidone 25 mg daily after well diuressed with IV Lasix Will follow with you
[2017-01-01] MEDS ORDERED: PT OWN MED DRAWER 7, Y5N ONE ×2 (17:35→21:25)
[2017-01-01] MEDS: ATORVASTATIN CA 20 MG TABLET (FP) PO SCH (21:26)
[2017-01-01] MEDS: METOPROLOL SUCCINATE 50 MG TAB.SR.24H (FP) PO SCH (21:27)
[2017-01-01] MEDS ORDERED: LEVOFLOXACIN 750 MG IVPB 150 ML IVPB SCH (22:00)
[2017-01-02] MEDS: METOPROLOL SUCCINATE 50 MG TAB.SR.24H (FP) PO SCH ×3 (07:57→21:59)
[2017-01-02 08:26] LABS: ALBUMIN 3.1 g/dl (3.4-5.0); ANION GAP 13 (8-16); CALCIUM 8.4 mg/dL (8.5-10.1); CO2 24 mmol/L (21-32); GLUCOSE,RANDOM 112 mg/dL (74-106)
[2017-01-02 08:31] LABS: BASOPHIL 0.8 % (0-2.0); EOSINOPHIL 1.9 % (0-4.5); MCH 26.8 pg (25.7-33.7); MCHC 32.9 g/dl (32.0-35.9); MEAN CELL VOLUME 81.6 fl (80-96); MEAN PLT VOLUME 9.5 fl (7.5-11.1); NEUTROPHILS 70.9 % (42.8-82.8); PLATELET COUNT 201 K/MM3 (134-434); RDW 17.1 % (11.9-15.9); WHITE BLOOD COUNT 6.6 K/mm3 (4.0-10.0)
[2017-01-02 08:43] LABS: ALK PHOS 97 U/L (45-117); BILIRUBIN,TOTAL 0.7 mg/dL (0.2-1.0); CREATININE 1.6 mg/dL (0.7-1.3); SGOT/AST 15 U/L (15-37); SGPT/ALT 18 U/L (12-78); TOT PROT 6.4 g/dl (6.4-8.2)
[2017-01-02 09:22] LABS: FERRITIN 102.283 ng/ml (16.4-293.9)
[2017-01-02] MEDS: FUROSEMIDE 40 MG/4 ML INJECTABLE VIAL IVPUSH SCH (10:39)
[2017-01-02] MEDS: ASPIRIN 81 MG CHEWABLE TABLETS PO SCH (10:39)
[2017-01-02] MEDS: APIXABAN 2.5 MG TABLET PO SCH ×2 (10:39→21:59)
[2017-01-02] MEDS: PANTOPRAZOLE 40 MG TABLET (FP) PO SCH (10:39)
[2017-01-02] MEDS: AMIODARONE HCL 200 MG TABLET (FP) PO SCH (10:40)
--- NOTE | 2017-01-02 10:59 | PN ---
Progress Note (short form) - Note Progress Note: PULMONARY AWAKE/ALERT SUBJECTIVE IMPROVEMENT ANICTERIC/+JVD @90 DEGREES DIMINISHED BREATH SOUNDS RIGHT BASE S1S2 PACED BS+ SOFT NO EDEMA LABS/MEDS/NOTES/IMAGES REVIEWED LVDD/AF/HTN AGREE WITH CONTINUING DIURESIS/BETA-GORGE/ASA O2/BRONCHODILATORS PRN CONSIDER STOPPINIG ANTIBIOTICS Mandeep SALDIVAR MD Problem List - Problems (1) Anemia Code(s): D64.9 - ANEMIA, UNSPECIFIED (2) Pneumonia Code(s): J18.9 - PNEUMONIA, UNSPECIFIED ORGANISM (3) SOB (shortness of breath) Code(s): R06.02 - SHORTNESS OF BREATH (4) Afib Code(s): I48.91 - UNSPECIFIED ATRIAL FIBRILLATION Qualifiers: (6) CHF (congestive heart failure) Code(s): I50.9 - HEART FAILURE, UNSPECIFIED
--- NOTE | 2017-01-02 17:29 | PN ---
Progress Note, Physician Chief Complaint: SOB History of Present Illness: NAD, in bed, family at bedside feels much better ambulating independently no SOB, mild cough on IV abx seen by pulmonary - Current Medication List Current Medications: Active Medications Acetaminophen (Tylenol -) 650 mg PO Q6H PRN PRN Reason: FEVER OVER 100 Albuterol/Ipratropium (Duoneb -) 1 amp NEB Q6H PRN PRN Reason: SHORTNESS OF BREATH Last Admin: 01/01/17 06:31 Dose: 1 amp Amiodarone HCl (Cordarone -) 200 mg PO DAILY [facility] Last Admin: 01/02/17 10:40 Dose: 200 mg Apixaban (Eliquis -) 2.5 mg PO BID [facility] Last Admin: 01/02/17 10:39 Dose: 2.5 mg Aspirin (Asa -) 81 mg PO DAILY [facility] Last Admin: 01/02/17 10:39 Dose: 81 mg Atorvastatin Calcium (Lipitor -) 20 mg PO HS [facility] Last Admin: 01/01/17 21:26 Dose: 20 mg Furosemide (Lasix Injection -) 40 mg IVPUSH DAILY [facility] Last Admin: 01/02/17 10:39 Dose: 40 mg Guaifenesin (Diabetic Tussin Dm -) 10 ml PO Q6H PRN PRN Reason: COUGH Levofloxacin (Levaquin) 750 mg PO DAILY [facility] Metoprolol Succinate (Toprol Xl -) 50 mg PO BID [facility] Last Admin: 01/02/17 10:40 Dose: Not Given Pantoprazole Sodium (Protonix -) 40 mg PO DAILY [facility] Last Admin: 01/02/17 10:39 Dose: 40 mg - Objective Vital Signs: Vital Signs Temperature 98.6 F 01/02/17 14:30 Pulse Rate 60 01/02/17 14:30 Respiratory Rate 20 01/02/17 14:30 Blood Pressure 145/53 01/02/17 14:30 O2 Sat by Pulse Oximetry (%) 97 01/02/17 09:00 Constitutional: Yes: Well Nourished, No Distress, Calm Cardiovascular: Yes: Regular Rate and Rhythm, Murmur (grade III/) Respiratory: Yes: Regular Musculoskeletal: Yes: WNL Extremities: Yes: WNL Edema: No Peripheral Pulses WNL: Yes Labs: CBC, BMP 01/02/17 06:00 01/02/17 06:00 INR, PTT INR 1.39 (0.82-1.09) H 01/01/17 01:39 Problem List - Problems (1) Anemia Assessment/Plan: -stool guaiac negative -iron studies pending -check B12 and folate okay Code(s): D64.9 - ANEMIA, UNSPECIFIED (2) Pneumonia Assessment/Plan: -repeat CXR shows mild improvement -IV abx, change to PO, received 2 days, okay to go home in AM on Po levaquin 750 mg daily for 5 more days -Robitussin 10 m Q6H PRN for cough -nebulizer tx -acetaminophen 650 mg po Q6HPRN for fever >100.0F -seen by Pulmonary Code(s): J18.9 - PNEUMONIA, UNSPECIFIED ORGANISM (3) SOB (shortness of breath) Assessment/Plan: -no SOB -not using nasal o2 -neb tx -improved after a dose of Furosemide -Would discharge him in AM on chlorthalidone 25 mg po daily f/u with cardiology -improvement in repeat CXR -blood, sputum culture pending, no growth on preliminary -Urine antigen PNE Code(s): R06.02 - SHORTNESS OF BREATH (5) HTN (hypertension) Assessment/Plan: -likely secondary to fluid overload -improved after furosemide 40 mg IVP -discharge home in AM on chlorthalidone 25 mg po daily -cardiology consult -last echo 09/09/16 EF-70.6%, LV function intact Assessment/Plan see problem list
[2017-01-02] MEDS ORDERED: LEVOFLOXACIN 750 MG TABLET PO SCH (17:30)
[2017-01-02] MEDS ORDERED: PT OWN MED DRAWER 7, Y5N ONE (18:43)
[2017-01-02] MEDS: ATORVASTATIN CA 20 MG TABLET (FP) PO SCH (21:59)
[2017-01-03 06:06] LABS: SERUM IRON 29 ug/dL (38-169); TOTAL IRON BINDING CAPACITY 285 ug/dL (250-450); UIBC 256 ug/dL (111-343)
--- NOTE | 2017-01-03 09:17 | PN ---
Progress Note, Physician - Current Medication List Current Medications: Active Medications Acetaminophen (Tylenol -) 650 mg PO Q6H PRN PRN Reason: FEVER OVER 100 Albuterol/Ipratropium (Duoneb -) 1 amp NEB Q6H PRN PRN Reason: SHORTNESS OF BREATH Last Admin: 01/01/17 06:31 Dose: 1 amp Amiodarone HCl (Cordarone -) 200 mg PO DAILY [facility] Last Admin: 01/02/17 10:40 Dose: 200 mg Apixaban (Eliquis -) 2.5 mg PO BID [facility] Last Admin: 01/02/17 21:59 Dose: 2.5 mg Aspirin (Asa -) 81 mg PO DAILY [facility] Last Admin: 01/02/17 10:39 Dose: 81 mg Atorvastatin Calcium (Lipitor -) 20 mg PO HS [facility] Last Admin: 01/02/17 21:59 Dose: 20 mg Furosemide (Lasix Injection -) 40 mg IVPUSH DAILY [facility] Last Admin: 01/02/17 10:39 Dose: 40 mg Guaifenesin (Diabetic Tussin Dm -) 10 ml PO Q6H PRN PRN Reason: COUGH Levofloxacin (Levaquin -) 250 mg PO DAILY [facility] Metoprolol Succinate (Toprol Xl -) 50 mg PO BID [facility] Last Admin: 01/02/17 21:59 Dose: 50 mg Pantoprazole Sodium (Protonix -) 40 mg PO DAILY [facility] Last Admin: 01/02/17 10:39 Dose: 40 mg - Objective Vital Signs: Vital Signs Temperature 98.1 F 01/03/17 07:44 Pulse Rate 60 01/03/17 07:44 Respiratory Rate 20 01/03/17 07:44 Blood Pressure 185/88 01/03/17 07:44 O2 Sat by Pulse Oximetry (%) 97 01/02/17 21:00 Cardiovascular: Yes: Murmur, S1, S2 Respiratory: Yes: Diminished, On Nasal O2, Rhonchi Gastrointestinal: Yes: Normal Bowel Sounds, Soft Labs: CBC, BMP 01/02/17 06:00 01/02/17 06:00 INR, PTT INR 1.39 (0.82-1.09) H 01/01/17 01:39 Problem List - Problems (1) CHF (congestive heart failure) Assessment/Plan: --iv lasix --cardio on board Code(s): I50.9 - HEART FAILURE, UNSPECIFIED Qualifiers: Congestive heart failure type: diastolic Congestive heart failure chronicity: acute on chronic Qualified Code(s): I50.33 - Acute on chronic diastolic (congestive) heart failure; I50.33 - Acute on chronic diastolic (congestive) heart failure; I50.33 - Acute on chronic diastolic ( congestive) heart failure; I50.33 - Acute on chronic diastolic (congestive) heart failure Assessment/Plan - Problems (1) Anemia Assessment/Plan: -stool guaiac negative -iron studies pending -check B12 and folate okay Code(s): D64.9 - ANEMIA, UNSPECIFIED (2) Pneumonia Assessment/Plan: -repeat CXR shows mild improvement -IV abx, change to PO, received 2 days, okay to go home in AM on Po levaquin 750 mg daily for 5 more days -Robitussin 10 m Q6H PRN for cough -nebulizer tx -acetaminophen 650 mg po Q6HPRN for fever >100.0F -seen by Pulmonary -ct of chest Code(s): J18.9 - PNEUMONIA, UNSPECIFIED ORGANISM (3) SOB (shortness of breath)--CHF Assessment/Plan: -no SOB -not using nasal o2 -neb tx -improved after a dose of Furosemide--continue with lasix -Would discharge him in AM on chlorthalidone 25 mg po daily f/u with cardiology -improvement in repeat CXR -blood, sputum culture pending, no growth on preliminary -Urine antigen PNE Code(s): R06.02 - SHORTNESS OF BREATH (5) HTN (hypertension) Assessment/Plan: -likely secondary to fluid overload -improved after furosemide 40 mg IVP -discharge home in AM on chlorthalidone 25 mg po daily -cardiology consult -last echo 09/09/16 EF-70.6%, LV function intact
[2017-01-03] MEDS ORDERED: LEVOFLOXACIN 250 MG TABLET (FP) PO SCH (10:00)
[2017-01-03] MEDS: ASPIRIN 81 MG CHEWABLE TABLETS PO SCH (10:11)
[2017-01-03] MEDS: AMIODARONE HCL 200 MG TABLET (FP) PO SCH (10:12)
[2017-01-03] MEDS: APIXABAN 2.5 MG TABLET PO SCH ×2 (10:12→21:01)
[2017-01-03] MEDS: PANTOPRAZOLE 40 MG TABLET (FP) PO SCH (10:12)
[2017-01-03] MEDS: FUROSEMIDE 40 MG/4 ML INJECTABLE VIAL IVPUSH SCH (10:12)
[2017-01-03] MEDS: METOPROLOL SUCCINATE 50 MG TAB.SR.24H (FP) PO SCH ×2 (10:12→21:01)
--- NOTE | 2017-01-03 10:59 | PN ---
Progress Note (short form) - Note Progress Note: ID consult dictated admitted with worsening SOB dry cough no fevers no leukocytosis history of pancreatic cancer history notable for recent admission to [facility] end november for pancreatic cancer that was not completed due to multiple adnesions 2 weeks later he developed a dry cough, notes as well throat discomfort after intubation cxray with RIght effusion chest ct with bilateral effusions right greater then left, atelectasis no infiltrates volulme overload/diastolic CHF no evidence of pneumonia would d/c antibiotics consider thoracentesis for new right effusion Problem List - Problems (1) CHF (congestive heart failure) Code(s): I50.9 - HEART FAILURE, UNSPECIFIED (2) Pleural effusion Code(s): J90 - PLEURAL EFFUSION, NOT ELSEWHERE CLASSIFIED (3) Pancreatic cancer Code(s): C25.9 - MALIGNANT NEOPLASM OF PANCREAS, UNSPECIFIED
[2017-01-03] MEDS ORDERED: PIPERACILLIN/TAZOB 3.375 GM/50 ML PRE-DOCKED IVPB SCH (11:00)
[2017-01-03] MEDS ORDERED: PIPERACILLIN/TAZOB 3.375 GM 50 ML IVPB SCH (11:30)
--- NOTE | 2017-01-03 14:37 | CONS ---
DATE OF CONSULTATION: REQUESTING PHYSICIAN: Danelle Gaytan MD History was obtained from the chart as well as through a Israeli-speaking diecast machine operator. HISTORY: This is an 86-year-old man with a history of pancreatic cancer on Gemzar. As well he has a history of prostate cancer. He was recently at [facility] at the end of November for attempted resection of his pancreatic tumor. Unfortunately, due to adhesions, they were unable to do the surgery. He with for 4 or 5 days then after he was home for about 2 weeks, he started having a dry cough and shortness of breath. There have been no fevers or chills. He was admitted to the hospital with these complaints. He was noted on chest x-ray to have a right-sided effusion, possible infiltrate. He was started on Levaquin. This was on the . Since that time, he has continued to remain afebrile. This morning, he had a chest CT that reveals atelectasis as well as bilateral pleural effusions right greater than left. No evidence of infiltrate. I was asked to see him for antibiotic management. PAST MEDICAL HISTORY: Notable for prostate cancer as well as pancreatic cancer. He has a history of coronary artery disease, hypertension, hypercholesterolemia. He is status post permanent pacemaker placement. He has a history of colostomy with reversal as well as a bladder rupture. ALLERGIES: He has no known drug allergies. MEDICATIONS: As an outpatient, he takes Eliquis, Protonix, Lipitor, amiodarone, aspirin, and metoprolol. FAMILY HISTORY: Noncontributory. REVIEW OF SYSTEMS: He reports feeling better. He has no headache, nausea, vomiting, diarrhea, or dysuria. PHYSICAL EXAMINATION: General: He is a pleasant man resting comfortably. Vital Signs: He has had no fever since admission. Current temperature is 98.1, pulse 60, blood pressure 147/71, respiratory rate 19. HEENT: He is normocephalic. His eyes are anicteric. Neck: Supple. He has no thrush. Lungs: Diminished breath sounds at the right base. Heart: Regular rate and rhythm. Abdomen: Soft and nontender. Skin: He has a large vertical incision where he says he has had a hernia repair in the past. Apparently, it looks like that is where they attempted to reopen him for his pancreatic surgery. He has a well-healed trocar scar in his left lower quadrant. Extremities: Without edema. LABORATORIES: White count 6.6, hemoglobin 9.1, platelets 201, INR 1.3, BUN 18, creatinine 1.6. LFTs are normal. BNP 1243. Blood cultures were done and are negative. Legionella urinary antigen is negative as well. CAT scan findings are as stated. He has bilateral pleural effusions right greater than left. Right lower lobe and left basilar atelectasis with no evidence of acute pneumonia. In summary, this is an 86-year-old man with volume overload, diastolic heart failure being followed by Cardiology and Pulmonary. No evidence of pneumonia. Would stop his antibiotics. Would consider thoracentesis for his new right effusion. Further recommendations to follow. Kayla [id number]
--- NOTE | 2017-01-03 14:47 | PN ---
Progress Note, Physician Chief Complaint: SOB improving History of Present Illness: This is an 86 year old with a PMH of CAD, HTN, HLD, AFIB (on Eliquis), s/p PPM, and pancreatic CA on chemo. He presents now to the hospital with progressive MEADE x 2weeks. He is noted to have elevated BP's. - Current Medication List Current Medications: Active Medications Acetaminophen (Tylenol -) 650 mg PO Q6H PRN PRN Reason: FEVER OVER 100 Albuterol/Ipratropium (Duoneb -) 1 amp NEB Q6H PRN PRN Reason: SHORTNESS OF BREATH Last Admin: 01/01/17 06:31 Dose: 1 amp Amiodarone HCl (Cordarone -) 200 mg PO DAILY [facility] Last Admin: 01/03/17 10:12 Dose: 200 mg Apixaban (Eliquis -) 2.5 mg PO BID [facility] Last Admin: 01/03/17 10:12 Dose: 2.5 mg Aspirin (Asa -) 81 mg PO DAILY [facility] Last Admin: 01/03/17 10:11 Dose: 81 mg Atorvastatin Calcium (Lipitor -) 20 mg PO HS [facility] Last Admin: 01/02/17 21:59 Dose: 20 mg Furosemide (Lasix Injection -) 40 mg IVPUSH DAILY [facility] Last Admin: 01/03/17 10:12 Dose: 40 mg Guaifenesin (Diabetic Tussin Dm -) 10 ml PO Q6H PRN PRN Reason: COUGH Metoprolol Succinate (Toprol Xl -) 50 mg PO BID [facility] Last Admin: 01/03/17 10:12 Dose: 50 mg Pantoprazole Sodium (Protonix -) 40 mg PO DAILY [facility] Last Admin: 01/03/17 10:12 Dose: 40 mg - Objective Vital Signs: Vital Signs Temperature 99.0 F 01/03/17 10:40 Pulse Rate 60 01/03/17 10:40 Respiratory Rate 19 01/03/17 10:40 Blood Pressure 147/71 01/03/17 10:40 O2 Sat by Pulse Oximetry (%) 96 01/03/17 09:00 Constitutional: Yes: No Distress Neck: Yes: Supple Cardiovascular: Yes: Regular Rate and Rhythm, S1, S2 Respiratory: Yes: Diminished (b/l bases) Gastrointestinal: Yes: Soft Edema: No Labs: CBC, BMP 01/02/17 06:00 01/02/17 06:00 INR, PTT INR 1.39 (0.82-1.09) H 01/01/17 01:39 Problem List - Problems (1) CHF (congestive heart failure) Code(s): I50.9 - HEART FAILURE, UNSPECIFIED (2) Afib Code(s): I48.91 - UNSPECIFIED ATRIAL FIBRILLATION Qualifiers: Assessment/Plan This is an 86 year old with a PMH of CAD, HTN, HLD, AFIB (on Eliquis), s/p PPM, and pancreatic CA on chemo. He presents now to the hospital with progressive MEADE x 2weeks. He is noted to have elevated BP's. 1) Acute on chronic diastolic CHF Would have patient continue furosemide IV daily Monitor I/O's and daily weights On metoprolol xl 2) Afib On metoprolol for rate and amiodarone for rhythm In sinus today and s/p PPM On apixaban for AC 3) HTN On metoprolol Will monitor and may need additional agent if needed. Plan was for chlorthalidone
--- NOTE | 2017-01-03 16:37 | PN ---
Progress Note, Physician History of Present Illness: pulmonary alert,feeling better,less dyspneic. chest ct bilateral pleural effusions - Current Medication List Current Medications: Active Medications Acetaminophen (Tylenol -) 650 mg PO Q6H PRN PRN Reason: FEVER OVER 100 Albuterol/Ipratropium (Duoneb -) 1 amp NEB Q6H PRN PRN Reason: SHORTNESS OF BREATH Last Admin: 01/01/17 06:31 Dose: 1 amp Amiodarone HCl (Cordarone -) 200 mg PO DAILY [facility] Last Admin: 01/03/17 10:12 Dose: 200 mg Apixaban (Eliquis -) 2.5 mg PO BID [facility] Last Admin: 01/03/17 10:12 Dose: 2.5 mg Aspirin (Asa -) 81 mg PO DAILY [facility] Last Admin: 01/03/17 10:11 Dose: 81 mg Atorvastatin Calcium (Lipitor -) 20 mg PO HS [facility] Last Admin: 01/02/17 21:59 Dose: 20 mg Furosemide (Lasix Injection -) 40 mg IVPUSH DAILY [facility] Last Admin: 01/03/17 10:12 Dose: 40 mg Guaifenesin (Diabetic Tussin Dm -) 10 ml PO Q6H PRN PRN Reason: COUGH Metoprolol Succinate (Toprol Xl -) 50 mg PO BID [facility] Last Admin: 01/03/17 10:12 Dose: 50 mg Pantoprazole Sodium (Protonix -) 40 mg PO DAILY [facility] Last Admin: 01/03/17 10:12 Dose: 40 mg - Objective Vital Signs: Vital Signs Temperature 97.7 F 01/03/17 16:03 Pulse Rate 61 01/03/17 16:03 Respiratory Rate 18 01/03/17 16:03 Blood Pressure 150/68 01/03/17 16:03 O2 Sat by Pulse Oximetry (%) 96 01/03/17 09:00 Constitutional: Yes: Well Nourished, Calm Eyes: Yes: WNL HENT: Yes: WNL Neck: Yes: WNL Cardiovascular: Yes: Pulse Irregular, S1, S2 Respiratory: Yes: Diminished Gastrointestinal: Yes: Normal Bowel Sounds, Soft Extremities: Yes: WNL Edema: No Labs: CBC, BMP Assessment/Plan Problem List - Problems (1) Anemia Code(s): D64.9 - ANEMIA, UNSPECIFIED (2) Pneumonia Code(s): J18.9 - PNEUMONIA, UNSPECIFIED ORGANISM (3) SOB (shortness of breath) Code(s): R06.02 - SHORTNESS OF BREATH (4) Afib Code(s): I48.91 - UNSPECIFIED ATRIAL FIBRILLATION Qualifiers: (6) CHF (congestive heart failure) Code(s): I50.9 - HEART FAILURE, UNSPECIFIED Assessment/Plan CHF AFIB ANEMIA ASHD LASIX MONITOR LYTES I+OS DAILY [facility] RENAL FUNCTION O2/BRONCHODILATORS DR [id number]
[2017-01-03] MEDS: ATORVASTATIN CA 20 MG TABLET (FP) PO SCH (21:01)
[2017-01-04 07:44] LABS: BASOPHIL 0.7 % (0-2.0); EOSINOPHIL 2.4 % (0-4.5); MCH 26.8 pg (25.7-33.7); MCHC 33.1 g/dl (32.0-35.9); MEAN PLT VOLUME 9.3 fl (7.5-11.1); NEUTROPHILS 69.6 % (42.8-82.8); PLATELET COUNT 170 K/MM3 (134-434); RDW 16.8 % (11.9-15.9); WHITE BLOOD COUNT 6.8 K/mm3 (4.0-10.0)
[2017-01-04 08:15] LABS: ALBUMIN 2.8 g/dl (3.4-5.0); ALK PHOS 91 U/L (45-117); ANION GAP 13 (8-16); BILIRUBIN,TOTAL 0.7 mg/dL (0.2-1.0); CALCIUM 7.9 mg/dL (8.5-10.1); CO2 25 mmol/L (21-32); CREATININE 1.4 mg/dL (0.7-1.3); GLUCOSE,RANDOM 92 mg/dL (74-106); SGOT/AST 14 U/L (15-37); SGPT/ALT 16 U/L (12-78); TOT PROT 6.1 g/dl (6.4-8.2)
--- NOTE | 2017-01-04 08:41 | PN ---
Progress Note, Physician History of Present Illness: feels better - Current Medication List Current Medications: Active Medications Acetaminophen (Tylenol -) 650 mg PO Q6H PRN PRN Reason: FEVER OVER 100 Albuterol/Ipratropium (Duoneb -) 1 amp NEB Q6H PRN PRN Reason: SHORTNESS OF BREATH Last Admin: 01/01/17 06:31 Dose: 1 amp Amiodarone HCl (Cordarone -) 200 mg PO DAILY [facility] Last Admin: 01/03/17 10:12 Dose: 200 mg Apixaban (Eliquis -) 2.5 mg PO BID [facility] Last Admin: 01/03/17 21:01 Dose: 2.5 mg Aspirin (Asa -) 81 mg PO DAILY [facility] Last Admin: 01/03/17 10:11 Dose: 81 mg Atorvastatin Calcium (Lipitor -) 20 mg PO HS [facility] Last Admin: 01/03/17 21:01 Dose: 20 mg Furosemide (Lasix Injection -) 40 mg IVPUSH DAILY [facility] Last Admin: 01/03/17 10:12 Dose: 40 mg Guaifenesin (Diabetic Tussin Dm -) 10 ml PO Q6H PRN PRN Reason: COUGH Metoprolol Succinate (Toprol Xl -) 50 mg PO BID [facility] Last Admin: 01/03/17 21:01 Dose: 50 mg Pantoprazole Sodium (Protonix -) 40 mg PO DAILY [facility] Last Admin: 01/03/17 10:12 Dose: 40 mg - Objective Vital Signs: Vital Signs Temperature 98.4 F 01/04/17 06:00 Pulse Rate 60 01/04/17 06:00 Respiratory Rate 20 01/04/17 06:00 Blood Pressure 141/66 01/04/17 06:49 O2 Sat by Pulse Oximetry (%) 96 01/03/17 09:00 Cardiovascular: Yes: S1, S2 Respiratory: Yes: Rales (at the bases improved) Gastrointestinal: Yes: Normal Bowel Sounds, Soft Labs: CBC, BMP 01/04/17 07:25 01/04/17 07:25 INR, PTT INR 1.39 (0.82-1.09) H 01/01/17 01:39 Problem List - Problems (1) CHF (congestive heart failure) Code(s): I50.9 - HEART FAILURE, UNSPECIFIED Qualifiers: Congestive heart failure type: diastolic Congestive heart failure chronicity: acute on chronic Qualified Code(s): I50.33 - Acute on chronic diastolic (congestive) heart failure; I50.33 - Acute on chronic diastolic (congestive) heart failure; I50.33 - Acute on chronic diastolic ( congestive) heart failure; I50.33 - Acute on chronic diastolic (congestive) heart failure Assessment/Plan - Problems (1) CHF (congestive heart failure) Assessment/Plan: --iv lasix --cardio on board - echo 09/09/16 EF-70.6%, Code(s): I50.9 - HEART FAILURE, UNSPECIFIED Qualifiers: Congestive heart failure type: diastolic Congestive heart failure chronicity: acute on chronic Qualified Code(s): I50.33 - Acute on chronic diastolic (congestive) heart failure; I50.33 - Acute on chronic diastolic (congestive) heart failure; I50.33 - Acute on chronic diastolic ( congestive) heart failure; I50.33 - Acute on chronic diastolic (congestive) heart failure (2) Anemia Assessment/Plan: -stool guaiac negative -iron studies pending -check B12 and folate ok Code(s): D64.9 - ANEMIA, UNSPECIFIED (3) Pneumonia Assessment/Plan: -repeat CXR -Off abx, -Robitussin 10 m Q6H PRN for cough -nebulizer tx -acetaminophen 650 mg po Q6HPRN for fever >100.0F -seen by Pulmonary -ct of chest --effusion-atelectasis--no evidence of pna Code(s): J18.9 - PNEUMONIA, UNSPECIFIED ORGANISM (4) SOB (shortness of breath)--CHF Assessment/Plan: -no SOB -not using nasal o2 -neb tx -improved after a dose of Furosemide--continue with lasix - f/u with cardiology -repeat CXR -blood, sputum culture pending, no growth on preliminary -Urine antigen PNE Code(s): R06.02 - SHORTNESS OF BREATH (5) HTN (hypertension) Assessment/Plan: -likely secondary to fluid overload -improved after furosemide 40 mg IVP -cardiology consult -last echo 09/09/16 EF-70.6%, LV function intact
[2017-01-04] MEDS: PANTOPRAZOLE 40 MG TABLET (FP) PO SCH (10:50)
[2017-01-04] MEDS: AMIODARONE HCL 200 MG TABLET (FP) PO SCH (10:50)
[2017-01-04] MEDS: APIXABAN 2.5 MG TABLET PO SCH ×2 (10:50→21:21)
[2017-01-04] MEDS: FUROSEMIDE 40 MG/4 ML INJECTABLE VIAL IVPUSH SCH (10:50)
[2017-01-04] MEDS: METOPROLOL SUCCINATE 50 MG TAB.SR.24H (FP) PO SCH ×2 (10:51→21:21)
[2017-01-04] MEDS: ASPIRIN 81 MG CHEWABLE TABLETS PO SCH (10:51)
--- NOTE | 2017-01-04 12:00 | PN ---
Progress Note (short form) - Note Progress Note: less sob dry cough Vital Signs Period Temp Pulse Resp BP Sys/Esc[place]edo Pulse Ox Last 24 Hr 97.7 F-98.4 F 60-63 18-20 113-169/66-70 98 cor-rrr lungs decreased bs right base abd soft, nt ext no edema CBC, BMP 01/04/17 07:25 01/04/17 07:25 Microbiology 01/01/17 01:46 Blood - Peripheral Venous Blood Culture - Preliminary NO GROWTH OBTAINED AFTER 72 HOURS, INCUBATION TO CONTINUE FOR 2 DAYS. 01/01/17 02:09 Blood - Peripheral Venous Blood Culture - Preliminary NO GROWTH OBTAINED AFTER 72 HOURS, INCUBATION TO CONTINUE FOR 2 DAYS. 01/03/17 12:00 Urine For Antigen Detection Legionella Antigen - Final 01/03/17 12:00 Urine For Antigen Detection Streptococcus pneumoniae Antigen (M - Final a/p volulme overload/diastolic CHF no evidence of pneumonia effusion improving with diuresis stable off antibiotics please call back if needed Problem List - Problems (1) CHF (congestive heart failure) Code(s): I50.9 - HEART FAILURE, UNSPECIFIED Qualifiers: Congestive heart failure type: diastolic Congestive heart failure chronicity: acute on chronic Qualified Code(s): I50.33 - Acute on chronic diastolic (congestive) heart failure; I50.33 - Acute on chronic diastolic (congestive) heart failure; I50.33 - Acute on chronic diastolic ( congestive) heart failure; I50.33 - Acute on chronic diastolic (congestive) heart failure (2) Pleural effusion Code(s): J90 - PLEURAL EFFUSION, NOT ELSEWHERE CLASSIFIED (3) Pancreatic cancer Code(s): C25.9 - MALIGNANT NEOPLASM OF PANCREAS, UNSPECIFIED
--- NOTE | 2017-01-04 13:31 | PN ---
Progress Note (short form) - Note Progress Note: Feels better. Less SOB. No CP. CXR : Improving right effusion / residual parenchymal infiltrates on the right RLL / question of a RUL nodule : was not present on CT yesterday on 01/03 Intake & Output 01/01/17 01/02/17 01/03/17 01/04/17 23:59 23:59 23:59 23:59 Intake Total 240 100 880 600 Balance 240 100 880 600 Weight 150 lb 145 lb 143 lb 1 oz Last Vital Signs Temp Pulse Resp BP Pulse Ox 98.4 F 63 20 141/66 98 01/04/17 06:00 01/04/17 10:11 01/04/17 06:00 01/04/17 06:49 01/04/17 10:11 Active Medications Acetaminophen (Tylenol -) 650 mg PO Q6H PRN PRN Reason: FEVER OVER 100 Albuterol/Ipratropium (Duoneb -) 1 amp NEB Q6H PRN PRN Reason: SHORTNESS OF BREATH Last Admin: 01/01/17 06:31 Dose: 1 amp Amiodarone HCl (Cordarone -) 200 mg PO DAILY [facility] Last Admin: 01/04/17 10:50 Dose: 200 mg Apixaban (Eliquis -) 2.5 mg PO BID [facility] Last Admin: 01/04/17 10:50 Dose: 2.5 mg Aspirin (Asa -) 81 mg PO DAILY [facility] Last Admin: 01/04/17 10:51 Dose: 81 mg Atorvastatin Calcium (Lipitor -) 20 mg PO HS [facility] Last Admin: 01/03/17 21:01 Dose: 20 mg Furosemide (Lasix Injection -) 40 mg IVPUSH DAILY [facility] Last Admin: 01/04/17 10:50 Dose: 40 mg Guaifenesin (Diabetic Tussin Dm -) 10 ml PO Q6H PRN PRN Reason: COUGH Metoprolol Succinate (Toprol Xl -) 50 mg PO BID [facility] Last Admin: 01/04/17 10:51 Dose: 50 mg Pantoprazole Sodium (Protonix -) 40 mg PO DAILY [facility] Last Admin: 01/04/17 10:50 Dose: 40 mg Constitutional: Yes: NAD Eyes: Yes: WNL HENT: Yes: WNL Neck: Yes: WNL Cardiovascular: Yes: Pulse Irregular, S1, S2 Respiratory: Yes: Basilar rhonchi Gastrointestinal: Yes: Normal Bowel Sounds, Soft Extremities: Yes: WNL Edema: No Labs: Laboratory Results - last 24 hr 01/04/17 01/04/17 07:25 07:25 WBC 6.8 RBC 3.46 L Hgb 9.3 L Hct 28.0 L MCV 81.0 MCH 26.8 MCHC 33.1 RDW 16.8 H Plt Count 170 MPV 9.3 Neutrophils % 69.6 Lymphocytes % 16.2 Monocytes % 11.1 H Eosinophils % 2.4 Basophils % 0.7 Sodium 142 Potassium 3.4 L Chloride 104 Carbon Dioxide 25 Anion Gap 13 BUN 26 H D Creatinine 1.4 H Creat Clearance w eGFR 48.28 Random Glucose 92 Calcium 7.9 L Total Bilirubin 0.7 AST 14 L ALT 16 Alkaline Phosphatase 91 Total Protein 6.1 L Albumin 2.8 L Assessment/Plan Problem List - Problems (1) Anemia Code(s): D64.9 - ANEMIA, UNSPECIFIED (2) Pneumonia Code(s): J18.9 - PNEUMONIA, UNSPECIFIED ORGANISM (3) SOB (shortness of breath) Code(s): R06.02 - SHORTNESS OF BREATH (4) Afib Code(s): I48.91 - UNSPECIFIED ATRIAL FIBRILLATION Qualifiers: (5) CHF (congestive heart failure) Code(s): I50.9 - HEART FAILURE, UNSPECIFIED Assessment/Plan CHF AFIB ANEMIA ASHD LASIX I+OS O2 NEEDED D/C PLANNING WOULD FOLLOW PLAIN CXR AN OUTPATIENT IN [address] BELLAMY
--- NOTE | 2017-01-04 14:39 | PN ---
Progress Note, Physician Chief Complaint: SOB much improved History of Present Illness: This is an 86 year old with a PMH of CAD, HTN, HLD, AFIB (on Eliquis), s/p PPM, and pancreatic CA on chemo. He presents now to the hospital with progressive MEADE x 2weeks. He is noted to have elevated BP's. - Current Medication List Current Medications: Active Medications Acetaminophen (Tylenol -) 650 mg PO Q6H PRN PRN Reason: FEVER OVER 100 Albuterol/Ipratropium (Duoneb -) 1 amp NEB Q6H PRN PRN Reason: SHORTNESS OF BREATH Last Admin: 01/01/17 06:31 Dose: 1 amp Amiodarone HCl (Cordarone -) 200 mg PO DAILY [facility] Last Admin: 01/04/17 10:50 Dose: 200 mg Apixaban (Eliquis -) 2.5 mg PO BID [facility] Last Admin: 01/04/17 10:50 Dose: 2.5 mg Aspirin (Asa -) 81 mg PO DAILY [facility] Last Admin: 01/04/17 10:51 Dose: 81 mg Atorvastatin Calcium (Lipitor -) 20 mg PO HS [facility] Last Admin: 01/03/17 21:01 Dose: 20 mg Furosemide (Lasix Injection -) 40 mg IVPUSH DAILY [facility] Last Admin: 01/04/17 10:50 Dose: 40 mg Guaifenesin (Diabetic Tussin Dm -) 10 ml PO Q6H PRN PRN Reason: COUGH Metoprolol Succinate (Toprol Xl -) 50 mg PO BID [facility] Last Admin: 01/04/17 10:51 Dose: 50 mg Pantoprazole Sodium (Protonix -) 40 mg PO DAILY [facility] Last Admin: 01/04/17 10:50 Dose: 40 mg - Objective Vital Signs: Vital Signs Temperature 98.4 F 01/04/17 06:00 Pulse Rate 63 01/04/17 10:11 Respiratory Rate 20 01/04/17 06:00 Blood Pressure 141/66 01/04/17 06:49 O2 Sat by Pulse Oximetry (%) 98 01/04/17 10:11 Constitutional: Yes: No Distress Neck: Yes: Supple Cardiovascular: Yes: Regular Rate and Rhythm, S1, S2. No: JVD Respiratory: Yes: Diminished (mildly diminished right base) Gastrointestinal: Yes: Normal Bowel Sounds, Soft Edema: No Labs: CBC, BMP 01/04/17 07:25 01/04/17 07:25 INR, PTT INR 1.39 (0.82-1.09) H 01/01/17 01:39 Problem List - Problems (1) CHF (congestive heart failure) Code(s): I50.9 - HEART FAILURE, UNSPECIFIED Qualifiers: Congestive heart failure type: diastolic Congestive heart failure chronicity: acute on chronic Qualified Code(s): I50.33 - Acute on chronic diastolic (congestive) heart failure; I50.33 - Acute on chronic diastolic (congestive) heart failure; I50.33 - Acute on chronic diastolic ( congestive) heart failure; I50.33 - Acute on chronic diastolic (congestive) heart failure (2) Afib Code(s): I48.91 - UNSPECIFIED ATRIAL FIBRILLATION Qualifiers: Assessment/Plan This is an 86 year old with a PMH of CAD, HTN, HLD, AFIB (on Eliquis), s/p PPM, and pancreatic CA on chemo. He presents now to the hospital with progressive MEADE x 2weeks. He is noted to have elevated BP's. 1) Acute on chronic diastolic CHF Diuresed as seen with drop in weights and improved r pleural effusion On metoprolol xl Plan to start on chlorthalidone tomorrow and stopping lasix upon dc. 2) Afib On metoprolol for rate and amiodarone for rhythm In sinus today and s/p PPM On apixaban for AC 3) HTN On metoprolol Will monitor and may need additional agent if needed. Plan to start chlorthalidone tomorrow
[2017-01-04] MEDS: ATORVASTATIN CA 20 MG TABLET (FP) PO SCH (21:21)
[2017-01-04] MEDS ORDERED: PT OWN MED DRAWER 7, Y5N ONE (22:50)
[2017-01-05 09:53] VITALS: BP 125/49; PULSE 60; TEMP 98.2
[2017-01-05] MEDS: FUROSEMIDE 40 MG/4 ML INJECTABLE VIAL IVPUSH SCH (11:12)
[2017-01-05] MEDS: ASPIRIN 81 MG CHEWABLE TABLETS PO SCH (11:12)
[2017-01-05] MEDS: METOPROLOL SUCCINATE 50 MG TAB.SR.24H (FP) PO SCH (11:12)
[2017-01-05] MEDS: AMIODARONE HCL 200 MG TABLET (FP) PO SCH (11:12)
[2017-01-05] MEDS: PANTOPRAZOLE 40 MG TABLET (FP) PO SCH (11:12)
[2017-01-05] MEDS: APIXABAN 2.5 MG TABLET PO SCH (11:12)
--- NOTE | 2017-01-05 11:47 | PN ---
Progress Note (short form) - Note Progress Note: PULMONARY AWAKE/ALERT SUBJECTIVE IMPROVEMENT ANICTERIC/ DIMINISHED BREATH SOUNDS RIGHT BASE S1S2 PACED BS+ SOFT NO EDEMA LABS/MEDS/NOTES/IMAGES REVIEWED LVDD/AF/HTN/PLEURAL EFFUSION AGREE WITH CONTINUING DIURESIS/BETA-GORGE/ASA O2/BRONCHODILATORS PRN DISCHARGE PLANNING Mandeep SALDIVAR MD Problem List - Problems (1) Anemia Code(s): D64.9 - ANEMIA, UNSPECIFIED (2) Pneumonia Code(s): J18.9 - PNEUMONIA, UNSPECIFIED ORGANISM (3) SOB (shortness of breath) Code(s): R06.02 - SHORTNESS OF BREATH (4) Afib Code(s): I48.91 - UNSPECIFIED ATRIAL FIBRILLATION Qualifiers: (6) CHF (congestive heart failure) Code(s): I50.9 - HEART FAILURE, UNSPECIFIED Qualifiers: Congestive heart failure type: diastolic Congestive heart failure chronicity: acute on chronic Qualified Code(s): I50.33 - Acute on chronic diastolic (congestive) heart failure; I50.33 - Acute on chronic diastolic (congestive) heart failure; I50.33 - Acute on chronic diastolic ( congestive) heart failure; I50.33 - Acute on chronic diastolic (congestive) heart failure
--- NOTE | 2017-01-05 13:52 | PN ---
Progress Note, Physician Chief Complaint: SOB History of Present Illness: NAD, in bed, family at bedside feels much better ambulating independently no SOB, seen by pulmonary and cardiology - Current Medication List Current Medications: Active Medications Acetaminophen (Tylenol -) 650 mg PO Q6H PRN PRN Reason: FEVER OVER 100 Albuterol/Ipratropium (Duoneb -) 1 amp NEB Q6H PRN PRN Reason: SHORTNESS OF BREATH Last Admin: 01/01/17 06:31 Dose: 1 amp Amiodarone HCl (Cordarone -) 200 mg PO DAILY [facility] Last Admin: 01/05/17 11:12 Dose: 200 mg Apixaban (Eliquis -) 2.5 mg PO BID [facility] Last Admin: 01/05/17 11:12 Dose: 2.5 mg Aspirin (Asa -) 81 mg PO DAILY [facility] Last Admin: 01/05/17 11:12 Dose: 81 mg Atorvastatin Calcium (Lipitor -) 20 mg PO HS [facility] Last Admin: 01/04/17 21:21 Dose: 20 mg Chlorthalidone (Hygroton -) 25 mg PO DAILY [facility] Guaifenesin (Diabetic Tussin Dm -) 10 ml PO Q6H PRN PRN Reason: COUGH Metoprolol Succinate (Toprol Xl -) 50 mg PO BID [facility] Last Admin: 01/05/17 11:12 Dose: 50 mg Pantoprazole Sodium (Protonix -) 40 mg PO DAILY [facility] Last Admin: 01/05/17 11:12 Dose: 40 mg - Objective Vital Signs: Vital Signs Temperature 98.2 F 01/05/17 09:52 Pulse Rate 60 01/05/17 09:52 Respiratory Rate 18 01/05/17 09:52 Blood Pressure 125/49 01/05/17 09:52 O2 Sat by Pulse Oximetry (%) 98 01/04/17 21:00 Constitutional: Yes: Well Nourished, No Distress, Calm Cardiovascular: Yes: Regular Rate and Rhythm Respiratory: Yes: Regular Gastrointestinal: Yes: Normal Bowel Sounds Extremities: Yes: WNL Edema: No Peripheral Pulses WNL: Yes Neurological: Yes: Alert, Oriented Psychiatric: Yes: Alert, Oriented Labs: CBC, BMP 01/04/17 07:25 01/04/17 07:25 INR, PTT INR 1.39 (0.82-1.09) H 01/01/17 01:39 Problem List - Problems (1) Anemia Assessment/Plan: -stool guaiac negative -iron studies show mild MARGARITA -check B12 and folate okay Code(s): D64.9 - ANEMIA, UNSPECIFIED (2) Pneumonia Assessment/Plan: -repeat CXR shows mild improvement -doing well off abx -Robitussin 10 m Q6H PRN for cough -nebulizer tx -acetaminophen 650 mg po Q6HPRN for fever >100.0F -seen by Pulmonary Code(s): J18.9 - PNEUMONIA, UNSPECIFIED ORGANISM (3) SOB (shortness of breath) Assessment/Plan: -no SOB -not using nasal o2 -neb tx -Would discharge him on chlorthalidone 25 mg po daily f/u with cardiology -improvement in repeat CXR Code(s): R06.02 - SHORTNESS OF BREATH (5) HTN (hypertension) Assessment/Plan: -likely secondary to fluid overload -discharge home on chlorthalidone 25 mg po daily -cardiology consult -last echo 09/09/16 EF-70.6%, LV function intact Assessment/Plan see problem list
--- NOTE | 2017-01-05 14:50 | DS ---
Physical Examination Vital Signs: Vital Signs Temperature 98.2 F 01/05/17 09:52 Pulse Rate 60 01/05/17 09:52 Respiratory Rate 18 01/05/17 09:52 Blood Pressure 125/49 01/05/17 09:52 O2 Sat by Pulse Oximetry (%) 98 01/05/17 09:00 Constitutional: Yes: Well Nourished, No Distress, Calm Cardiovascular: Yes: Regular Rate and Rhythm Respiratory: Yes: Regular Gastrointestinal: Yes: Normal Bowel Sounds Extremities: Yes: WNL Edema: No Peripheral Pulses WNL: Yes Neurological: Yes: Alert, Oriented Psychiatric: Yes: Alert, Oriented Labs: CBC, BMP 01/04/17 07:25 01/04/17 07:25 Discharge Summary Reason For Visit: ANEMIA,SOB,PNEUMONIA Current Active Problems Anemia (Acute) CHF (congestive heart failure) (Acute) Pleural effusion (Acute) Pneumonia (Acute) SOB (shortness of breath) (Acute) Hospital Course: The patient is an 86 year old male with past medical history of hypertension, CAD s/p pacemaker, ruptured bladder, prostate cancer (in remission), and pancreatic cancer (currently undergoing chemo) who presents to the ED with worsening shortness of breath for a week and a half. The patient states that his symptoms began while he was at [facility]. The patient was in the hospital for surgery to remove a tumor on the head of his pancreas, however, due to his bladder rupture and prostate cancer, there was too much scar tissue for the sugeon to perform on. The patient began having a dry cough while in the hospital which has since worsened to shortness of breath, chest tightness and fatigue. His symptoms are worsened with movement and lying flat. The patient also complains of a lack of appetite for the past two days. He denies any fever , chills, nausea, vomiting, diarrhea, chest pain, or urinary symptoms. The patient stopped chemo for the time that he was hospitalized for his surgery. During his hospital stay, he was treated with IV furosemide, neb tx, IV abx levaquin, seen by pulmonary, cardiology and ID. Condition: Stable - Instructions Diet, Activity, Other Instructions: low sodium diet f/u with pcp and cardiology outpatient Referrals: Danelle Gaytan MD [Primary Care Provider] - - Home Medications Comprehensive Discharge Medication List: Ambulatory Orders Apixaban [Eliquis] 2.5 mg PO BID 07/26/16 Pantoprazole Sodium 40 mg PO DAILY 07/26/16 Atorvastatin Ca [Lipitor] 20 mg PO HS #30 tablet 07/29/16 Amiodarone HCl 200 mg PO DAILY 01/01/17 Aspirin [ASA -] 81 mg PO DAILY 01/01/17 Metoprolol Succinate [Toprol Xl] 50 mg PO BID 01/01/17 Chlorthalidone [Hygroton -] 25 mg PO DAILY #30 tablet 01/05/17 Ferrous Sulfate 325 mg PO DAILY #30 tablet 01/05/17 Guaifenesin/D-Methorphan Hb [Diabetic Tussin Dm -] 10 ml PO Q6H PRN #400 ml
--- NOTE | 2017-01-05 15:08 | PN ---
Progress Note, Physician Chief Complaint: Feels well Ambulating with no complaints History of Present Illness: This is an 86 year old with a PMH of CAD, HTN, HLD, AFIB (on Eliquis), s/p PPM, and pancreatic CA on chemo. He presents now to the hospital with progressive MEADE x 2weeks. He is noted to have elevated BP's. - Current Medication List Current Medications: Active Medications Acetaminophen (Tylenol -) 650 mg PO Q6H PRN PRN Reason: FEVER OVER 100 Albuterol/Ipratropium (Duoneb -) 1 amp NEB Q6H PRN PRN Reason: SHORTNESS OF BREATH Last Admin: 01/01/17 06:31 Dose: 1 amp Amiodarone HCl (Cordarone -) 200 mg PO DAILY [facility] Last Admin: 01/05/17 11:12 Dose: 200 mg Apixaban (Eliquis -) 2.5 mg PO BID [facility] Last Admin: 01/05/17 11:12 Dose: 2.5 mg Aspirin (Asa -) 81 mg PO DAILY [facility] Last Admin: 01/05/17 11:12 Dose: 81 mg Atorvastatin Calcium (Lipitor -) 20 mg PO HS [facility] Last Admin: 01/04/17 21:21 Dose: 20 mg Chlorthalidone (Hygroton -) 25 mg PO DAILY [facility] Guaifenesin (Diabetic Tussin Dm -) 10 ml PO Q6H PRN PRN Reason: COUGH Metoprolol Succinate (Toprol Xl -) 50 mg PO BID [facility] Last Admin: 01/05/17 11:12 Dose: 50 mg Pantoprazole Sodium (Protonix -) 40 mg PO DAILY [facility] Last Admin: 01/05/17 11:12 Dose: 40 mg - Objective Vital Signs: Vital Signs Temperature 98.2 F 01/05/17 09:52 Pulse Rate 60 01/05/17 09:52 Respiratory Rate 18 01/05/17 09:52 Blood Pressure 125/49 01/05/17 09:52 O2 Sat by Pulse Oximetry (%) 98 01/05/17 09:00 Constitutional: Yes: No Distress Neck: Yes: Supple Cardiovascular: Yes: Regular Rate and Rhythm, S1, S2 Respiratory: Yes: Other (minimally decreased BS right base) Gastrointestinal: Yes: Normal Bowel Sounds, Soft Edema: No Labs: CBC, BMP 01/04/17 07:25 01/04/17 07:25 INR, PTT INR 1.39 (0.82-1.09) H 01/01/17 01:39 Problem List - Problems (1) CHF (congestive heart failure) Code(s): I50.9 - HEART FAILURE, UNSPECIFIED Qualifiers: Congestive heart failure type: diastolic Congestive heart failure chronicity: acute on chronic Qualified Code(s): I50.33 - Acute on chronic diastolic (congestive) heart failure; I50.33 - Acute on chronic diastolic (congestive) heart failure; I50.33 - Acute on chronic diastolic ( congestive) heart failure; I50.33 - Acute on chronic diastolic (congestive) heart failure (2) Afib Code(s): I48.91 - UNSPECIFIED ATRIAL FIBRILLATION Qualifiers: Assessment/Plan This is an 86 year old with a PMH of CAD, HTN, HLD, AFIB (on Eliquis), s/p PPM, and pancreatic CA on chemo. He presents now to the hospital with progressive MEADE x 2weeks. He is noted to have elevated BP's. 1) Acute on chronic diastolic CHF Diuresed as seen with drop in weights and improved r pleural effusion On metoprolol xl Started on chlorthalidone. 2) Afib On metoprolol for rate and amiodarone for rhythm In sinus today and s/p PPM On apixaban for AC 3) HTN On metoprolol and now on chlorthalidone Plan for DC today as per primary team
[2017-01-06] MEDS ORDERED: CHLORTHALIDONE 25 MG TABLET PO SCH (10:00)
== END 2017-01-05 15:47 | disposition home or self-care (01) | DRG 291 ==
LOC: JER 23:47 → JERBED 01-01 02:31 → UNDOADMIN 01-01 02:38 → J8W 01-01 04:13
PROVIDERS: ADMIT Family Medicine; ATTEND Family Medicine
DX: I11.0 Hypertensive heart disease with heart failure (principal); J18.9 Pneumonia, unspecified organism; C25.9 Malignant neoplasm of pancreas, unspecified; J98.11 Atelectasis; Z95.0 Presence of cardiac pacemaker; I50.33 Acute on chronic diastolic (congestive) heart failure; C61 Malignant neoplasm of prostate; D64.9 Anemia, unspecified; I48.91 Unspecified atrial fibrillation; Z79.01 Long term (current) use of anticoagulants
CPT/HCPCS: 36415; 71010-TC; 71020-TC; 71250-TC; 80053; 82272; 82550; 82607; 82728; 82746; 83540; 83550; 83880; 84484; 85025; 85610; 85730; 87040; 87070; 87205; 87899; 93005; 93010; 94640; 99283-25

== ENCOUNTER 2017-08-29 02:02 | Inpatient (IN) | payer OTHER, MEDICARE ==
--- NOTE | 2017-08-29 02:55 | PDOC ---
History of Present Illness - General Chief Complaint: Nausea/Vomiting Stated Complaint: STOMACH PAIN Time Seen by Provider: 08/29/17 02:54 History Source: Patient Exam Limitations: No Limitations - History of Present Illness Initial Comments: 08/29/17 03:08 Mr Mann is an 86 yo M with h/o Pancreatic Cancer (completed radiation 02/2017 and chemotherapy), Prostate Ca (in remission), Ruptured Bladder, CAD with PPM, Cardiac Cath, Afib (on Eliquis), HTN, HLD, Dementia, h/o cholangitis s/p stent placement and obstruction prompting stent change on 08/26/17 at [facility]. Pt was stable s/p stent change, blood cultures were negative, pt was discharged to home on 08/27. He tolerated po on 08/27 and this morning. He began to have abdominal pain at 3pm yesterday afternoon. Pain is described as crampy and sharp, rated 10/10, located throughout the entire abdomen. Pt was initially minimal and gradually worsened Family tried giving him seltzer water, and enema (with resulting bowel movement ) but pain continued Pt tried to self induce vomiting, this did not help No flatus Pt presents to the ER for evaluation In the waiting area, he was nauseous and vomited No fevers or chills No chest pain No hematuria Symptoms are similar to prior episodes of SBO GENERAL/CONSTITUTIONAL: Yes: loss of appetite No: fever, chills, weakness HEAD, EYES, EARS, NOSE AND THROAT: No: change in vision, ear pain, discharge, sore throat, throat swelling. CARDIOVASCULAR: No: chest pain, lightheadedness, palpitations, syncope RESPIRATORY: No: cough, shortness of breath, wheezing, hemoptysis, stridor. GASTROINTESTINAL: Yes: nausea, vomiting x 1, abdominal pain GENITOURINARY: No: dysuria, hematuria, frequency, urgency, flank pain. MUSCULOSKELETAL: No: back pain, neck pain, joint pain, muscle swelling or pain SKIN AND BREASTS: No: lesions, pallor, rash or easy bruising. NEUROLOGIC: No: headache, vertigo, paresthesias, weakness ENDOCRINE: No: unexplained weight gain or loss HEMATOLOGIC/LYMPHATIC: No: anemia, easy bleeding, swelling nodes. GENERAL: The patient is uncomfortable. HEAD: Normal EYES: PERRLA, EOMI, sclera anicteric, conjunctiva clear. ENT: Ears normal, nares patent, oropharynx clear without exudates. Dry mucous membranes. NECK: Normal range of motion, supple LUNGS: Breath sounds equal, clear to auscultation bilaterally. No wheezes, and no crackles. HEART:Regular rate and rhythm, MARCO throughout precordium 05/17 ABDOMEN: Well healed surgical scars, abd slightly distended, diffusely tender to minimal palpation, no involuntary guarding, no rebound EXTREMITIES: Normal range of motion, no edema. No clubbing or cyanosis. No erythema, or tenderness. NEUROLOGICAL: Cranial nerves II through XII grossly intact. Normal speech. No focal neurological deficits. MUSCULOSKELETAL: Back non-tender to palpation SKIN: Warm, Dry, no rashes or lesions noted. 08/29/17 05:07 Past History - Past Medical History Allergies/Adverse Reactions: Allergies Allergy/AdvReac Type Severity Reaction Status Date / Time No Known Allergies Allergy Verified 08/23/17 17:03 Home Medications: Ambulatory Orders Apixaban [Eliquis] 5 mg PO BID 07/26/16 Atorvastatin Ca [Lipitor] 20 mg PO HS #30 tablet 07/29/16 Aspirin [ASA -] 81 mg PO DAILY 01/01/17 Metoprolol Succinate [Toprol Xl] 50 mg PO BID 01/01/17 Chlorthalidone [Hygroton -] 50 mg PO DAILY 08/23/17 Hydralazine HCl 100 mg PO BID 08/23/17 Benzocaine/Menthol [Cepacol Sore Throat Lozenge] 1 each MM QID PRN 08/29/17 Ciprofloxacin HCl 500 mg PO BID 08/29/17 Docusate Sodium 100 mg PO DAILY 08/29/17 Lisinopril 5 mg PO DAILY 08/29/17 Pantoprazole Sodium [Protonix] 40 mg PO DAILY 08/29/17 metroNIDAZOLE [Metronidazole] 500 mg PO TID 08/29/17 Anemia: No Asthma: No Cancer: Yes (PROSTATE,Pancreatic) Cardiac Disorders: Yes (CAD, AFib) CVA: No COPD: No CHF: No Dementia: No Diabetes: No GI Disorders: No Disorders: No HTN: Yes Hypercholesterolemia: Yes Liver Disease: No Seizures: No Thyroid Disease: No - Surgical History Abdominal Surgery: Yes (EXP LAP) Appendectomy: No Cardiac Surgery: Yes (pacer placed 07/20/16) Cholecystectomy: No GI Surgery: Yes (COLOSTOMY WITH REVERSAL) Lung Surgery: No Neurologic Surgery: No Orthopedic Surgery: No - Immunization History Immunization Up to Date: Yes - Suicide/Smoking/Psychosocial Hx Smoking Status: No Smoking History: Never smoked Have you smoked in the past 12 months: No Number of Cigarettes Smoked Daily: 0 Hx Alcohol Use: No Drug/Substance Use Hx: No Substance Use Type: None Hx Substance Use Treatment: No *Physical Exam - Vital Signs Last Vital Signs Temp Pulse Resp BP Pulse Ox 98.5 F 85 188/91 99 08/29/17 02:15 08/29/17 02:15 08/29/17 02:15 08/29/17 02:15 ED Treatment Course - LABORATORY CBC & Chemistry Diagram: 08/31/17 06:45 08/31/17 06:45 Medical Decision Making - Critical Care Time Total Critical Care Time (minutes): 60 Critical Care Statement: The care of this patient involved high complexity decision making to prevent further life threatening deterioration of the patient 's condition and/or to evaluate & treat vital organ system(s) failure or risk of failure. - Medical Decision Making 08/29/17 03:19 Mr mann presents to the ER with a complaint of abdominal pain, nausea and vomiting DD includes but is not limited to : SBO, Cholangitis, Stent obstruction, gastritis, pancreatic inflammation Will do: Labs EKG IVF CT of the abd and pelvis Morphine for pain EKG: Sinus rhythm, rate of 80 bpm, axis nml, intervals nml, LVH, biphasic t wave lead III 08/29/17 03:48 Laboratory Tests 08/29/17 03:00 WBC 10.7 H D Hgb 12.3 D Hct 37.0 D Plt Count 255 D Neutrophils % 91.7 H 08/29/17 04:11 Laboratory Tests 08/25/17 08/29/17 08/29/17 06:00 03:00 03:11 Sodium 135 L 133 L Potassium 3.3 L 3.6 Chloride 101 94 L Carbon Dioxide 25 24 Anion Gap 9 15 BUN 18 17 Creatinine 0.9 1.4 H D Random Glucose 114 H 169 H D Lactic Acid 2.8 H* Total Bilirubin 1.0 D 1.3 H D AST 100 H D 45 H D ALT 124 H D 82 H D Alkaline Phosphatase 442 H D 387 H Creatine Kinase 102 Troponin I < 0.02 Lipase 162 Creatinine elevated compared to prior LFTs nml, not elevated 08/29/17 05:04 CT: Small bowel obstruction, without abscess or free air, likely due to right lower quadrant anastomotic stricture. Pneumobilia without biliary duct dilation. Opacified CBD stent could indicate stent occlusion or cyst or simply be due to liquid bile. Small right pleural effusion with probable right lower lobe atelectasis although pneumonia is not completely excluded. Case reviewed with Hospitalist Will admit to med surg NGT to be placed Will continue IV hydration Clinical Impression: Small Bowel Obstruction, initial presentation *DC/Admit/Observation/Transfer Diagnosis at time of Disposition: Small bowel obstruction - Discharge Dispostion Condition at time of disposition: Stable Decision to Admit order: Yes - Referrals - Patient Instructions - Post Discharge Activity
[2017-08-29] MEDS ORDERED: ONDANSETRON 4 MG/2 ML VIAL IVPUSH ONE (03:03)
[2017-08-29] MEDS ORDERED: morphine CARPU-JECT 4 MG/1 ML DISP.SYRIN IVPUSH ONE (03:03)
[2017-08-29] MEDS ORDERED: SODIUM CHLORIDE 1,000 ML IV STA ×2 (03:17→05:03)
[2017-08-29] MEDS ORDERED: morphine SULFATE 4 MG/ML VIAL ONE (03:23)
[2017-08-29] MEDS ORDERED: ONDANSETRON 4 MG/2 ML VIAL ONE (03:24)
[2017-08-29 03:32] LABS: BASO % 0.2 % (0-2.0); EOS % 0.1 % (0-4.5); HEMOGLOBIN 12.3 GM/dL (11.7-16.9); LYMPH % 2.3 % (8-40); MCH 26.6 pg (25.7-33.7); MCHC 33.2 g/dl (32.0-35.9); MEAN CELL VOLUME 80.2 fl (80-96); MEAN PLT VOLUME 8.3 fl (7.5-11.1); MONO % 5.7 % (3.8-10.2); NEUT % 91.7 % (42.8-82.8); PLATELET COUNT 255 K/MM3 (134-434); RBC 4.62 M/mm3 (4.00-5.60); RDW 16.9 % (11.9-15.9); WHITE BLOOD COUNT 10.7 K/mm3 (4.0-10.0)
[2017-08-29 03:49] LABS: INR 1.25 (0.82-1.09); PROTHROMBIN TIME (PATIENT) 14.1 SEC (9.7-13.0)
[2017-08-29 04:05] LABS: ALBUMIN 3.8 g/dl (3.4-5.0); ALK PHOS 387 U/L (45-117); AMYLASE 94 U/L (25-115); ANION GAP 15 (8-16); BILIRUBIN,TOTAL 1.3 mg/dL (0.2-1.0); BLOOD UREA NITROGEN 17 mg/dL (7-18); CALCIUM 9.6 mg/dL (8.5-10.1); CHLORIDE 94 mmol/L (98-107); CO2 24 mmol/L (21-32); CREATININE 1.4 mg/dL (0.7-1.3); GLUCOSE,RANDOM 169 mg/dL (74-106); LIPASE 162 U/L (73-393); POTASSIUM 3.6 mmol/L (3.5-5.1); SGOT/AST 45 U/L (15-37); SGPT/ALT 82 U/L (12-78); SODIUM 133 mmol/L (136-145); TOT PROT 7.9 g/dl (6.4-8.2)
[2017-08-29 05:33] LABS: URINE APPEARANCE CLEAR; URINE BILIRUBIN NEGATIVE (<2.0 mg/dL); URINE COLOR DKYELLOW; URINE GLUCOSE (UA) NEGATIVE (NEGATIVE); URINE KETONE 1+ (NEGATIVE); URINE LEUK ESTERASE TRACE (NEGATIVE); URINE NITRITE NEGATIVE (NEGATIVE); URINE PROTEIN NEGATIVE (NEGATIVE); URINE UROBILINOGEN NEGATIVE mg/dL (0.2-1.0)
[2017-08-29 05:37] LABS: URINE BACTERIA RARE /hpf (NONE SEEN); URINE HYALINE CAST 11 /lpf; URINE MUCUS FEW
--- NOTE | 2017-08-29 05:51 | HP ---
CHIEF COMPLAINT: abdominal pain PCP: Lucila HISTORY OF PRESENT ILLNESS: This is an 86 year old male with a past medical history significant for pancreatic CA, cholangitis s/p cholecystectomy and biliary stent, SBO, multiple abdominal surgeries who presents with abdominal pain since 3pm 08/28/17. Family tried norma viviana, seltzer, enema x 2, induced vomiting (pt stuck his finger in his throat with no vomitus resulting) without relief and thus presented to the ED. Pt vomited large amount of green vomitus in the ED as per daughter and now feels better after vomiting and medications. Pt had biliary stent change on 08/26 , went home on 08/27 and was doing well. Family reports poor BMs for several days. ER course was notable for: (1) CT c/w SBP (2) WBC 10.7 (3) Sodium 133 (4) Creatinine 1.4 up from baseline 0.9 Recent Travel: pt denies PAST MEDICAL HISTORY: pancreatic CA, failed resection due to abdominal adhesions, prostate CA s/p prostatectomy with bladder rupture postop, colostomy and reversal due to complications related to prostatectomy and bladder rupture, cholangitis s/p biliary stent, CAD, Afib, HTN, HLD, dementia PAST SURGICAL HISTORY: PPM 07/2016 prostatectomy multiple abdominal surgeries colostomy and reversal biliary stent s/p change 08/26 Social History: Smoking: pt denies Alcohol: pt denies Drugs: pt denies Family History: unk Allergies No Known Allergies Allergy (Verified 08/23/17 17:03) HOME MEDICATIONS: 3 Medication Instructions Recorded Apixaban [Eliquis] 5 mg PO BID 07/26/16 Atorvastatin Ca [Lipitor] 20 mg PO HS #30 tablet 07/29/16 Amiodarone HCl 200 mg PO DAILY 01/01/17 Aspirin [ASA -] 81 mg PO DAILY 01/01/17 Metoprolol Succinate [Toprol Xl] 50 mg PO BID 01/01/17 Chlorthalidone [Hygroton -] 50 mg PO DAILY 08/23/17 Hydralazine HCl 100 mg PO BID 08/23/17 Benzocaine/Menthol [Cepacol Sore 1 each MM QID PRN 08/29/17 Throat Lozenge] Ciprofloxacin HCl 500 mg PO BID 08/29/17 Docusate Sodium 100 mg PO DAILY 08/29/17 Lisinopril 5 mg PO DAILY 08/29/17 Pantoprazole Sodium [Protonix] 40 mg PO DAILY 08/29/17 metroNIDAZOLE [Metronidazole] 500 mg PO TID 08/29/17 REVIEW OF SYSTEMS CONSTITUTIONAL: Absent: fever, chills, diaphoresis, generalized weakness, malaise, loss of appetite, weight change HEENT: Absent: rhinorrhea, nasal congestion, throat pain, throat swelling, difficulty swallowing, mouth swelling, ear pain, eye pain, visual changes CARDIOVASCULAR: Absent: chest pain, syncope, palpitations, irregular heart rate, lightheadedness , peripheral edema RESPIRATORY: Absent: cough, shortness of breath, dyspnea with exertion, orthopnea, wheezing, stridor, hemoptysis GASTROINTESTINAL: Present: abdominal pain, nausea, vomiting Absent: abdominal distension, diarrhea, constipation, melena, hematochezia GENITOURINARY: Absent: dysuria, frequency, urgency, hesitancy, hematuria, flank pain, genital pain MUSCULOSKELETAL: Absent: myalgia, arthralgia, joint swelling, back pain, neck pain SKIN: Absent: rash, itching, pallor HEMATOLOGIC/IMMUNOLOGIC: Absent: easy bleeding, easy bruising, lymphadenopathy, frequent infections ENDOCRINE: Absent: unexplained weight gain, unexplained weight loss, heat intolerance, cold intolerance NEUROLOGIC: Absent: headache, focal weakness or paresthesias, dizziness, unsteady gait, seizure, mental status changes, bladder or bowel incontinence PSYCHIATRIC: Absent: anxiety, depression, suicidal or homicidal ideation, hallucinations. PHYSICAL EXAMINATION Vital Signs - 24 hr 3 08/29/17 02:15 Temperature 98.5 F Pulse Rate 85 Blood Pressure 188/91 O2 Sat by Pulse 99 Oximetry (%) GENERAL: Awake, alert, and fully oriented, in no acute distress. HEAD: Normal with no signs of trauma. EYES: Pupils equal, round and reactive to light, extraocular movements intact, sclera anicteric, conjunctiva clear. No lid lag. EARS, NOSE, THROAT: Ears normal, nares patent, oropharynx clear without exudates. Moist mucous membranes. NECK: Normal range of motion, supple without lymphadenopathy, JVD, or masses. LUNGS: Breath sounds equal, clear to auscultation bilaterally. No wheezes, and no crackles. No accessory muscle use. HEART: Regular rate and rhythm, normal S1 and S2 without murmur, rub or gallop. ABDOMEN: Soft, mildly tender, mildly distended, normoactive bowel sounds, no guarding, no rebound, no masses. No hepatomegaly or splenomegaly. multiple abdominal scars MUSCULOSKELETAL: Normal range of motion at all joints. No bony deformities or tenderness. No CVA tenderness. UPPER EXTREMITIES: 2+ pulses, warm, well-perfused. No cyanosis. No clubbing. No peripheral edema. LOWER EXTREMITIES: 2+ pulses, warm, well-perfused. No calf tenderness. No peripheral edema. NEUROLOGICAL: Cranial nerves II-XII intact. Normal speech. Normal gait. PSYCHIATRIC: Cooperative. Good eye contact. Appropriate mood and affect. SKIN: Warm, dry, normal turgor, no rashes or lesions noted, normal capillary refill. Laboratory Results - last 24 hr 3 08/29/17 08/29/17 08/29/17 03:00 03:00 03:00 WBC 10.7 H D RBC 4.62 D Hgb 12.3 D Hct 37.0 D MCV 80.2 MCH 26.6 MCHC 33.2 RDW 16.9 H Plt Count 255 D MPV 8.3 Absolute Neuts (auto) 9.8 Total Counted 100 Neutrophils % 91.7 H Neutrophils % (Manual) 85.0 H Band Neutrophils % 8.0 Lymphocytes % 2.3 L D Lymphocytes % (Manual) 3.0 L D Monocytes % 5.7 Monocytes % (Manual) 4 Eosinophils % 0.1 D Basophils % 0.2 Nucleated RBC % 0 PT with INR 14.10 H INR 1.25 H Sodium 133 L Potassium 3.6 Chloride 94 L Carbon Dioxide 24 Anion Gap 15 BUN 17 Creatinine 1.4 H D Creat Clearance w eGFR 48.28 Random Glucose 169 H D Lactic Acid Calcium 9.6 Total Bilirubin 1.3 H D AST 45 H D ALT 82 H D Alkaline Phosphatase 387 H Creatine Kinase 102 Troponin I < 0.02 Total Protein 7.9 D Albumin 3.8 D Total Amylase 94 D Lipase 162 Urine Color Urine Appearance Urine pH Ur Specific Jakin Urine Protein Urine Glucose (UA) Urine Ketones Urine Blood Urine Nitrite Urine Bilirubin Urine Urobilinogen Ur Leukocyte Esterase Blood Type Antibody Screen 3 08/29/17 08/29/17 08/29/17 03:00 03:11 05:19 WBC RBC Hgb Hct MCV MCH MCHC RDW Plt Count MPV Absolute Neuts (auto) Total Counted Neutrophils % Neutrophils % (Manual) Band Neutrophils % Lymphocytes % Lymphocytes % (Manual) Monocytes % Monocytes % (Manual) Eosinophils % Basophils % Nucleated RBC % PT with INR INR Sodium Potassium Chloride Carbon Dioxide Anion Gap BUN Creatinine Creat Clearance w eGFR Random Glucose Lactic Acid 2.8 H* Calcium Total Bilirubin AST ALT Alkaline Phosphatase Creatine Kinase Troponin I Total Protein Albumin Total Amylase Lipase Urine Color Dkyellow Urine Appearance Clear Urine pH 7.0 Ur Specific [place]akin 1.018 Urine Protein Negative Urine Glucose (UA) Negative Urine Ketones 1+ H Urine Blood Negative Urine Nitrite Negative Urine Bilirubin Negative Urine Urobilinogen Negative Ur Leukocyte Esterase Trace Blood Type O POSITIVE Antibody Screen Negative ECG Normal sinus rhythm vent rate 80, QTC 484 LVH with QRS widening Prolonged QTC Radiology Reports CT abd/pelvis without contrast THIS IS A PRELIMINARY REPORT FROM [facility] IMPRESSION: Small bowel obstruction, without abscess or free air, likely due to right lower quadrant anastomotic stricture. Pneumobilia without biliary duct dilation. Opacified CBD stent could indicate stent occlusion or cyst or simply be due to liquid bile. Small right pleural effusion with probable right lower lobe atelectasis although pneumonia is not completely excluded. THIS DOCUMENT HAS BEEN ELECTRONICALLY SIGNED Juan A Carney MD 08/29/2017 04:48 EST ASSESSMENT/PLAN: 86yM with PMH pancreatic CA, failed resection due to abdominal adhesions, prostate CA s/p prostatectomy with bladder rupture postop, colostomy and reversal due to complications related to prostatectomy and bladder rupture, cholangitis s/p biliary stent, CAD, Afib, HTN, HLD, dementia presented to the ED with abdominal pain. SBO - NGT placed, awaiting radiology report for placement - pt and family would like to avoid surgery if at all possible - surgical consult-seen by kavon in the past - GI consult-seen by rosalina in past s/p recent biliary stent change - needs cipro and flagyl x 2 more days post procedure - will order levaquin and flagyl IV RASHEEDA - creatinine bump from baseline - trial IV hydration - renal consult if not improving HTN - po meds on hold due to NGT placement - can order metoprolol and hydralazine IV if BP elevated HLD - lipitor on hold Afib - metoprolol IV if HR elevated DVT PPX - heparin 5000u TID FEN - NS @ 100cc/hr - BMP in am - NPO Dispo: Pt currently requires further inpatient management of her emergent condition. Visit type - Emergency Visit Emergency Visit: Yes ED Registration Date: 08/29/17 Care time: The patient presented to the Emergency Department on the above date and was hospitalized for further evaluation of their emergent condition. - New Patient This patient is new to me today: Yes Date on this admission: 08/29/17 - Critical Care Critical Care patient: No Hospitalist Screening - Colonoscopy Questionnaire Colonoscopy Questionnaire: Colonoscopy Questionnaire - Patient: 50 - 75 years old and never had a screening colonoscopy: No History of colon or rectal polyps, or CA: No History of IBD, Crohn's disease or UC: No History of abdominal radiation therapy as a child: No - Relative: 1 with colon or rectal CA, or polyps at age 60 or younger: Unknown Colon or rectal CA diagnosed at age 45 or younger: Unknown Multiple relatives with colon or rectal CA: Unknown - Outcome: Screening Result: Negative Screen
[2017-08-29] MEDS ORDERED: BENZOCAINE/MENTH/CETYLPYRD CL 1 EACH LOZENGE MM PRN (06:54)
[2017-08-29] MEDS ORDERED: HEPARIN NA (PORCINE) 5,000 UNITS/ML 1ML VIAL ONE (08:11)
[2017-08-29] MEDS: HEPARIN NA (PORCINE) 5,000 UNITS/ML 1ML VIAL SQ SCH ×3 (08:14→21:53)
--- NOTE | 2017-08-29 13:54 | EKG ---
Test Reason : Blood Pressure : / mmHG Vent. Rate : 080 BPM Atrial Rate : 080 BPM P-R Int : 152 ms QRS Dur : 116 ms QT Int : 420 ms P-R-T Axes : 048 -28 034 degrees QTc Int : 484 ms COARSE ATRIAL FIBRILLATION VS ATYPICAL ATRIAL FLUTTER LEFT VENTRICULAR HYPERTROPHY WITH QRS WIDENING PROLONGED QT ABNORMAL ECG WHEN COMPARED WITH ECG OF 23-AUG-2017 18:33, ATRIAL FIBRILLATION VS FLUTTER IS NOW SEEN Confirmed by TRICIA NELSON MD ([id number]) on 08/29/2017 1:53:32 PM Referred By: Confirmed By:TRICIA NELSON MD
--- NOTE | 2017-08-29 14:41 | PN ---
Progress Note, Physician Chief Complaint: patient seen in ER came in with abdominal pain This is an 86 year old male with a past medical history significant for pancreatic CA, cholangitis s/p cholecystectomy and biliary stent, SBO, multiple abdominal surgeries who presents with abdominal pain since 3pm 08/28/17. Family tried norma viviana, seltzer, enema x 2, induced vomiting (pt stuck his finger in his throat with no vomitus resulting) without relief and thus presented to the ED. Pt vomited large amount of green vomitus in the ED as per daughter and now feels better after vomiting and medications. Pt had biliary stent change on 08/26 , went home on 08/27 and was doing well. Family reports poor BMs for several days. ER course was notable for: (1) CT c/w SBP (2) WBC 10.7, lactic acid 2.8 (3) Sodium 133 (4) Creatinine 1.4 up from baseline 0.9 patient given flagyl and levaquin, ivf fluids started having abdominal pain will admit - Current Medication List Current Medications: Active Medications Benzocaine/Menthol (Cepacol Lozenge -) 1 each MM QID PRN PRN Reason: sore throat Heparin Sodium (Porcine) (Heparin -) 5,000 unit SQ TID PRIYANKA Last Admin: 08/29/17 08:14 Dose: 5,000 unit Sodium Chloride (Normal Saline -) 1,000 mls @ 100 mls/hr IV ASDIR STA Stop: 08/29/17 15:02 Last Admin: 08/29/17 05:41 Dose: 100 mls/hr Levofloxacin (Levaquin 250 Mg Premixed Ivpb -) 250 mg in 50 mls @ 50 mls/hr IVPB DAILY PRIYANKA; Protocol Stop: 08/31/17 09:59 Last Admin: 08/29/17 10:00 Dose: 50 mls/hr Metronidazole (Flagyl 500mg Premixed Ivpb -) 500 mg in 100 mls @ 100 mls/hr IVPB Q8H-IV PRIYANKA Stop: 08/31/17 09:59 Last Admin: 08/29/17 10:42 Dose: 100 mls/hr Ondansetron HCl (Zofran Injection) 4 mg IVPUSH Q6H PRN PRN Reason: NAUSEA Stop: 09/02/17 14:59 - Objective Vital Signs: Vital Signs Temperature 98 F 06/18/18 06:43 Pulse Rate 73 08/29/17 06:43 Respiratory Rate 19 08/29/17 06:43 Blood Pressure 146/72 08/29/17 06:43 O2 Sat by Pulse Oximetry (%) 97 08/29/17 06:43 Constitutional: Yes: Calm Cardiovascular: Yes: Regular Rate and Rhythm, S1, S2 Respiratory: Yes: CTA Bilaterally Gastrointestinal: Yes: Distention, Tenderness (in LLQ and left upper quadrant) Edema: No Neurological: Yes: Alert, Oriented Labs: CBC, BMP 08/29/17 03:00 08/29/17 03:00 INR, PTT INR 1.25 (0.82-1.09) H 08/29/17 03:00 - ....Imaging Cat Scan: Report Reviewed (distended fluid filled) Problem List - Problems (1) Small bowel obstruction Assessment/Plan: IVF NPO iv abx flagyl and levaquin will have ID see patient and monitor QTC interval and change abx ct scan noted surgery and gi consults pending dvt ppx trend wbc and lactic acid Code(s): K56.609 - UNSP INTESTNL OBST, UNSP TO PARTIAL VERSUS COMPLETE OBST (2) Abnormal LFTs (liver function tests) Assessment/Plan: from 08/25 ast,alt and alk phos trending down but still elevated gi consult trend labs Code(s): R94.5 - ABNORMAL RESULTS OF LIVER FUNCTION STUDIES (3) Afib Assessment/Plan: paroxysmal afib NSR per EKG read marilyn SALMON BB cardiology Code(s): I48.91 - UNSPECIFIED ATRIAL FIBRILLATION Qualifiers: (4) Anemia Assessment/Plan: repeat iron panel Code(s): D64.9 - ANEMIA, UNSPECIFIED Qualifiers: Anemia type: iron deficiency
[2017-08-29] MEDS ORDERED: SODIUM CHLORIDE 1,000 ML IV SCH ×2 (14:45→16:57)
[2017-08-29] MEDS ORDERED: ONDANSETRON 4 MG/2 ML VIAL IVPUSH PRN (15:00)
--- NOTE | 2017-08-29 16:04 | CON.CARD ---
Consult Consult Specialty:: Cardiology Referred by:: Pau Gonzales Reason for Consultation:: Afib - History of Present Illness Chief Complaint: Abdominal pain History of Present Illness: 86 year old male with a past medical history of pancreatic CA, htn, afib s/p ppm , cholangitis s/p cholecystectomy and biliary stent, SBO, multiple abdominal surgeries who presents with abdominal pain. +vomiting in ER and found to have SBO on ct scan. EKG: sinus rhythm at 80bpm, lvh, no acute st changes No chest pain, sob, or palpitations. No pnd, orthopnea, or edema. 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 WHIPPLE BUT ABORTED DUE TO SCAR TISSUE), Prostatectomy - Alcohol/Substance Use Hx Alcohol Use: No History of Substance Use: reports: None - Smoking History Smoking history: Never smoked Have you smoked in the past 12 months: No Aproximately how many cigarettes per day: 0 - Social History Usual Living Arrangement: With Spouse ADL: Family Assistance History of Recent Travel: No Home Medications - Allergies Allergies/Adverse Reactions: Allergies Allergy/AdvReac Type Severity Reaction Status Date / Time No Known Allergies Allergy Verified 08/23/17 17:03 - Home Medications Home Medications: Ambulatory Orders Apixaban [Eliquis] 5 mg PO BID 07/26/16 Atorvastatin Ca [Lipitor] 20 mg PO HS #30 tablet 07/29/16 Aspirin [ASA -] 81 mg PO DAILY 01/01/17 Metoprolol Succinate [Toprol Xl] 50 mg PO BID 01/01/17 Chlorthalidone [Hygroton -] 50 mg PO DAILY 08/23/17 Hydralazine HCl 100 mg PO BID 08/23/17 Benzocaine/Menthol [Cepacol Sore Throat Lozenge] 1 each MM QID PRN 08/29/17 Ciprofloxacin HCl 500 mg PO BID 08/29/17 Docusate Sodium 100 mg PO DAILY 08/29/17 Lisinopril 5 mg PO DAILY 08/29/17 Pantoprazole Sodium [Protonix] 40 mg PO DAILY 08/29/17 metroNIDAZOLE [Metronidazole] 500 mg PO TID 08/29/17 Vital Signs: Vital Signs Temperature 99.2 F 08/29/17 14:46 Pulse Rate 88 08/29/17 14:46 Respiratory Rate 18 08/29/17 14:46 Blood Pressure 197/89 08/29/17 14:46 O2 Sat by Pulse Oximetry (%) 96 08/29/17 14:46 Constitutional: Yes: Mild Distress Neck: Yes: Supple Respiratory: Yes: CTA Bilaterally Cardiovascular: Yes: Regular Rate and Rhythm JVD: No Carotid Bruit: No Heart Sounds: Yes: S1, S2 Murmur: Yes: Systolic Murmur (+26 HSM throughout) Edema: No - Other Data Labs, Other Data: CBC, BMP 08/29/17 03:00 08/29/17 03:00 INR, PTT INR 1.25 (0.82-1.09) H 08/29/17 03:00 Troponin, BNP 08/29/17 03:00 Troponin I < 0.02 Troponin, BNP 08/29/17 03:00 Troponin I < 0.02 Imaging - Results Chest X-ray: Report Reviewed EKG: Image Reviewed Assessment/Plan 86 year old male with a past medical history of pancreatic CA, htn, afib s/p ppm 08/2016 for tachy/daisy, nonobs CAD on cath 2012, normal myocardial perfusion 08/2016, cholangitis s/p cholecystectomy and biliary stent, SBO, multiple abdominal surgeries who presents with abdominal pain. +vomiting in ER and found to have SBO on ct scan. EKG: sinus rhythm at 80bpm, lvh, no acute st changes No chest pain, sob, or palpitations. No pnd, orthopnea, or edema. 1)Admitted for SBO. S/p NG tube placement. NPO at this time. Monitor BP and HR. Being placed on metoprolol IV as needed for BP and can add hydralazine IV as needed for bp control as well. Needs pain control. Surgery evaluation. Patient was on apixaban for AC. On hold at this time as NPO and question if will need surgery. If going to be longstanding off of apixaban will need to address whether to bridge. In sinus at this time.
[2017-08-29] MEDS: morphine SULFATE 4 MG/ML VIAL IVPUSH PRN (16:10)
[2017-08-29] MEDS ORDERED: PANTOPRAZOLE SODIUM 40 MG in SODIUM CHLORIDE 100 ML IVPB SCH (17:00)
[2017-08-29] MEDS ORDERED: PANTOPRAZOLE SODIUM 160 MG in DEXTROSE 5%-WATER - 290 ML IVPB SCH (17:15)
[2017-08-29] MEDS ORDERED: SODIUM CHLORIDE 0.9%/KCL 20 MEQ/1,000 ML INFUS.BAG IV SCH (17:15)
[2017-08-29] MEDS ORDERED: DEXTROSE 5%-WATER - 50 ML IVPB ONE (17:25)
[2017-08-29] MEDS ORDERED: PIPERACILLIN/TAZOBACTAM 3.375 GM VIAL IVPB ONE (17:25)
[2017-08-29] MEDS: PANTOPRAZOLE SODIUM 40 MG VIAL IVPUSH SCH (17:36)
[2017-08-29] MEDS: METOPROLOL TARTRATE 5 MG/5 ML VIAL IVPB PRN (17:40)
[2017-08-29] MEDS: PIPERACILLIN/TAZOB 3.375 GM 3.375 GM in DEXTROSE 5%-WATER - 50 ML IVPB SCH (17:46)
[2017-08-29] MEDS: POTASSIUM CHLORIDE 20 MEQ in SODIUM CHLORIDE 1,000 ML IVPB SCH (20:00)
--- NOTE | 2017-08-29 21:29 | CONSULT ---
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 WHIPPLE BUT ABORTED DUE TO SCAR TISSUE), Prostatectomy - Alcohol/Substance Use Hx Alcohol Use: No History of Substance Use: reports: None - Smoking History Smoking history: Never smoked Have you smoked in the past 12 months: No Aproximately how many cigarettes per day: 0 - Social History Usual Living Arrangement: With Spouse ADL: Family Assistance History of Recent Travel: No Home Medications - Allergies Allergies/Adverse Reactions: Allergies Allergy/AdvReac Type Severity Reaction Status Date / Time No Known Allergies Allergy Verified 08/23/17 17:03 - Home Medications Home Medications: Ambulatory Orders Apixaban [Eliquis] 5 mg PO BID 07/26/16 Atorvastatin Ca [Lipitor] 20 mg PO HS #30 tablet 07/29/16 Aspirin [ASA -] 81 mg PO DAILY 01/01/17 Metoprolol Succinate [Toprol Xl] 50 mg PO BID 01/01/17 Chlorthalidone [Hygroton -] 50 mg PO DAILY 08/23/17 Hydralazine HCl 100 mg PO BID 08/23/17 Benzocaine/Menthol [Cepacol Sore Throat Lozenge] 1 each MM QID PRN 08/29/17 Ciprofloxacin HCl 500 mg PO BID 08/29/17 Docusate Sodium 100 mg PO DAILY 08/29/17 Lisinopril 5 mg PO DAILY 08/29/17 Pantoprazole Sodium [Protonix] 40 mg PO DAILY 08/29/17 metroNIDAZOLE [Metronidazole] 500 mg PO TID 08/29/17 Family Disease History - Family Disease History Family History: Unable to Obtain Review of Systems - Review of Systems Constitutional: denies: Fever Cardiovascular: denies: Chest Pain Gastrointestinal: reports: Abdominal Pain Pain Intensity: 3 Physical Exam Vital Signs: Vital Signs Temperature 99.6 F 08/29/17 17:00 Pulse Rate 82 08/29/17 17:40 Respiratory Rate 20 08/29/17 20:56 Blood Pressure 145/74 08/29/17 17:40 O2 Sat by Pulse Oximetry (%) 96 08/29/17 20:56 Constitutional: Yes: Calm Cardiovascular: Yes: WNL Respiratory: Yes: Diminished Gastrointestinal: Yes: Soft, Distention (Mild). No: Tenderness, Tenderness, Rebound Neurological: Yes: Alert Labs: CBC, BMP 08/29/17 03:00 08/29/17 03:00 Imaging - Results Cat Scan: Report Reviewed, Image Reviewed Problem List - Problems (1) Small bowel obstruction Code(s): K56.609 - UNSP INTESTNL OBST, UNSP TO PARTIAL VERSUS COMPLETE OBST Assessment/Plan 86 male with pancreatic CA treated at [facility] Multiple abdominal surgeries Partial small bowel obstruction NPO NG tube to continuous suction IV fluids Transfer to tertiary care [place]
[2017-08-30] MEDS ORDERED: ACETAMINOPHEN 1000 MG/100 ML VIAL (NON FORMULARY) IVPB ONE (00:40)
[2017-08-30] MEDS ORDERED: DEXTROSE 5%-WATER - 50 ML IVPB ONE ×2 (00:46→09:09)
[2017-08-30] MEDS ORDERED: PIPERACILLIN/TAZOBACTAM 3.375 GM VIAL IVPB ONE ×2 (00:46→09:09)
[2017-08-30] MEDS: PIPERACILLIN/TAZOB 3.375 GM 3.375 GM in DEXTROSE 5%-WATER - 50 ML IVPB SCH ×2 (01:30→09:59)
[2017-08-30] MEDS ORDERED: PIPERACILLIN/TAZOB 3.375 GM 3.375 GM in DEXTROSE 5%-WATER - 50 ML IVPB SCH ×2 (02:00→18:00)
[2017-08-30] MEDS: HEPARIN NA (PORCINE) 5,000 UNITS/ML 1ML VIAL SQ SCH ×3 (06:39→21:49)
[2017-08-30] MEDS ORDERED: PT OWN MED DRAWER 7, Y5N ONE (07:04)
[2017-08-30 07:32] LABS: BASO % 0.3 % (0-2.0); EOS % 0.1 % (0-4.5); HEMOGLOBIN 10.6 GM/dL (11.7-16.9); LYMPH % 3.5 % (8-40); MCH 26.7 pg (25.7-33.7); MCHC 33.2 g/dl (32.0-35.9); MEAN CELL VOLUME 80.5 fl (80-96); MONO % 6.1 % (3.8-10.2); PLATELET COUNT 175 K/MM3 (134-434); RBC 3.97 M/mm3 (4.00-5.60); RDW 17.5 % (11.9-15.9); WHITE BLOOD COUNT 5.7 K/mm3 (4.0-10.0)
[2017-08-30 08:00] LABS: ALBUMIN 2.9 g/dl (3.4-5.0); ANION GAP 8 (8-16); BLOOD UREA NITROGEN 14 mg/dL (7-18); CALCIUM 7.9 mg/dL (8.5-10.1); CHLORIDE 102 mmol/L (98-107); CO2 27 mmol/L (21-32); CREATININE 1.2 mg/dL (0.7-1.3); GLUCOSE,RANDOM 100 mg/dL (74-106); MAGNESIUM 1.8 mg/dL (1.8-2.4); POTASSIUM 3.2 mmol/L (3.5-5.1); SGPT/ALT 58 U/L (12-78); SODIUM 137 mmol/L (136-145); TOT PROT 6.2 g/dl (6.4-8.2)
[2017-08-30 08:07] LABS: ALK PHOS 288 U/L (45-117); BILIRUBIN,TOTAL 1.2 mg/dL (0.2-1.0); SGOT/AST 39 U/L (15-37)
--- NOTE | 2017-08-30 08:13 | PN ---
Progress Note, Physician - Current Medication List Current Medications: Active Medications Benzocaine/Menthol (Cepacol Lozenge -) 1 each MM QID PRN PRN Reason: sore throat Heparin Sodium (Porcine) (Heparin -) 5,000 unit SQ TID [facility] Last Admin: 08/30/17 06:39 Dose: 5,000 unit Hydralazine HCl (Apresoline Injection -) 10 mg IVPB Q8H PRN PRN Reason: HYPERTENSION Metronidazole (Flagyl 500mg Premixed Ivpb -) 500 mg in 100 mls @ 100 mls/hr IVPB Q8H-IV [facility] Stop: 08/31/17 09:59 Last Admin: 08/30/17 01:12 Dose: 100 mls/hr Piperacillin Sod/Tazobactam (Sod 3.375 gm/ Dextrose) 50 mls @ 100 mls/hr IVPB Q8H-IV PRIYANKA Stop: 08/30/17 10:29 Last Admin: 08/30/17 01:30 Dose: 100 mls/hr Piperacillin Sod/Tazobactam (Sod 3.375 gm/ Dextrose) 50 mls @ 100 mls/hr IVPB Q8H-IV PRIYANKA; Protocol Stop: 09/02/17 01:59 Potassium Chloride 20 meq/ (Sodium Chloride) 1,010 mls @ 42 mls/hr IVPB ASDIR [facility] Last Admin: 08/29/17 20:00 Dose: 42 mls/hr Metoprolol Tartrate (Lopressor Injection -) 5 mg IVPB Q4H PRN PRN Reason: HYPERTENSION Last Admin: 08/29/17 17:40 Dose: 5 mg Morphine Sulfate (Morphine Sulfate) 4 mg IVPUSH Q6H PRN PRN Reason: PAIN LEVEL 7 - 10 Stop: 09/01/17 14:47 Last Admin: 08/29/17 16:10 Dose: 4 mg Pantoprazole Sodium (Protonix Iv) 40 mg IVPUSH DAILY [facility] Last Admin: 08/29/17 17:36 Dose: 40 mg - Objective Vital Signs: Vital Signs Temperature 98.5 F 08/30/17 06:00 Pulse Rate 66 08/30/17 06:00 Respiratory Rate 20 08/30/17 06:00 Blood Pressure 143/73 08/30/17 06:00 O2 Sat by Pulse Oximetry (%) 96 08/29/17 20:56 Labs: CBC, BMP 08/30/17 06:00 INR, PTT INR 1.25 (0.82-1.09) H 08/29/17 03:00 Problem List - Problems (1) Small bowel obstruction Assessment/Plan: IVF NPO iv abx flagyl and levaquin-ID see patient and monitor QTC interval and change abx ct scan noted surgery and gi consults dvt ppx trend wbc and lactic acid Code(s): K56.609 - UNSP INTESTNL OBST, UNSP TO PARTIAL VERSUS COMPLETE OBST (2) Abnormal LFTs (liver function tests) Assessment/Plan: -MONITOR Code(s): R94.5 - ABNORMAL RESULTS OF LIVER FUNCTION STUDIES (3) Afib Assessment/Plan: -CARDIO ON BOARD -AWAIT SURGICAL OPINION THEN ASSES AC Code(s): I48.91 - UNSPECIFIED ATRIAL FIBRILLATION Qualifiers: (4) CAD (coronary artery disease) Assessment/Plan: -NO CP--MONITOR Code(s): I25.10 - ATHSCL HEART DISEASE OF [place] CORONARY ARTERY W/O ANG PCTRS (5) Common bile duct (CBD) obstruction Assessment/Plan: S/P STENT EXCHANGE -ABX -FOLLOW LABS Code(s): K83.1 - OBSTRUCTION OF BILE DUCT (6) Pancreatic neoplasm Assessment/Plan: FOLLOWED AT [facility] Code(s): D49.0 - NEOPLASM OF UNSPECIFIED BEHAVIOR OF DIGESTIVE SYSTEM
[2017-08-30] MEDS: PANTOPRAZOLE SODIUM 40 MG VIAL IVPUSH SCH (10:00)
[2017-08-30] MEDS: METOPROLOL TARTRATE 5 MG/5 ML VIAL IVPB PRN (10:13)
--- NOTE | 2017-08-30 10:30 | PN ---
Progress Note, Physician History of Present Illness: seen and examined today in nad. at bedside. NG tube in place. pt states hes feeling better. - Current Medication List Current Medications: Active Medications Benzocaine/Menthol (Cepacol Lozenge -) 1 each MM QID PRN PRN Reason: sore throat Heparin Sodium (Porcine) (Heparin -) 5,000 unit SQ TID [facility] Last Admin: 08/30/17 06:39 Dose: 5,000 unit Hydralazine HCl (Apresoline Injection -) 10 mg IVPB Q8H PRN PRN Reason: HYPERTENSION Metronidazole (Flagyl 500mg Premixed Ivpb -) 500 mg in 100 mls @ 100 mls/hr IVPB Q8H-IV PRIYANKA Stop: 08/31/17 09:59 Last Admin: 08/30/17 10:01 Dose: 100 mls/hr Piperacillin Sod/Tazobactam (Sod 3.375 gm/ Dextrose) 50 mls @ 100 mls/hr IVPB Q8H-IV PRIYANKA; Protocol Stop: 09/02/17 01:59 Potassium Chloride 20 meq/ (Sodium Chloride) 1,010 mls @ 42 mls/hr IVPB ASDIR [facility] Last Admin: 08/29/17 20:00 Dose: 42 mls/hr Metoprolol Tartrate (Lopressor Injection -) 5 mg IVPB Q4H PRN PRN Reason: HYPERTENSION Last Admin: 08/30/17 10:13 Dose: 5 mg Morphine Sulfate (Morphine Sulfate) 4 mg IVPUSH Q6H PRN PRN Reason: PAIN LEVEL 7 - 10 Stop: 09/01/17 14:47 Last Admin: 08/29/17 16:10 Dose: 4 mg Pantoprazole Sodium (Protonix Iv) 40 mg IVPUSH DAILY [facility] Last Admin: 08/30/17 10:00 Dose: 40 mg - Objective Vital Signs: Vital Signs Temperature 102 F H 08/30/17 10:00 Pulse Rate 86 08/30/17 10:13 Respiratory Rate 20 08/30/17 10:00 Blood Pressure 164/77 08/30/17 10:13 O2 Sat by Pulse Oximetry (%) 96 08/29/17 20:56 Constitutional: Yes: No Distress, Calm Eyes: Yes: Conjunctiva Clear, EOM Intact HENT: Yes: Atraumatic, Normocephalic Neck: Yes: Supple, Trachea Midline Cardiovascular: Yes: Regular Rate and Rhythm, Murmur, S1, S2. No: Bradycardia, Tachycardia, Pulse Irregular, Bruit, JVD, Gallop, Rub, S3, S4, Varicosities Respiratory: Yes: Regular, CTA Bilaterally. No: Rales, Rhonchi, Wheezes Gastrointestinal: Yes: Normal Bowel Sounds, Soft. No: Distention, Tenderness Edema: No Peripheral Pulses WNL: Yes Peripheral Pulses: Left Doralis Pedis: 2+, Right Dorsalis Pedis: 2+ Neurological: Yes: Alert, Oriented Psychiatric: Yes: Alert, Oriented Labs: CBC, BMP 08/30/17 06:00 08/30/17 06:00 INR, PTT INR 1.25 (0.82-1.09) H 08/29/17 03:00 - ....Imaging Chest X-ray: Report Reviewed, Image Reviewed EKG: Report Reviewed, Image Reviewed Other: Report Reviewed, Image Reviewed Assessment/Plan 86 year old male with a past medical history of pancreatic CA, htn, afib s/p ppm 08/2016 for tachy/daisy, nonobs CAD on cath 2012, normal myocardial perfusion 08/2016, cholangitis s/p cholecystectomy and biliary stent, SBO, multiple abdominal surgeries who presents with abdominal pain. +vomiting in ER and found to have SBO on ct scan. EKG: sinus rhythm at 80bpm, lvh, no acute st changes No chest pain, sob, or palpitations. No pnd, orthopnea, or edema. 1)Admitted for SBO. S/p NG tube placement. NPO at this time. Monitor BP and HR. BP has been mild to mod elevated. Cont metoprolol IV as needed for BP and hydralazine IV as needed for bp control until tolerates po meds Cont pain control as pain likely exacerbating HTN Surgery recc transfer to tertiary care, prior care at [facility] Apixaban on hold at this time as NPO and question if will need surgery. If going to be longstanding off of apixaban will need to address whether to bridge. Remains in NSR at this time.
--- NOTE | 2017-08-30 11:12 | CON.ID ---
Consult Consult Specialty:: infectious disease Referred by:: alison Reason for Consultation:: fever - History of Present Illness Chief Complaint: fever History of Present Illness: admitted 08/29 with abdominal pain and vomiting, no fever Just discharged two days ago after transfer from [facility] to [facility] for change of biliary stentl he has inoperable pancreatic cancer he was sent home on cipro and flagyl no BM at home vomiting and abd pain and came to ED now with fevers overnight ct scan with stent and SBO has NGT and feels much better no abdominal pain now - History Source History Provided By: Family Member, Medical Record Limitations to Obtaining History: Language Barrier - Past Medical History Cardio/Vascular: Yes: AFIB, 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 WHIPPLE BUT ABORTED DUE TO SCAR TISSUE), Prostatectomy - Alcohol/Substance Use Hx Alcohol Use: No History of Substance Use: reports: None - Smoking History Smoking history: Never smoked Have you smoked in the past 12 months: No Aproximately how many cigarettes per day: 0 - Social History Usual Living Arrangement: With Spouse ADL: Family Assistance History of Recent Travel: No Home Medications - Allergies Allergies/Adverse Reactions: Allergies Allergy/AdvReac Type Severity Reaction Status Date / Time No Known Allergies Allergy Verified 08/23/17 17:03 - Home Medications Home Medications: Ambulatory Orders Apixaban [Eliquis] 5 mg PO BID 07/26/16 Atorvastatin Ca [Lipitor] 20 mg PO HS #30 tablet 07/29/16 Aspirin [ASA -] 81 mg PO DAILY 01/01/17 Metoprolol Succinate [Toprol Xl] 50 mg PO BID 01/01/17 Chlorthalidone [Hygroton -] 50 mg PO DAILY 08/23/17 Hydralazine HCl 100 mg PO BID 08/23/17 Benzocaine/Menthol [Cepacol Sore Throat Lozenge] 1 each MM QID PRN 08/29/17 Ciprofloxacin HCl 500 mg PO BID 08/29/17 Docusate Sodium 100 mg PO DAILY 08/29/17 Lisinopril 5 mg PO DAILY 08/29/17 Pantoprazole Sodium [Protonix] 40 mg PO DAILY 08/29/17 metroNIDAZOLE [Metronidazole] 500 mg PO TID 08/29/17 Family Disease History - Family Disease History Family History: Unable to Obtain Review of Systems - Review of Systems Eyes: reports: No Symptoms HENT: reports: No Symptoms Neck: reports: No Symptoms Cardiovascular: reports: No Symptoms. denies: Chest Pain Respiratory: reports: No Symptoms. denies: Cough Gastrointestinal: reports: No Symptoms. denies: Abdominal Pain Physical Exam Vital Signs: Vital Signs Temperature 102 F H 08/30/17 10:00 Pulse Rate 86 08/30/17 10:13 Respiratory Rate 20 08/30/17 10:00 Blood Pressure 164/77 08/30/17 10:13 O2 Sat by Pulse Oximetry (%) 96 08/29/17 20:56 Constitutional: Yes: Well Nourished, No Distress, Calm HENT: Yes: Atraumatic, Normocephalic, Other (NGT) Neck: Yes: Supple, Trachea Midline Cardiovascular: Yes: Regular Rate and Rhythm Respiratory: Yes: Regular, CTA Bilaterally Gastrointestinal: Yes: Soft, Other (diminished bs). No: Tenderness, Epigastrium ...Rectal Exam: Yes: Deferred Extremities: Yes: WNL Edema: No Psychiatric: Yes: Alert Labs: CBC, BMP 08/30/17 06:00 08/30/17 06:00 Microbiology 08/29/17 05:19 Urine - Urine Clean Catch Urine Culture - Final NO GROWTH OBTAINED 08/29/17 03:12 Blood - Peripheral Venous Blood Culture - Preliminary NO GROWTH OBTAINED AFTER 24 HOURS, INCUBATION TO CONTINUE FOR 4 DAYS. 08/29/17 03:12 Blood - Peripheral Venous Blood Culture - Preliminary NO GROWTH OBTAINED AFTER 24 HOURS, INCUBATION TO CONTINUE FOR 4 DAYS. Imaging - Results Chest X-ray: Report Reviewed, Image Reviewed Cat Scan: Report Reviewed Problem List - Problems (1) Fever Code(s): R50.9 - FEVER, UNSPECIFIED (2) SBO (small bowel obstruction) Code(s): K56.609 - UNSP INTESTNL OBST, UNSP TO PARTIAL VERSUS COMPLETE OBST (3) History of biliary stent insertion Code(s): Z98.890 - OTHER SPECIFIED POSTPROCEDURAL STATES (4) Pancreatic cancer Code(s): C25.9 - MALIGNANT NEOPLASM OF PANCREAS, UNSPECIFIED Assessment/Plan abdominal pain and vomiting stopped after NGT he is hemodynamically stable fevers new and started last night all cultures from last visit and on admission here are negative now on zosyn and flagyl- will switch to ertapenem given prior history of esbl organisms history of prior ecoli esbl in december- maintain contact isolation continue antibiotics surgery suggests transfer await GI opinion
[2017-08-30] MEDS ORDERED: PIPERACILLIN/TAZOB 4.5 GM 4.5 GM in DEXTROSE 5%-WATER 100 ML IVPB SCH (11:15)
[2017-08-30] MEDS ORDERED: ERTAPENEM SODIUM 1 GM/50 ML PRE-DOCKED IVPB SCH (11:30)
[2017-08-30] MEDS: ERTAPENEM SODIUM 1 GM in SODIUM CHLORIDE 50 ML IVPB SCH (13:47)
[2017-08-30] MEDS: morphine SULFATE 4 MG/ML VIAL IVPUSH PRN (14:29)
--- NOTE | 2017-08-30 14:33 | CON.GI ---
Consult Consult Specialty:: gastroenterology Referred by:: Dr. Gaytan Reason for Consultation:: Abdominal Pain - History of Present Illness Chief Complaint: RUQ abdominal pain History of Present Illness: Patient is an 86 year old male who was brought in by family for a one day history of RUQ abdominal pain. Patient is unable to provide information due to language barrier. Patient recently transferred out from here (08/25) for cholangitis with biliary obstruction and sent to [facility] for emergent ERCP and biliary stent replacement. Patient had ERCP and biliary stent replaced () and discharged home the following day. According to medical records, patient started experiencing RUQ abdominal pain yesterday afternoon associated with subjective fevers and bilious vomiting once, which prompted this hospital visit. Patient on previous hospitalizations was found to have cholangitis and biliary obstruction (04/2016, 10/2016, 08/2017) with biliary stent placement (04/2016). Otherwise, patient denies any chest pain, palpitations, shortness of breath, vomiting, and diarrhea, hematuria, hematochezia, melena, hematemesis. - History Source History Provided By: Medical Record Limitations to Obtaining History: Language Barrier - Past Medical History Cardio/Vascular: Yes: AFIB, 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 WHIPPLE BUT ABORTED DUE TO SCAR TISSUE), Prostatectomy - Alcohol/Substance Use Hx Alcohol Use: No History of Substance Use: reports: None - Smoking History Smoking history: Never smoked Have you smoked in the past 12 months: No Aproximately how many cigarettes per day: 0 - Social History Usual Living Arrangement: With Spouse ADL: Family Assistance History of Recent Travel: No <Linda Hill - Last Filed: 08/30/17 19:10> Home Medications <Linda Hill - Last Filed: 08/30/17 19:10> <Con Frye - Last Filed: 08/30/17 19:31> - Allergies Allergies/Adverse Reactions: Allergies Allergy/AdvReac Type Severity Reaction Status Date / Time No Known Allergies Allergy Verified 08/23/17 17:03 - Home Medications Home Medications: Ambulatory Orders Apixaban [Eliquis] 5 mg PO BID 07/26/16 Atorvastatin Ca [Lipitor] 20 mg PO HS #30 tablet 07/29/16 Aspirin [ASA -] 81 mg PO DAILY 01/01/17 Metoprolol Succinate [Toprol Xl] 50 mg PO BID 01/01/17 Chlorthalidone [Hygroton -] 50 mg PO DAILY 08/23/17 Hydralazine HCl 100 mg PO BID 08/23/17 Benzocaine/Menthol [Cepacol Sore Throat Lozenge] 1 each MM QID PRN 08/29/17 Ciprofloxacin HCl 500 mg PO BID 08/29/17 Docusate Sodium 100 mg PO DAILY 08/29/17 Lisinopril 5 mg PO DAILY 08/29/17 Pantoprazole Sodium [Protonix] 40 mg PO DAILY 08/29/17 metroNIDAZOLE [Metronidazole] 500 mg PO TID 08/29/17 Family Disease History - Family Disease History Family History: Unable to Obtain <Linda Hill - Last Filed: 08/30/17 19:10> Review of Systems Unable to obtain ROS, reason: language barrier <Linda Hill - Last Filed: 08/30/17 19:10> Physical Exam-GI Vital Signs: Vital Signs Temperature 100 F H 08/30/17 14:21 Pulse Rate 112 H 08/30/17 14:21 Respiratory Rate 20 08/30/17 14:21 Blood Pressure 132/81 08/30/17 14:21 O2 Sat by Pulse Oximetry (%) 96 08/30/17 09:00 Constitutional: Yes: Mild Distress Eyes: Yes: Ptosis. No: Sclera Icterus HENT: Yes: Other (NG tube draining) Cardiovascular: Yes: Tachycardia, Other (Regular rhythm) Respiratory: Yes: WNL, Regular, CTA Bilaterally Gastrointestinal Inspection: Yes: Distention, Scars (Midline vertical incisional scar with no erythema. incisional scar to the left of the umbilicus.) . No: Ascites ...Auscultate: Yes: Hypoactive Bowel Sounds ...Percussion: No: Fluid Wave Extremities: No: Cold, Cool Edema: No Neurological: Yes: Alert. No: Lethargy Labs: CBC, BMP 08/30/17 06:00 08/30/17 06:00 INR, PTT INR 1.25 (0.82-1.09) H 08/29/17 03:00 <Linda Hill - Last Filed: 08/30/17 19:10> Vital Signs: Vital Signs Temperature 99.9 F H 08/30/17 16:30 Pulse Rate 104 H 08/30/17 16:30 Respiratory Rate 20 08/30/17 16:30 Blood Pressure 118/86 08/30/17 16:30 O2 Sat by Pulse Oximetry (%) 96 08/30/17 09:00 Labs: CBC, BMP 08/30/17 06:00 08/30/17 06:00 INR, PTT INR 1.25 (0.82-1.09) H 08/29/17 03:00 <Steven Fry - Last Filed: 08/30/17 19:31> Imaging - Results Cat Scan: Report Reviewed, Image Reviewed <Linda Hill - Last Filed: 08/30/17 19:10> Problem List - Problems (1) Small bowel obstruction due to adhesions Code(s): K56.50 - INTESTNL ADHESIONS, UNSP TO PARTIAL VERSUS COMPLETE OBST (2) Transaminitis Code(s): R74.0 - NONSPEC ELEV OF LEVELS OF TRANSAMNS & LACTIC ACID DEHYDRGNSE (3) Obstructive cholestatic liver disease Code(s): K76.89 - OTHER SPECIFIED DISEASES OF LIVER <Linda Hill - Last Filed: 08/30/17 19:10> Assessment/Plan Patient is an 86 year old male with a significant history of cholangitis with biliary obstruction, inoperable pancreatic cancer who was recently transferred for ERCP and biliary stent replacement to [facility] with metal biliary stent placed (08/26). Patient returned due to worsening abdominal pain after discharge associated with one episode of vomiting. On CT Abdomen w/out contrast , patient was found to have small bowel obstruction possibly secondary to abdominal adhesions. NG tube placed and patient had relief of symptoms. Would continue output monitoring of NG tube. Patient's family at this point do not want aggressive measures including surgery. Surgical evaluation done and patient is poor candidate for any surgical interventions with recommendations to transfer to a tertiary center. Would continue NPO, IV fluids, and IV antibiotics. <Linda Hill - Last Filed: 08/30/17 19:10> ATTENDING PHYSICIAN STATEMENT I saw and evaluated the patient. I reviewed the resident's note and discussed the case with the resident. I agree with the resident's findings and plan as documented. SUBJECTIVE: 86M pancreatic cancer s/p 04/30 ERCP w/ plastic stent placement w/ Dr. Rosas. Admitted last week with suspected cholangitis. Transferred to [facility]. underwent ERCP with permanent palliative metallic stent placement 08/26. Admitted back to [facility] for evaluation of N/V and right sided abdominal pain. CT scan reveals ? of SBO with transition in RLQ at site of ? previous surgery. H/O SBO secondary to adehsions in th past. NGT placed with 100cc drainage and patient seen by surgery. Also with fevers and seen by ID. No diarrhea OBJECTIVE: Anicteric Hrt: Tachycardic rate, reg rhythm Lungs: decreased BS at bases b/l w/ poor insp effort Abd: midline surgical scar, + left sided colostomy scar, + BS, + TTP RLQ. No RUQ tenderness. No guarding/rebound ASSESSMENT: Suspected SBO S/P Metallic biliary stent placement: overall liver chemistries improved from last weeks presentation Plan: NPO IV Hydration Surgery following: Management of SBO per surgery IV abx per ID Monitor LFTs Onc input regarding current status of pancreatic cancer If any interventions needed such as reevaluation of biliary stent or surgical management of SBO, should be performed at tertiary care center such as [facility] <Steven Fry - Last Filed: 08/30/17 19:31>
--- NOTE | 2017-08-30 14:54 | EKG ---
Test Reason : Blood Pressure : / mmHG Vent. Rate : 083 BPM Atrial Rate : 083 BPM P-R Int : 146 ms QRS Dur : 108 ms QT Int : 386 ms P-R-T Axes : 056 -32 027 degrees QTc Int : 453 ms NORMAL SINUS RHYTHM LEFT AXIS DEVIATION INCOMPLETE RIGHT BUNDLE BRANCH BLOCK MINIMAL VOLTAGE CRITERIA FOR LVH, MAY BE NORMAL VARIANT ABNORMAL ECG Confirmed by MD Mata, Cole ([id number]) on 08/30/2017 2:54:36 PM Referred By: Flynn CHAN Confirmed By:Cole August MD
--- NOTE | 2017-08-30 16:02 | PN ---
Progress Note (short form) - Note Progress Note: No new complaints Abdominal distention improved NG tube in place Vital Signs Period Temp Pulse Resp BP Sys/Escobedo Pulse Ox Last 24 Hr 98.5 F-102.8 F 66-112 20-20 132-170/73-92 96-96 Abd soft, NT Serial xrays If continues to improve can clamp NG tube and check residuals Patient and his do not want any surgical interventions If one was needed and they change their mind, recommend transfer to [facility] Problem List - Problems (1) Small bowel obstruction Code(s): K56.609 - UNSP INTESTNL OBST, UNSP TO PARTIAL VERSUS COMPLETE OBST
[2017-08-30] MEDS: POTASSIUM CHLORIDE 20 MEQ in SODIUM CHLORIDE 1,000 ML IVPB SCH (17:17)
[2017-08-30] MEDS ORDERED: ACETAMINOPHEN 325 MG TABLET (FP) PO PRN ×2 (17:59→18:01)
[2017-08-30] MEDS ORDERED: ACETAMINOPHEN 650 MG SUPP.RECT PR ONE (18:54)
[2017-08-30] MEDS ORDERED: POTASSIUM CHLORIDE 20 MEQ in SODIUM CHLORIDE 1,000 ML IVPB SCH (22:15)
[2017-08-31] MEDS: HEPARIN NA (PORCINE) 5,000 UNITS/ML 1ML VIAL SQ SCH ×3 (06:04→21:03)
[2017-08-31] MEDS ORDERED: PT OWN MED DRAWER 7, Y5N ONE (06:21)
[2017-08-31 07:51] LABS: BASO % 0.3 % (0-2.0); EOS % 1.3 % (0-4.5); HEMATOCRIT 31.1 % (35.4-49); HEMOGLOBIN 10.5 GM/dL (11.7-16.9); MCH 27.1 pg (25.7-33.7); MCHC 33.6 g/dl (32.0-35.9); MEAN CELL VOLUME 80.5 fl (80-96); MEAN PLT VOLUME 7.8 fl (7.5-11.1); MONO % 16.2 % (3.8-10.2); NEUT % 72.2 % (42.8-82.8); PLATELET COUNT 167 K/MM3 (134-434); RBC 3.87 M/mm3 (4.00-5.60); RDW 16.8 % (11.9-15.9); WHITE BLOOD COUNT 4.5 K/mm3 (4.0-10.0)
[2017-08-31 08:06] LABS: SERUM IRON SATURATION 13 % (15-55); TOTAL IRON BINDING CAPACITY 248 ug/dL (250-450); UIBC 215 ug/dL (111-343)
[2017-08-31 08:12] LABS: CHLORIDE 104 mmol/L (98-107); POTASSIUM 3.1 mmol/L (3.5-5.1); SODIUM 140 mmol/L (136-145)
[2017-08-31 08:20] LABS: ALBUMIN 2.8 g/dl (3.4-5.0); ALK PHOS 262 U/L (45-117); ANION GAP 9 (8-16); BILIRUBIN,TOTAL 0.6 mg/dL (0.2-1.0); BLOOD UREA NITROGEN 15 mg/dL (7-18); CO2 27 mmol/L (21-32); CREATININE 0.9 mg/dL (0.7-1.3); GLUCOSE,RANDOM 94 mg/dL (74-106); SGOT/AST 39 U/L (15-37); SGPT/ALT 48 U/L (12-78)
--- NOTE | 2017-08-31 08:54 | PN ---
Progress Note, Physician Chief Complaint: ID Jesus Afebrile since last night Denies abd pain chills fever - Current Medication List Current Medications: Active Medications Benzocaine/Menthol (Cepacol Lozenge -) 1 each MM QID PRN PRN Reason: sore throat Heparin Sodium (Porcine) (Heparin -) 5,000 unit SQ TID [facility] Last Admin: 08/31/17 06:04 Dose: 5,000 unit Hydralazine HCl (Apresoline Injection -) 10 mg IVPB Q8H PRN PRN Reason: HYPERTENSION Metronidazole (Flagyl 500mg Premixed Ivpb -) 500 mg in 100 mls @ 100 mls/hr IVPB Q8H-IV PRIYANKA Stop: 08/31/17 09:59 Last Admin: 08/31/17 01:20 Dose: 100 mls/hr Ertapenem 1 gm/ Sodium (Chloride) 50 mls @ 100 mls/hr IVPB DAILY [facility] Last Admin: 08/30/17 13:47 Dose: 100 mls/hr Potassium Chloride 20 meq/ (Sodium Chloride) 1,010 mls @ 42 mls/hr IVPB Q24H [facility] Last Admin: 08/30/17 22:39 Dose: 42 mls/hr Metoprolol Tartrate (Lopressor Injection -) 5 mg IVPB Q4H PRN PRN Reason: HYPERTENSION Last Admin: 08/30/17 10:13 Dose: 5 mg Morphine Sulfate (Morphine Sulfate) 4 mg IVPUSH Q6H PRN PRN Reason: PAIN LEVEL 7 - 10 Stop: 09/01/17 14:47 Last Admin: 08/30/17 14:29 Dose: 4 mg Pantoprazole Sodium (Protonix Iv) 40 mg IVPUSH DAILY [facility] Last Admin: 08/30/17 10:00 Dose: 40 mg - Objective Vital Signs: Vital Signs Temperature 98.7 F 08/31/17 06:00 Pulse Rate 62 08/31/17 06:00 Respiratory Rate 18 08/31/17 06:00 Blood Pressure 132/72 08/31/17 06:00 O2 Sat by Pulse Oximetry (%) 96 08/30/17 20:46 Constitutional: Yes: No Distress HENT: Yes: Other (NGT) Cardiovascular: Yes: Regular Rate and Rhythm, S1, S2. No: Murmur Respiratory: Yes: WNL, Regular, CTA Bilaterally. No: Rales, Rhonchi Gastrointestinal: Yes: WNL, Normal Bowel Sounds, Soft, Tenderness, Other (RUQ tender) Edema: No Labs: CBC, BMP 08/31/17 06:45 08/31/17 06:45 INR, PTT INR 1.25 (0.82-1.09) H 08/29/17 03:00 Problem List - Problems (1) Cholangitis Code(s): K83.0 - CHOLANGITIS (2) Pancreatic cancer Code(s): C25.9 - MALIGNANT NEOPLASM OF PANCREAS, UNSPECIFIED Assessment/Plan Microbiology 08/29/17 03:12 Blood - Peripheral Venous Blood Culture - Preliminary NO GROWTH OBTAINED AFTER 48 HOURS, INCUBATION TO CONTINUE FOR 3 DAYS. 08/29/17 03:12 Blood - Peripheral Venous Blood Culture - Preliminary NO GROWTH OBTAINED AFTER 48 HOURS, INCUBATION TO CONTINUE FOR 3 DAYS. Laboratory Tests 08/31/17 08/31/17 06:45 06:45 WBC 4.5 Hgb 10.5 L Hct 31.1 L Plt Count 167 Neutrophils % 72.2 Lymphocytes % 10.0 D Monocytes % 16.2 H D BUN 15 Total Bilirubin 0.6 D AST 39 H Alkaline Phosphatase 262 H Assessment Cholangitis History of ESBL Pancreatic CA Biliary stent change Plan Continue isolation and current antibiotic Ertepjuventino Medina MD
[2017-08-31] MEDS: PANTOPRAZOLE SODIUM 40 MG VIAL IVPUSH SCH (09:30)
[2017-08-31] MEDS: METOPROLOL TARTRATE 5 MG/5 ML VIAL IVPB PRN ×2 (09:31→17:13)
[2017-08-31] MEDS: ERTAPENEM SODIUM 1 GM in SODIUM CHLORIDE 50 ML IVPB SCH (09:59)
--- NOTE | 2017-08-31 11:55 | PN ---
Progress Note, Physician Chief Complaint: SBO History of Present Illness: NAD, in bed Abd distention improved K+ low today, would supplement Abd Xray this AM shows no obstruction - Current Medication List Current Medications: Active Medications Benzocaine/Menthol (Cepacol Lozenge -) 1 each MM QID PRN PRN Reason: sore throat Heparin Sodium (Porcine) (Heparin -) 5,000 unit SQ TID [facility] Last Admin: 08/31/17 06:04 Dose: 5,000 unit Hydralazine HCl (Apresoline Injection -) 10 mg IVPB Q8H PRN PRN Reason: HYPERTENSION Ertapenem 1 gm/ Sodium (Chloride) 50 mls @ 100 mls/hr IVPB DAILY [facility] Last Admin: 08/31/17 09:59 Dose: 100 mls/hr Potassium Chloride 40 meq/ (Sodium Chloride) 1,020 mls @ 42 mls/hr IVPB Q24H PRIYANKA Potassium Chloride (Potassium Chloride 10 Meq Premix Ivpb -) 10 meq in 100 mls @ 100 mls/hr IVPB Q60M [facility] Stop: 08/31/17 14:59 Metoprolol Tartrate (Lopressor Injection -) 5 mg IVPB Q4H PRN PRN Reason: HYPERTENSION Last Admin: 08/31/17 09:31 Dose: 5 mg Morphine Sulfate (Morphine Sulfate) 4 mg IVPUSH Q6H PRN PRN Reason: PAIN LEVEL 7 - 10 Stop: 09/01/17 14:47 Last Admin: 08/30/17 14:29 Dose: 4 mg Pantoprazole Sodium (Protonix Iv) 40 mg IVPUSH DAILY [facility] Last Admin: 08/31/17 09:30 Dose: 40 mg - Objective Vital Signs: Vital Signs Temperature 98.1 F 08/31/17 08:57 Pulse Rate 84 08/31/17 09:31 Respiratory Rate 18 08/31/17 08:57 Blood Pressure 152/72 08/31/17 09:31 O2 Sat by Pulse Oximetry (%) 96 08/31/17 09:00 Constitutional: Yes: Well Nourished, No Distress, Calm Cardiovascular: Yes: Regular Rate and Rhythm Gastrointestinal: Yes: Soft, Hypoactive Bowel Sounds Musculoskeletal: Yes: WNL Extremities: Yes: WNL Neurological: Yes: Alert, Oriented Psychiatric: Yes: Alert, Oriented Labs: CBC, BMP 08/31/17 06:45 06/20/18 06:45 INR, PTT INR 1.25 (0.82-1.09) H 08/29/17 03:00 Problem List - Problems (1) Cholangitis Assessment/Plan: -Seen by GI -Oncology consult for pancreatic ca Code(s): K83.0 - CHOLANGITIS (2) History of biliary stent insertion Code(s): Z98.890 - OTHER SPECIFIED POSTPROCEDURAL STATES (3) SBO (small bowel obstruction) Assessment/Plan: -Repeat Abd Xray shows no obstruction -Clamp NGT for 6 hours and check residual -If minimal residual, may start clear liquid diet -Surgery on board Code(s): K56.609 - UNSP INTESTNL OBST, UNSP TO PARTIAL VERSUS COMPLETE OBST (4) Anemia Assessment/Plan: -Chronic disease +MARGARITA -Venofer today -hematology consult -Monitor trend Code(s): D64.9 - ANEMIA, UNSPECIFIED Qualifiers: Anemia type: iron deficiency (5) Afib Assessment/Plan: -unable to take Eliquis due to NPO status -Heparin 5000 U TID Code(s): I48.91 - UNSPECIFIED ATRIAL FIBRILLATION Qualifiers: Assessment/Plan see problem list
[2017-08-31] MEDS ORDERED: IRON SUCROSE INJECTION 300 MG in SODIUM CHLORIDE 235 ML IVPB ONE (13:21)
[2017-08-31] MEDS: POTASSIUM CHLORIDE 10 MEQ in SODIUM CHLORIDE 100 ML IVPB SCH ×3 (13:30→15:43)
[2017-08-31] MEDS ORDERED: INSULIN (NOVOLOG) ASPART 100 UNITS/ML 10ML VIAL ONE (14:37)
[2017-08-31] MEDS ORDERED: INSULIN (LEVEMIR) 100 UNITS/ML UNITS SQ ONE (14:38)
--- NOTE | 2017-08-31 15:13 | PN ---
Progress Note, Physician History of Present Illness: seen and examined today in [facility]. no overnight events. - Current Medication List Current Medications: Active Medications Benzocaine/Menthol (Cepacol Lozenge -) 1 each MM QID PRN PRN Reason: sore throat Heparin Sodium (Porcine) (Heparin -) 5,000 unit SQ TID [facility] Last Admin: 08/31/17 13:20 Dose: 5,000 unit Hydralazine HCl (Apresoline Injection -) 10 mg IVPB Q8H PRN PRN Reason: HYPERTENSION Ertapenem 1 gm/ Sodium (Chloride) 50 mls @ 100 mls/hr IVPB DAILY [facility] Last Admin: 08/31/17 09:59 Dose: 100 mls/hr Potassium Chloride 40 meq/ (Sodium Chloride) 1,020 mls @ 42 mls/hr IVPB Q24H [facility] Potassium Chloride 10 meq/ (Sodium Chloride) 105 mls @ 100 mls/hr IVPB Q60M [facility] Stop: 08/31/17 15:59 Last Admin: 08/31/17 13:30 Dose: 100 mls/hr Metoprolol Tartrate (Lopressor Injection -) 5 mg IVPB Q4H PRN PRN Reason: HYPERTENSION Last Admin: 08/31/17 09:31 Dose: 5 mg Morphine Sulfate (Morphine Sulfate) 4 mg IVPUSH Q6H PRN PRN Reason: PAIN LEVEL 7 - 10 Stop: 09/01/17 14:47 Last Admin: 08/30/17 14:29 Dose: 4 mg Pantoprazole Sodium (Protonix Iv) 40 mg IVPUSH DAILY [facility] Last Admin: 08/31/17 09:30 Dose: 40 mg - Objective Vital Signs: Vital Signs Temperature 98.5 F 08/31/17 12:00 Pulse Rate 82 08/31/17 12:00 Respiratory Rate 18 08/31/17 12:00 Blood Pressure 140/70 08/31/17 12:00 O2 Sat by Pulse Oximetry (%) 96 08/31/17 09:00 Constitutional: Yes: No Distress, Calm Eyes: Yes: Conjunctiva Clear HENT: Yes: Atraumatic Neck: Yes: Supple, Trachea Midline Cardiovascular: Yes: Regular Rate and Rhythm, S1, S2. No: Bradycardia, Tachycardia, Pulse Irregular, Bruit, JVD, Gallop, Murmur, Rub, S3, S4, Varicosities Respiratory: Yes: Regular. No: Rales, Rhonchi, Wheezes Gastrointestinal: Yes: Normal Bowel Sounds, Soft. No: Distention, Tenderness Edema: No Neurological: Yes: Alert, Oriented Psychiatric: Yes: Alert, Oriented Labs: CBC, BMP 08/31/17 06:45 08/31/17 06:45 INR, PTT INR 1.25 (0.82-1.09) H 08/29/17 03:00 - ....Imaging Chest X-ray: Report Reviewed, Image Reviewed EKG: Report Reviewed, Image Reviewed Other: Report Reviewed, Image Reviewed Assessment/Plan 86 year old male with a past medical history of pancreatic CA, htn, afib s/p ppm 08/2016 for tachy/daisy, nonobs CAD on cath 2012, normal myocardial perfusion 08/2016, cholangitis s/p cholecystectomy and biliary stent, SBO, multiple abdominal surgeries who presents with abdominal pain. +vomiting in ER and found to have SBO on ct scan. EKG: sinus rhythm at 80bpm, lvh, no acute st changes No chest pain, sob, or palpitations. No pnd, orthopnea, or edema. 1)Admitted for SBO. S/p NG tube placement. Remains NPO Remains in NSR at this time. BP remains only mildly elevated. Cont metoprolol IV as needed for BP and hydralazine IV as needed for bp control until tolerates po meds Surgery fup appreciated, pts and family do not want surgery, conservative measures being attempted Apixaban on hold at this time as NPO and question if will need surgery. If going to be longstanding off of apixaban will need to address whether to bridge.
--- NOTE | 2017-08-31 16:11 | PN ---
Progress Note, Physician History of Present Illness: Patient seen and examined by me at bedside with inpatient care manager rn. Patient is sitting up on the side of the bed in no discomfort. Patient reports abdominal pain only when palpating the abdomen. States his last bowel movement was Tuesday. Patient's NG tube clamped since 13:30 and will be clamped for a total of 6 hours. Patient denies any nausea, vomiting, fever, chills. - Current Medication List Current Medications: Active Medications Benzocaine/Menthol (Cepacol Lozenge -) 1 each MM QID PRN PRN Reason: sore throat Heparin Sodium (Porcine) (Heparin -) 5,000 unit SQ TID [facility] Last Admin: 08/31/17 13:20 Dose: 5,000 unit Hydralazine HCl (Apresoline Injection -) 10 mg IVPB Q8H PRN PRN Reason: HYPERTENSION Ertapenem 1 gm/ Sodium (Chloride) 50 mls @ 100 mls/hr IVPB DAILY [facility] Last Admin: 08/31/17 09:59 Dose: 100 mls/hr Potassium Chloride 40 meq/ (Sodium Chloride) 1,020 mls @ 42 mls/hr IVPB Q24H [facility] Metoprolol Tartrate (Lopressor Injection -) 5 mg IVPB Q4H PRN PRN Reason: HYPERTENSION Last Admin: 08/31/17 09:31 Dose: 5 mg Morphine Sulfate (Morphine Sulfate) 4 mg IVPUSH Q6H PRN PRN Reason: PAIN LEVEL 7 - 10 Stop: 09/01/17 14:47 Last Admin: 08/30/17 14:29 Dose: 4 mg Pantoprazole Sodium (Protonix Iv) 40 mg IVPUSH DAILY [facility] Last Admin: 08/31/17 09:30 Dose: 40 mg - Objective Vital Signs: Vital Signs Temperature 98.5 F 08/31/17 12:00 Pulse Rate 82 08/31/17 12:00 Respiratory Rate 18 08/31/17 12:00 Blood Pressure 140/70 08/31/17 12:00 O2 Sat by Pulse Oximetry (%) 96 08/31/17 09:00 Constitutional: Yes: No Distress, Calm Eyes: Yes: PERRL. No: Diplopia, Sclera Icterus HENT: Yes: Other (Clamped NG tube) Cardiovascular: Yes: WNL, Regular Rate and Rhythm Respiratory: Yes: WNL, Regular, CTA Bilaterally. No: Accessory Muscle Use, Rales, Rhonchi, SOB, Wheezes Gastrointestinal: Yes: Normal Bowel Sounds, Soft, Tenderness (Upon deep palpation of RUQ, RLQ and Epigastric region), Other (Midline vertical incisional scar with no erythema. Left sided colostomy scar) Extremities: No: Cold, Cool, Erythema Edema: No Neurological: Yes: WNL, Alert, Oriented. No: Aphasia, Dysarthria Psychiatric: Yes: WNL, Alert Labs: CBC, BMP 08/31/17 06:45 08/31/17 06:45 INR, PTT INR 1.25 (0.82-1.09) H 08/29/17 03:00 08/31/17 06:45 Total Bilirubin 0.6 D AST 39 H ALT 48 Alkaline Phosphatase 262 H Total Protein 6.0 L - ....Imaging X-ray: Report Reviewed, Image Reviewed, Other (Abdominal X-ray impression: No sign of obstructive abdominal process with no free air seen) Problem List - Problems (1) Small bowel obstruction due to adhesions Code(s): K56.50 - INTESTNL ADHESIONS, UNSP TO PARTIAL VERSUS COMPLETE OBST (2) Transaminitis Code(s): R74.0 - NONSPEC ELEV OF LEVELS OF TRANSAMNS & LACTIC ACID DEHYDRGNSE (3) Obstructive cholestatic liver disease Code(s): K76.89 - OTHER SPECIFIED DISEASES OF LIVER Impression/Plan Impression/Plan: Patient today reports his abdominal pain is much better than when he initially came in with no nausea or vomiting. Patient once again states he does not want any major surgeries or procedures. Patient is currently on NG tube clamping trial and if no residual seen tonight, NG tube may be removed with clear liquid diet, as per PCP and surgeon. LFT's and alk phos continue to improve. Repeat Abdominal X-ray revealed no obstruction. Plan: Continue NPO until clamping trial complete, IV fluids, IV antibiotics, continue monitoring hepatic panel daily, Oncology input on pancreatic cancer, abdominal examinations for any acute changes, serial abdominal X-Rays. Visit type - Emergency Visit Emergency Visit: Yes ED Registration Date: 08/29/17 Care time: The patient presented to the Emergency Department on the above date and was hospitalized for further evaluation of their emergent condition. - New Patient This patient is new to me today: No - Critical Care Critical Care patient: No
[2017-08-31] MEDS: POTASSIUM CHLORIDE 40 MEQ in SODIUM CHLORIDE 1,000 ML IVPB SCH (17:14)
[2017-08-31] MEDS: hydrALAZINE HCL 20 MG/ML VIAL IVPB PRN (17:49)
--- NOTE | 2017-08-31 18:21 | PN ---
Progress Note (short form) - Note Progress Note: h/o pancreatic cancer s/p chemo/RT completed in 03/[address] with no recurrence. Now admitted with SBO--on conservative management Pt seen and examined. feels weak and tired. O/E: General: appears weak HEENTL NCAT cor: RRR Lungs: CtA b/l abd: NT Ext: no CCE Last Vital Signs Temp Pulse Resp BP Pulse Ox 98.8 F 73 18 184/79 96 08/31/17 17:43 08/31/17 17:43 08/31/17 17:43 08/31/17 17:43 08/31/17 09:00 CBC, BMP 08/31/17 06:45 08/31/17 06:45 Current Medications Generic Name Dose Route Start Last Admin Trade Name Freq PRN Reason Stop Dose Admin Benzocaine/Menthol 1 each 08/29/17 06:54 Cepacol Lozenge - MM QID PRN sore throat Heparin Sodium (Porcine) 5,000 unit 08/29/17 07:30 08/31/17 13:20 Heparin - SQ 5,000 unit TID PRIYANKA Administration Hydralazine HCl 10 mg 08/29/17 16:01 08/31/17 17:49 Apresoline Injection - IVPB 10 mg Q8H PRN Administration HYPERTENSION Ertapenem 1 gm/ Sodium 50 mls @ 100 mls/hr 08/30/17 11:30 08/31/17 09:59 Chloride IVPB 100 mls/hr DAILY PRIYANKA Administration Potassium Chloride 40 meq/ 1,020 mls @ 42 mls/hr 08/31/17 16:00 08/31/17 17: 14 Sodium Chloride IVPB Not Given Q24H PRIYANKA Metoprolol Tartrate 5 mg 08/29/17 15:59 08/31/17 17:13 Lopressor Injection - IVPB 5 mg Q4H PRN Administration HYPERTENSION Morphine Sulfate 4 mg 08/29/17 14:48 08/30/17 14:29 Morphine Sulfate IVPUSH 09/01/17 14:47 4 mg Q6H PRN Administration PAIN LEVEL 7 - 10 Pantoprazole Sodium 40 mg 08/29/17 17:15 08/31/17 09:30 Protonix Iv IVPUSH 40 mg DAILY PRIYANKA Administration h/o pancreatic ca -- treatment completed 03/2017 most recent admission with cholangitis, went [facility]-- stent exchange last PET CT in 06/2017-- no recurrence now with SBO Reviewed chart Ca19-9 trending up will consult [facility]
--- NOTE | 2017-08-31 21:27 | PN ---
Teaching Attending Note Name of Resident: Linda Hill ATTENDING PHYSICIAN STATEMENT I saw and evaluated the patient. I reviewed the resident's note and discussed the case with the resident. I agree with the resident's findings and plan as documented. SUBJECTIVE: No acute events NGT clamped Abdominal pian improved Scant flatus No BM OBJECTIVE: Afebrile Anicteric Hrt RRR Lungs CTA b/l Abd: sft, + BS, improved TTP LLQ Ext: No LE edema WBC: 4.5 AST: 39 ALT: 48 ALP: 262 TB: 0.6 ASSESSMENT: SBO vs. Ileus No output from NGT after clamped S/P Metallic palliative biliary stent secondary to pancreatic cancer PLAN: NPO Clears in AM if OK with surgery IV Hydration AM Labs IV Abx
[2017-09-01] MEDS: METOPROLOL TARTRATE 5 MG/5 ML VIAL IVPB PRN (03:35)
[2017-09-01] MEDS: POTASSIUM CHLORIDE 40 MEQ in SODIUM CHLORIDE 1,000 ML IVPB SCH ×3 (04:00→16:37)
[2017-09-01] MEDS: hydrALAZINE HCL 20 MG/ML VIAL IVPB PRN (04:31)
[2017-09-01] MEDS: HEPARIN NA (PORCINE) 5,000 UNITS/ML 1ML VIAL SQ SCH (06:30)
[2017-09-01 07:13] LABS: BASO % 0.4 % (0-2.0); EOS % 1.4 % (0-4.5); HEMATOCRIT 30.7 % (35.4-49); HEMOGLOBIN 10.4 GM/dL (11.7-16.9); LYMPH % 9.2 % (8-40); MCH 26.9 pg (25.7-33.7); MCHC 33.8 g/dl (32.0-35.9); MEAN CELL VOLUME 79.7 fl (80-96); MEAN PLT VOLUME 7.9 fl (7.5-11.1); MONO % 15.4 % (3.8-10.2); NEUT % 73.6 % (42.8-82.8); PLATELET COUNT 178 K/MM3 (134-434); RBC 3.85 M/mm3 (4.00-5.60); RDW 16.7 % (11.9-15.9); WHITE BLOOD COUNT 5.9 K/mm3 (4.0-10.0)
--- NOTE | 2017-09-01 08:19 | PN ---
Progress Note, Physician History of Present Illness: feels better no pain having bm - Current Medication List Current Medications: Active Medications Benzocaine/Menthol (Cepacol Lozenge -) 1 each MM QID PRN PRN Reason: sore throat Heparin Sodium (Porcine) (Heparin -) 5,000 unit SQ TID [facility] Last Admin: 09/01/17 06:30 Dose: 5,000 unit Hydralazine HCl (Apresoline Injection -) 10 mg IVPB Q8H PRN PRN Reason: HYPERTENSION Last Admin: 09/01/17 04:31 Dose: 10 mg Ertapenem 1 gm/ Sodium (Chloride) 50 mls @ 100 mls/hr IVPB DAILY [facility] Last Admin: 08/31/17 09:59 Dose: 100 mls/hr Potassium Chloride 40 meq/ (Sodium Chloride) 1,020 mls @ 42 mls/hr IVPB Q24H [facility] Last Admin: 09/01/17 04:00 Dose: 42 mls/hr Metoprolol Tartrate (Lopressor Injection -) 5 mg IVPB Q4H PRN PRN Reason: HYPERTENSION Last Admin: 09/01/17 03:35 Dose: 5 mg Morphine Sulfate (Morphine Sulfate) 4 mg IVPUSH Q6H PRN PRN Reason: PAIN LEVEL 7 - 10 Stop: 09/01/17 14:47 Last Admin: 08/30/17 14:29 Dose: 4 mg Pantoprazole Sodium (Protonix Iv) 40 mg IVPUSH DAILY [facility] Last Admin: 08/31/17 09:30 Dose: 40 mg - Objective Vital Signs: Vital Signs Temperature 99.5 F 09/01/17 05:50 Pulse Rate 73 09/01/17 05:50 Respiratory Rate 18 09/01/17 05:50 Blood Pressure 151/70 09/01/17 05:50 O2 Sat by Pulse Oximetry (%) 95 08/31/17 21:00 Cardiovascular: Yes: Pulse Irregular, S1, S2. No: Tachycardia Respiratory: Yes: Regular, CTA Bilaterally Gastrointestinal: Yes: Normal Bowel Sounds, Soft. No: Tenderness Labs: CBC, BMP 09/01/17 06:00 INR, PTT INR 1.25 (0.82-1.09) H 08/29/17 03:00 Problem List - Problems (1) Small bowel obstruction Code(s): K56.609 - UNSP INTESTNL OBST, UNSP TO PARTIAL VERSUS COMPLETE OBST (2) Abnormal LFTs (liver function tests) Code(s): R94.5 - ABNORMAL RESULTS OF LIVER FUNCTION STUDIES (3) Afib Code(s): I48.91 - UNSPECIFIED ATRIAL FIBRILLATION Qualifiers: (4) CAD (coronary artery disease) Code(s): I25.10 - ATHSCL HEART DISEASE OF [place] CORONARY ARTERY W/O ANG PCTRS (5) Common bile duct (CBD) obstruction Code(s): K83.1 - OBSTRUCTION OF BILE DUCT (6) Pancreatic neoplasm Code(s): D49.0 - NEOPLASM OF UNSPECIFIED BEHAVIOR OF DIGESTIVE SYSTEM Assessment/Plan - Problems (1) Cholangitis Assessment/Plan: -Seen by GI -Oncology consult for pancreatic ca Code(s): K83.0 - CHOLANGITIS (2) History of biliary stent insertion Code(s): Z98.890 - OTHER SPECIFIED POSTPROCEDURAL STATES (3) SBO (small bowel obstruction) Assessment/Plan: -Repeat Abd Xray shows no obstruction -dC NGT - minimal residual, start clear liquid diet -Surgery on board Code(s): K56.609 - UNSP INTESTNL OBST, UNSP TO PARTIAL VERSUS COMPLETE OBST (4) Anemia Assessment/Plan: -Chronic disease +MARGARITA -Venofer today -hematology consult -Monitor trend Code(s): D64.9 - ANEMIA, UNSPECIFIED Qualifiers: Anemia type: iron deficiency (5) Afib Assessment/Plan: -Resume Eliquis and metoprolol -Heparin 5000 U TID Code(s): I48.91 - UNSPECIFIED ATRIAL FIBRILLATION Qualifiers:
[2017-09-01 08:38] LABS: CHLORIDE 102 mmol/L (98-107); POTASSIUM 3.1 mmol/L (3.5-5.1); SODIUM 139 mmol/L (136-145)
--- NOTE | 2017-09-01 08:41 | PN ---
Progress Note, Physician Chief Complaint: ID Ertepenem continues Denies abd pains Iron Fever chills - Current Medication List Current Medications: Active Medications Benzocaine/Menthol (Cepacol Lozenge -) 1 each MM QID PRN PRN Reason: sore throat Heparin Sodium (Porcine) (Heparin -) 5,000 unit SQ TID [facility] Last Admin: 09/01/17 06:30 Dose: 5,000 unit Hydralazine HCl (Apresoline Injection -) 10 mg IVPB Q8H PRN PRN Reason: HYPERTENSION Last Admin: 09/01/17 04:31 Dose: 10 mg Ertapenem 1 gm/ Sodium (Chloride) 50 mls @ 100 mls/hr IVPB DAILY [facility] Last Admin: 08/31/17 09:59 Dose: 100 mls/hr Potassium Chloride 40 meq/ (Sodium Chloride) 1,020 mls @ 42 mls/hr IVPB Q24H [facility] Last Admin: 09/01/17 04:00 Dose: 42 mls/hr Metoprolol Tartrate (Lopressor Injection -) 5 mg IVPB Q4H PRN PRN Reason: HYPERTENSION Last Admin: 09/01/17 03:35 Dose: 5 mg Morphine Sulfate (Morphine Sulfate) 4 mg IVPUSH Q6H PRN PRN Reason: PAIN LEVEL 7 - 10 Stop: 09/01/17 14:47 Last Admin: 08/30/17 14:29 Dose: 4 mg Pantoprazole Sodium (Protonix Iv) 40 mg IVPUSH DAILY [facility] Last Admin: 08/31/17 09:30 Dose: 40 mg - Objective Vital Signs: Vital Signs Temperature 99.5 F 09/01/17 05:50 Pulse Rate 73 09/01/17 05:50 Respiratory Rate 18 09/01/17 05:50 Blood Pressure 151/70 09/01/17 05:50 O2 Sat by Pulse Oximetry (%) 95 08/31/17 21:00 Constitutional: Yes: No Distress HENT: Yes: Other (NGT in place) Neck: Yes: WNL, Supple Cardiovascular: Yes: Regular Rate and Rhythm, S1, S2 Respiratory: Yes: WNL, Regular, CTA Bilaterally Gastrointestinal: Yes: Soft. No: Tenderness Edema: No Labs: CBC, BMP 09/01/17 06:00 INR, PTT INR 1.25 (0.82-1.09) H 08/29/17 03:00 Problem List - Problems (1) Cholangitis Code(s): K83.0 - CHOLANGITIS (2) Pancreatic cancer Code(s): C25.9 - MALIGNANT NEOPLASM OF PANCREAS, UNSPECIFIED Assessment/Plan Laboratory Tests 08/31/17 09/01/17 06:45 06:00 WBC 5.9 D Hct 30.7 L Plt Count 178 BUN 15 Alkaline Phosphatase 262 H Assessment SBO ileus Fever 102 resolved ? cholangitis S/P stent Pancreatic CA Plan Continue Ertepenem Adam GORDILLO
[2017-09-01 09:00] LABS: ALBUMIN 2.8 g/dl (3.4-5.0); ALK PHOS 285 U/L (45-117); ANION GAP 15 (8-16); BILIRUBIN,TOTAL 0.6 mg/dL (0.2-1.0); BLOOD UREA NITROGEN 14 mg/dL (7-18); CO2 22 mmol/L (21-32); CREATININE 0.7 mg/dL (0.7-1.3); GLUCOSE,RANDOM 82 mg/dL (74-106); SGOT/AST 32 U/L (15-37); SGPT/ALT 41 U/L (12-78); TOT PROT 6.1 g/dl (6.4-8.2)
[2017-09-01] MEDS ORDERED: METOPROLOL TARTRATE 5 MG/5 ML VIAL IVPB ONE (09:02)
[2017-09-01] MEDS ORDERED: METOPROLOL TARTRATE 50 MG TABLET (FP) PO ONE (09:07)
[2017-09-01] MEDS ORDERED: METOPROLOL TARTRATE 5 MG/5 ML VIAL IVPUSH ONE (09:07)
[2017-09-01] MEDS ORDERED: SODIUM CHLORIDE 1,000 ML IV STA (09:10)
--- NOTE | 2017-09-01 09:13 | RAPID ---
Physical Examination Vital Signs: Vital Signs Temperature 99.5 F 09/01/17 05:50 Pulse Rate 73 09/01/17 05:50 Respiratory Rate 18 09/01/17 05:50 Blood Pressure 151/70 09/01/17 05:50 O2 Sat by Pulse Oximetry (%) 95 08/31/17 21:00 Findings/Remarks: Vitals: 161/83, HR-138bpm, sats-98% Rapid response was called for a pt with hx of afib, Ca esophagus, SBO, with chest pain found to be in RVR at 175bpm PE: Pt awake, alert oriented, NGT in place CVs: s1, s2, irreg irreg, tachycardic Respiration: clear to asucultation Abd: Non tender Extremties; No pedal edema Assessement Afib-RVR Plan: iv lopressor- iv 5mg MD push under telemetry monitor x2 Iv cardizem-iv 10mg 1L iv N/saline PO lopressor 50mg stat Trops Mg Cardiac enzymes Family contacted Pt transferred to Tele- no tele bed available, transferred to ICU Primary doctor contacted For reevaluation Labs: CBC, BMP 09/01/17 06:00 09/01/17 06:00
[2017-09-01] MEDS ORDERED: dilTIAZem HCL 50 MG/10 ML - 10 ML VIAL IVPUSH ONE (09:19)
[2017-09-01] MEDS ORDERED: PANTOPRAZOLE 40 MG TABLET (FP) PO SCH (10:00)
[2017-09-01] MEDS ORDERED: LISINOPRIL 5 MG TABLET (FP) PO SCH (10:00)
[2017-09-01] MEDS ORDERED: APIXABAN 5 MG TABLET PO SCH (10:00)
[2017-09-01] MEDS: KCL 10 MEQ IVPB 10 MEQ/100 ML INFUS.BAG IVPB SCH ×3 (10:52→14:30)
[2017-09-01 10:59] LABS: MAGNESIUM 1.7 mg/dL (1.8-2.4)
--- NOTE | 2017-09-01 11:46 | EKG ---
Test Reason : Blood Pressure : / mmHG Vent. Rate : 173 BPM Atrial Rate : 085 BPM P-R Int : 000 ms QRS Dur : 100 ms QT Int : 238 ms P-R-T Axes : 000 -35 130 degrees QTc Int : 403 ms ATRIAL FIBRILLATION WITH RAPID VENTRICULAR RESPONSE WITH PREMATURE VENTRICULAR OR ABERRANTLY CONDUCTED COMPLEXES LEFT AXIS DEVIATION MARKED ST ABNORMALITY, POSSIBLE ANTEROLATERAL SUBENDOCARDIAL INJURY ABNORMAL ECG WHEN COMPARED WITH ECG OF 30-AUG-2017 09:06, ATRIAL FIBRILLATION HAS REPLACED SINUS RHYTHM VENT. RATE HAS INCREASED BY [address] NOW DEPRESSED IN ANTEROLATERAL LEADS T WAVE INVERSION NOW EVIDENT IN LATERAL LEADS Confirmed by GAVIOTA ALEXANDER MD ([id number]) on 09/01/2017 11:46:06 AM Referred By: KLEVER PRO Confirmed By:GAVIOTA ALEXANDER MD
--- NOTE | 2017-09-01 11:50 | PN ---
GI Progress Note Subjective: Transferred to ICU for A. Fib w/ RVR No abdominal pain - Objective Vital Signs: Vital Signs Temperature 99.1 F 09/01/17 08:45 Pulse Rate 106 H 09/01/17 09:32 Respiratory Rate 20 09/01/17 09:32 Blood Pressure 98/47 09/01/17 09:32 O2 Sat by Pulse Oximetry (%) 95 08/31/17 21:00 Constitutional: Calm Eyes: No: Sclera Icterus Cardiovascular: Yes: Regular Rate and Rhythm Respiratory: Yes: CTA Bilaterally Gastrointestinal Inspection: No: Distention ...Auscultate: Yes: Normoactive Bowel Sounds ...Palpate: No: Tenderness (Resolved TTP RLQ) ...Percussion: No: Tympanitic Edema: No (No LE edema) Neurological: Yes: Alert Labs: CBC, BMP 09/01/17 06:00 09/01/17 06:00 INR, PTT INR 1.25 (0.82-1.09) H 08/29/17 03:00 Hepatic Panel Total Bilirubin 0.6 mg/dL (0.2-1.0) 09/01/17 06:00 AST 32 U/L (15-37) 09/01/17 06:00 ALT 41 U/L (12-78) 09/01/17 06:00 Alkaline Phosphatase 285 U/L (45-117) H 09/01/17 06:00 Albumin 2.8 g/dl (3.4-5.0) L 09/01/17 06:00 Problem List - Problems (1) SBO (small bowel obstruction) Assessment/Plan: Clinically improved Care per surgery Code(s): K56.609 - UNSP INTESTNL OBST, UNSP TO PARTIAL VERSUS COMPLETE OBST (2) History of biliary stent insertion Assessment/Plan: Bilirubin normalized Continue to monitor Code(s): Z98.890 - OTHER SPECIFIED POSTPROCEDURAL STATES
[2017-09-01] MEDS: MUPIROCIN 2% TOPICAL OINTMENT FOR DECOLONIZATION NS SCH ×2 (12:00→22:23)
--- NOTE | 2017-09-01 13:04 | PN ---
Teaching Attending Note Name of Resident: Hernán Khan ATTENDING PHYSICIAN STATEMENT I saw and evaluated the patient. I reviewed the resident's note and discussed the case with the resident. I agree with the resident's findings and plan as documented. SUBJECTIVE: Patient seen and examined in the ICU. Transferred due to Rapid Response due to Rapid AFib. Hemodynamics are currently stable. HR 110 to 130. Denies CP. Some mild (but chronic) LUQ discomfort. Given Carduzem 10mg IVP x 1. Intake & Output 08/29/17 08/30/17 08/31/17 09/01/17 23:59 23:59 23:59 23:59 Intake Total 416 1344 1404 550 Output Total 100 1150 1503 Balance 316 194 -99 550 Weight 158 lb 154 lb 14.4 oz 153 lb 4.8 oz Last Vital Signs Temp Pulse Resp BP Pulse Ox 99.1 F 106 H 20 98/47 95 09/01/17 08:45 09/01/17 09:32 09/01/17 09:32 09/01/17 09:32 08/31/17 21:00 Active Medications Apixaban (Eliquis -) 5 mg PO BID [facility] Last Admin: 09/01/17 11:17 Dose: 5 mg Benzocaine/Menthol (Cepacol Lozenge -) 1 each MM QID PRN PRN Reason: sore throat Chlorhexidine Gluconate (Hibiclens For Decolonization -) 1 applic TP HS [facility] Ertapenem 1 gm/ Sodium (Chloride) 50 mls @ 100 mls/hr IVPB DAILY [facility] Last Admin: 08/31/17 09:59 Dose: 100 mls/hr Potassium Chloride 40 meq/ (Sodium Chloride) 1,020 mls @ 42 mls/hr IVPB Q24H [facility] Last Admin: 09/01/17 04:00 Dose: 42 mls/hr Lisinopril (Prinivil) 5 mg PO DAILY [facility] Last Admin: 09/01/17 11:16 Dose: 5 mg Metoprolol Succinate (Toprol Xl -) 50 mg PO BID [facility] Last Admin: 09/01/17 11:20 Dose: 50 mg Morphine Sulfate (Morphine Sulfate) 4 mg IVPUSH Q6H PRN PRN Reason: PAIN LEVEL 7 - 10 Stop: 09/01/17 14:47 Last Admin: 08/30/17 14:29 Dose: 4 mg Mupirocin (Bactroban Ointment (For Decolonization) -) 1 applic NS BID [facility] Stop: 09/06/17 09:59 Pantoprazole Sodium (Protonix -) 40 mg PO DAILY [facility] Last Admin: 09/01/17 11:16 Dose: 40 mg Constitutional: Yes: Awake and alert, No acute distress Eyes: Yes: PERRL. No: Diplopia, Sclera Icterus HENT: Yes: NGT Cardiovascular: Yes: Tacycardia, Irregularly irregular Respiratory: Yes: CTA Bilaterally. No: Accessory Muscle Use, Rales, Rhonchi, SOB, Wheezes Gastrointestinal: Yes: Normal Bowel Sounds, Soft, Mild Tenderness LUQ, multiple healed scars Extremities: No: Cold, Cool, Erythema Edema: No Neurological: Yes: WNL, Alert, Oriented. No: Aphasia, Dysarthria Psychiatric: Yes: WNL, Alert Labs: Laboratory Results - last 24 hr 09/01/17 09/01/17 09/01/17 06:00 06:00 08:57 WBC 5.9 D RBC 3.85 L Hgb 10.4 L Hct 30.7 L MCV 79.7 L MCH 26.9 MCHC 33.8 RDW 16.7 H Plt Count 178 MPV 7.9 Absolute Neuts (auto) 4.3 Neutrophils % 73.6 Lymphocytes % 9.2 Monocytes % 15.4 H Eosinophils % 1.4 Basophils % 0.4 Nucleated RBC % 0 Sodium 139 Potassium 3.1 L Chloride 102 Carbon Dioxide 22 Anion Gap 15 BUN 14 Creatinine 0.7 D Creat Clearance w eGFR > 60 POC Glucometer 101 Random Glucose 82 Calcium 8.0 L Magnesium Total Bilirubin 0.6 AST 32 ALT 41 Alkaline Phosphatase 285 H Creatine Kinase Creatine Kinase Index CK-MB (CK-2) Troponin I Total Protein 6.1 L Albumin 2.8 L 09/01/17 09/01/17 09/01/17 09:30 09:40 09:40 WBC RBC Hgb Hct MCV MCH MCHC RDW Plt Count MPV Absolute Neuts (auto) Neutrophils % Lymphocytes % Monocytes % Eosinophils % Basophils % Nucleated RBC % Sodium Potassium Chloride Carbon Dioxide Anion Gap BUN Creatinine Creat Clearance w eGFR POC Glucometer Random Glucose Calcium Magnesium 1.7 L Cancelled Total Bilirubin AST ALT Alkaline Phosphatase Creatine Kinase 177 Creatine Kinase Index 1.3 CK-MB (CK-2) 2.47 Troponin I 0.21 H D Cancelled Total Protein Albumin Problem List - Problems (1) Small bowel obstruction due to adhesions Code(s): K56.50 - INTESTNL ADHESIONS, UNSP TO PARTIAL VERSUS COMPLETE OBST (2) Transaminitis Code(s): R74.0 - NONSPEC ELEV OF LEVELS OF TRANSAMNS & LACTIC ACID DEHYDRGNSE (3) Obstructive cholestatic liver disease Code(s): K76.89 - OTHER SPECIFIED DISEASES OF LIVER (4) Rapid Atrial Fibrillation Impression/Plan IVF Need to clarify with GI/surgery if we can give enteral meds : -> if not and needs rate control -> IV cardizem / drip O2 as needed Replete potassium ABX per ID Eliquis Cardiac Telemetry monitoring Dr Hurst Critical care time spent in reviewing chart, evaluating patient and formulating plan - 36 minutes.
[2017-09-01] MEDS: ERTAPENEM SODIUM 1 GM in SODIUM CHLORIDE 50 ML IVPB SCH (13:20)
--- NOTE | 2017-09-01 13:51 | PN ---
Physical Exam: SUBJECTIVE: Patient seen and examined OBJECTIVE: Vital Signs Period Temp Pulse Resp BP Sys/[place] Pulse Ox Last 24 Hr 98.8 F-99.5 F 66-171 18-20 97-187/45-95 95-98 GENERAL: AAOx3 in NAD HEAD: NC/AT EYES: EOMI, Conjunctiva clear, sclera anicteric ENT: moist mucous membrane NECK: Supple, no JVD LUNGS: CTA B/L, no crackles no wheezing no accessory muscle use. HEART: RRR, NSR, normal s1, s2, murmur no M/R/G ABDOMEN: Soft, ND, NT, +BS 4 Q, no CVA Tenderness LOWER EXTREMITIES: no edema, +2DP pulse, NEUROLOGICAL: No focal deficit. Normal speech. gait not observed. PSYCHIATRIC: Cooperative. Good eye contact. Appropriate mood and affect. SKIN: Warm, dry, Laboratory Results - last 24 hr 09/01/17 09/01/17 09/01/17 06:00 06:00 08:57 WBC 5.9 D RBC 3.85 L Hgb 10.4 L Hct 30.7 L MCV 79.7 L MCH 26.9 MCHC 33.8 RDW 16.7 H Plt Count 178 MPV 7.9 Absolute Neuts (auto) 4.3 Neutrophils % 73.6 Lymphocytes % 9.2 Monocytes % 15.4 H Eosinophils % 1.4 Basophils % 0.4 Nucleated RBC % 0 Sodium 139 Potassium 3.1 L Chloride 102 Carbon Dioxide 22 Anion Gap 15 BUN 14 Creatinine 0.7 D Creat Clearance w eGFR > 60 POC Glucometer 101 Random Glucose 82 Calcium 8.0 L Magnesium Total Bilirubin 0.6 AST 32 ALT 41 Alkaline Phosphatase 285 H Creatine Kinase Creatine Kinase Index CK-MB (CK-2) Troponin I Total Protein 6.1 L Albumin 2.8 L 09/01/17 09/01/17 09/01/17 09:30 09:40 09:40 WBC RBC Hgb Hct MCV MCH MCHC RDW Plt Count MPV Absolute Neuts (auto) Neutrophils % Lymphocytes % Monocytes % Eosinophils % Basophils % Nucleated RBC % Sodium Potassium Chloride Carbon Dioxide Anion Gap BUN Creatinine Creat Clearance w eGFR POC Glucometer Random Glucose Calcium Magnesium 1.7 L Cancelled Total Bilirubin AST ALT Alkaline Phosphatase Creatine Kinase 177 Creatine Kinase Index 1.3 CK-MB (CK-2) 2.47 Troponin I 0.21 H D Cancelled Total Protein Albumin Active Medications Generic Name Dose Route Start Last Admin Trade Name Freq PRN Reason Stop Dose Admin Apixaban 5 mg 09/01/17 10:00 09/01/17 11:17 Eliquis - PO 5 mg BID [facility] Administration Benzocaine/Menthol 1 each 08/29/17 06:54 Cepacol Lozenge - MM QID PRN sore throat Chlorhexidine Gluconate 1 applic 09/01/17 22:00 Hibiclens For Decolonization - TP HS [facility] Ertapenem 1 gm/ Sodium 50 mls @ 100 mls/hr 08/30/17 11:30 09/01/17 13:20 Chloride IVPB 100 mls/hr DAILY [facility] Administration Potassium Chloride 40 meq/ 1,020 mls @ 42 mls/hr 08/31/17 16:00 09/01/17 04: 00 Sodium Chloride IVPB 42 mls/hr Q24H [facility] Administration Lisinopril 5 mg 09/01/17 10:00 09/01/17 11:16 Prinivil PO 5 mg DAILY [facility] Administration Metoprolol Succinate 50 mg 09/01/17 10:00 09/01/17 11:20 Toprol Xl - PO 50 mg BID [facility] Administration Morphine Sulfate 4 mg 08/29/17 14:48 08/30/17 14:29 Morphine Sulfate IVPUSH 09/01/17 14:47 4 mg Q6H PRN Administration PAIN LEVEL 7 - 10 Mupirocin 1 applic 09/01/17 10:00 09/01/17 13:19 Bactroban Ointment (For Decolonization) - NS 09/06/17 09:59 1 applic BID [facility] Administration Pantoprazole Sodium 40 mg 09/01/17 10:00 09/01/17 11:16 Protonix - PO 40 mg DAILY [facility] Administration CBC, BMP 09/01/17 06:00 09/01/17 06:00 ASSESSMENT/PLAN:
--- NOTE | 2017-09-01 13:54 | CONSULT ---
Consultation: REQUESTING PROVIDER: CONSULT REQUEST: We have been asked to medically evaluate this patient for Aib with RVR. HISTORY OF PRESENT ILLNESS: 86 male presents for abdominal pain and distention with history of pancreatic CA being treated at [facility],S/P cholecystectomy and stent for cholangitis, Multiple unknown abdominal surgeries.had a rapid response today due to Afib with RVR and was admitted to ICU. denies any fever, chills, tolerating full liquid diet denies any chest pain or SOB restarted his home meds BB and abixaban and converted to sinus rhythm , and given cardizem Iv push X 1 ,will transfer to tele REVIEW OF SYSTEMS: CONSTITUTIONAL: Absent: fever, chills, diaphoresis, generalized weakness, malaise, loss of appetite, weight change HEENT: Absent: rhinorrhea, nasal congestion, throat pain, throat swelling, difficulty swallowing, mouth swelling, ear pain, eye pain, visual changes CARDIOVASCULAR: Absent: chest pain, syncope, palpitations, irregular heart rate, lightheadedness , peripheral edema RESPIRATORY: Absent: cough, shortness of breath, dyspnea with exertion, orthopnea, wheezing, stridor, hemoptysis GASTROINTESTINAL: Absent: abdominal pain, abdominal distension, nausea, vomiting, diarrhea, constipation, melena, hematochezia GENITOURINARY: Absent: dysuria, frequency, urgency, hesitancy, hematuria, flank pain, genital pain MUSCULOSKELETAL: Absent: myalgia, arthralgia, joint swelling, back pain, neck pain SKIN: Absent: rash, itching, pallor HEMATOLOGIC/IMMUNOLOGIC: Absent: easy bleeding, easy bruising, lymphadenopathy, frequent infections ENDOCRINE: Absent: unexplained weight gain, unexplained weight loss, heat intolerance, cold intolerance NEUROLOGIC: Absent: headache, focal weakness or paresthesias, dizziness, unsteady gait, seizure, mental status changes, bladder or bowel incontinence PSYCHIATRIC: Absent: anxiety, depression, suicidal or homicidal ideation, hallucinations. PHYSICAL EXAMINATION Vital Signs - 8 hr 09/01/17 09/01/17 09/01/17 10:30 11:00 12:00 Temperature 98.9 F 98.8 F Pulse Rate 130 H 108 H 66 Respiratory 18 20 19 Rate Blood Pressure 129/80 139/69 139/69 09/01/17 09/01/17 14:00 18:00 Temperature 99.4 F 98.6 F Pulse Rate 65 66 Respiratory 18 20 Rate Blood Pressure 175/76 151/71 GENERAL: AAOx3 in NAD , lethargic and weak HEAD: NC/AT EYES: EOMI, Conjunctiva clear, sclera anicteric ENT: dry mucous membrane NECK: Supple, no JVD LUNGS: CTA B/L, no crackles no wheezing no accessory muscle use. HEART: RRR, NSR, normal s1, s2, murmur no M/R/G ABDOMEN: Soft,mild Distended , NT, +BS 4 Q, no CVA Tenderness, med abdomen surgical scar LOWER EXTREMITIES: no edema, +2DP pulse, NEUROLOGICAL: No focal deficit. Normal speech. gait not observed. PSYCHIATRIC: Cooperative. Good eye contact. Appropriate mood and affect. SKIN: Warm, dry, Active Medications Generic Name Dose Route Start Last Admin Trade Name Freq PRN Reason Stop Dose Admin Apixaban 5 mg 09/01/17 10:00 09/01/17 11:17 Eliquis - PO 5 mg BID [facility] Administration Benzocaine/Menthol 1 each 08/29/17 06:54 Cepacol Lozenge - MM QID PRN sore throat Chlorhexidine Gluconate 1 applic 09/01/17 22:00 Hibiclens For Decolonization - TP HS [facility] Ertapenem 1 gm/ Sodium 50 mls @ 100 mls/hr 08/30/17 11:30 09/01/17 13:20 Chloride IVPB 100 mls/hr DAILY [facility] Administration Potassium Chloride 40 meq/ 1,020 mls @ 42 mls/hr 08/31/17 16:00 09/01/17 04: 00 Sodium Chloride IVPB 42 mls/hr Q24H [facility] Administration Lisinopril 5 mg 09/01/17 10:00 09/01/17 11:16 Prinivil PO 5 mg DAILY [facility] Administration Metoprolol Succinate 50 mg 09/01/17 10:00 09/01/17 11:20 Toprol Xl - PO 50 mg BID [facility] Administration Morphine Sulfate 4 mg 08/29/17 14:48 08/30/17 14:29 Morphine Sulfate IVPUSH 09/01/17 14:47 4 mg Q6H PRN Administration PAIN LEVEL 7 - 10 Mupirocin 1 applic 09/01/17 10:00 09/01/17 13:19 Bactroban Ointment (For Decolonization) - NS 09/06/17 09:59 1 applic BID [facility] Administration Pantoprazole Sodium 40 mg 09/01/17 10:00 09/01/17 11:16 Protonix - PO 40 mg DAILY [facility] Administration CBC, BMP 09/01/17 06:00 09/01/17 06:00 EKG: sinus rhythm at 80bpm, lvh, no acute st changes ASSESSMENT/PLAN: 86 male presents for abdominal pain and distention with history of pancreatic CA being treated at [facility],S/P cholecystectomy and stent for cholangitis, Multiple unknown abdominal surgeries.had a rapid response today due to Afib with RVR and was admitted to ICU. # Cardiology - AFIb with RVR * likley due to not taking home meds * Given IV push X1 of Cardezim * resume home meds Metoprolo 5 mg and AC Eliquis 5 mg PO BID * rate controlled * transfer to tele * # GI /heme - SBO , improved * presented with abdominal pain N/V * has improved since admission * tolerate full lequid diet * GI on Board Dr Rosa recommendation appreciated - H/O pancreatic cancer - H/O biliart stent placement * complet treatment Mar 2017 * last PET CT in 06/2017 with no recurrence * monitor Ca 19-9 * Dr Mena recommendation appreciated * consult palliative care - Anemia likely due to chronic disease * Low H/H 10.4/30.7 * no active bleeding * monitor H/H * work up as out pt #FEN * F: no standing fluids * E: hypokalemia , replenished and monitor BMP * N: Full liquid diet #Proph * GI: Protonix 40 mg po daily * Dvts : Elequis BID # Dispo * transfer to tele * rest per primary team Dispo: We will continue to follow the patient. Thank you for this consultative opportunity. Visit type - Emergency Visit Emergency Visit: Yes ED Registration Date: 08/29/17 Care time: The patient presented to the Emergency Department on the above date and was hospitalized for further evaluation of their emergent condition. - New Patient This patient is new to me today: Yes Date on this admission: 09/01/17 - Critical Care Critical Care patient: Yes Total Critical Care Time (in minutes): 45 Critical Care Statement: The care of this patient involved high complexity decision making to prevent further life threatening deterioration of the patient 's condition and/or to evaluate & treat vital organ system(s) failure or risk of failure.
--- NOTE | 2017-09-01 14:44 | PN ---
Progress Note (short form) - Note Progress Note: S/p rapid response for Afib/RVR in the am Now in ICU Pt seen and examined. feels weak and tired. O/E: General: appears weak HEENTL NCAT cor: RRR abd: distended, BS+ Lungs: CtA b/l abd: NT Ext: no CCE Last Vital Signs Temp Pulse Resp BP Pulse Ox 99.4 F 65 18 175/76 98 09/01/17 14:00 09/01/17 14:00 09/01/17 14:00 09/01/17 14:00 09/01/17 10:00 CBC, BMP 09/01/17 06:00 09/01/17 06:00 Current Medications Generic Name Dose Route Start Last Admin Trade Name Freq PRN Reason Stop Dose Admin Apixaban 5 mg 09/01/17 10:00 09/01/17 11:17 Eliquis - PO 5 mg BID PRIYANKA Administration Benzocaine/Menthol 1 each 08/29/17 06:54 Cepacol Lozenge - MM QID PRN sore throat Chlorhexidine Gluconate 1 applic 09/01/17 22:00 Hibiclens For Decolonization - TP HS PRIYANKA Ertapenem 1 gm/ Sodium 50 mls @ 100 mls/hr 08/30/17 11:30 09/01/17 13:20 Chloride IVPB 100 mls/hr DAILY PRIYANKA Administration Potassium Chloride 40 meq/ 1,020 mls @ 42 mls/hr 08/31/17 16:00 09/01/17 16: 37 Sodium Chloride IVPB Not Given Q24H PRIYANKA Lisinopril 5 mg 09/01/17 10:00 09/01/17 11:16 Prinivil PO 5 mg DAILY PRIYANKA Administration Metoprolol Succinate 50 mg 09/01/17 10:00 09/01/17 11:20 Toprol Xl - PO 50 mg BID PRIYANKA Administration Mupirocin 1 applic 09/01/17 10:00 09/01/17 12:00 Bactroban Ointment (For Decolonization) - NS 09/06/17 09:59 1 applic BID PRIYANKA Administration Pantoprazole Sodium 40 mg 09/01/17 10:00 09/01/17 11:16 Protonix - PO 40 mg DAILY PRIYANKA Administration h/o pancreatic ca -- treatment completed 03/2017 most recent admission with cholangitis, went to [facility]-- stent exchange last PET CT in 06/2017-- no recurrence Afib with RVR SBO- on conservative management. ca 19-9 up-trending present medical care to be continued for pal care consult d/w son and daughter, will d/s
--- NOTE | 2017-09-01 15:23 | PN ---
Progress Note, Physician Chief Complaint: SBO History of Present Illness: 86 year old male with a past medical history of pancreatic CA, htn, afib s/p ppm , cholangitis s/p cholecystectomy and biliary stent, SBO, multiple abdominal surgeries who presents with abdominal pain. +vomiting in ER and found to have SBO on ct scan. EKG: sinus rhythm at 80bpm, lvh, no acute st changes No chest pain, sob, or palpitations. No pnd, orthopnea, or edema. - Current Medication List Current Medications: Active Medications Apixaban (Eliquis -) 5 mg PO BID [facility] Last Admin: 09/01/17 11:17 Dose: 5 mg Benzocaine/Menthol (Cepacol Lozenge -) 1 each MM QID PRN PRN Reason: sore throat Chlorhexidine Gluconate (Hibiclens For Decolonization -) 1 applic TP HS [facility] Ertapenem 1 gm/ Sodium (Chloride) 50 mls @ 100 mls/hr IVPB DAILY [facility] Last Admin: 09/01/17 13:20 Dose: 100 mls/hr Potassium Chloride 40 meq/ (Sodium Chloride) 1,020 mls @ 42 mls/hr IVPB Q24H [facility] Last Admin: 09/01/17 14:00 Dose: 42 mls/hr Lisinopril (Prinivil) 5 mg PO DAILY [facility] Last Admin: 09/01/17 11:16 Dose: 5 mg Metoprolol Succinate (Toprol Xl -) 50 mg PO BID [facility] Last Admin: 09/01/17 11:20 Dose: 50 mg Mupirocin (Bactroban Ointment (For Decolonization) -) 1 applic NS BID [facility] Stop: 09/06/17 09:59 Last Admin: 09/01/17 12:00 Dose: 1 applic Pantoprazole Sodium (Protonix -) 40 mg PO DAILY [facility] Last Admin: 09/01/17 11:16 Dose: 40 mg - Objective Vital Signs: Vital Signs Temperature 98.8 F 09/01/17 12:00 Pulse Rate 68 09/01/17 15:00 Respiratory Rate 19 09/01/17 15:00 Blood Pressure 154/75 09/01/17 15:00 O2 Sat by Pulse Oximetry (%) 98 09/01/17 10:00 Constitutional: Yes: No Distress Neck: Yes: Supple Cardiovascular: Yes: Regular Rate and Rhythm, S1, S2. No: JVD Respiratory: Yes: CTA Bilaterally Edema: No Labs: CBC, BMP 09/01/17 06:00 09/01/17 06:00 INR, PTT INR 1.25 (0.82-1.09) H 08/29/17 03:00 Problem List - Problems (1) Afib Code(s): I48.91 - UNSPECIFIED ATRIAL FIBRILLATION Qualifiers: Assessment/Plan 86 year old male with a past medical history of pancreatic CA, htn, afib s/p ppm , cholangitis s/p cholecystectomy and biliary stent, SBO, multiple abdominal surgeries who presents with an SBO 1) Afib -episode of Afib with RVR overnight to this morning. Now he was started on PO meds and received metoprolol home dose and in sinus rhythm in 60s Would continue home metoprolol dose and apixaban if ok with surgery. -would start titrating on home BP meds since now on PO meds. -Replete K
[2017-09-01] MEDS ORDERED: BENZOCAINE/MENTH/CETYLPYRD CL 1 EACH LOZENGE MM PRN (20:33)
[2017-09-01] MEDS: APIXABAN 5 MG TABLET PO SCH (22:23)
[2017-09-01] MEDS: CHLORHEXIDINE GLUCONATE 4% CLEANSER FOR DECOLONIZATION TP SCH (22:23)
[2017-09-02 06:37] LABS: ALBUMIN 2.9 g/dl (3.4-5.0); ANION GAP 9 (8-16); BLOOD UREA NITROGEN 13 mg/dL (7-18); CHLORIDE 105 mmol/L (98-107); CO2 26 mmol/L (21-32); GLUCOSE,RANDOM 104 mg/dL (74-106); MAGNESIUM 1.7 mg/dL (1.8-2.4); POTASSIUM 3.4 mmol/L (3.5-5.1); SGOT/AST 31 U/L (15-37); SODIUM 140 mmol/L (136-145)
[2017-09-02 06:40] LABS: ALK PHOS 271 U/L (45-117); BILIRUBIN,TOTAL 0.5 mg/dL (0.2-1.0); CREATININE 0.8 mg/dL (0.7-1.3); SGPT/ALT 38 U/L (12-78); TOT PROT 6.1 g/dl (6.4-8.2)
--- NOTE | 2017-09-02 06:45 | PN ---
Physical Exam: SUBJECTIVE: Patient seen and examined at bed side in ICU No acute events over night , setting in his bed , rate is controlled , denies any abdominl pain or cest pain , tolerating full liquid diet. OBJECTIVE: Vital Signs Period Temp Pulse Resp BP Sys/Escobedo Pulse Ox Last 24 Hr 98.4 F-99.4 F 60-171 18-20 97-175/45-95 98-98 GENERAL: AAOx3 in NAD , HEAD: NC/AT EYES: EOMI, Conjunctiva clear, sclera anicteric ENT: moist mucous membrane NECK: Supple, no JVD LUNGS: CTA B/L, no crackles no wheezing no accessory muscle use. HEART: RRR, NSR, normal s1, s2, murmur no M/R/G ABDOMEN: Soft,mild Distended , NT, +BS 4 Q, no CVA Tenderness, med abdomen surgical scar LOWER EXTREMITIES: no edema, +2DP pulse, NEUROLOGICAL: No focal deficit. Normal speech. gait not observed. PSYCHIATRIC: Cooperative. Good eye contact. Appropriate mood and affect. SKIN: Warm, dry, Laboratory Results - last 24 hr 09/01/17 09/01/17 09/01/17 06:00 06:00 08:57 WBC 5.9 D RBC 3.85 L Hgb 10.4 L Hct 30.7 L MCV 79.7 L MCH 26.9 MCHC 33.8 RDW 16.7 H Plt Count 178 MPV 7.9 Absolute Neuts (auto) 4.3 Neutrophils % 73.6 Lymphocytes % 9.2 Monocytes % 15.4 H Eosinophils % 1.4 Basophils % 0.4 Nucleated RBC % 0 Sodium 139 Potassium 3.1 L Chloride 102 Carbon Dioxide 22 Anion Gap 15 BUN 14 Creatinine 0.7 D Creat Clearance w eGFR > 60 POC Glucometer 101 Random Glucose 82 Calcium 8.0 L Phosphorus Magnesium Total Bilirubin 0.6 AST 32 ALT 41 Alkaline Phosphatase 285 H Creatine Kinase Creatine Kinase Index CK-MB (CK-2) Troponin I Total Protein 6.1 L Albumin 2.8 L 09/01/17 09/01/17 09/01/17 09:30 09:40 09:40 WBC RBC Hgb Hct MCV MCH MCHC RDW Plt Count MPV Absolute Neuts (auto) Neutrophils % Lymphocytes % Monocytes % Eosinophils % Basophils % Nucleated RBC % Sodium Potassium Chloride Carbon Dioxide Anion Gap BUN Creatinine Creat Clearance w eGFR POC Glucometer Random Glucose Calcium Phosphorus Magnesium 1.7 L Cancelled Total Bilirubin AST ALT Alkaline Phosphatase Creatine Kinase 177 Creatine Kinase Index 1.3 CK-MB (CK-2) 2.47 Troponin I 0.21 H D Cancelled Total Protein Albumin 09/02/17 05:30 WBC RBC Hgb Hct MCV MCH MCHC RDW Plt Count MPV Absolute Neuts (auto) Neutrophils % Lymphocytes % Monocytes % Eosinophils % Basophils % Nucleated RBC % Sodium 140 Potassium 3.4 L Chloride 105 Carbon Dioxide 26 Anion Gap 9 BUN 13 Creatinine 0.8 Creat Clearance w eGFR > 60 POC Glucometer Random Glucose 104 D Calcium 8.0 L Phosphorus 2.0 L D Magnesium 1.7 L Total Bilirubin 0.5 AST 31 ALT 38 Alkaline Phosphatase 271 H Creatine Kinase Creatine Kinase Index CK-MB (CK-2) Troponin I Total Protein 6.1 L Albumin 2.9 L Active Medications Generic Name Dose Route Start Last Admin Trade Name Freq PRN Reason Stop Dose Admin Apixaban 5 mg 09/01/17 22:00 09/01/17 22:23 Eliquis - PO 5 mg BID PRIYANKA Administration Benzocaine/Menthol 1 each 09/01/17 20:33 Cepacol Lozenge - MM QID PRN sore throat Chlorhexidine Gluconate 1 applic 09/01/17 22:00 09/01/17 22:23 Hibiclens For Decolonization - TP 1 applic HS PRIYANKA Administration Ertapenem 1 gm/ Sodium 50 mls @ 100 mls/hr 09/02/17 10:00 Chloride IVPB DAILY PRIYANKA Potassium Chloride 40 meq/ 1,020 mls @ 42 mls/hr 09/02/17 16:00 Sodium Chloride IVPB Q24H PRIYANKA Lisinopril 5 mg 09/02/17 10:00 Prinivil PO DAILY PRIYANKA Metoprolol Succinate 50 mg 09/01/17 22:00 09/01/17 22:23 Toprol Xl - PO 50 mg BID PRIYANKA Administration Mupirocin 1 applic 09/01/17 10:00 09/01/17 22:23 Bactroban Ointment (For Decolonization) - NS 09/06/17 09:59 1 applic BID PRIYANKA Administration Pantoprazole Sodium 40 mg 09/02/17 10:00 Protonix - PO DAILY [facility] ASSESSMENT/PLAN: EKG: sinus rhythm at 80bpm, lvh, no acute st changes ASSESSMENT/PLAN: 86 male presents for abdominal pain and distention with history of pancreatic CA being treated at [facility],S/P cholecystectomy and stent for cholangitis, Multiple unknown abdominal surgeries.had a rapid response today due to Afib with RVR and was admitted to ICU. # Cardiology - AFIb with RVR * likely due to not taking home meds * Given IV push X1 of Cardezim * resume home meds Metoprolo 5 mg and AC Eliquis 5 mg PO BID * rate controlled * transfer to tele # Pulmonary * no chest pain r shoertness of breath * congestive changes on Cxr due to Arrhythmia * 40 LAsix IV * repeat cxr in AM # GI /heme - SBO , improved * presented with abdominal pain N/V * has improved since admission * tolerate full lequid diet * GI on Board Dr Rosa recommendation appreciated - H/O pancreatic cancer - H/O biliart stent placement * complet treatment Mar 2017 * last PET CT in 06/2017 with no recurrence * monitor Ca 19-9 * Dr Mena recommendation appreciated * consult palliative care - Anemia likely due to chronic disease * Low H/H * no active bleeding * monitor H/H * work up as out pt #FEN * F: no standing fluids * E: hypokalemia , replenished and monitor BMP * N: Full liquid diet #Proph * GI: Protonix 40 mg po daily * Dvts : Elequis BID # Dispo * transfer to tele * rest per primary team Dispo: We will continue to follow the patient. Thank you for this consultative opportunity. Visit type - Emergency Visit Emergency Visit: Yes ED Registration Date: 08/29/17 Care time: The patient presented to the Emergency Department on the above date and was hospitalized for further evaluation of their emergent condition. - New Patient This patient is new to me today: No - Critical Care Critical Care patient: Yes Total Critical Care Time (in minutes): 45 Critical Care Statement: The care of this patient involved high complexity decision making to prevent further life threatening deterioration of the patient 's condition and/or to evaluate & treat vital organ system(s) failure or risk of failure.
[2017-09-02 06:50] LABS: BASO % 0.4 % (0-2.0); EOS % 0.8 % (0-4.5); HEMATOCRIT 28.4 % (35.4-49); HEMOGLOBIN 9.7 GM/dL (11.7-16.9); LYMPH % 9.9 % (8-40); MCH 27.3 pg (25.7-33.7); MEAN CELL VOLUME 80.1 fl (80-96); MONO % 14.8 % (3.8-10.2); NEUT % 74.1 % (42.8-82.8); PLATELET COUNT 181 K/MM3 (134-434); RBC 3.54 M/mm3 (4.00-5.60); RDW 17.1 % (11.9-15.9); WHITE BLOOD COUNT 4.5 K/mm3 (4.0-10.0)
[2017-09-02] MEDS ORDERED: MAGNESIUM SULF 50% (8.12 MEQ/2 ML-1 GM VIAL) IVPB ONE (07:21)
--- NOTE | 2017-09-02 08:02 | PN ---
Progress Note, Physician History of Present Illness: feels better no pain having bm - Current Medication List Current Medications: Active Medications Apixaban (Eliquis -) 5 mg PO BID [facility] Last Admin: 09/01/17 22:23 Dose: 5 mg Benzocaine/Menthol (Cepacol Lozenge -) 1 each MM QID PRN PRN Reason: sore throat Chlorhexidine Gluconate (Hibiclens For Decolonization -) 1 applic TP HS [facility] Last Admin: 09/01/17 22:23 Dose: 1 applic Ertapenem 1 gm/ Sodium (Chloride) 50 mls @ 100 mls/hr IVPB DAILY [facility] Magnesium Sulfate (Magnesium Sulf 2 G/50 Ml Bag) 2 gm in 50 mls @ 50 mls/hr IVPB ONCE ONE Stop: 09/02/17 10:59 Lisinopril (Prinivil) 5 mg PO DAILY [facility] Metoprolol Succinate (Toprol Xl -) 50 mg PO BID [facility] Last Admin: 09/01/17 22:23 Dose: 50 mg Mupirocin (Bactroban Ointment (For Decolonization) -) 1 applic NS BID [facility] Stop: 09/06/17 09:59 Last Admin: 09/01/17 22:23 Dose: 1 applic Pantoprazole Sodium (Protonix -) 40 mg PO DAILY [facility] Potassium Chloride (K-Dur -) 20 meq PO ONCE ONE Stop: 09/02/17 09:01 Potassium Phos/Sodium Phos (Phos-Nak Packet -) 2 packet PO ONCE ONE Stop: 09/02/17 09:01 - Objective Vital Signs: Vital Signs Temperature 98.4 F 09/02/17 06:15 Pulse Rate 66 09/02/17 06:15 Respiratory Rate 18 09/02/17 06:15 Blood Pressure 162/65 09/02/17 06:15 O2 Sat by Pulse Oximetry (%) 98 09/01/17 21:00 Cardiovascular: Yes: S1, S2 Respiratory: Yes: Regular, CTA Bilaterally Gastrointestinal: Yes: Normal Bowel Sounds, Soft. No: Tenderness Labs: CBC, BMP 09/02/17 05:30 09/02/17 05:30 INR, PTT INR 1.25 (0.82-1.09) H 08/29/17 03:00 Problem List - Problems (1) Small bowel obstruction Code(s): K56.609 - UNSP INTESTNL OBST, UNSP TO PARTIAL VERSUS COMPLETE OBST (2) Abnormal LFTs (liver function tests) Code(s): R94.5 - ABNORMAL RESULTS OF LIVER FUNCTION STUDIES (3) Afib Code(s): I48.91 - UNSPECIFIED ATRIAL FIBRILLATION Qualifiers: (4) CAD (coronary artery disease) Code(s): I25.10 - ATHSCL HEART DISEASE OF [place] CORONARY ARTERY W/O ANG PCTRS (5) Common bile duct (CBD) obstruction Code(s): K83.1 - OBSTRUCTION OF BILE DUCT (6) Pancreatic neoplasm Code(s): D49.0 - NEOPLASM OF UNSPECIFIED BEHAVIOR OF DIGESTIVE SYSTEM Assessment/Plan - Problems (1) Cholangitis Assessment/Plan: -Seen by GI -Oncology consult for pancreatic ca -abx per ID Code(s): K83.0 - CHOLANGITIS (2) History of biliary stent insertion Code(s): Z98.890 - OTHER SPECIFIED POSTPROCEDURAL STATES (3) SBO (small bowel obstruction) Assessment/Plan: -Repeat Abd Xray shows no obstruction -dC NGT - minimal residual, start clear liquid diet -Surgery on board Code(s): K56.609 - UNSP INTESTNL OBST, UNSP TO PARTIAL VERSUS COMPLETE OBST (4) Anemia Assessment/Plan: -Chronic disease +MARGARITA -Venofer today -hematology consult -Monitor trend Code(s): D64.9 - ANEMIA, UNSPECIFIED Qualifiers: Anemia type: iron deficiency (5) Afib Assessment/Plan: -Resume Eliquis -Heparin 5000 U TID -back on metoprol Code(s): I48.91 - UNSPECIFIED ATRIAL FIBRILLATION Qualifiers: (6) Htn Assessment/Plan: -Resume hydralazine 50 bid (7) Hypokalemia Assessment/Plan: -Replace
[2017-09-02] MEDS ORDERED: NAPH,MB-DB/K PH,MBDB POWDER PACKET PO ONE (09:00)
[2017-09-02] MEDS ORDERED: POTASSIUM CHLORIDE TABS 20 MEQ TABLET.ER (FP) PO ONE (09:00)
[2017-09-02] MEDS ORDERED: PT OWN MED DRAWER 7, Y5N ONE (09:05)
[2017-09-02] MEDS: APIXABAN 5 MG TABLET PO SCH ×2 (09:11→22:49)
[2017-09-02] MEDS: LISINOPRIL 5 MG TABLET (FP) PO SCH (09:12)
[2017-09-02] MEDS: PANTOPRAZOLE 40 MG TABLET (FP) PO SCH (09:12)
[2017-09-02] MEDS: hydrALAZINE HCL 50 MG TABLET (FP) PO SCH ×2 (09:12→22:49)
[2017-09-02] MEDS: MUPIROCIN 2% TOPICAL OINTMENT FOR DECOLONIZATION NS SCH ×2 (09:12→22:50)
[2017-09-02] MEDS ORDERED: MAGNESIUM SULFATE IN WATER 2 GM/50 ML IVPB IVPB ONE (10:00)
[2017-09-02] MEDS: ERTAPENEM SODIUM 1 GM in SODIUM CHLORIDE 50 ML IVPB SCH (10:03)
--- NOTE | 2017-09-02 11:26 | PN ---
Progress Note (short form) - Note Progress Note: day #4 ertapenem ngt is out afib is better controlled Vital Signs Period Temp Pulse Resp BP Sys/Escobedo Pulse Ox Last 24 Hr 98.4 F-99.4 F 60-74 18-20 139-175/65-80 98-98 cor-rrr lungs clear abd soft,nt ext no edema CBC, BMP 09/02/17 05:30 09/02/17 05:30 Microbiology 08/29/17 03:12 Blood - Peripheral Venous Blood Culture - Preliminary NO GROWTH OBTAINED AFTER 96 HOURS, INCUBATION TO CONTINUE FOR 1 DAYS. 08/29/17 03:12 Blood - Peripheral Venous Blood Culture - Preliminary NO GROWTH OBTAINED AFTER 96 HOURS, INCUBATION TO CONTINUE FOR 1 DAYS. 08/30/17 12:55 Blood - Peripheral Venous Blood Culture - Preliminary NO GROWTH OBTAINED AFTER 48 HOURS, INCUBATION TO CONTINUE FOR 3 DAYS. 08/30/17 11:15 Blood - Peripheral Venous Blood Culture - Preliminary NO GROWTH OBTAINED AFTER 48 HOURS, INCUBATION TO CONTINUE FOR 3 DAYS. 08/29/17 05:19 Urine - Urine Clean Catch Urine Culture - Final NO GROWTH OBTAINED a/p ?resolving cholangitis s/p change of biliary stent pancreatic cancer afib day #4 ertapenem, continue antibiotics through the weekend, d/c ertapenem on Tuesday please call back if needed Problem List - Problems (1) Fever Code(s): R50.9 - FEVER, UNSPECIFIED (2) SBO (small bowel obstruction) Code(s): K56.609 - UNSP INTESTNL OBST, UNSP TO PARTIAL VERSUS COMPLETE OBST (3) History of biliary stent insertion Code(s): Z98.890 - OTHER SPECIFIED POSTPROCEDURAL STATES (4) Pancreatic cancer Code(s): C25.9 - MALIGNANT NEOPLASM OF PANCREAS, UNSPECIFIED
--- NOTE | 2017-09-02 11:30 | PN ---
Teaching Attending Note Name of Resident: Hernán Khan ATTENDING PHYSICIAN STATEMENT I saw and evaluated the patient. I reviewed the resident's note and discussed the case with the resident. I agree with the resident's findings and plan as documented. SUBJECTIVE: Patient seen and examined in the ICU. Awake and alert. Denies CP or SOB. Rates better controlled. CXR: New bilateral pulmonary vascular congestion Intake & Output 08/30/17 08/31/17 09/01/17 09/02/17 23:59 23:59 23:59 23:59 Intake Total 1344 1404 2310 554 Output Total 1150 1503 300 Balance 194 -99 2009 55 Weight 154 lb 14.4 oz 153 lb 4.8 oz 154 lb 6.4 oz Last Vital Signs Temp Pulse Resp BP Pulse Ox 98.9 F 63 18 172/73 98 09/02/17 10:00 09/02/17 10:00 09/02/17 10:00 09/02/17 10:00 09/02/17 09:00 Active Medications Apixaban (Eliquis -) 5 mg PO BID [facility] Last Admin: 09/02/17 09:11 Dose: 5 mg Benzocaine/Menthol (Cepacol Lozenge -) 1 each MM QID PRN PRN Reason: sore throat Chlorhexidine Gluconate (Hibiclens For Decolonization -) 1 applic TP HS [facility] Last Admin: 09/01/17 22:23 Dose: 1 applic Furosemide (Lasix Injection -) 40 mg IVPUSH ONCE ONE Stop: 09/02/17 11:18 Hydralazine HCl (Apresoline -) 50 mg PO BID [facility] Last Admin: 09/02/17 09:12 Dose: 50 mg Ertapenem 1 gm/ Sodium (Chloride) 50 mls @ 100 mls/hr IVPB DAILY [facility] Last Admin: 09/02/17 10:03 Dose: 100 mls/hr Lisinopril (Prinivil) 5 mg PO DAILY [facility] Last Admin: 09/02/17 09:12 Dose: 5 mg Metoprolol Succinate (Toprol Xl -) 50 mg PO BID [facility] Last Admin: 09/02/17 09:12 Dose: 50 mg Mupirocin (Bactroban Ointment (For Decolonization) -) 1 applic NS BID [facility] Stop: 06/26/18 09:59 Last Admin: 09/02/17 09:12 Dose: 1 applic Pantoprazole Sodium (Protonix -) 40 mg PO DAILY [facility] Last Admin: 09/02/17 09:12 Dose: 40 mg Constitutional: Yes: Awake and alert, No acute distress Eyes: Yes: PERRL. No: Diplopia, Sclera Icterus HENT: Yes: NGT Cardiovascular: Yes: Tacycardia, Irregularly irregular Respiratory: Yes: Bibasilar rales. No: Accessory Muscle Use Gastrointestinal: Yes: Normal Bowel Sounds, Soft, (-) tenderness, multiple healed scars Extremities: No: Cold, Cool, Erythema Edema: No Neurological: Yes: WNL, Alert, Oriented. No: Aphasia, Dysarthria Psychiatric: Yes: WNL, Alert Labs: Laboratory Results - last 24 hr 09/02/17 09/02/17 09/02/17 05:30 05:30 05:30 WBC 4.5 RBC 3.54 L Hgb 9.7 L Hct 28.4 L MCV 80.1 MCH 27.3 MCHC 34.0 RDW 17.1 H Plt Count 181 MPV 8.0 Absolute Neuts (auto) 3.4 Neutrophils % 74.1 Lymphocytes % 9.9 Monocytes % 14.8 H Eosinophils % 0.8 Basophils % 0.4 Nucleated RBC % 0 Sodium 140 Potassium 3.4 L Chloride 105 Carbon Dioxide 26 Anion Gap 9 BUN 13 Creatinine 0.8 Creat Clearance w eGFR > 60 Random Glucose 104 D Calcium 8.0 L Phosphorus 2.0 L D Magnesium 1.7 L Total Bilirubin 0.5 AST 31 ALT 38 Alkaline Phosphatase 271 H Troponin I 0.35 H D Cancelled Total Protein 6.1 L Albumin 2.9 L Problem List - Problems (1) Small bowel obstruction due to adhesions Code(s): K56.50 - INTESTNL ADHESIONS, UNSP TO PARTIAL VERSUS COMPLETE OBST (2) Transaminitis Code(s): R74.0 - NONSPEC ELEV OF LEVELS OF TRANSAMNS & LACTIC ACID DEHYDRGNSE (3) Obstructive cholestatic liver disease Code(s): K76.89 - OTHER SPECIFIED DISEASES OF LIVER (4) Rapid Atrial Fibrillation Impression/Plan Monitor off IVF Lasix O2 as needed Replete lytes as needed ABX per ID Eliquis Cardiac Telemetry monitoring Dr Hurst Critical care time spent in reviewing chart, evaluating patient and formulating plan - 36 minutes.
[2017-09-02] MEDS ORDERED: FUROSEMIDE 40 MG/4 ML INJECTABLE VIAL IVPUSH ONE (12:00)
--- NOTE | 2017-09-02 12:30 | PN ---
Progress Note (short form) - Note Progress Note: Patient seen and examined Clinically improved Afebrile Continuing on antibiotics No significant abdominal pains Diet advanced to regular diet Last Vital Signs Temp Pulse Resp BP Pulse Ox 98.9 F 63 18 172/73 98 09/02/17 10:00 09/02/17 10:00 09/02/17 10:00 09/02/17 10:00 09/02/17 09:00 HEENT: [place], EOM Intact Oropharynx: No thrush, No mucositis Cor: RSR, No murmurs, No gallops Lungs: Clear to P&A Abd: Soft, Normal bowel sounds, No organomegaly Ext:No significant edema Skin: No rashes, Integument intact CBC, BMP 09/02/17 05:30 09/02/17 05:30 Current Medications Generic Name Dose Route Start Last Admin Trade Name Freq PRN Reason Stop Dose Admin Apixaban 5 mg 09/01/17 22:00 09/02/17 09:11 Eliquis - PO 5 mg BID PRIYANKA Administration Benzocaine/Menthol 1 each 09/01/17 20:33 Cepacol Lozenge - MM QID PRN sore throat Chlorhexidine Gluconate 1 applic 09/01/17 22:00 09/01/17 22:23 Hibiclens For Decolonization - TP 1 applic HS PRIYANKA Administration Hydralazine HCl 50 mg 09/02/17 10:00 09/02/17 09:12 Apresoline - PO 50 mg BID [facility]ANKA Administration Ertapenem 1 gm/ Sodium 50 mls @ 100 mls/hr 09/02/17 10:00 09/02/17 10:03 Chloride IVPB 100 mls/hr DAILY [facility] Administration Lisinopril 5 mg 09/02/17 10:00 09/02/17 09:12 Prinivil PO 5 mg DAILY [facility] Administration Metoprolol Succinate 50 mg 09/01/17 22:00 09/02/17 09:12 Toprol Xl - PO 50 mg BID [facility] Administration Mupirocin 1 applic 09/01/17 10:00 09/02/17 09:12 Bactroban Ointment (For Decolonization) - NS 09/06/17 09:59 1 applic BID PRI[facility]ANK[facility] Administration Pantoprazole Sodium 40 mg 09/02/17 10:00 09/02/17 09:12 Protonix - PO 40 mg DAILY [facility] Administration Impression: Pancreatic ca - s/p therapy S/P biliary stent change Cholangitis Plan: Current therapy ID recommendations Outpatient follow up
[2017-09-02] MEDS ORDERED: POTASSIUM CHLORIDE 40 MEQ in SODIUM CHLORIDE 1,000 ML IVPB SCH (16:00)
[2017-09-02] MEDS: CHLORHEXIDINE GLUCONATE 4% CLEANSER FOR DECOLONIZATION TP SCH (22:50)
[2017-09-03 06:37] LABS: ALBUMIN 2.9 g/dl (3.4-5.0); ALK PHOS 264 U/L (45-117); ANION GAP 7 (8-16); BILIRUBIN,TOTAL 0.5 mg/dL (0.2-1.0); BLOOD UREA NITROGEN 11 mg/dL (7-18); CALCIUM 8.1 mg/dL (8.5-10.1); CHLORIDE 106 mmol/L (98-107); CO2 29 mmol/L (21-32); CREATININE 0.9 mg/dL (0.7-1.3); GLUCOSE,RANDOM 107 mg/dL (74-106); MAGNESIUM 1.9 mg/dL (1.8-2.4); POTASSIUM 3.3 mmol/L (3.5-5.1); SGOT/AST 33 U/L (15-37); SGPT/ALT 37 U/L (12-78); SODIUM 142 mmol/L (136-145)
[2017-09-03] MEDS: APIXABAN 5 MG TABLET PO SCH ×2 (09:13→21:54)
[2017-09-03] MEDS: PANTOPRAZOLE 40 MG TABLET (FP) PO SCH (09:14)
[2017-09-03] MEDS: hydrALAZINE HCL 50 MG TABLET (FP) PO SCH ×2 (09:14→21:54)
[2017-09-03] MEDS: LISINOPRIL 5 MG TABLET (FP) PO SCH (09:14)
--- NOTE | 2017-09-03 09:53 | PN ---
Progress Note (short form) - Note Progress Note: PULMONARY/CCM Pt seen and examined in the ICU. Denies abdominal pain, nausea or vomiting. No shortness of breath or chest pain. Vital Signs Period Temp Pulse Resp BP Sys/Escobedo Pulse Ox Last 24 Hr 98.0 F-98.9 F 62-69 18-20 118-172/51-80 98-98 Intake & Output 08/31/17 09/01/17 09/02/17 09/03/17 23:59 23:59 23:59 23:59 Intake Total 1404 2310 1354 Output Total 3374 505 8353 Balance -99 2009 Weight 69.536 kg 70.035 kg 69.938 kg Gen: NAD in chair Heart: RRR Lung: decreased breath sounds at the bases Abd: soft, nontender Ext: no edema CBC, BMP 09/02/17 05:30 09/03/17 05:30 Active Medications Apixaban (Eliquis -) 5 mg PO BID [facility] Last Admin: 09/03/17 09:13 Dose: 5 mg Benzocaine/Menthol (Cepacol Lozenge -) 1 each MM QID PRN PRN Reason: sore throat Chlorhexidine Gluconate (Hibiclens For Decolonization -) 1 applic TP HS [facility] Last Admin: 09/02/17 22:50 Dose: 1 applic Hydralazine HCl (Apresoline -) 50 mg PO BID [facility] Last Admin: 09/03/17 09:14 Dose: 50 mg Ertapenem 1 gm/ Sodium (Chloride) 50 mls @ 100 mls/hr IVPB DAILY [facility] Last Admin: 09/02/17 10:03 Dose: 100 mls/hr Lisinopril (Prinivil) 5 mg PO DAILY [facility] Last Admin: 09/03/17 09:14 Dose: 5 mg Metoprolol Succinate (Toprol Xl -) 50 mg PO BID [facility] Last Admin: 09/03/17 09:13 Dose: 50 mg Mupirocin (Bactroban Ointment (For Decolonization) -) 1 applic NS BID [facility] Stop: 09/06/17 09:59 Last Admin: 09/02/17 22:50 Dose: 1 applic Pantoprazole Sodium (Protonix -) 40 mg PO DAILY [facility] Last Admin: 09/03/17 09:14 Dose: 40 mg A/P Atrial Fibrillation with RVR now rate controlled Pancreatic Cancer s/p Biliary Stent placement Cholangitis resolved Small Bowel Obstruction - complete antibiotics - PO as tolerated - rate controlled on metoprolol - continue anticoagulation - replete lytes - can monitor on telemetry
[2017-09-03] MEDS ORDERED: POTASSIUM CHLORIDE TABS 20 MEQ TABLET.ER (FP) PO ONE (10:30)
[2017-09-03] MEDS: MUPIROCIN 2% TOPICAL OINTMENT FOR DECOLONIZATION NS SCH ×2 (10:34→22:02)
--- NOTE | 2017-09-03 10:54 | PN ---
Progress Note, Physician History of Present Illness: feels better no pain having bm - Current Medication List Current Medications: Active Medications Apixaban (Eliquis -) 5 mg PO BID [facility] Last Admin: 09/03/17 09:13 Dose: 5 mg Benzocaine/Menthol (Cepacol Lozenge -) 1 each MM QID PRN PRN Reason: sore throat Chlorhexidine Gluconate (Hibiclens For Decolonization -) 1 applic TP HS [facility] Last Admin: 09/02/17 22:50 Dose: 1 applic Hydralazine HCl (Apresoline -) 50 mg PO BID [facility] Last Admin: 09/03/17 09:14 Dose: 50 mg Ertapenem 1 gm/ Sodium (Chloride) 50 mls @ 100 mls/hr IVPB DAILY [facility] Last Admin: 09/02/17 10:03 Dose: 100 mls/hr Lisinopril (Prinivil) 5 mg PO DAILY [facility] Last Admin: 09/03/17 09:14 Dose: 5 mg Metoprolol Succinate (Toprol Xl -) 50 mg PO BID [facility] Last Admin: 09/03/17 09:13 Dose: 50 mg Mupirocin (Bactroban Ointment (For Decolonization) -) 1 applic NS BID [facility] Stop: 09/06/17 09:59 Last Admin: 09/03/17 10:34 Dose: 1 applic Pantoprazole Sodium (Protonix -) 40 mg PO DAILY [facility] Last Admin: 09/03/17 09:14 Dose: 40 mg - Objective Vital Signs: Vital Signs Temperature 98.4 F 09/03/17 06:00 Pulse Rate 62 09/03/17 10:00 Respiratory Rate 19 09/03/17 10:00 Blood Pressure 130/73 09/03/17 10:00 O2 Sat by Pulse Oximetry (%) 98 09/03/17 08:00 Cardiovascular: Yes: S1, S2 Respiratory: Yes: Rales (at the left base) Gastrointestinal: Yes: Normal Bowel Sounds, Soft Labs: CBC, BMP 09/02/17 05:30 09/03/17 05:30 INR, PTT INR 1.25 (0.82-1.09) H 08/29/17 03:00 Problem List - Problems (1) Small bowel obstruction Code(s): K56.609 - UNSP INTESTNL OBST, UNSP TO PARTIAL VERSUS COMPLETE OBST (2) Abnormal LFTs (liver function tests) Code(s): R94.5 - ABNORMAL RESULTS OF LIVER FUNCTION STUDIES (3) Afib Code(s): I48.91 - UNSPECIFIED ATRIAL FIBRILLATION Qualifiers: (4) CAD (coronary artery disease) Code(s): I25.10 - ATHSCL HEART DISEASE OF [place] CORONARY ARTERY W/O ANG PCTRS (5) Common bile duct (CBD) obstruction Code(s): K83.1 - OBSTRUCTION OF BILE DUCT (6) Pancreatic neoplasm Code(s): D49.0 - NEOPLASM OF UNSPECIFIED BEHAVIOR OF DIGESTIVE SYSTEM Assessment/Plan - Problems (1) Cholangitis Assessment/Plan: -Seen by GI -Oncology consult for pancreatic ca -abx per ID Code(s): K83.0 - CHOLANGITIS (2) History of biliary stent insertion Code(s): Z98.890 - OTHER SPECIFIED POSTPROCEDURAL STATES (3) SBO (small bowel obstruction) Assessment/Plan: -Repeat Abd Xray shows no obstruction -dC NGT - minimal residual, start clear liquid diet -Surgery on board Code(s): K56.609 - UNSP INTESTNL OBST, UNSP TO PARTIAL VERSUS COMPLETE OBST (4) Anemia Assessment/Plan: -Chronic disease +MARGARITA -Venofer today -hematology consult -Monitor trend Code(s): D64.9 - ANEMIA, UNSPECIFIED Qualifiers: Anemia type: iron deficiency (5) Afib Assessment/Plan: -Resume Eliquis -Heparin 5000 U TID -back on metoprol Code(s): I48.91 - UNSPECIFIED ATRIAL FIBRILLATION Qualifiers: (6) Htn Assessment/Plan: -Resume hydralazine 50 bid (7) Hypokalemia Assessment/Plan: -Replace (8) Chf Assessment/Plan: -lasix given -Cxr
[2017-09-03] MEDS: ERTAPENEM SODIUM 1 GM in SODIUM CHLORIDE 50 ML IVPB SCH (11:23)
--- NOTE | 2017-09-03 13:14 | PN ---
Progress Note (short form) - Note Progress Note: PAtient seen and examined Feels well Last Vital Signs Temp Pulse Resp BP Pulse Ox 98.4 F 64 19 137/66 98 09/03/17 06:00 09/03/17 12:58 09/03/17 12:58 09/03/17 12:58 09/03/17 08:00 Cor: RSR, No murmurs, No gallops Lungs: Clear to P&A Abd: Soft, Normal bowel sounds, No organomegaly Ext:No significant edema Abnormal Lab Results 09/02/17 09/03/17 12:56 05:30 Potassium 3.3 L Anion Gap 7 L Random Glucose 107 H Calcium 8.1 L Alkaline Phosphatase 264 H Troponin I 0.32 H Total Protein 6.0 L Albumin 2.9 L Active Medications Generic Name Dose Route Start Last Admin Trade Name Freq PRN Reason Stop Dose Admin Apixaban 5 mg 09/01/17 22:00 09/03/17 09:13 Eliquis - PO 5 mg BID PRIYANKA Administration Benzocaine/Menthol 1 each 09/01/17 20:33 Cepacol Lozenge - MM QID PRN sore throat Chlorhexidine Gluconate 1 applic 09/01/17 22:00 09/02/17 22:50 Hibiclens For Decolonization - TP 1 applic HS PRIYANKA Administration Hydralazine HCl 50 mg 09/02/17 10:00 09/03/17 09:14 Apresoline - PO 50 mg BID PRIYANKA Administration Ertapenem 1 gm/ Sodium 50 mls @ 100 mls/hr 09/02/17 10:00 09/03/17 11:23 Chloride IVPB 100 mls/hr DAILY PRIYANKA Administration Lisinopril 5 mg 09/02/17 10:00 09/03/17 09:14 Prinivil PO 5 mg DAILY PRIYANKA Administration Metoprolol Succinate 50 mg 09/01/17 22:00 09/03/17 09:13 Toprol Xl - PO 50 mg BID PRIYANKA Administration Mupirocin 1 applic 09/01/17 10:00 09/03/17 10:34 Bactroban Ointment (For Decolonization) - NS 09/06/17 09:59 1 applic BID PRIYANKA Administration Pantoprazole Sodium 40 mg 09/02/17 10:00 09/03/17 09:14 Protonix - PO 40 mg DAILY PRIYANKA Administration A/P 86 y/o patient with locally advanced pancreatic cancer , s/p gemzar/abraxane , attempted resection which failes, xeloda/RT, now admitted s/p biliary stent change with cholangitis/sepsis./ ? SBO Most recent PET 3 months back showed no evidence of recurrence On ertapenem will follow will discuss with family
[2017-09-03] MEDS: CHLORHEXIDINE GLUCONATE 4% CLEANSER FOR DECOLONIZATION TP SCH (22:02)
[2017-09-04 06:45] LABS: BASO % 0.4 % (0-2.0); EOS % 1.6 % (0-4.5); HEMATOCRIT 31.8 % (35.4-49); HEMOGLOBIN 10.9 GM/dL (11.7-16.9); LYMPH % 9.2 % (8-40); MCH 27.4 pg (25.7-33.7); MCHC 34.2 g/dl (32.0-35.9); MEAN CELL VOLUME 80.3 fl (80-96); MEAN PLT VOLUME 8.4 fl (7.5-11.1); NEUT % 80.8 % (42.8-82.8); PLATELET COUNT 231 K/MM3 (134-434); RBC 3.96 M/mm3 (4.00-5.60); RDW 17.4 % (11.9-15.9); WHITE BLOOD COUNT 6.9 K/mm3 (4.0-10.0)
[2017-09-04 06:58] LABS: ALBUMIN 3.1 g/dl (3.4-5.0); ANION GAP 7 (8-16); BLOOD UREA NITROGEN 11 mg/dL (7-18); CALCIUM 8.1 mg/dL (8.5-10.1); CHLORIDE 104 mmol/L (98-107); CO2 27 mmol/L (21-32); CREATININE 0.9 mg/dL (0.7-1.3); GLUCOSE,RANDOM 117 mg/dL (74-106); MAGNESIUM 1.9 mg/dL (1.8-2.4); POTASSIUM 3.8 mmol/L (3.5-5.1); SGOT/AST 32 U/L (15-37); SGPT/ALT 37 U/L (12-78); SODIUM 138 mmol/L (136-145)
[2017-09-04 07:00] LABS: ALK PHOS 282 U/L (45-117); BILIRUBIN,TOTAL 0.5 mg/dL (0.2-1.0); TOT PROT 6.7 g/dl (6.4-8.2)
--- NOTE | 2017-09-04 07:40 | PN ---
Progress Note, Physician - Current Medication List Current Medications: Active Medications Apixaban (Eliquis -) 5 mg PO BID [facility] Last Admin: 09/03/17 21:54 Dose: 5 mg Benzocaine/Menthol (Cepacol Lozenge -) 1 each MM QID PRN PRN Reason: sore throat Chlorhexidine Gluconate (Hibiclens For Decolonization -) 1 applic TP HS [facility] Last Admin: 09/03/17 22:02 Dose: 1 applic Hydralazine HCl (Apresoline -) 50 mg PO BID [facility] Last Admin: 09/03/17 21:54 Dose: 50 mg Ertapenem 1 gm/ Sodium (Chloride) 50 mls @ 100 mls/hr IVPB DAILY [facility] Last Admin: 09/03/17 11:23 Dose: 100 mls/hr Lisinopril (Prinivil) 5 mg PO DAILY [facility] Last Admin: 09/03/17 09:14 Dose: 5 mg Metoprolol Succinate (Toprol Xl -) 50 mg PO BID [facility] Last Admin: 09/03/17 21:54 Dose: 50 mg Mupirocin (Bactroban Ointment (For Decolonization) -) 1 applic NS BID [facility] Stop: 09/06/17 09:59 Last Admin: 09/03/17 22:02 Dose: 1 applic Pantoprazole Sodium (Protonix -) 40 mg PO DAILY [facility] Last Admin: 09/03/17 09:14 Dose: 40 mg - Objective Vital Signs: Vital Signs Temperature 98.2 F 09/04/17 06:00 Pulse Rate 64 09/04/17 06:00 Respiratory Rate 16 09/04/17 06:00 Blood Pressure 157/76 09/04/17 06:00 O2 Sat by Pulse Oximetry (%) 98 09/03/17 22:00 Cardiovascular: Yes: S1, S2 Respiratory: Yes: Regular, CTA Bilaterally Gastrointestinal: Yes: Normal Bowel Sounds, Soft Labs: CBC, BMP 09/04/17 05:30 09/04/17 05:30 INR, PTT INR 1.25 (0.82-1.09) H 08/29/17 03:00 Problem List - Problems (1) Small bowel obstruction Code(s): K56.609 - UNSP INTESTNL OBST, UNSP TO PARTIAL VERSUS COMPLETE OBST (2) Abnormal LFTs (liver function tests) Code(s): R94.5 - ABNORMAL RESULTS OF LIVER FUNCTION STUDIES (3) Afib Code(s): I48.91 - UNSPECIFIED ATRIAL FIBRILLATION Qualifiers: (4) CAD (coronary artery disease) Code(s): I25.10 - ATHSCL HEART DISEASE OF [place] CORONARY ARTERY W/O ANG PCTRS (5) Common bile duct (CBD) obstruction Code(s): K83.1 - OBSTRUCTION OF BILE DUCT (6) Pancreatic neoplasm Code(s): D49.0 - NEOPLASM OF UNSPECIFIED BEHAVIOR OF DIGESTIVE SYSTEM Assessment/Plan - Problems (1) Cholangitis Assessment/Plan: -Seen by GI -Oncology consult for pancreatic ca -abx per ID Code(s): K83.0 - CHOLANGITIS (2) History of biliary stent insertion Code(s): Z98.890 - OTHER SPECIFIED POSTPROCEDURAL STATES (3) SBO (small bowel obstruction) Assessment/Plan: -Repeat Abd Xray shows no obstruction -dC NGT - minimal residual, start clear liquid diet -Surgery on board Code(s): K56.609 - UNSP INTESTNL OBST, UNSP TO PARTIAL VERSUS COMPLETE OBST (4) Anemia Assessment/Plan: -Chronic disease +MARGARITA -Venofer today -hematology consult -Monitor trend Code(s): D64.9 - ANEMIA, UNSPECIFIED Qualifiers: Anemia type: iron deficiency (5) Afib Assessment/Plan: -Resume Eliquis -Heparin 5000 U TID -back on metoprol Code(s): I48.91 - UNSPECIFIED ATRIAL FIBRILLATION Qualifiers: (6) Htn Assessment/Plan: -Resume hydralazine 50 bid (7) Hypokalemia Assessment/Plan: -Replace (8) Chf Assessment/Plan: -lasix given -Cxr (9) Pancreatic Ca Assessment/Plan: -Pet no recurrence -markers rising -d/w oncology
[2017-09-04] MEDS ORDERED: PT OWN MED DRAWER 7, Y5N ONE (09:00)
[2017-09-04] MEDS: LISINOPRIL 5 MG TABLET (FP) PO SCH (09:07)
[2017-09-04] MEDS: ERTAPENEM SODIUM 1 GM in SODIUM CHLORIDE 50 ML IVPB SCH (09:07)
[2017-09-04] MEDS: hydrALAZINE HCL 50 MG TABLET (FP) PO SCH ×2 (09:08→21:21)
[2017-09-04] MEDS: PANTOPRAZOLE 40 MG TABLET (FP) PO SCH (09:08)
[2017-09-04] MEDS: APIXABAN 5 MG TABLET PO SCH ×2 (09:08→21:21)
[2017-09-04] MEDS: MUPIROCIN 2% TOPICAL OINTMENT FOR DECOLONIZATION NS SCH ×2 (09:09→21:21)
--- NOTE | 2017-09-04 09:20 | PN ---
Progress Note (short form) - Note Progress Note: PULMONARY/CCM Denies abdominal pain, nausea or vomiting. No shortness of breath or chest pain. Vital Signs Period Temp Pulse Resp BP Sys/Esc[place]edo Pulse Ox Last 24 Hr 97.8 F-98.5 F 62-71 16-19 130-162/66-77 98-98 Gen: NAD in chair Heart: RRR Lung: decreased breath sounds at the bases Abd: soft, nontender Ext: no edema CBC, BMP 09/04/17 05:30 09/04/17 05:30 Active Medications Apixaban (Eliquis -) 5 mg PO BID [facility] Last Admin: 09/04/17 09:08 Dose: 5 mg Benzocaine/Menthol (Cepacol Lozenge -) 1 each MM QID PRN PRN Reason: sore throat Chlorhexidine Gluconate (Hibiclens For Decolonization -) 1 applic TP HS [facility] Last Admin: 09/03/17 22:02 Dose: 1 applic Hydralazine HCl (Apresoline -) 50 mg PO BID [facility] Last Admin: 09/04/17 09:08 Dose: 50 mg Ertapenem 1 gm/ Sodium (Chloride) 50 mls @ 100 mls/hr IVPB DAILY [facility] Last Admin: 09/04/17 09:07 Dose: 100 mls/hr Lisinopril (Prinivil) 5 mg PO DAILY [facility] Last Admin: 09/04/17 09:07 Dose: 5 mg Metoprolol Succinate (Toprol Xl -) 50 mg PO BID [facility] Last Admin: 09/04/17 09:07 Dose: 50 mg Mupirocin (Bactroban Ointment (For Decolonization) -) 1 applic NS BID [facility] Stop: 09/06/17 09:59 Last Admin: 09/04/17 09:09 Dose: Not Given Pantoprazole Sodium (Protonix -) 40 mg PO DAILY [facility] Last Admin: 09/04/17 09:08 Dose: 40 mg A/P Atrial Fibrillation with RVR now rate controlled Pancreatic Cancer s/p Biliary Stent placement Cholangitis resolved Small Bowel Obstruction - complete antibiotics - PO as tolerated - rate controlled on metoprolol - continue anticoagulation - telemetry monitoring
[2017-09-04] MEDS: CHLORHEXIDINE GLUCONATE 4% CLEANSER FOR DECOLONIZATION TP SCH (21:22)
[2017-09-05 06:10] LABS: BASO % 0.4 % (0-2.0); EOS % 2.2 % (0-4.5); HEMATOCRIT 29.1 % (35.4-49); HEMOGLOBIN 9.9 GM/dL (11.7-16.9); LYMPH % 9.9 % (8-40); MCH 27.5 pg (25.7-33.7); MEAN CELL VOLUME 80.9 fl (80-96); MEAN PLT VOLUME 8.5 fl (7.5-11.1); MONO % 9.4 % (3.8-10.2); NEUT % 78.1 % (42.8-82.8); PLATELET COUNT 206 K/MM3 (134-434); RDW 17.6 % (11.9-15.9); WHITE BLOOD COUNT 6.7 K/mm3 (4.0-10.0)
[2017-09-05 06:48] LABS: ALBUMIN 2.9 g/dl (3.4-5.0); ANION GAP 6 (8-16); BILIRUBIN,TOTAL 0.5 mg/dL (0.2-1.0); BLOOD UREA NITROGEN 12 mg/dL (7-18); CHLORIDE 105 mmol/L (98-107); CO2 29 mmol/L (21-32); CREATININE 0.8 mg/dL (0.7-1.3); GLUCOSE,RANDOM 99 mg/dL (74-106); MAGNESIUM 1.9 mg/dL (1.8-2.4); PHOSPHOROUS 3.1 mg/dL (2.5-4.9); POTASSIUM 3.7 mmol/L (3.5-5.1); SGOT/AST 27 U/L (15-37); SGPT/ALT 31 U/L (12-78); SODIUM 140 mmol/L (136-145); TOT PROT 6.2 g/dl (6.4-8.2)
[2017-09-05 06:49] LABS: ALK PHOS 243 U/L (45-117)
--- NOTE | 2017-09-05 07:25 | DS ---
Physical Examination Vital Signs: Vital Signs Temperature 98.4 F 09/05/17 02:35 Pulse Rate 70 09/05/17 06:00 Respiratory Rate 22 09/05/17 06:00 Blood Pressure 159/81 09/05/17 06:00 O2 Sat by Pulse Oximetry (%) 98 09/05/17 04:07 Labs: CBC, BMP 09/05/17 05:30 09/05/17 05:30 Discharge Summary Reason For Visit: SMALL BOWEL OBSTRUCTION Current Active Problems Cholangitis (Acute) History of biliary stent insertion (Acute) Obstructive cholestatic liver disease (Acute) SBO (small bowel obstruction) (Acute) Small bowel obstruction (Acute) Small bowel obstruction due to adhesions (Acute) Transaminitis (Acute) Condition: Stable - Instructions Referrals: Danelle Gaytan MD [Primary Care Provider] - - Home Medications Comprehensive Discharge Medication List: Ambulatory Orders Apixaban [Eliquis] 5 mg PO BID 07/26/16 Atorvastatin Ca [Lipitor] 20 mg PO HS #30 tablet 07/29/16 Aspirin [ASA -] 81 mg PO DAILY 01/01/17 Metoprolol Succinate [Toprol Xl] 50 mg PO BID 01/01/17 Hydralazine HCl 100 mg PO BID 08/23/17 Benzocaine/Menthol [Cepacol Sore Throat Lozenge] 1 each MM QID PRN 08/29/17 Docusate Sodium 100 mg PO DAILY 08/29/17 Lisinopril 5 mg PO DAILY 08/29/17 Pantoprazole Sodium [Protonix] 40 mg PO DAILY 08/29/17
[2017-09-05] MEDS ORDERED: PT OWN MED DRAWER 7, Y5N ONE (08:46)
[2017-09-05] MEDS: hydrALAZINE HCL 50 MG TABLET (FP) PO SCH (08:59)
[2017-09-05] MEDS: MUPIROCIN 2% TOPICAL OINTMENT FOR DECOLONIZATION NS SCH (08:59)
[2017-09-05] MEDS: LISINOPRIL 5 MG TABLET (FP) PO SCH (08:59)
[2017-09-05] MEDS: PANTOPRAZOLE 40 MG TABLET (FP) PO SCH (08:59)
[2017-09-05] MEDS: APIXABAN 5 MG TABLET PO SCH (08:59)
[2017-09-05 11:24] VITALS: BMI 27.3
[2017-09-05] MEDS: ERTAPENEM SODIUM 1 GM in SODIUM CHLORIDE 50 ML IVPB SCH (13:16)
[2017-09-05 14:06] VITALS: BP 160/80; PULSE 72; TEMP 97.8
== END 2017-09-05 14:10 | disposition home or self-care (01) | DRG 436 ==
LOC: JER 02:02 → JERBED 05:10 → J7W 15:00 → JICU 09-01 09:46 → J2W 09-03 17:51
PROVIDERS: ADMIT Internal Medicine; ATTEND Family Medicine
PROC: 0D9670Z Drainage of Stomach with Drainage Device, Via Natural or Artificial Opening (ICD-10-PCS; principal; 2017-08-29)
DX: C25.9 Malignant neoplasm of pancreas, unspecified (principal); K56.609 Unspecified intestinal obstruction, unspecified as to partial versus complete obstruction; K83.0 Cholangitis; N17.9 Acute kidney failure, unspecified; J98.11 Atelectasis; K56.50 Intestinal adhesions [bands], unspecified as to partial versus complete obstruction; J90 Pleural effusion, not elsewhere classified; I10 Essential (primary) hypertension; E78.5 Hyperlipidemia, unspecified; I48.91 Unspecified atrial fibrillation; D50.9 Iron deficiency anemia, unspecified; E87.6 Hypokalemia; I25.10 Atherosclerotic heart disease of native coronary artery without angina pectoris; D49.0 Neoplasm of unspecified behavior of digestive system; R74.0 Nonspecific elevation of levels of transaminase and lactic acid dehydrogenase [LDH]; I50.9 Heart failure, unspecified
CPT/HCPCS: 36415; 71045-TC-FY; 71046-TC-FY; 74019-TC-FY; 74176-TC; 80053; 81003; 81015; 82150; 82550; 82553; 82728; 82746; 82962; 83036; 83540; 83550; 83605; 83690; 83735; 84100; 84484; 85025; 85610; 86850; 86900; 86901; 87040; 87086; 93005; 93010; 99284-25; J0131; J1644; J1756; J7030

== ENCOUNTER → 2018-04-12 | Day surgery (SDC) | payer OTHER, MEDICARE | END | disposition home or self-care (01) | LOC: JRADIR 09:48 | PROVIDERS: ATTEND Internal Medicine Hematology & Oncology | PROC: B516YZA Fluoroscopy of Right Subclavian Vein using Other Contrast, Guidance (ICD-10-PCS; principal; 2018-04-12) | DX: C25.0 Malignant neoplasm of head of pancreas (principal); Z45.2 Encounter for adjustment and management of vascular access device | CPT/HCPCS: 36598; 76000-TC-FY ==

== ENCOUNTER → 2018-11-23 | Day surgery (SDC) | payer OTHER, MEDICARE ==
[2018-11-23 10:46] LABS: BASO % 0.5 % (0-2.0); EOS % 2.3 % (0-4.5); HEMATOCRIT 40.5 % (35.4-49); HEMOGLOBIN 13.5 GM/dL (11.7-16.9); LYMPH % 22.2 % (8-40); MCH 32.2 pg (25.7-33.7); MCHC 33.4 g/dl (32.0-35.9); MEAN CELL VOLUME 96.3 fl (80-96); MEAN PLT VOLUME 8.6 fl (7.5-11.1); MONO % 8.3 % (3.8-10.2); NEUT % 66.7 % (42.8-82.8); PLATELET COUNT 171 K/MM3 (134-434); RDW 18.4 % (11.9-15.9); WHITE BLOOD COUNT 4.9 K/mm3 (4.0-10.0)
[2018-11-23 11:08] LABS: ALBUMIN 3.7 g/dl (3.4-5.0); BILIRUBIN,DIRECT 0.2 mg/dL (0.0-0.2); BILIRUBIN,TOTAL 0.8 mg/dL (0.2-1); CREATININE 1.1 mg/dL (0.55-1.3); MAGNESIUM 2.5 mg/dL (1.8-2.4); POTASSIUM 4.1 mmol/L (3.5-5.1)
== END | disposition home or self-care (01) ==
LOC: JRADIR 09:27
PROVIDERS: ATTEND Internal Medicine Hematology & Oncology
PROC: 4A05XLZ Measurement of Circulatory Volume, External Approach (ICD-10-PCS; principal; 2018-11-23)
DX: C25.9 Malignant neoplasm of pancreas, unspecified (principal)
CPT/HCPCS: 36415; 36598; 80048; 80076; 83735; 85025; 86301

== ENCOUNTER 2019-03-02 11:09 | Emergency (ER) | payer OTHER, MEDICARE ==
[2019-03-02 11:25] VITALS: BMI 26.6
--- NOTE | 2019-03-02 11:46 | PDOC ---
History of Present Illness - General Chief Complaint: Nasal Bleeding Stated Complaint: NOSE BLEED Time Seen by Provider: 03/02/19 11:40 History Source: Patient Exam Limitations: No Limitations, Language Barrier - History of Present Illness Initial Comments: 03/02/19 11:44 HPI: 88yo M with PMH Pancreatic Cancer (completed radiation 02/2017 and chemotherapy), Prostate Ca (in remission), Ruptured Bladder, CAD with PPM, Cardiac Cath, Afib (on Eliquis), HTN, HLD, Dementia, h/o cholangitis s/p stent placement and obstruction prompting stent change on 08/26/17 at [facility] presenting with nose bleed. No prior nose bleeds. Reports bleeding started spontaneously without trauma 2 hours [employer]. Has been passing blood and clots by mouth and nose constantly this whole period - holding a towel over the nose, instructed to apply pressure. S/p 3 cycles of radiation for cancer, most recently last week. No history of blood clots or clotting disorders. NKDA Meds per cahrt PMH as above PSH as above Past History - Travel Traveled outside of the country in the last 30 days: No Close contact w/someone who was outside of country & ill: No - Past Medical History Allergies/Adverse Reactions: Allergies Allergy/AdvReac Type Severity Reaction Status Date / Time No Known Allergies Allergy Verified 08/23/17 17:03 Home Medications: Ambulatory Orders Apixaban [Eliquis] 5 mg PO BID 07/26/16 Atorvastatin Ca [Lipitor] 20 mg PO HS #30 tablet 07/29/16 Aspirin [ASA -] 81 mg PO DAILY 01/01/17 Metoprolol Succinate [Toprol Xl] 50 mg PO BID 01/01/17 Hydralazine HCl 100 mg PO BID 08/23/17 Benzocaine/Menthol [Cepacol Sore Throat Lozenge] 1 each MM QID PRN 08/29/17 Docusate Sodium 100 mg PO DAILY 08/29/17 Lisinopril 5 mg PO DAILY 08/29/17 Pantoprazole Sodium [Protonix] 40 mg PO DAILY 08/29/17 Anemia: No Asthma: No Cancer: Yes (PROSTATE,Pancreatic) Cardiac Disorders: Yes (CAD, AFib) CVA: No COPD: No CHF: No Dementia: No Diabetes: No GI Disorders: No Disorders: No HTN: Yes Hypercholesterolemia: Yes Liver Disease: No Seizures: No Thyroid Disease: No - Surgical History Abdominal Surgery: Yes (EXP LAP) Appendectomy: No Cardiac Surgery: Yes (pacer placed 07/20/16) Cholecystectomy: No GI Surgery: Yes (COLOSTOMY WITH REVERSAL) Lung Surgery: No Neurologic Surgery: No Orthopedic Surgery: No - Immunization History Immunization Up to Date: Yes - Psycho Social/Smoking Cessation Hx Smoking Status: No Smoking History: Never smoked Have you smoked in the past 12 months: No Number of Cigarettes Smoked Daily: 0 Information on smoking cessation initiated: No Hx Alcohol Use: No Drug/Substance Use Hx: No Substance Use Type: None Hx Substance Use Treatment: No Review of Systems - Review of Systems Able to Perform ROS?: Yes Is the patient limited Danish proficient: Yes Constitutional: No: Chills, Fever HEENTM: Yes: See HPI, Nose Bleeding. No: Recent change in vision, Nose Congestion, Throat Pain, Throat Swelling, Mouth Pain Respiratory: No: Cough, Shortness of Breath, Wheezing Cardiac (ROS): No: Chest Pain, Edema, Irregular Heart Rate, Chest Tightness ABD/GI: No: Constipated, Diarrhea, Nausea, Vomiting : No: Burning, Dysuria, Discharge, Frequency Musculoskeletal: No: Joint Pain, Muscle Pain, Muscle Weakness Integumentary: No: Bruising, Dryness, Erythema, Rash Hematologic/Lymphatic: No: Anemia, Blood Clots, Easy Bleeding All Other Systems: Reviewed and Negative *Physical Exam - Vital Signs Last Vital Signs Temp Pulse Resp BP Pulse Ox 91 H 18 164/83 100 03/02/19 11:21 03/02/19 11:21 03/02/19 11:21 03/02/19 11:21 - Physical Exam 03/02/19 11:45 Hypertensive, HDS WDWN man, sitting up in bed, blood on towel and in basin Actively bleeding and passing clots through nose and mouth, blood at nares RRR, nl s1s2, no murmurs appreciated CTABL, normal WOB, no wheezes / rales / rhonchi Soft, non-tender, non-distended 2+ radial and PT pulases CN grossly intact, MAEE, normal strength and sensation Medical Decision Making - Medical Decision Making 03/02/19 11:46 88 yo M with PMH Pancreatic Cancer (completed radiation 02/2017 and chemotherapy ), Prostate Ca (in remission), Ruptured Bladder, CAD with PPM, Cardiac Cath, Afib (on Eliquis), HTN, HLD, Dementia, h/o cholangitis s/p stent placement and obstruction prompting stent change on 08/26/17 at [facility] presenting with nose bleed. History notable for blood thinners, no prior bleeds or bleeding disorders. Exam notable for active bleeding. Pressure applied, treatment initiated as below. - Pressure to bilateral nostrils - Afrin nasal spray - TXA Soaked Gauze 03/02/19 14:29 - Patient still actively bleeding, nasal rocket placed in R nostril 03/02/19 15:32 - Still some bleeding per left nostril, placed additional nasal rocket on left 03/02/19 16:04 - Patient continues to bleed, plan for transfer to [facility] for ENT evaluation in setting of intractable epistaxis Accepting physician: Jone Rodriguez MD at [facility] Transport arranged by transfer center, BLS Discharge - Discharge Information Problems reviewed: Yes Clinical Impression/Diagnosis: Epistaxis Condition: Stable Disposition: HOME - Admission No - Follow up/Referral Referrals: Bert Rodriguez MD [Staff Physician] - - Patient Discharge Instructions Patient Printed Discharge Instructions: DI for Nosebleed Additional Instructions: You were seen and evaluated for nasal bleeding. Two devices were places in your nose to prevent continued bleeding. Do NOT take these out until you're evaluated by an ENT doctor. - Post Discharge Activity - Transfer to Acute Care Facility Receiving Facility Name: [facility] Accepting Physician:: Jone Rodriguez Transfer Comment: 03/02/19 16:48 BLS transport arranged by transfer center
[2019-03-02] MEDS ORDERED: OXYMETAZOLINE 0.05% NASAL SOLUTION 15 ML BOTTLE NS ONE (12:03)
[2019-03-02] MEDS ORDERED: TRANEXAMIC ACID 1000 MG/10 ML VIAL IVPUSH ONE (12:04)
--- NOTE | 2019-03-02 12:19 | PDOC ---
Attending Attestation - Resident Resident Name: Nickolas Reyna - ED Attending Attestation I have performed the following: I have examined & evaluated the patient, The case was reviewed & discussed with the resident, I agree w/resident's findings & plan, Exceptions are as noted
[2019-03-02] MEDS ORDERED: TRANEXAMIC ACID 1000 MG/10 ML VIAL ONE (12:27)
[2019-03-02] MEDS ORDERED: BACITRACIN 15 GM TUBE TOPICAL OINTMENT TP ONE (14:04)
[2019-03-02] MEDS ORDERED: BACITRACIN 0.9 GM PACKET ONE ×2 (14:08→15:14)
--- NOTE | 2019-03-02 14:15 | PDOC ---
Documentation entered by Jovany Moe SCRIBE, acting as scribe for Sahil Duarte MD. Sahil Duarte MD: This documentation has been prepared by the Payal allen Xhesika, SCRIBE, under my direction and personally reviewed by me in its entirety. I confirm that the documentation accurately reflects all work, treatment, procedures, and medical decision making performed by me. Attending Attestation - Resident Resident Name: Nickolas Reyna - ED Attending Attestation I have performed the following: I have examined & evaluated the patient, The case was reviewed & discussed with the resident, I agree w/resident's findings & plan, Exceptions are as noted - Medical Decision Making 03/02/19 14:15 Bleeding from right nostril status post direct pressure Afrin and TXA no improvement We will pack with Rhino Rocket observe and reassess Patient continues to bleed left nostril packed will observe and reassess Reevaluation patient continues to bleed and dripped into posterior oropharynx Given our lack of ENT at this facility patient will require transfer for ENT evaluation for possibility of posterior epistaxis
[2019-03-02 18:56] VITALS: BP 158/79; PULSE 92; TEMP 98.5
== END 2019-03-02 17:45 | disposition short-term general hospital (02) ==
LOC: JER 11:09
PROC: 093K7ZZ Control Bleeding in Nasal Mucosa and Soft Tissue, Via Natural or Artificial Opening (ICD-10-PCS; principal; 2019-03-02)
PROC: 3E033GC Introduction of Other Therapeutic Substance into Peripheral Vein, Percutaneous Approach (ICD-10-PCS; 2019-03-02)
DX: R04.0 Epistaxis (principal); I25.10 Atherosclerotic heart disease of native coronary artery without angina pectoris; I10 Essential (primary) hypertension; Z98.61 Coronary angioplasty status; I48.91 Unspecified atrial fibrillation; Z79.01 Long term (current) use of anticoagulants; E78.5 Hyperlipidemia, unspecified; F03.90 Unspecified dementia, unspecified severity, without behavioral disturbance, psychotic disturbance, mood disturbance, and anxiety; Z85.46 Personal history of malignant neoplasm of prostate; Z85.07 Personal history of malignant neoplasm of pancreas; Z92.3 Personal history of irradiation; Z95.0 Presence of cardiac pacemaker; Z79.82 Long term (current) use of aspirin
CPT/HCPCS: 99283-25

== ENCOUNTER 2019-03-25 10:27 | Inpatient (IN) | payer OTHER, MEDICARE ==
--- NOTE | 2019-03-25 10:32 | PDOC ---
History of Present Illness <Shira Jaimes - Last Filed: 03/25/19 13:04> - History of Present Illness Initial Comments: The pt is an 88M w/ a history of pancreatic Ca (rads last 3 weeks ago), prostate Ca (reportedly resolved), ruptured bladder, s/p pacemaker, Afib (no AC) , HTN, HLD, h/o cholangitis s/p stent placement, and obstruction prompting stent change on 08/26/17 who presents for evaluation of intermittent abdominal pain since 03/02/19. The pain is RUQ/R thoracic wall/generalized abdominal, intermittent, and is not exacerbated or alleviated by anything he can identify. Currently he says it is most significant in the RUQ and upon re-questioning states has pain in the left chest. Denies diaphoresis, N/V/C/D, dysuria, hematuria, or blood in his stool Heme/Onc: Dr. Brandon PCP: Dr. Gaytan 03/25/19 10:31 <Kenny Tillman - Last Filed: 03/25/19 15:09> - General Stated Complaint: ABD PAIN/LOWER BACK PAIN Past History <Shira Jaimes - Last Filed: 03/25/19 13:04> - Past Medical History Anemia: No Asthma: No Cancer: Yes (PROSTATE,Pancreatic) Cardiac Disorders: Yes (CAD, AFib) CVA: No COPD: No CHF: No Dementia: No Diabetes: No GI Disorders: No Disorders: No HTN: Yes Hypercholesterolemia: Yes Liver Disease: No Seizures: No Thyroid Disease: No - Surgical History Abdominal Surgery: Yes (EXP LAP) Appendectomy: No Cardiac Surgery: Yes (pacer placed 07/20/16) Cholecystectomy: No GI Surgery: Yes (COLOSTOMY WITH REVERSAL) Lung Surgery: No Neurologic Surgery: No Orthopedic Surgery: No - Immunization History Immunization Up to Date: Yes - Psycho Social/Smoking Cessation Hx Smoking Status: No Smoking History: Never smoked Have you smoked in the past 12 months: No Number of Cigarettes Smoked Daily: 0 Hx Alcohol Use: No Drug/Substance Use Hx: No Substance Use Type: None Hx Substance Use Treatment: No <Kenny Tillman - Last Filed: 03/25/19 15:09> - Past Medical History Allergies/Adverse Reactions: Allergies Allergy/AdvReac Type Severity Reaction Status Date / Time No Known Allergies Allergy Verified 03/25/19 10:39 Home Medications: Ambulatory Orders Atorvastatin Ca [Lipitor] 20 mg PO HS #30 tablet 07/29/16 Hydralazine HCl 100 mg PO BID 08/23/17 Lisinopril 5 mg PO DAILY 08/29/17 Famotidine [Pepcid] 20 mg PO BID 03/25/19 Metoprolol Tartrate [Lopressor] 50 mg PO BID 03/25/19 Review of Systems - Review of Systems Able to Perform ROS?: Yes Comments:: GENERAL/CONSTITUTIONAL: No fever or chills HEAD, EYES, EARS, NOSE AND THROAT: No change in vision. No change in hearing. No sore throat CARDIOVASCULAR: No shortness of breath RESPIRATORY: Denies cough, hemoptysis GASTROINTESTINAL: No nausea, vomiting, diarrhea or constipation GENITOURINARY: No dysuria, frequency, or change in urination MUSCULOSKELETAL: No joint or muscle swelling or pain SKIN: No rash NEUROLOGIC: No headache, vertigo, loss of consciousness, or change in strength/ sensation ENDOCRINE: No increased thirst. + 5lbs weight loss in last month HEMATOLOGIC/LYMPHATIC: Recent DC eliquis/ASA for epistaxis; hx of pancreatic ca and prostate ca ALLERGIC/IMMUNOLOGIC: No hives or skin allergy 03/25/19 11:53 Is the patient limited Cook Islander proficient: No <Kenny Tillman - Last Filed: 03/25/19 15:09> *Physical Exam - Vital Signs Last Vital Signs Temp Pulse Resp BP Pulse Ox 97.4 F L 101 H 18 165/86 97 03/25/19 10:37 03/25/19 11:27 03/25/19 11:27 03/25/19 11:27 03/25/19 11:27 <Shira Jaimes - Last Filed: 03/25/19 13:04> - Vital Signs Initial Vital Signs Temp Pulse Resp BP Pulse Ox 97.4 F L 116 H 20 175/88 H 100 03/25/19 10:37 03/25/19 10:37 03/25/19 10:37 03/25/19 10:37 03/25/19 10:37 03/25/19 11:57 - Physical Exam GENERAL: Awake, alert, and oriented to person/place/time, in no acute distress HEAD: No signs of trauma, normoc ephalic, atraumatic EYES: PERRLA, EOMI, sclera anicteric, conjunctiva clear ENT: Hearing grossly normal, nares patent, oropharynx clear without exudates. Moist mucosa LUNGS: No distress, speaks in full sentences, clear to auscultation bilaterally HEART: Regular rate and rhythm, normal S1 and S2, no murmurs appreciated, peripheral pulses normal and equal bilaterally CHEST: R thoracic wall TTP w/o underlying bony crepitus (or reported trauma) ABDOMEN: Soft, protuberant, RUQ TTP w/o rebound or guarding, well healed midline incision and colosotomy scar, normoactive bowel sounds. EXTREMITIES: Normal inspection, Normal range of motion, no edema. No clubbing or cyanosis NEUROLOGICAL: Cranial nerves II through XII grossly intact. Normal speech, no focal sensorimotor deficits SKIN: Warm, Dry 03/25/19 11:57 <Kenny Tillman - Last Filed: 03/25/19 15:09> ED Treatment Course - LABORATORY CBC & Chemistry Diagram: 03/25/19 11:00 03/25/19 11:00 - ADDITIONAL ORDERS Additional order review: Laboratory Results 03/25/19 03/25/19 11:00 11:00 Sodium 139 Potassium 4.4 Chloride 107 Carbon Dioxide 22 Anion Gap 9 BUN 25.2 H Creatinine 0.9 Est GFR (CKD-EPI)AfAm 89.32 Est GFR (CKD-EPI)NonAf 77.06 Random Glucose 122 H Calcium 8.7 Magnesium 2.3 Total Bilirubin 2.0 H AST 69 H ALT 39 Alkaline Phosphatase 413 H Creatine Kinase 68 Troponin I 0.76 H* 0.67 H* Total Protein 6.4 Albumin 2.9 L 03/25/19 11:00 RBC 3.54 L MCV 96.3 H MCHC 32.9 RDW 17.8 H MPV 8.7 Neutrophils % 84.5 H D Lymphocytes % 4.3 L D Monocytes % 10.1 Eosinophils % 0.8 Basophils % 0.3 - Medications Given in the ED: ED Medications Discontinued Medications Generic Name Dose Route Start Last Admin Trade Name Freq PRN Reason Stop Dose Admin Acetaminophen 1,000 mg 03/25/19 10:54 03/25/19 11:21 Ofirmev Injection - IVPB 03/25/19 10:55 1,000 mg ONCE ONE Administration Aspirin 324 mg 03/25/19 11:40 03/25/19 11:48 Asa - PO 03/25/19 11:41 324 mg ONCE ONE Administration <Shira Jaimes - Last Filed: 03/25/19 13:04> - LABORATORY CBC & Chemistry Diagram: 03/25/19 11:00 03/25/19 11:00 - RADIOLOGY Radiograph Interpretation: RAD/CHEST X-RAY PORTABLE Since 11/22/2017 is a slightly weaker inspiration with right port and pacemaker. There is a large heart, unfolded aorta and prominent krystle. There are atelectatic changes and scarring noted at the bases. The angles are sharp. The soft tissues are intact. There are some degenerative changes. Since , there is a weaker inspiration, slightly more prominent mediastinum and atelectatic/scarring changes at the bases. Since the prior study the previously noted left rib fractures are hard to see. Correlation recommended. 03/25/19 11:49 CT/ABDOMEN & PELVIS CT WITH CONTR IMPRESSION: 1. Moderate bilateral pleural effusions and lower lobe atelectasis. 2. Moderate amount of ascites. 3. Development of multiple hepatic masses consistent with metastases since 2017. 4. Increased size of right cardiophrenic angle lymph node. 5. Patent biliary stent. 6. Large pancreatic distal body/tail mass consistent with malignancy that has also developed since the prior study. Clinical correlation and continued follow- up recommended. Please see above discussion. 03/25/19 13:49 <Kenny Tillman - Last Filed: 03/25/19 15:09> Medical Decision Making - Medical Decision Making The pt is an 88M w/ a history of pancreatic Ca (rads last 3 weeks ago), prostate Ca (reportedly resolved), ruptured bladder, s/p pacemaker, Afib (no AC) , HTN, HLD, h/o cholangitis s/p stent placement, and obstruction prompting stent change on 08/26/17 who presents for evaluation of intermittent abdominal pain since 03/02/19. Pt also now reports L chest pain ED Course Labs sent ECG CXR CT A&P Tylenol for pain Trop I 0.76, pt reports chest pain at this time, will give ASA 324mg PO once ECG w/ sinus tachycardia; HR 105; QTc 441; left axis deviation, no JESSICA, abn ecg 03/25/19 11:43 No leukocytosis Anemia noted, no indication for transfusion at this time Lytes unremarkable No RASHEEDA T bili, AST, Alk Phos elevated, possibly 2/2 pancreatic cancer versus obstructive process 03/25/19 12:08 Case discussed w/ Dr. August, will not start AC at this time, will trend enzymes 03/25/19 12:33 Pt admitted to Tele Consult order placed to Dr. Hernandez Pt signed out to Dr. Gaytan Repeat Trop I 0.74 03/25/19 15:08 <Kenny Tillman - Last Filed: 03/25/19 15:09> Discharge - Discharge Information Problems reviewed: Yes - Admission Yes <Shira Jaimes - Last Filed: 03/25/19 13:04> - Discharge Information Problems reviewed: Yes - Admission Yes <Kenny Tillman - Last Filed: 03/25/19 15:09> - Discharge Information Clinical Impression/Diagnosis: NSTEMI (non-ST elevated myocardial infarction), Pancreatic neoplasm, Abnormal LFTs (liver function tests) Condition: Fair
[2019-03-25] MEDS ORDERED: ACETAMINOPHEN 1000 MG/100 ML VIAL (NON FORMULARY) IVPB ONE (10:54)
[2019-03-25] MEDS ORDERED: ACETAMINOPHEN INJECTION 100 ML IVPB ONE (11:06)
--- NOTE | 2019-03-25 11:12 | PDOC ---
Documentation entered by Juan Hunter SCRIBE, acting as scribe for Shira Jaimes MD. Shira Jaimes MD: This documentation has been prepared by the Dale allen Daniel, SCRIBE, under my direction and personally reviewed by me in its entirety. I confirm that the documentation accurately reflects all work, treatment, procedures, and medical decision making performed by me. Attending Attestation - Resident Resident Name: Kenny Tillman - ED Attending Attestation I have performed the following: I have examined & evaluated the patient, The case was reviewed & discussed with the resident, I agree w/resident's findings & plan, Exceptions are as noted - HPI HPI: 03/25/19 10:58 The patient is an 88 year old with a past medical history of pancreatic cancer ( completed radiation 3 weeks ago and chemotherapy), prostate cancer (in remission ), ruptured bladder, CAD with PPM, cardiac catheter, afib (no longer on Eliquis) , HTN, HLD, dementia, history of cholangitis s/p stent placement here today for evaluation of abdominal pain. The patient reports that he has had right upper quadrant abdominal since 03/02/19 when he was seen for a nosebleed. He states that his pain is diffuse around the right upper quadrant, intermittent, and worse today which prompted him to come to the ER. He reports that he has had a decreased appetite with a poor PO intake and notes that his last bowel movement was today and normal. He notes left sided chest pain and right sided back around his scapula without spinal pain. Patient denies headache, lightheadedness. Denies fever, chills. Denies shortness of breath. Denies nausea, vomiting, diarrhea. Allergies: NKA PCP: Danelle Rosas Oncologist: Roma Parada - Physicial Exam PE: 03/25/19 11:35 awake alert lungs clear bilat heart reg tachycardia. no mrg abd soft ruq ttp. no rebound no guarding. mild cva tenderness right. ext wwp no edema. no calf tenderness. alert oriented. - Medical Decision Making 03/25/19 11:35 88 yo male h/o pancreatitic ca, ( s/p partial whipple ) biliary stent, s/p radiation 3 weeks ago, no longer on chemo here with c/o decreased appetite and ruq pain. no f/c no urinary compalints. no cough. pain does radiate up to chest has intermittent left sided chest pain. on my exam pt with ruq ttp. right cva tendernss. 03/25/19 12:11 differential pna, obstructed biliary tree, worsenig pancreatic ca, bowel obstruction, acs, plan labs ct a/p ekg trop cxr trp positive with trop 0.7, ekg unremarakble. given asa to patient. ct a/p pending. cxr with atleectatic / scarring changes at bilat bases. 03/25/19 13:03 d/w dr rosas for admission. will admit to telemetry. d/w dr Stone group from cardiology recommend trending the troponin. no angicoagulation at this point. was given asa. will contact dr gomes his oncologist pending ct a/p results. Heart Score/ECG Review #1 General ECG Interpretation: Sinus Rhythm, Normal Intervals, No acute ischemic changes Compared to previous ECG there are: Other (sinus tachycardia [address] ellevation or depression.) #2 ECG reviewed & interpreted by me at: 15:39 General ECG Interpretation: Sinus Rhythm, Normal Rate (89), Normal Intervals, No acute ischemic changes
[2019-03-25 11:33] LABS: BASO % 0.3 % (0-2.0); EOS % 0.8 % (0-4.5); HEMATOCRIT 34.1 % (35.4-49); HEMOGLOBIN 11.2 GM/dL (11.7-16.9); LYMPH % 4.3 % (8-40); MCH 31.7 pg (25.7-33.7); MCHC 32.9 g/dl (32.0-35.9); MEAN CELL VOLUME 96.3 fl (80-96); MEAN PLT VOLUME 8.7 fl (7.5-11.1); MONO % 10.1 % (3.8-10.2); NEUT % 84.5 % (42.8-82.8); PLATELET COUNT 184 K/MM3 (134-434); RBC 3.54 M/mm3 (4.00-5.60); RDW 17.8 % (11.9-15.9); WHITE BLOOD COUNT 7.7 K/mm3 (4.0-10.0)
[2019-03-25 11:37] LABS: ALBUMIN 2.9 g/dl (3.4-5.0); BLOOD UREA NITROGEN 25.2 mg/dL (7-18); CALCIUM 8.7 mg/dL (8.5-10.1); CREATININE 0.9 mg/dL (0.55-1.3); MAGNESIUM 2.3 mg/dL (1.8-2.4); POTASSIUM 4.4 mmol/L (3.5-5.1); TOT PROT 6.4 g/dl (6.4-8.2)
[2019-03-25] MEDS ORDERED: ASPIRIN 81 MG CHEWABLE TABLETS PO ONE (11:40)
[2019-03-25] MEDS ORDERED: ASPIRIN 81 MG CHEWABLE TABLETS ONE (11:41)
--- NOTE | 2019-03-25 13:59 | EKG ---
Test Reason : Blood Pressure : / mmHG Vent. Rate : 105 BPM Atrial Rate : 105 BPM P-R Int : 124 ms QRS Dur : 098 ms QT Int : 334 ms P-R-T Axes : 041 -40 058 degrees QTc Int : 441 ms SINUS TACHYCARDIA LEFT AXIS DEVIATION ABNORMAL ECG WHEN COMPARED WITH ECG OF 01-SEP-2017 08:58, SINUS RHYTHM HAS REPLACED ATRIAL FIBRILLATION VENT. RATE HAS DECREASED BY [address] NO LONGER DEPRESSED IN ANTEROLATERAL LEADS T WAVE INVERSION NO LONGER EVIDENT IN LATERAL LEADS Confirmed by JORJE TRACEY MD ([id number]) on 03/25/2019 1:58:28 PM Referred By: Confirmed By:JORJE TRACEY MD
--- NOTE | 2019-03-25 14:09 | CON.CARD ---
Consult Consult Specialty:: Cardiology Referred by:: Lucila Reason for Consultation:: Troponin - History of Present Illness Chief Complaint: Abdominal pain History of Present Illness: 88 year old male with a pmhx of pancreatic CA (radiation 3 weeks ago), prostate CA, h/o ruptured bladder, h/o Afib s/p ppm AC stopped recently for nose bleeds, htn, hld, and h/o cholangitis s/p stent presenting with abdominal pain and distention. No chest pain, sob, or palpitations. CK normal Trop 0.7 EKG: sinus tachycardia at 105bpm, lad, nl st segments CT scan: b/l pleural effusions, ascites, hepatic metastatic lesions - Past Medical History Cardio/Vascular: Yes: AFIB, 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 WHIPPLE BUT ABORTED DUE TO SCAR TISSUE), Prostatectomy - Alcohol/Substance Use Hx Alcohol Use: No History of Substance Use: reports: None - Smoking History Smoking history: Never smoked Have you smoked in the past 12 months: No Aproximately how many cigarettes per day: 0 - Social History Usual Living Arrangement: With Spouse ADL: Family Assistance History of Recent Travel: No Home Medications - Allergies Allergies/Adverse Reactions: Allergies Allergy/AdvReac Type Severity Reaction Status Date / Time No Known Allergies Allergy Verified 03/25/19 10:39 - Home Medications Home Medications: Ambulatory Orders Atorvastatin Ca [Lipitor] 20 mg PO HS #30 tablet 07/29/16 Hydralazine HCl 100 mg PO BID 08/23/17 Lisinopril 5 mg PO DAILY 08/29/17 Famotidine [Pepcid] 20 mg PO BID 03/25/19 Metoprolol Tartrate [Lopressor] 50 mg PO BID 03/25/19 Vital Signs: Vital Signs Temperature 97.4 F L 03/25/19 10:37 Pulse Rate 91 H 03/25/19 13:07 Respiratory Rate 18 03/25/19 13:07 Blood Pressure 171/82 H 03/25/19 13:07 O2 Sat by Pulse Oximetry (%) 98 03/25/19 13:07 Constitutional: Yes: No Distress Neck: Yes: Supple Respiratory: Yes: Diminished Gastrointestinal: Yes: Soft, Ascites Cardiovascular: Yes: Tachycardia JVD: No Carotid Bruit: No Heart Sounds: Yes: S1, S2 Murmur: No: Systolic Murmur Edema: No - Other Data Labs, Other Data: CBC, BMP 03/25/19 11:00 03/25/19 11:00 Troponin, BNP 03/25/19 03/25/19 11:00 11:00 Troponin I 0.67 H* 0.76 H* Troponin, BNP 03/25/19 03/25/19 11:00 11:00 Troponin I 0.67 H* 0.76 H* Imaging - Results Cat Scan: Report Reviewed EKG: Image Reviewed Problem List - Problems (1) NSTEMI (non-ST elevated myocardial infarction) Code(s): I21.4 - NON-ST ELEVATION (NSTEMI) MYOCARDIAL INFARCTION Assessment/Plan 88 year old male with a pmhx of pancreatic CA (radiation 3 weeks ago), prostate CA, h/o ruptured bladder, h/o Afib s/p ppm AC stopped recently for nose bleeds, htn, hld, and h/o cholangitis s/p stent presenting with abdominal pain and distention. No chest pain, sob, or palpitations. CK normal Trop 0.7 EKG: sinus tachycardia at 105bpm, lad, nl st segments CT scan: b/l pleural effusions, ascites, hepatic metastatic lesions 1) Elevated troponins -Normal ck, no ischemic ekg changes, no cardiac complaints. No need for further cardiac intervention at this time. Can trend CE's No need for tele Symptoms likely due to hepatic metastases and ascites. F/u with oncologist.
[2019-03-25] MEDS ORDERED: hydrALAZINE HCL 25 MG TABLET (FP) ONE ×2 (17:16→22:53)
[2019-03-25] MEDS ORDERED: METOPROLOL TARTRATE 50 MG TABLET (FP) ONE ×2 (17:16→22:53)
[2019-03-25] MEDS: METOPROLOL TARTRATE 50 MG TABLET (FP) PO SCH ×2 (17:21→23:02)
[2019-03-25] MEDS: hydrALAZINE HCL 50 MG TABLET (FP) PO SCH ×2 (17:21→23:02)
[2019-03-25 17:54] LABS: URINE COLOR DK YELLOW
[2019-03-25 17:55] LABS: PH,URINE 5.5 (5.0-8.0); URINE APPEARANCE CLEAR; URINE BILIRUBIN NEGATIVE (NEGATIVE); URINE GLUCOSE (UA) NEGATIVE (NEGATIVE); URINE KETONE TRACE (NEGATIVE); URINE LEUK ESTERASE NEGATIVE (NEGATIVE); URINE NITRITE NEGATIVE (NEGATIVE); URINE PROTEIN TRACE (NEGATIVE)
[2019-03-25] MEDS: NITROGLYCERIN 2% OINTMENT - 1GM PACKET TD SCH (18:19)
[2019-03-25] MEDS ORDERED: ATORVASTATIN CA 20 MG TABLET (FP) ONE (22:53)
[2019-03-25] MEDS ORDERED: FAMOTIDINE 20 MG TABLET ONE (22:53)
[2019-03-25] MEDS ORDERED: HEPARIN NA (PORCINE) 5,000 UNITS/ML 1ML VIAL ONE (22:54)
[2019-03-25] MEDS: HEPARIN NA (PORCINE) 5,000 UNITS/ML 1ML VIAL SQ SCH (23:02)
[2019-03-25] MEDS: FAMOTIDINE 20 MG TABLET PO SCH (23:02)
[2019-03-25] MEDS: ATORVASTATIN CA 20 MG TABLET (FP) PO SCH (23:02)
[2019-03-26] MEDS: NITROGLYCERIN 2% OINTMENT - 1GM PACKET TD SCH ×3 (00:03→12:24)
--- NOTE | 2019-03-26 09:44 | EKG ---
Test Reason : Blood Pressure : / mmHG Vent. Rate : 089 BPM Atrial Rate : 089 BPM P-R Int : 130 ms QRS Dur : 098 ms QT Int : 362 ms P-R-T Axes : 054 -41 003 degrees QTc Int : 440 ms NORMAL SINUS RHYTHM LEFT AXIS DEVIATION INCOMPLETE RIGHT BUNDLE BRANCH BLOCK SEPTAL INFARCT , AGE UNDETERMINED ABNORMAL ECG WHEN COMPARED WITH ECG OF 25-MAR-2019 10:56, SEPTAL INFARCT IS NOW PRESENT Confirmed by XIN GORDILLO, MICHELLE ([id number]) on 03/26/2019 9:43:34 AM Referred By: Confirmed By:MICHELLE LAUREN MD
[2019-03-26] MEDS ORDERED: LISINOPRIL 5 MG TABLET (FP) PO SCH (10:00)
[2019-03-26] MEDS ORDERED: hydrALAZINE HCL 25 MG TABLET (FP) ONE (10:04)
[2019-03-26] MEDS ORDERED: LISINOPRIL 5 MG TABLET (FP) ONE (10:04)
[2019-03-26] MEDS ORDERED: METOPROLOL TARTRATE 50 MG TABLET (FP) ONE (10:04)
[2019-03-26] MEDS: hydrALAZINE HCL 50 MG TABLET (FP) PO SCH ×2 (10:05→21:42)
[2019-03-26] MEDS ORDERED: HEPARIN NA (PORCINE) 5,000 UNITS/ML 1ML VIAL ONE (10:05)
[2019-03-26] MEDS: METOPROLOL TARTRATE 50 MG TABLET (FP) PO SCH ×2 (10:06→21:42)
[2019-03-26] MEDS ORDERED: FAMOTIDINE 20 MG TABLET ONE (10:06)
[2019-03-26] MEDS: HEPARIN NA (PORCINE) 5,000 UNITS/ML 1ML VIAL SQ SCH ×2 (10:06→21:42)
[2019-03-26] MEDS: FAMOTIDINE 20 MG TABLET PO SCH ×2 (10:09→21:42)
--- NOTE | 2019-03-26 10:29 | HP ---
Admitting History and Physical - Primary Care Physician PCP: Danelle Gaytan - Admission Chief Complaint: Abdominal pain History of Present Illness: The patient is an 88 year old with a past medical history of pancreatic cancer ( completed radiation 3 weeks ago and chemotherapy), prostate cancer (in remission ), ruptured bladder, CAD with PPM, cardiac catheter, afib (no longer on Eliquis) , HTN, HLD, dementia, history of cholangitis s/p stent placement here today for evaluation of abdominal pain. The patient reports that he has had right upper quadrant abdominal since 03/02/19 when he was seen for a nosebleed. He states that his pain is diffuse around the right upper quadrant, intermittent, and worse today which prompted him to come to the ER. He reports that he has had a decreased appetite with a poor PO intake and notes that his last bowel movement was today and normal. He notes left sided chest pain and right sided back around his scapula without spinal pain. Patient denies headache, lightheadedness. Denies fever, chills. Denies shortness of breath. Denies nausea, vomiting, diarrhea. History Source: Patient, Medical Record Limitations to Obtaining History: Dementia - Past Medical History Cardiovascular: Yes: AFIB, CAD (non-obstructive per 01/2013 cardiac cath), HTN, Hyperlipdemia, Murmur Pulmonary: Yes: Pneumonia, Other (chronic lung disease) Gastrointestinal: Yes: Constipation, Other (H/O SBO DUE TO ADHESIONS, pancreatic Ca) Hepatobiliary: Yes: Cholelithiasis, Cholecystitis, Choledocholithiasis, Other ( Pancreatic CA on chemo) Renal/: Yes: Cancer (PROSTATE/PANCREAS) Heme/Onc: Yes: Anemia Infectious Disease: Yes: Other (ecoli esbl in blood culture 10/2016) - Past Surgical History Past Surgical History: Yes: Cholecystectomy, Colectomy (RECENT ATTEMPT FOR ? WHIPPLE BUT ABORTED DUE TO SCAR TISSUE), Prostatectomy - Smoking History Smoking history: Never smoked Have you smoked in the past 12 months: No Aproximately how many cigarettes per day: 0 - Alcohol/Substance Use Hx Alcohol Use: No History of Substance Use: reports: None - Social History ADL: Family Assistance History of Recent Travel: No Home Medications - Allergies Allergies/Adverse Reactions: Allergies Allergy/AdvReac Type Severity Reaction Status Date / Time No Known Allergies Allergy Verified 03/25/19 10:39 - Home Medications Home Medications: Ambulatory Orders Atorvastatin Ca [Lipitor] 20 mg PO HS #30 tablet 07/29/16 Hydralazine HCl 100 mg PO BID 08/23/17 Lisinopril 5 mg PO DAILY 08/29/17 Famotidine [Pepcid] 20 mg PO BID 03/25/19 Metoprolol Tartrate [Lopressor] 50 mg PO BID 03/25/19 Family Medical History Family History: Unremarkable Review of Systems - Review of Systems Constitutional: reports: Malaise Eyes: reports: No Symptoms HENT: reports: No Symptoms Neck: reports: No Symptoms Cardiovascular: reports: No Symptoms Respiratory: reports: No Symptoms Gastrointestinal: reports: Abdominal Pain Genitourinary: reports: No Symptoms Breasts: reports: No Symptoms Reported Musculoskeletal: reports: No Symptoms Integumentary: reports: No Symptoms Neurological: reports: No Symptoms Endocrine: reports: No Symptoms Hematology/Lymphatic: reports: No Symptoms Psychiatric: reports: No Symptoms Physical Examination Vital Signs: Vital Signs Temperature 98.1 F 03/26/19 09:58 Pulse Rate 85 03/26/19 09:58 Respiratory Rate 18 03/26/19 09:58 Blood Pressure 155/66 03/26/19 09:58 O2 Sat by Pulse Oximetry (%) 100 03/26/19 06:26 Constitutional: Yes: Well Nourished, No Distress, Calm Cardiovascular: Yes: Regular Rate and Rhythm Respiratory: Yes: Regular Gastrointestinal: Yes: Normal Bowel Sounds, Soft Musculoskeletal: Yes: Muscle Weakness Extremities: Yes: WNL Edema: No Peripheral Pulses WNL: Yes Neurological: Yes: Alert, Confusion, Pre-Existing Deficit Psychiatric: Yes: Alert Labs: CBC, BMP 03/25/19 11:00 03/25/19 11:00 Imaging - Results Chest X-ray: Report Reviewed EKG: Report Reviewed (Septal infarct present on repeat EKG this AM) Problem List - Problems (1) NSTEMI (non-ST elevated myocardial infarction) Assessment/Plan: -EKG changes noted -Cardiology to re-evaluate -Tele monitoring -Increase metoprolol to 100 mg po BID -Await stat troponins Problems reviewed: Yes Code(s): I21.4 - NON-ST ELEVATION (NSTEMI) MYOCARDIAL INFARCTION (2) Pancreatic neoplasm Assessment/Plan: -Oncology consult -Palliative care -CT abd + metastasis to liver, has been receiving radiation treatment Problems reviewed: Yes Code(s): D49.0 - NEOPLASM OF UNSPECIFIED BEHAVIOR OF DIGESTIVE SYSTEM (3) Transaminitis Assessment/Plan: -labs today pending -Monitor trend Problems reviewed: Yes Code(s): R74.0 - NONSPEC ELEV OF LEVELS OF TRANSAMNS & LACTIC ACID DEHYDRGNSE (4) Abdominal pain Assessment/Plan: -GI consult -Oncology consult -Likely 2/2 to progression of the disease Problems reviewed: Yes Code(s): R10.9 - UNSPECIFIED ABDOMINAL PAIN (5) Elevated troponin Assessment/Plan: -EKG changes noted -Cardiology to re-evaluate -Tele monitoring -Increase metoprolol to 100 mg po BID -Await stat troponins Problems reviewed: Yes Code(s): R79.89 - OTHER SPECIFIED ABNORMAL FINDINGS OF BLOOD CHEMISTRY Assessment/Plan see problem list
[2019-03-26] MEDS ORDERED: METOPROLOL TARTRATE 50 MG TABLET (FP) PO ONE (10:35)
--- NOTE | 2019-03-26 11:09 | CONSULT ---
Consultation: REQUESTING PROVIDER:Primary team Abdullahi Rizvi [employer] CONSULT REQUEST: We have been asked to medically evaluate this patient for ( Pancreatic cancer ). HISTORY OF PRESENT ILLNESS: 88 year old male with a pmhx of pancreatic CA (radiation 3 weeks ago), prostate CA, h/o ruptured bladder, h/o Afib s/p ppm AC stopped recently for nose bleeds, htn, hld, and h/o cholangitis s/p stent presenting with abdominal pain and distention. No chest pain, sob, or palpitations. RUQ abdominal pain 5/10 , local non radiating , not associated with N/V/D/C m denies any blood in stool or uirne. REVIEW OF SYSTEMS: CONSTITUTIONAL: Absent: fever, chills, diaphoresis, generalized weakness, malaise, loss of appetite, weight change HEENT: Absent: rhinorrhea, nasal congestion, throat pain, throat swelling, difficulty swallowing, mouth swelling, ear pain, eye pain, visual changes CARDIOVASCULAR: Absent: chest pain, syncope, palpitations, irregular heart rate, lightheadedness , peripheral edema RESPIRATORY: Absent: cough, shortness of breath, dyspnea with exertion, orthopnea, wheezing, stridor, hemoptysis GASTROINTESTINAL: Absent: abdominal pain, abdominal distension, nausea, vomiting, diarrhea, constipation, melena, hematochezia GENITOURINARY: Absent: dysuria, frequency, urgency, hesitancy, hematuria, flank pain, genital pain MUSCULOSKELETAL: Absent: myalgia, arthralgia, joint swelling, back pain, neck pain SKIN: Absent: rash, itching, pallor HEMATOLOGIC/IMMUNOLOGIC: Absent: easy bleeding, easy bruising, lymphadenopathy, frequent infections ENDOCRINE: Absent: unexplained weight gain, unexplained weight loss, heat intolerance, cold intolerance NEUROLOGIC: Absent: headache, focal weakness or paresthesias, dizziness, unsteady gait, seizure, mental status changes, bladder or bowel incontinence PSYCHIATRIC: Absent: anxiety, depression, suicidal or homicidal ideation, hallucinations. PHYSICAL EXAMINATION Vital Signs - 24 hr 03/25/19 03/25/19 03/25/19 11:27 13:07 17:13 Temperature 97.8 F Pulse Rate Pulse Rate [ 101 H 91 H 90 Apical] Respiratory 18 18 18 Rate Blood Pressure Blood Pressure 165/86 171/82 H 194/83 H [Left Arm] O2 Sat by Pulse 97 98 98 Oximetry (%) 03/25/19 03/25/19 03/25/19 17:55 21:08 23:01 Temperature 98.2 F Pulse Rate Pulse Rate [ 73 76 76 Apical] Respiratory 18 17 20 Rate Blood Pressure Blood Pressure 130/84 180/80 H 174/86 H [Left Arm] O2 Sat by Pulse 96 98 98 Oximetry (%) 03/25/19 03/26/19 03/26/19 23:59 02:06 06:26 Temperature Pulse Rate Pulse Rate [ 78 79 90 Apical] Respiratory 20 16 17 Rate Blood Pressure Blood Pressure 141/69 150/68 146/78 [Left Arm] O2 Sat by Pulse 98 99 100 Oximetry (%) 03/26/19 03/26/19 06:30 09:58 Temperature 98.0 F 98.1 F Pulse Rate 85 Pulse Rate [ Apical] Respiratory 18 Rate Blood Pressure 155/66 Blood Pressure [Left Arm] O2 Sat by Pulse Oximetry (%) GENERAL: Awake, alert, and fully oriented,fatigue with generalized weakness , palor HEAD: Normal with no signs of trauma. EYES: Pupils equal, round and reactive to light, extraocular movements intact, EARS, NOSE, THROAT: dry mucous membranes. NECK: supple , no lymphadenopathy LUNGS: Breath sounds equal, clear to auscultation bilaterally. HEART: IRR IRR normal S1 and S2 without murmur, rub or gallop. ABDOMEN: Soft, RUQ tenderness , mild distended, normoactive bowel sounds, no guarding,mid surgical scar , LLQ scar LOWER EXTREMITIES: 2+ pulses, warm, well-perfused. No calf tenderness. No peripheral edema. NEUROLOGICAL: no focal deficit . Normal speech. Normal gait. PSYCHIATRIC: Cooperative. SKIN: Warm, dry, normal turgor, Laboratory Results - last 24 hr 03/25/19 03/25/19 03/25/19 11:00 11:00 11:00 WBC 7.7 RBC 3.54 L Hgb 11.2 L Hct 34.1 L D MCV 96.3 H MCH 31.7 MCHC 32.9 RDW 17.8 H Plt Count 184 D MPV 8.7 Absolute Neuts (auto) 6.5 Neutrophils % 84.5 H D Lymphocytes % 4.3 L D Monocytes % 10.1 Eosinophils % 0.8 Basophils % 0.3 Nucleated RBC % 0 Sodium 139 Potassium 4.4 Chloride 107 Carbon Dioxide 22 Anion Gap 9 BUN 25.2 H Creatinine 0.9 Est GFR (CKD-EPI)AfAm 89.32 Est GFR (CKD-EPI)NonAf 77.06 Random Glucose 122 H Calcium 8.7 Magnesium 2.3 Total Bilirubin 2.0 H AST 69 H ALT 39 Alkaline Phosphatase 413 H Creatine Kinase 68 Troponin I 0.67 H* 0.76 H* Total Protein 6.4 Albumin 2.9 L Urine Color Urine Appearance Urine pH Ur Specific Frederick Urine Protein Urine Glucose (UA) Urine Ketones Urine Blood Urine Nitrite Urine Bilirubin Urine Urobilinogen Ur Leukocyte Esterase 03/25/19 03/25/19 14:20 17:00 WBC RBC Hgb Hct MCV MCH MCHC RDW Plt Count MPV Absolute Neuts (auto) Neutrophils % Lymphocytes % Monocytes % Eosinophils % Basophils % Nucleated RBC % Sodium Potassium Chloride Carbon Dioxide Anion Gap BUN Creatinine Est GFR (CKD-EPI)AfAm Est GFR (CKD-EPI)NonAf Random Glucose Calcium Magnesium Total Bilirubin AST ALT Alkaline Phosphatase Creatine Kinase 55 Troponin I 0.74 H* Total Protein Albumin Urine Color Dk yellow Urine Appearance Clear Urine pH 5.5 D Ur Specific Frederick 1.091 H Urine Protein Trace Urine Glucose (UA) Negative Urine Ketones Trace H Urine Blood Negative Urine Nitrite Negative Urine Bilirubin Negative Urine Urobilinogen 1.0 Ur Leukocyte Esterase Negative Active Medications Generic Name Dose Route Start Last Admin Trade Name Freq PRN Reason Stop Dose Admin Atorvastatin Calcium 20 mg 03/25/19 22:00 03/25/19 23:02 Lipitor - PO 20 mg HS PRIYANKA Administration Famotidine 20 mg 03/25/19 22:00 03/26/19 10:09 Pepcid - PO 20 mg BID PRIYANKA Administration Heparin Sodium (Porcine) 5,000 unit 03/25/19 22:00 03/26/19 10:06 Heparin - SQ 5,000 unit BID PRIYANKA Administration Hydralazine HCl 100 mg 03/25/19 22:00 03/26/19 10:05 Apresoline - PO 100 mg BID PRIYANKA Administration Lisinopril 5 mg 03/26/19 10:00 03/26/19 10:06 Prinivil PO 5 mg DAILY PRIYANKA Administration Metoprolol Tartrate 100 mg 03/26/19 10:35 Lopressor - PO BID PRIYANKA Nitroglycerin 0.5 inch 03/25/19 18:00 03/26/19 06:27 Nitro-Bid 2% Paste - TD Not Given Q6HPO PRIYANKA CBC, BMP 03/25/19 11:00 03/25/19 11:00 CT [place] /pelvic 1. Moderate bilateral pleural effusions and lower lobe atelectasis. 2. Moderate amount of ascites. 3. Development of multiple hepatic masses consistent with metastases since 08/29/2017. 4. Increased size of right cardiophrenic angle lymph node. 5. Patent biliary stent. 6. Large pancreatic distal body/tail mass consistent with malignancy that has also developed since the prior study. Clinical correlation and continued follow-up recommended. Please see above discussion. ASSESSMENT/PLAN:pending discussion with Dr Brandon # Anemia likely due to chronic disease monitor H/H daily # Metastaic Pancreatic cancer S/P therapy # Prostate cancer follow PSA # ascitis # cardiophrenci angle lymph node # B/L pleural effusion # NSTEMI per cardiology #S/P biliary stent # HTN cont home meds # HLD Dispo: We will continue to follow the patient. Thank you for this consultative opportunity. Visit type - Emergency Visit Emergency Visit: Yes ED Registration Date: 03/25/19 Care time: The patient presented to the Emergency Department on the above date and was hospitalized for further evaluation of their emergent condition. - New Patient This patient is new to me today: Yes Date on this admission: 03/26/19 - Critical Care Critical Care patient: No ATTENDING PHYSICIAN STATEMENT I saw and evaluated the patient. I reviewed the resident's note and discussed the case with the resident. I agree with the resident's findings and plan as documented. SUBJECTIVE: OBJECTIVE: ASSESSMENT AND PLAN:
[2019-03-26 11:50] LABS: BASO % 0.2 % (0-2.0); HEMATOCRIT 33.1 % (35.4-49); HEMOGLOBIN 11.1 GM/dL (11.7-16.9); LYMPH % 1.1 % (8-40); MCH 32.3 pg (25.7-33.7); MCHC 33.7 g/dl (32.0-35.9); MEAN CELL VOLUME 95.8 fl (80-96); MEAN PLT VOLUME 8.4 fl (7.5-11.1); MONO % 7.7 % (3.8-10.2); PLATELET COUNT 228 K/MM3 (134-434); RBC 3.45 M/mm3 (4.00-5.60); RDW 18.3 % (11.9-15.9); WHITE BLOOD COUNT 10.6 K/mm3 (4.0-10.0)
[2019-03-26] MEDS ORDERED: NITROGLYCERIN 2% OINTMENT - 1GM PACKET TD ONE (12:04)
[2019-03-26 12:26] LABS: ANISOCYTOSIS 2+; MACROCYTOSIS 1+; OVALOCYTE 1+; PLATELET ESTIMATE NORMAL
[2019-03-26 12:40] LABS: ALBUMIN 2.8 g/dl (3.4-5.0); CALCIUM 8.9 mg/dL (8.5-10.1); CREATININE 1.5 mg/dL (0.55-1.3); TOT PROT 6.4 g/dl (6.4-8.2)
--- NOTE | 2019-03-26 15:01 | CON.GI ---
Consult Consult Specialty:: GI Referred by:: ED Reason for Consultation:: abdominal pain - History of Present Illness Chief Complaint: abdominal pain History of Present Illness: 88M with h/o pancreatic cancer (localized to the pancreas per ) presenting for two weeks of abdominal pain. No N/V, normal bm, no blood in stool. reports pt has not been receiving therapy for cancer of late. Has biliary stent in place. GI asked to consult. When seen, pt was trying to get off his stretcher to go to the basement. reports that this is new. - History Source History Provided By: Patient, Family Member Limitations to Obtaining History: Uncooperative - Past Medical History Cardio/Vascular: Yes: AFIB, 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 WHIPPLE BUT ABORTED DUE TO SCAR TISSUE), Prostatectomy - Alcohol/Substance Use Hx Alcohol Use: No History of Substance Use: reports: None - Smoking History Smoking history: Never smoked Have you smoked in the past 12 months: No Aproximately how many cigarettes per day: 0 - Social History Usual Living Arrangement: With Spouse ADL: Family Assistance History of Recent Travel: No Home Medications - Allergies Allergies/Adverse Reactions: Allergies Allergy/AdvReac Type Severity Reaction Status Date / Time No Known Allergies Allergy Verified 03/25/19 10:39 - Home Medications Home Medications: Ambulatory Orders Atorvastatin Ca [Lipitor] 20 mg PO HS #30 tablet 07/29/16 Hydralazine HCl 100 mg PO BID 08/23/17 Lisinopril 5 mg PO DAILY 08/29/17 Famotidine [Pepcid] 20 mg PO BID 03/25/19 Metoprolol Tartrate [Lopressor] 50 mg PO BID 03/25/19 Review of Systems Unable to obtain ROS, reason: mental status Physical Exam-GI Vital Signs: Vital Signs Temperature 98 F 03/26/19 12:24 Pulse Rate 88 03/26/19 12:24 Respiratory Rate 19 03/26/19 12:24 Blood Pressure 166/69 03/26/19 12:24 O2 Sat by Pulse Oximetry (%) 99 03/26/19 12:24 Constitutional: Yes: Well Nourished, No Distress Eyes: Yes: Conjunctiva Clear HENT: Yes: Atraumatic, Normocephalic Cardiovascular: Yes: Regular Rate and Rhythm Respiratory: Yes: CTA Bilaterally Gastrointestinal Inspection: Yes: Scars ...Palpate: Yes: Soft. No: Tenderness ...Percussion: No: Tympanitic ...Rectal Exam: Yes: Deferred Edema: No Neurological: Yes: Alert, Oriented (Not fully oriented - trying to get up "to go to basement") Psychiatric: Yes: Alert, Oriented Labs: CBC, BMP 03/26/19 10:53 03/26/19 10:53 Hepatic Panel Total Bilirubin 2.0 mg/dL (0.2-1) H 03/26/19 10:53 AST 78 U/L (15-37) H 03/26/19 10:53 ALT 46 U/L (13-61) 03/26/19 10:53 Alkaline Phosphatase 387 U/L (45-117) H 03/26/19 10:53 Albumin 2.8 g/dl (3.4-5.0) L 03/26/19 10:53 Imaging - Results Cat Scan: Report Reviewed Assessment/Plan Abdominal pain - ? progression of disease given that says cancer was previously localized to pancreas. Biliary stent appears patent on imaging. Would obtain records from oncologist re extent of disease No evidence of obstruction or GI bleeding currently
--- NOTE | 2019-03-26 16:31 | PN ---
Progress Note, Physician Chief Complaint: The patient appears chronic ill. He denies chest pain, SOB at rest or palpitation. ER tele shows sinus with occasional VPCs. History of Present Illness: 88 year old male with a pmhx of pancreatic CA (radiation 3 weeks ago), prostate CA, h/o ruptured bladder, h/o Afib s/p ppm AC stopped recently for nose bleeds, htn, hld, and h/o cholangitis s/p stent presenting with abdominal pain and distention. No chest pain, sob, or palpitations. CK normal Trop 0.7s, non-dynamic. EKG: sinus tachycardia at 105bpm, lad, nl st segments CT scan: b/l pleural effusions, ascites, hepatic metastatic lesions - Current Medication List Current Medications: Active Medications Atorvastatin Calcium (Lipitor -) 20 mg PO HS [facility] Last Admin: 03/25/19 23:02 Dose: 20 mg Famotidine (Pepcid -) 20 mg PO BID [facility] Last Admin: 03/26/19 10:09 Dose: 20 mg Heparin Sodium (Porcine) (Heparin -) 5,000 unit SQ BID [facility] Last Admin: 03/26/19 10:06 Dose: 5,000 unit Hydralazine HCl (Apresoline -) 100 mg PO BID [facility] Last Admin: 03/26/19 10:05 Dose: 100 mg Lisinopril (Prinivil) 5 mg PO DAILY [facility] Last Admin: 03/26/19 10:06 Dose: 5 mg Metoprolol Tartrate (Lopressor -) 100 mg PO BID [facility] Nitroglycerin (Nitro-Bid 2% Paste -) 0.5 inch TD Q6HPO [facility] Last Admin: 03/26/19 12:24 Dose: 0.5 inch - Objective Vital Signs: Vital Signs Temperature 98.1 F 03/26/19 14:00 Pulse Rate 74 03/26/19 14:00 Respiratory Rate 18 03/26/19 14:00 Blood Pressure 154/106 H 03/26/19 14:00 O2 Sat by Pulse Oximetry (%) 100 03/26/19 14:00 General: Well developed. Chronic ill. No acute distress. Head: Normocephalic. Atraumatic, Eyes: PERRLA, EOMI. Sclerae icteric. Conjunctivae clear. Neck: Supple. No JVD. No bruits. Heart: Normal S1, S2: Regular rhythm and rate. No murmur. No gallop or rub. Lungs: Decrease BS at bases. No crackles. No wheezing or rhonchi. Abdomen: Distended. Soft. Bowel sound positive. Mild tenderness. Extremities: No edema. No clubbing or cyanosis. Labs: CBC, BMP 03/26/19 10:53 03/26/19 10:53 Assessment/Plan 88 year old male with a pmhx of pancreatic CA (radiation 3 weeks ago), prostate CA, h/o ruptured bladder, h/o Afib s/p ppm AC stopped recently for nose bleeds, htn, hld, and h/o cholangitis s/p stent presenting with abdominal pain and distention. No chest pain, sob, or palpitations. CK normal Trop 0.7s, non-dynamic. EKG: sinus tachycardia at 105bpm, lad, nl st segments CT scan: b/l pleural effusions, ascites, hepatic metastatic lesions 1) Elevated troponins -Normal ck, no ischemic ekg changes, no cardiac complaints. No need for further cardiac intervention at this time. Can trend CE's No need for tele Symptoms likely due to hepatic metastases and ascites. F/u with oncologist. Please do not hesitate to call us for reconsult at any time if any further questions or additional issue arises regarding this patient.
--- NOTE | 2019-03-26 19:44 | PN ---
Teaching Attending Note Name of Resident: Hernán Khan ATTENDING PHYSICIAN STATEMENT I saw and evaluated the patient. I reviewed the resident's note and discussed the case with the resident. I agree with the resident's findings and plan as documented. ASSESSMENT AND PLAN: The patient is an 88 year old with a past medical history of pancreatic cancer s /p gemzar abraxane, xeloda/RT, maintenance xeloda and more recently reradiation for recurrent pancreatic mass, CAD with PPM, cardiac catheter, afib (no longer on Eliquis), HTN, HLD, dementia, history of cholangitis s/p stent placement here with abdominal pain. He is here with RUQ pain ,altered mental status CT scan--recurrent pancreatic mass, patent stent, ascites, multiple liver lesions ? progressive disease check cultures check ammonia levels palliative care consult discussed with son in detail
[2019-03-26] MEDS ORDERED: LORazepam 0.5 MG TABLET PO ONE (20:49)
[2019-03-26] MEDS: ATORVASTATIN CA 20 MG TABLET (FP) PO SCH (21:42)
[2019-03-27] MEDS: NITROGLYCERIN 2% OINTMENT - 1GM PACKET TD SCH ×4 (00:06→18:23)
--- NOTE | 2019-03-27 08:07 | PN ---
Progress Note, Physician - Current Medication List Current Medications: Active Medications Atorvastatin Calcium (Lipitor -) 20 mg PO HS [facility] Last Admin: 03/26/19 21:42 Dose: 20 mg Famotidine (Pepcid -) 20 mg PO BID [facility] Last Admin: 03/26/19 21:42 Dose: 20 mg Heparin Sodium (Porcine) (Heparin -) 5,000 unit SQ BID [facility] Last Admin: 03/26/19 21:42 Dose: 5,000 unit Hydralazine HCl (Apresoline -) 100 mg PO BID [facility] Last Admin: 03/26/19 21:42 Dose: 100 mg Lisinopril (Prinivil) 5 mg PO DAILY [facility] Last Admin: 03/26/19 10:06 Dose: 5 mg Metoprolol Tartrate (Lopressor -) 100 mg PO BID [facility] Last Admin: 03/26/19 21:42 Dose: 100 mg Nitroglycerin (Nitro-Bid 2% Paste -) 0.5 inch TD Q6HPO [facility] Last Admin: 03/27/19 05:33 Dose: Not Given - Objective Vital Signs: Vital Signs Temperature 97.9 F 03/27/19 05:40 Pulse Rate 71 03/27/19 05:40 Respiratory Rate 18 03/27/19 05:40 Blood Pressure 147/87 03/27/19 05:40 O2 Sat by Pulse Oximetry (%) 97 03/26/19 21:00 Cardiovascular: Yes: S1, S2 Respiratory: Yes: Regular, CTA Bilaterally Gastrointestinal: Yes: Normal Bowel Sounds, Soft Neurological: Yes: Confusion Labs: CBC, BMP 03/26/19 10:53 03/26/19 10:53 Problem List - Problems (1) Abdominal pain Assessment/Plan: - -GI consult -Oncology consult -Likely 2/2 to progression of the disease Code(s): R10.9 - UNSPECIFIED ABDOMINAL PAIN (2) Elevated troponin Assessment/Plan: -EKG noted -Cardiology to re-evaluate -Tele monitoring -Increase metoprolol to 100 mg po BID Code(s): R79.89 - OTHER SPECIFIED ABNORMAL FINDINGS OF BLOOD CHEMISTRY (3) Pancreatic cancer Assessment/Plan: -Oncology consult -Palliative care -CT abd + metastasis to liver, has been receiving radiation treatment -labs today pending -Monitor trend Code(s): C25.9 - MALIGNANT NEOPLASM OF PANCREAS, UNSPECIFIED (4) Change in mental status Assessment/Plan: R/O METS NEURO MRI Code(s): R41.82 - ALTERED MENTAL STATUS, UNSPECIFIED
[2019-03-27] MEDS: METOPROLOL TARTRATE 50 MG TABLET (FP) PO SCH ×3 (09:31→22:26)
[2019-03-27] MEDS: FAMOTIDINE 20 MG TABLET PO SCH ×3 (09:31→22:26)
[2019-03-27] MEDS: hydrALAZINE HCL 50 MG TABLET (FP) PO SCH ×3 (09:31→22:26)
[2019-03-27] MEDS: HEPARIN NA (PORCINE) 5,000 UNITS/ML 1ML VIAL SQ SCH ×2 (09:31→22:26)
[2019-03-27] MEDS: LORazepam 2 MG/ML SDV VIAL IVPUSH PRN (10:40)
[2019-03-27 11:36] LABS: BASO % 0.4 % (0-2.0); EOS % 0.1 % (0-4.5); HEMATOCRIT 32.1 % (35.4-49); HEMOGLOBIN 10.7 GM/dL (11.7-16.9); LYMPH % 1.9 % (8-40); MCH 31.9 pg (25.7-33.7); MCHC 33.3 g/dl (32.0-35.9); MEAN CELL VOLUME 95.9 fl (80-96); MEAN PLT VOLUME 8.5 fl (7.5-11.1); MONO % 9.4 % (3.8-10.2); NEUT % 88.2 % (42.8-82.8); PLATELET COUNT 204 K/MM3 (134-434); RBC 3.35 M/mm3 (4.00-5.60); RDW 18.8 % (11.9-15.9); WHITE BLOOD COUNT 11.8 K/mm3 (4.0-10.0)
[2019-03-27 12:04] LABS: ALBUMIN 2.9 g/dl (3.4-5.0); BILIRUBIN,TOTAL 1.9 mg/dL (0.2-1); BLOOD UREA NITROGEN 55.6 mg/dL (7-18); CALCIUM 9.1 mg/dL (8.5-10.1); CREATININE 1.4 mg/dL (0.55-1.3); POTASSIUM 4.6 mmol/L (3.5-5.1); TOT PROT 6.1 g/dl (6.4-8.2)
[2019-03-27 16:17] VITALS: BMI 24.4
--- NOTE | 2019-03-27 18:48 | CONSULT ---
Consult - text type - Consultation Consultation Note: NEUROLOGY CONSULTATION is greatly appreciated: Events reviewed and discussed with his and son at the bedside. This 88 year old RH, man with a past medical history of pancreatic cancer x 3 years (completed radiation 3 weeks ago and chemotherapy), prostate cancer (in remission), HTN, Chol, CAD with PPM, cardiac catheter, afib- Eliquis recently D/C'ed due to refractory nose bleed,and dementia. Admitted with abdominal pain birdie: the right upper quadrant. Last walked with assistance in February according to his son. CT of head (reviewed): Moderate, diffuse atrophy. Subtle lucency in the distal MCA territory on the right Ammonia level= 39.7 mg% JOSE: Neck rigid in all direction. -Kernig's. No bruits NEURO: Rests with eyes closed. Awake. Giggling. Follows no commands. + Glabella, snout, suck. ? left gaze prefence with full EOM's to Doll's head. Decreased response to threat both sides. No obvious facial asymmetry. Moves all fours, symmetrically with Rigid tone. Brisk reflexes except AJ's. Toes downgoing No obvious dysmetria Withdraws all fours to pinch. 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 SUGGEST: Repeat CT of head or MRI tomorrow. Check B12, TSH, RPR R/O occult infection Thank you very much, Abilio Gay MD
[2019-03-27] MEDS: D5-1/2NS+10 MEQ KCL - 10 MEQ/1,000 ML INFUS.BAG IV SCH (19:30)
[2019-03-27] MEDS: ATORVASTATIN CA 20 MG TABLET (FP) PO SCH (22:26)
[2019-03-28] MEDS: NITROGLYCERIN 2% OINTMENT - 1GM PACKET TD SCH ×4 (00:31→17:18)
[2019-03-28 07:33] LABS: EOS % 0.1 % (0-4.5); HEMATOCRIT 31.4 % (35.4-49); HEMOGLOBIN 10.5 GM/dL (11.7-16.9); LYMPH % 1.7 % (8-40); MCH 32.2 pg (25.7-33.7); MCHC 33.6 g/dl (32.0-35.9); MEAN CELL VOLUME 95.7 fl (80-96); MEAN PLT VOLUME 8.6 fl (7.5-11.1); MONO % 13.1 % (3.8-10.2); NEUT % 85.1 % (42.8-82.8); PLATELET COUNT 195 K/MM3 (134-434); RBC 3.28 M/mm3 (4.00-5.60); RDW 18.9 % (11.9-15.9); WHITE BLOOD COUNT 12.6 K/mm3 (4.0-10.0)
[2019-03-28 07:55] LABS: ALBUMIN 2.6 g/dl (3.4-5.0); BILIRUBIN,TOTAL 1.6 mg/dL (0.2-1); CALCIUM 8.3 mg/dL (8.5-10.1); CREATININE 1.4 mg/dL (0.55-1.3); POTASSIUM 4.5 mmol/L (3.5-5.1); TOT PROT 5.7 g/dl (6.4-8.2)
--- NOTE | 2019-03-28 09:05 | PN ---
Progress Note, Physician - Current Medication List Current Medications: Active Medications Atorvastatin Calcium (Lipitor -) 20 mg PO HS [facility] Last Admin: 03/27/19 22:26 Dose: 20 mg Famotidine (Pepcid -) 20 mg PO BID [facility] Last Admin: 03/27/19 22:26 Dose: 20 mg Heparin Sodium (Porcine) (Heparin -) 5,000 unit SQ BID [facility] Last Admin: 03/27/19 22:26 Dose: 5,000 unit Hydralazine HCl (Apresoline -) 100 mg PO BID [facility] Last Admin: 03/27/19 22:26 Dose: 100 mg Potassium Chloride/Dextrose/Sod Cl (D5-1/2ns+10 Meq Kcl -) 10 meq in 1,000 mls @ 75 mls/hr IV ASDIR [facility] Last Admin: 03/27/19 19:30 Dose: 75 mls/hr Lorazepam (Ativan Injection -) 0.5 mg IVPUSH Q6H PRN PRN Reason: ANXIETY Last Admin: 03/27/19 10:40 Dose: 0.5 mg Metoprolol Tartrate (Lopressor -) 100 mg PO BID [facility] Last Admin: 03/27/19 22:26 Dose: 100 mg Nitroglycerin (Nitro-Bid 2% Paste -) 0.5 inch TD Q6HPO [facility] Last Admin: 03/28/19 05:20 Dose: Not Given - Objective Vital Signs: Vital Signs Temperature 98.2 F 03/28/19 06:00 Pulse Rate 71 03/28/19 06:00 Respiratory Rate 18 03/28/19 06:00 Blood Pressure 140/64 03/28/19 06:00 O2 Sat by Pulse Oximetry (%) 95 03/27/19 21:00 Cardiovascular: Yes: S1, S2 Respiratory: Yes: On Nasal O2, Rhonchi Gastrointestinal: Yes: Distention, Tenderness Labs: CBC, BMP 03/28/19 06:05 03/28/19 06:05 Problem List - Problems (1) Abdominal pain Assessment/Plan: - -GI consult -Oncology consult -Likely 2/2 to progression of the disease Code(s): R10.9 - UNSPECIFIED ABDOMINAL PAIN (2) Elevated troponin Assessment/Plan: -EKG noted -Cardiology to re-evaluate -Tele monitoring -Increase metoprolol to 100 mg po BID Code(s): R79.89 - OTHER SPECIFIED ABNORMAL FINDINGS OF BLOOD CHEMISTRY (3) Pancreatic cancer Assessment/Plan: -Oncology consult -Palliative care -CT abd + metastasis to liver, has been receiving radiation treatment -labs today pending -Monitor trend Code(s): C25.9 - MALIGNANT NEOPLASM OF PANCREAS, UNSPECIFIED (4) Change in mental status Assessment/Plan: ct scan noted with parietal lesion unable to do mri due to pacer follow up ct sangeetha d/w family NEURO noted Code(s): R41.82 - ALTERED MENTAL STATUS, UNSPECIFIED
[2019-03-28] MEDS ORDERED: ONDANSETRON 4 MG/2 ML VIAL IVPUSH PRN (09:45)
[2019-03-28] MEDS ORDERED: DEXTROSE 5%-WATER - 50 ML IVPB ONE ×2 (10:10→17:21)
[2019-03-28] MEDS ORDERED: PIPERACILLIN/TAZOBACTAM 3.375 GM VIAL IVPB ONE ×2 (10:10→17:21)
[2019-03-28] MEDS: hydrALAZINE HCL 50 MG TABLET (FP) PO SCH ×3 (10:22→21:54)
[2019-03-28] MEDS: HEPARIN NA (PORCINE) 5,000 UNITS/ML 1ML VIAL SQ SCH ×2 (10:22→21:53)
[2019-03-28] MEDS: FAMOTIDINE 20 MG TABLET PO SCH ×2 (10:23→21:53)
[2019-03-28] MEDS: PIPERACILLIN/TAZOB 3.375 GM 3.375 GM in DEXTROSE 5%-WATER - 50 ML IVPB SCH ×2 (10:23→18:08)
[2019-03-28] MEDS: METOPROLOL TARTRATE 50 MG TABLET (FP) PO SCH ×2 (10:23→21:52)
[2019-03-28] MEDS: PANTOPRAZOLE SODIUM 40 MG VIAL IVPUSH SCH ×2 (10:23→22:08)
--- NOTE | 2019-03-28 13:09 | CON.PULM ---
Consult Consult Specialty:: PULMONARY Referred by:: Dr Gaytan Reason for Consultation:: r/o pneumonia - History of Present Illness Chief Complaint: abdominal pain History of Present Illness: 88yo male with h/o HTN, hyperlipidemia, pancreatic ca, prostate ca, CAD, atrial fibrillation, dementia who was admitted with abdominal pain. Pt unable to provide reliable history at this time but family at bedside. Reports abdominal fullness and discomfort with occasional shortness of breath. No cough or wheezing. +sweats. No history of asthma or COPD. He is a remote smoker. - History Source History Provided By: Family Member, Medical Record Limitations to Obtaining History: Clinical Condition - Past Medical History Cardio/Vascular: Yes: AFIB, 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 WHIPPLE BUT ABORTED DUE TO SCAR TISSUE), Prostatectomy - Alcohol/Substance Use Hx Alcohol Use: No History of Substance Use: reports: None - Smoking History Smoking history: Never smoked Have you smoked in the past 12 months: No Aproximately how many cigarettes per day: 0 - Social History Usual Living Arrangement: With Spouse ADL: Family Assistance History of Recent Travel: No Home Medications - Allergies Allergies/Adverse Reactions: Allergies Allergy/AdvReac Type Severity Reaction Status Date / Time No Known Allergies Allergy Verified 03/25/19 10:39 - Home Medications Home Medications: Ambulatory Orders Atorvastatin Ca [Lipitor] 20 mg PO HS #30 tablet 07/29/16 Hydralazine HCl 100 mg PO BID 08/23/17 Lisinopril 5 mg PO DAILY 08/29/17 Famotidine [Pepcid] 20 mg PO BID 03/25/19 Metoprolol Tartrate [Lopressor] 50 mg PO BID 03/25/19 Review of Systems Unable to obtain ROS, reason: pt lethargic Physical Exam Vital Sings: Vital Signs Temperature 98.2 F 03/28/19 06:00 Pulse Rate 71 03/28/19 06:00 Respiratory Rate 18 03/28/19 06:00 Blood Pressure 140/64 03/28/19 06:00 O2 Sat by Pulse Oximetry (%) 95 03/27/19 21:00 Constitutional: Yes: Diaphoresis, Mild Distress Eyes: Yes: Conjunctiva Clear, EOM Intact HENT: Yes: Atraumatic, Normocephalic Neck: Yes: Supple, Trachea Midline Cardiovascular: Yes: Pulse Irregular Respiratory: Yes: Diminished (decreased breath sounds at the bases) Gastrointestinal: Yes: Soft, Ascites, Distention Edema: No Neurological: Yes: Lethargy Labs: CBC, BMP 03/28/19 06:05 03/28/19 06:05 Imaging - Results Chest X-ray: Report Reviewed, Image Reviewed (bilateral effusions) Problem List - Problems (1) Pancreatic cancer Code(s): C25.9 - MALIGNANT NEOPLASM OF PANCREAS, UNSPECIFIED (2) Ascites Code(s): R18.8 - OTHER ASCITES (3) Pleural effusion Code(s): J90 - PLEURAL EFFUSION, NOT ELSEWHERE CLASSIFIED Assessment/Plan Pancreatic Cancer Abdominal Pain likely progression of disease Ascites/Pleural Effusions CAD +Troponins likely Demand Ischemia Atrial Fibrillation HTN Hyperlipidemia Dementia - pleural effusions likely reactive/secondary to ascites and intra-abdominal process - less likely pneumonia, can d/c antibiotics - offered therapeutic paracentesis for palliation but family would like to discuss amongst themselves first - agree with palliative care eval Thank you for this consult Dell Rodriguez MD
--- NOTE | 2019-03-28 19:26 | PN ---
Progress Note (short form) - Note Progress Note: NEUROLOGY PROGRESS: Events reviewed and discussed with RN's who note patient is NPO due to suspected aspiration. Started on Zosyn. CT results discussed with son at bedside who relates progressive, but waxing and waning deterioration since 03/02/19. Repeat CT not yet done. EXAM: More awake, attentive and responsive today. Follows most simple commands. O X [facility], Nov..No, 2019 Dysarthric speech Full lundberg to threat. Elevates both arms with ASTERIXIS/ myoclonus IMP: Moderate B/L cerebral dysfunction. Better than yesterday. Toxic-metabolic encephalopathy with Asterixis- supports Dx of Hepatic ( Hyperammonemic) encephalopathy- presumably due to hepatic mets/obstruction. Right parietal lucency: CVA (age indeterminate) vs. Met. SUGGEST: Await repeat CT Follow LFT's and Ammonia levels. Continue antibiotics, IV hydration. Swallowing Eval and Rx. Thank you very much, Abilio Gay MD
[2019-03-28] MEDS: D5-1/2NS+10 MEQ KCL - 10 MEQ/1,000 ML INFUS.BAG IV SCH (21:30)
[2019-03-28] MEDS: ATORVASTATIN CA 20 MG TABLET (FP) PO SCH (21:53)
[2019-03-29] MEDS: NITROGLYCERIN 2% OINTMENT - 1GM PACKET TD SCH ×4 (00:43→17:30)
[2019-03-29] MEDS ORDERED: DEXTROSE 5%-WATER - 50 ML IVPB ONE (02:39)
[2019-03-29] MEDS ORDERED: PIPERACILLIN/TAZOBACTAM 3.375 GM VIAL IVPB ONE (02:39)
[2019-03-29] MEDS: PIPERACILLIN/TAZOB 3.375 GM 3.375 GM in DEXTROSE 5%-WATER - 50 ML IVPB SCH (02:51)
--- NOTE | 2019-03-29 07:48 | PN ---
Progress Note, Physician - Current Medication List Current Medications: Active Medications Atorvastatin Calcium (Lipitor -) 20 mg PO HS [facility] Last Admin: 03/28/19 21:53 Dose: Not Given Famotidine (Pepcid -) 20 mg PO BID [facility] Last Admin: 03/28/19 21:53 Dose: Not Given Heparin Sodium (Porcine) (Heparin -) 5,000 unit SQ BID [facility] Last Admin: 03/28/19 21:53 Dose: 5,000 unit Hydralazine HCl (Apresoline -) 100 mg PO BID [facility] Last Admin: 03/28/19 21:54 Dose: Not Given Potassium Chloride/Dextrose/Sod Cl (D5-1/2ns+10 Meq Kcl -) 10 meq in 1,000 mls @ 75 mls/hr IV ASDIR [facility] Last Admin: 03/28/19 21:30 Dose: 75 mls/hr Piperacillin Sod/Tazobactam (Sod 3.375 gm/ Dextrose) 50 mls @ 100 mls/hr IVPB Q8H-IV [facility]; Protocol Lorazepam (Ativan Injection -) 0.5 mg IVPUSH Q6H PRN PRN Reason: ANXIETY Last Admin: 03/27/19 10:40 Dose: 0.5 mg Metoprolol Tartrate (Lopressor -) 100 mg PO BID [facility] Last Admin: 03/28/19 21:52 Dose: Not Given Nitroglycerin (Nitro-Bid 2% Paste -) 0.5 inch TD Q6HPO [facility] Last Admin: 03/29/19 06:12 Dose: Not Given Ondansetron HCl (Zofran Injection) 4 mg IVPUSH Q6H PRN PRN Reason: NAUSEA Last Admin: 03/28/19 10:23 Dose: 4 mg Pantoprazole Sodium (Protonix Iv) 40 mg IVPUSH BID [facility] Last Admin: 03/28/19 22:08 Dose: 40 mg - Objective Vital Signs: Vital Signs Temperature 97.4 F L 03/29/19 06:00 Pulse Rate 84 03/29/19 06:00 Respiratory Rate 18 03/29/19 06:00 Blood Pressure 149/78 03/29/19 06:00 O2 Sat by Pulse Oximetry (%) 96 03/28/19 21:00 Cardiovascular: Yes: S1, S2 Respiratory: Yes: Regular, CTA Bilaterally Gastrointestinal: Yes: Normal Bowel Sounds, Soft, Distention Labs: CBC, BMP 03/28/19 06:05 03/28/19 06:05 Problem List - Problems (1) Abdominal pain Assessment/Plan: - -GI consult -Oncology consult noted--follow up -Likely 2/2 to progression of the disease Code(s): R10.9 - UNSPECIFIED ABDOMINAL PAIN (2) Elevated troponin Assessment/Plan: -EKG noted -Cardiology noted -Tele monitoring -Increase metoprolol to 100 mg po BID Code(s): R79.89 - OTHER SPECIFIED ABNORMAL FINDINGS OF BLOOD CHEMISTRY (3) Pancreatic cancer Assessment/Plan: -Oncology consult -Palliative care -CT abd + metastasis to liver, has been receiving radiation treatment -labs today pending -Monitor trend Code(s): C25.9 - MALIGNANT NEOPLASM OF PANCREAS, UNSPECIFIED (4) Change in mental status Assessment/Plan: ct scan noted with parietal lesion unable to do mri due to pacer--repeat done-- await results follow up ct message left for family NEURO noted Code(s): R41.82 - ALTERED MENTAL STATUS, UNSPECIFIED
[2019-03-29] MEDS: PANTOPRAZOLE SODIUM 40 MG VIAL IVPUSH SCH ×2 (09:44→21:10)
[2019-03-29] MEDS: METOPROLOL TARTRATE 50 MG TABLET (FP) PO SCH ×2 (09:44→21:12)
[2019-03-29] MEDS: HEPARIN NA (PORCINE) 5,000 UNITS/ML 1ML VIAL SQ SCH ×2 (09:44→21:10)
[2019-03-29] MEDS: hydrALAZINE HCL 50 MG TABLET (FP) PO SCH ×2 (09:45→21:12)
[2019-03-29] MEDS: FAMOTIDINE 20 MG TABLET PO SCH ×2 (09:45→21:12)
[2019-03-29] MEDS ORDERED: PIPERACILLIN/TAZOB 3.375 GM 3.375 GM in DEXTROSE 5%-WATER - 50 ML IVPB SCH (10:00)
--- NOTE | 2019-03-29 11:32 | PN ---
Progress Note (short form) - Note Progress Note: PULMONARY More alert, awake today. Denies shortness of breath. Vital Signs Period Temp Pulse Resp BP Sys/Escobedo Pulse Ox Last 24 Hr 97.3 F-99.1 F 69-87 16-18 132-162/58-84 96 Gen: less tachypneic Heart: RRR Lung: decreased breath sounds at the bases Abd: softly distended, nontender, +ascites Ext: no edema CBC, BMP 03/28/19 06:05 03/28/19 06:05 A/P Pancreatic Cancer Abdominal Pain likely progression of disease Ascites/Pleural Effusions CAD +Troponins likely Demand Ischemia Atrial Fibrillation HTN Hyperlipidemia Dementia - pleural effusions likely reactive/secondary to ascites and intra-abdominal process - CT findings/clinically more likely compressive atelectasis from effusions, less likely pneumonia, can d/c antibiotics - can consider therapeutic abdominal paracentesis if dyspnea worsens - agree with palliative care eval Problem List - Problems (1) Pancreatic cancer Code(s): C25.9 - MALIGNANT NEOPLASM OF PANCREAS, UNSPECIFIED (2) Ascites Code(s): R18.8 - OTHER ASCITES (3) Pleural effusion Code(s): J90 - PLEURAL EFFUSION, NOT ELSEWHERE CLASSIFIED
--- NOTE | 2019-03-29 12:30 | CONSULT ---
Admitting History and Physical - Primary Care Physician PCP: Danelle Gaytan - Admission History of Present Illness: Pancreatic Cancer Abdominal Pain likely progression of disease Ascites/Pleural Effusions CAD +Troponins likely Demand Ischemia Atrial Fibrillation HTN Hyperlipidemia Dementia Per neuro- IMP: Moderate B/L cerebral dysfunction. Toxic-metabolic encephalopathy with Asterixis- supports Dx of Hepatic ( Hyperammonemic) encephalopathy- presumably due to hepatic mets/obstruction. Right parietal lucency: CVA (age indeterminate) vs. Met. Npo -suspected aspiration. Pt had breakfast yesterday, vomited. Later had a fever, worsening CXR. NPO. gave pt water today with reported responsive cough. History Source: Family Member Limitations to Obtaining History: Clinical Condition (Confused. Pt is reported oriented at baseline.) - Past Medical History Cardiovascular: Yes: AFIB, CAD (non-obstructive per 01/2013 cardiac cath), HTN, Hyperlipdemia, Murmur Pulmonary: Yes: Pneumonia, Other (chronic lung disease) Gastrointestinal: Yes: Constipation, Other (H/O SBO DUE TO ADHESIONS, pancreatic Ca) Hepatobiliary: Yes: Cholelithiasis, Cholecystitis, Choledocholithiasis, Other ( Pancreatic CA on chemo) Renal/: Yes: Cancer (PROSTATE/PANCREAS) Heme/Onc: Yes: Anemia Infectious Disease: Yes: Other (ecoli esbl in blood culture 10/2016) - Past Surgical History Past Surgical History: Yes: Cholecystectomy, Colectomy (RECENT ATTEMPT FOR ? WHIPPLE BUT ABORTED DUE TO SCAR TISSUE), Prostatectomy - Smoking History Smoking history: Never smoked Have you smoked in the past 12 months: No Aproximately how many cigarettes per day: 0 - Alcohol/Substance Use Hx Alcohol Use: No History of Substance Use: reports: None - Social History ADL: Family Assistance History of Recent Travel: No History - Admission Reason For Visit: PANCREATIC NEOPLASM;NON-ST ELEVATION MYOCARDIAL - Diagnostics X-ray: Report Reviewed CT Scan: Report Reviewed - General Mental Status: Awake and Alert, Able to Follow Commands, Forgetful, Vague, Confused Attention: Intact Ability to Follow Directions: Fair Head/Neck Control: Good - Hearing Hearing: Normal Hearing Aide: No Speech Evaluation - Communication Primary Language: ENGLISH Communication: Yes: Dysarthria Oral Expression Ability: Yes: Mild Impairment - Speech Production Able to Make Needs Known: Yes: Mildly Impaired Intelligibility: Yes: Mildly Impaired - Speech Characteristics Voice Loudness: Normal Voice Pitch: Yes: Normal Voice Phonatory-based Quality: Yes: Normal Speech Pattern: Impaired Speech Clarity: < 75% Nasal Resonance: Normal Articulation: Yes: Imprecise Rate of Speech: Too Fast - Language/Auditory Comprehension Follows: Yes: 1 Stage Simple Commands Observation: Able to respond to yes/no queries: Yes, Yes/No Confusion: No, Comprehends Conversational Speech: Yes - Language/Verbal Expression Able to Communicate Wants and Needs: Yes: Mildly Impaired - Swallow Evaluation/Bedside Assessment Current Nutritional Intake: NPO Oral Secretions: Yes: WFL Dentition: Yes: Edentulous (lower, dentures at home), Dental Appliance Upper Facial Symmetry at Rest: Symmetrical Facial Symmetry on Retraction: Symmetrical Facial Movement: Controlled Against Resistance Opening: Normal Against Resistance Closing: Normal Pucker Lips: Normal Smile: Normal Lingual Movement: Symmetric Lingual Speed of Movement: Reduced Lingual Movement Strgth Against Opposition: Reduced Velopharyngeal Movement: Normal Laryngeal Movement: Labored,delay initiation Rate of Intake: WFL Bolus Size: WFL Labial Seal: WFL Chewing: Impaired (not assessed, speech imprecise, lower dentures at home) Oral Prep Time: WFL A-P Transit: WFL Pocketing: None Timing of Swallow: Delayed Coughing/Throat Clear: Yes (thin reported. Tolerated single sips) Recommendations - Speech Evaluation, Impression/Plan Impression: Verbal, confused, dysarthria.Coughed on thin per report. Tolerated careful single sips of water and puree. Lower dentures at home. - Dysphagia Impressions/Plan Swallowing Skills: Impaired Dysphagia Impressions: Mild Impairment, Risk of Aspiration, Ongoing Evaluation *Silent aspiration: cannot be R/O at bedside Dysphagia Treatment Plan: Small Bites, Chin Tuck/Down, Clear Pocket Food, Trial Feedings, Safe Rate, 1/2 tsp. at a time, Elevate HOB during feed, Other (Family/ staff educated on compensatory swallowing techniques.) Recommendations: Modified Barium Swallow (if cough, congestion, fever) - Recommendations Diet Consistency: Dysphagia Pureed Medication Administration: Crushed with applesauce Liquids: Thin Liquids (single sips) Supplement: Magic Cup, Other (vanilla ensure enlive per RD)
[2019-03-29] MEDS ORDERED: LACTULOSE 20 GM/30 ML UDC (FOR ORAL USE ONLY) PO PRN (16:10)
--- NOTE | 2019-03-29 16:18 | PN ---
Progress Note (short form) - Note Progress Note: PAtient seen and examined Confused, pleasant Last Vital Signs Temp Pulse Resp BP Pulse Ox 98.8 F 92 H 20 143/76 95 03/29/19 14:00 03/29/19 14:00 03/29/19 14:00 03/29/19 14:00 03/29/19 10:00 Cor: RSR, No murmurs, No gallops Lungs: Clear to P&A Abd: Soft, Normal bowel sounds, No organomegaly Ext:No significant edema Labs/Meds reviewed A/P The patient is an 88 year old with a past medical history of pancreatic cancer s /p gemzar abraxane, xeloda/RT, maintenance xeloda and more recently reradiation for recurrent pancreatic mass, CAD with PPM, cardiac catheter, afib (no longer on Eliquis), HTN, HLD, dementia, history of cholangitis s/p stent placement here with abdominal pain. He is here with RUQ pain ,altered mental status CT scan--recurrent pancreatic mass, patent stent, ascites, multiple liver lesions c/w progressive disease CT head -- right parietal infarct ? subacute Discussed with neurology -- hepatic encephalopathy -- to get lactulose To consider clinimix U/S abdomen ? paracentesis discussed overall poor prognosis with patients son and daughter. they understand and are in agreement with palliative care.
[2019-03-29] MEDS: LORazepam 2 MG/ML SDV VIAL IVPUSH PRN (18:45)
[2019-03-29] MEDS: ATORVASTATIN CA 20 MG TABLET (FP) PO SCH (21:12)
[2019-03-29] MEDS: D5-1/2NS+10 MEQ KCL - 10 MEQ/1,000 ML INFUS.BAG IV SCH (21:12)
[2019-03-29] MEDS: LACTULOSE 20 GM/30 ML UDC (FOR ORAL USE ONLY) PO SCH (21:12)
[2019-03-30] MEDS: NITROGLYCERIN 2% OINTMENT - 1GM PACKET TD SCH ×4 (00:40→18:01)
[2019-03-30] MEDS: LACTULOSE 20 GM/30 ML UDC (FOR ORAL USE ONLY) PO SCH ×4 (06:02→21:46)
[2019-03-30] MEDS ORDERED: ALBUTEROL SO4 0.083% IH SOL 2.5 MG/3 ML VIAL.NEB. NEB PRN (06:09)
[2019-03-30 06:51] LABS: INR 1.47 (0.83-1.09); PROTHROMBIN TIME (PATIENT) 17.4 SEC (9.7-13.0)
[2019-03-30 06:53] LABS: ACTIVATED PTT 29.5 SECONDS (25.2-36.5)
--- NOTE | 2019-03-30 09:40 | PN ---
Progress Note, Physician - Current Medication List Current Medications: Active Medications Albuterol Sulfate (Ventolin 0.083% Nebulizer Soln -) 1 amp NEB RQID PRN PRN Reason: SHORT OF BREATH/WHEEZING Atorvastatin Calcium (Lipitor -) 20 mg PO HS [facility] Last Admin: 03/29/19 21:12 Dose: 20 mg Famotidine (Pepcid -) 20 mg PO BID [facility] Last Admin: 03/29/19 21:12 Dose: 20 mg Heparin Sodium (Porcine) (Heparin -) 5,000 unit SQ BID [facility] Last Admin: 03/29/19 21:10 Dose: 5,000 unit Hydralazine HCl (Apresoline -) 100 mg PO BID [facility] Last Admin: 03/29/19 21:12 Dose: 100 mg Potassium Chloride/Dextrose/Sod Cl (D5-1/2ns+10 Meq Kcl -) 10 meq in 1,000 mls @ 75 mls/hr IV ASDIR [facility] Last Admin: 03/29/19 21:12 Dose: Not Given Piperacillin Sod/Tazobactam (Sod 3.375 gm/ Dextrose) 50 mls @ 100 mls/hr IVPB Q8H-IV [facility]; Protocol Lactulose (Cephulac (Oral Use)) 20 gm PO TID [facility] Last Admin: 03/30/19 06:05 Dose: Not Given Lorazepam (Ativan Injection -) 0.5 mg IVPUSH Q6H PRN PRN Reason: ANXIETY Last Admin: 03/29/19 18:45 Dose: 0.5 mg Metoprolol Tartrate (Lopressor -) 100 mg PO BID [facility] Last Admin: 03/29/19 21:12 Dose: 100 mg Nitroglycerin (Nitro-Bid 2% Paste -) 0.5 inch TD Q6HPO [facility] Last Admin: 03/30/19 06:02 Dose: Not Given Ondansetron HCl (Zofran Injection) 4 mg IVPUSH Q6H PRN PRN Reason: NAUSEA Last Admin: 03/28/19 10:23 Dose: 4 mg Pantoprazole Sodium (Protonix Iv) 40 mg IVPUSH BID [facility] Last Admin: 03/29/19 21:10 Dose: 40 mg - Objective Vital Signs: Vital Signs Temperature 98 F 03/30/19 09:38 Pulse Rate 78 03/30/19 09:38 Respiratory Rate 20 03/30/19 09:38 Blood Pressure 172/86 H 03/30/19 09:38 O2 Sat by Pulse Oximetry (%) 100 03/29/19 21:00 Cardiovascular: Yes: S1, S2 Respiratory: Yes: Rhonchi Gastrointestinal: Yes: Normal Bowel Sounds, Soft, Distention Labs: CBC, BMP 03/28/19 06:05 03/28/19 06:05 INR, PTT INR 1.47 (0.83-1.09) H 03/30/19 05:35 Problem List - Problems (1) Abdominal pain Assessment/Plan: -Ascites--US--Paracentesis -GI consult -Oncology consult noted--follow up -Likely 2/2 to progression of the disease Code(s): R10.9 - UNSPECIFIED ABDOMINAL PAIN (2) Elevated troponin Assessment/Plan: -EKG noted -Cardiology noted -Tele monitoring -Increase metoprolol to 100 mg po BID Code(s): R79.89 - OTHER SPECIFIED ABNORMAL FINDINGS OF BLOOD CHEMISTRY (3) Pancreatic cancer Assessment/Plan: -Oncology consult--case discy=ussed--not candidate for further treatments--d/w family -Palliative care -CT abd + metastasis to liver, has been receiving radiation treatment -labs today pending -Monitor trend Code(s): C25.9 - MALIGNANT NEOPLASM OF PANCREAS, UNSPECIFIED (4) Change in mental status Assessment/Plan: ct scan noted with parietal lesion unable to do mri due to pacer--repeat done-- c/w cva follow up ct message left for family NEURO noted Code(s): R41.82 - ALTERED MENTAL STATUS, UNSPECIFIED Assessment/Plan D/W SON CAROLINA AND FAMILY DECIDED ON HOME HOSPICE
[2019-03-30] MEDS: PANTOPRAZOLE SODIUM 40 MG VIAL IVPUSH SCH ×2 (10:16→21:47)
--- NOTE | 2019-03-30 10:33 | PN ---
Progress Note (short form) - Note Progress Note: Combative overnight. Confused. NAD. No acute events overnight. Intake & Output 03/27/19 03/28/19 03/29/19 03/30/19 23:59 23:59 23:59 23:59 Intake Total 220 1140 70 900 Balance 220 1140 70 900 Weight 138 lb Last Vital Signs Temp Pulse Resp BP Pulse Ox 98 F 78 20 172/86 H 100 03/30/19 09:38 03/30/19 09:38 03/30/19 09:38 03/30/19 09:38 03/29/19 21:00 Active Medications Albuterol Sulfate (Ventolin 0.083% Nebulizer Soln -) 1 amp NEB RQID PRN PRN Reason: SHORT OF BREATH/WHEEZING Atorvastatin Calcium (Lipitor -) 20 mg PO HS [facility] Last Admin: 03/29/19 21:12 Dose: 20 mg Famotidine (Pepcid -) 20 mg PO BID [facility] Last Admin: 03/29/19 21:12 Dose: 20 mg Heparin Sodium (Porcine) (Heparin -) 5,000 unit SQ BID [facility] Last Admin: 03/29/19 21:10 Dose: 5,000 unit Hydralazine HCl (Apresoline -) 100 mg PO BID [facility] Last Admin: 03/29/19 21:12 Dose: 100 mg Potassium Chloride/Dextrose/Sod Cl (D5-1/2ns+10 Meq Kcl -) 10 meq in 1,000 mls @ 75 mls/hr IV ASDIR [facility] Last Admin: 03/29/19 21:12 Dose: Not Given Piperacillin Sod/Tazobactam (Sod 3.375 gm/ Dextrose) 50 mls @ 100 mls/hr IVPB Q8H-IV [facility]; Protocol Lactulose (Cephulac (Oral Use)) 20 gm PO TID [facility] Last Admin: 03/30/19 06:05 Dose: Not Given Lorazepam (Ativan Injection -) 0.5 mg IVPUSH Q6H PRN PRN Reason: ANXIETY Last Admin: 03/29/19 18:45 Dose: 0.5 mg Metoprolol Tartrate (Lopressor -) 100 mg PO BID [facility] Last Admin: 03/29/19 21:12 Dose: 100 mg Nitroglycerin (Nitro-Bid 2% Paste -) 0.5 inch TD Q6HPO [facility] Last Admin: 03/30/19 06:02 Dose: Not Given Ondansetron HCl (Zofran Injection) 4 mg IVPUSH Q6H PRN PRN Reason: NAUSEA Last Admin: 03/28/19 10:23 Dose: 4 mg Pantoprazole Sodium (Protonix Iv) 40 mg IVPUSH BID [facility] Last Admin: 03/30/19 10:16 Dose: 40 mg Gen: NAD, confused Heart: RRR Lung: decreased breath sounds at the bases Abd: softly distended, nontender, +ascites Ext: no edema Laboratory Results - last 24 hr 03/30/19 05:35 PT with INR 17.40 H INR 1.47 H PTT (Actin FS) 29.5 Problem List - Problems (1) Pancreatic cancer Code(s): C25.9 - MALIGNANT NEOPLASM OF PANCREAS, UNSPECIFIED (2) Ascites Code(s): R18.8 - OTHER ASCITES (3) Pleural effusion Code(s): J90 - PLEURAL EFFUSION, NOT ELSEWHERE CLASSIFIED A/P Pancreatic Cancer Abdominal Pain likely progression of disease Ascites/Pleural Effusions CAD +Troponins likely Demand Ischemia Atrial Fibrillation HTN Hyperlipidemia Dementia - pleural effusions likely reactive/secondary to ascites and intra-abdominal process - CT findings/clinically more likely compressive atelectasis from effusions, less likely pneumonia, Monitor off ABX for now - can consider therapeutic abdominal paracentesis if dyspnea worsens - agree with palliative care evaluation Dr Hurst '
[2019-03-30] MEDS: FAMOTIDINE 20 MG TABLET PO SCH ×2 (10:44→21:49)
[2019-03-30] MEDS: hydrALAZINE HCL 50 MG TABLET (FP) PO SCH ×2 (10:44→21:46)
[2019-03-30] MEDS: METOPROLOL TARTRATE 50 MG TABLET (FP) PO SCH ×2 (10:44→21:46)
--- NOTE | 2019-03-30 11:39 | PN ---
Progress Note, TILER'S ASSISTANT - Note Progress Note: Selected Entries 03/29/19 03/29/19 03/29/19 02:00 06:00 10:00 Breakfast Lunch Supper Temperature 97.3 F L 97.4 F L 99 F Blood Pressure 03/29/19 03/29/19 03/29/19 14:00 18:00 22:00 Breakfast Lunch 25% Supper 25% Temperature 98.8 F 98 F 99.1 F Blood Pressure 03/30/19 03/30/19 03/30/19 02:00 05:58 09:38 Breakfast Lunch Supper Temperature 97.9 F 98.5 F 98 F Blood Pressure 174/78 H 153/59 L 172/86 H 03/30/19 11:02 Breakfast 0 Lunch Supper Temperature Blood Pressure Laboratory Tests 03/26/19 03/27/19 03/28/19 10:53 11:15 06:05 WBC 10.6 H 11.8 H 12.6 H On puree/thin liquids, single sips. Eyes closed, moaning, confused, refused po intake including medication today.
[2019-03-30] MEDS: HEPARIN NA (PORCINE) 5,000 UNITS/ML 1ML VIAL SQ SCH ×2 (13:45→21:46)
--- NOTE | 2019-03-30 14:13 | CONSULT ---
Consult - text type - Consultation Consultation Note: Renal consult for fluid mangement This is a 88 year old gentleman with history of pancreatic cancer s/p recent chemotherapy, hypertension, coronary artery disease who presented from home with abdominal pain and found to have progression of pancreatic cancer with liver lesions with ascities and fluid overload. Pt seen and examined at the bedside. He is lethargic but arouseable. s/p IR paracentesis. Making urine. Poor oral intake. On IVF. Pt is not able to provide history or HPI. Family at the bedside. PMhx: as above Allergies: NKDA Family Hx: NC Social Hx: No T/A/D ROS: unable to obtain given clinical status Home Medications Medication Instructions Recorded Atorvastatin Ca [Lipitor] 20 mg PO HS #30 tablet 07/29/16 Hydralazine HCl 100 mg PO BID 08/23/17 Lisinopril 5 mg PO DAILY 08/29/17 Famotidine [Pepcid] 20 mg PO BID 03/25/19 Metoprolol Tartrate [Lopressor] 50 mg PO BID 03/25/19 Vital Signs Temperature 98 F 03/30/19 09:38 Pulse Rate 78 03/30/19 09:38 Respiratory Rate 20 03/30/19 09:38 Blood Pressure 172/86 H 03/30/19 09:38 O2 Sat by Pulse Oximetry (%) 100 03/29/19 21:00 Intake & Output 03/27/19 03/28/19 03/29/19 03/30/19 23:59 23:59 23:59 23:59 Intake Total 220 1140 70 900 Balance 220 1140 70 900 Weight 62.596 kg NAD on NC O2 Lethargic Dry MM Dec BS at lung bases RRR + ascities, not tense no LE edema CBC, BMP 03/28/19 06:05 03/28/19 06:05 Current Medications Albuterol Sulfate (Ventolin 0.083% Nebulizer Soln -) 1 amp NEB RQID PRN PRN Reason: SHORT OF BREATH/WHEEZING Atorvastatin Calcium (Lipitor -) 20 mg PO HS [facility] Last Admin: 03/29/19 21:12 Dose: 20 mg Famotidine (Pepcid -) 20 mg PO BID [facility] Last Admin: 03/30/19 10:44 Dose: Not Given Heparin Sodium (Porcine) (Heparin -) 5,000 unit SQ BID [facility] Last Admin: 03/30/19 13:45 Dose: 5,000 unit Hydralazine HCl (Apresoline -) 100 mg PO BID [facility] Last Admin: 03/30/19 10:44 Dose: Not Given Potassium Chloride/Dextrose/Sod Cl (D5-1/2ns+10 Meq Kcl -) 10 meq in 1,000 mls @ 75 mls/hr IV ASDIR [facility] Last Admin: 03/29/19 21:12 Dose: Not Given Lactulose (Cephulac (Oral Use)) 20 gm PO TID [facility] Last Admin: 03/30/19 13:56 Dose: 20 gm Lorazepam (Ativan Injection -) 0.5 mg IVPUSH Q6H PRN PRN Reason: ANXIETY Last Admin: 03/29/19 18:45 Dose: 0.5 mg Metoprolol Tartrate (Lopressor -) 100 mg PO BID [facility] Last Admin: 03/30/19 10:44 Dose: Not Given Nitroglycerin (Nitro-Bid 2% Paste -) 0.5 inch TD Q6HPO [facility] Last Admin: 03/30/19 13:45 Dose: 0.5 inch Ondansetron HCl (Zofran Injection) 4 mg IVPUSH Q6H PRN PRN Reason: NAUSEA Last Admin: 03/28/19 10:23 Dose: 4 mg Pantoprazole Sodium (Protonix Iv) 40 mg IVPUSH BID [facility] Last Admin: 03/30/19 10:16 Dose: 40 mg 88 year old gentleman with history of pancreatic cancer s/p recent chemotherapy, hypertension, coronary artery disease who presented from home with abdominal pain and found to have progression of pancreatic cancer with liver lesions with ascities and fluid overload. 1. Metastatic pancreatic cancer 2. Fluid overload/Ascities 3. CAD/CHF 4. Hypoalbuminemia 5. Anemia 6. Acute kidney injury (baseline CR 0.9, now 1.4/1.5) from intravascular volume depletion +/- hepatorenal syndrome Check urine studies for FeNa no acute need for FLOOR WAXER no overt electrolyte or acid/base disturbance will change IVF to IV Clinimix with KCL 40meq at 42cc per hour. Will avoid aggressive IV hydration so as to prevent rapid reaccumulation of ascities to cause respiratory compromise can consider small dose diuretic if fluid status continues to worsen overall prognosis is poor palliative/comfort care evaluation Than lamine Burnham Do
[2019-03-30 15:54] LABS: BF WBC & OTHER NUCLEATED CELLS 506 /mm3; BODY FLUID MACROPHAGES 88 %
[2019-03-30] MEDS: POTASSIUM CHLORIDE 40 MEQ in AMINO ACIDS 4.25%/D5W 1,000 ML IVPB SCH (18:01)
--- NOTE | 2019-03-30 21:35 | PN ---
Progress Note (short form) - Note Progress Note: PAtient seen and examined Confused s/p paracentesis Afebrile Cor: RSR, No murmurs, No gallops Lungs: Clear to P&A Abd: Soft, Normal bowel sounds, No organomegaly Ext:No significant edema Labs/Meds reviewed A/P The patient is an 88 year old with a past medical history of pancreatic cancer s /p gemzar abraxane, xeloda/RT, maintenance xeloda and more recently reradiation for recurrent pancreatic mass, CAD with PPM, cardiac catheter, afib (no longer on Eliquis), HTN, HLD, dementia, history of cholangitis s/p stent placement here with abdominal pain. He is here with RUQ pain ,altered mental status CT scan--recurrent pancreatic mass, patent stent, ascites, multiple liver lesions c/w progressive disease CT head -- right parietal infarct ? subacute s/p parcentesis Hepatic encephalopthy --on lactulose on clinimix Rediscussed overall poor prognosis with patients son and daughter. they understand and are in agreement with palliative care. Considering home hospice
[2019-03-30] MEDS: ATORVASTATIN CA 20 MG TABLET (FP) PO SCH (21:46)
[2019-03-31] MEDS: LACTULOSE 20 GM/30 ML UDC (FOR ORAL USE ONLY) PO SCH ×3 (06:47→21:33)
[2019-03-31] MEDS: NITROGLYCERIN 2% OINTMENT - 1GM PACKET TD SCH ×4 (06:48→17:51)
[2019-03-31] MEDS: FAMOTIDINE 20 MG TABLET PO SCH ×2 (10:12→21:33)
[2019-03-31] MEDS: HEPARIN NA (PORCINE) 5,000 UNITS/ML 1ML VIAL SQ SCH ×2 (10:12→21:32)
[2019-03-31] MEDS: METOPROLOL TARTRATE 50 MG TABLET (FP) PO SCH ×2 (10:12→21:32)
[2019-03-31] MEDS: hydrALAZINE HCL 50 MG TABLET (FP) PO SCH ×2 (10:12→21:32)
[2019-03-31] MEDS: PANTOPRAZOLE SODIUM 40 MG VIAL IVPUSH SCH (10:12)
--- NOTE | 2019-03-31 13:47 | CON.GI ---
Consult Consult Specialty:: GI - Past Medical History Cardio/Vascular: Yes: AFIB, 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 WHIPPLE BUT ABORTED DUE TO SCAR TISSUE), Prostatectomy - Alcohol/Substance Use Hx Alcohol Use: No History of Substance Use: reports: None - Smoking History Smoking history: Never smoked Have you smoked in the past 12 months: No Aproximately how many cigarettes per day: 0 - Social History Usual Living Arrangement: With Spouse ADL: Family Assistance History of Recent Travel: No Home Medications - Allergies Allergies/Adverse Reactions: Allergies Allergy/AdvReac Type Severity Reaction Status Date / Time No Known Allergies Allergy Verified 03/25/19 10:39 - Home Medications Home Medications: Ambulatory Orders Atorvastatin Ca [Lipitor] 20 mg PO HS #30 tablet 07/29/16 Hydralazine HCl 100 mg PO BID 08/23/17 Lisinopril 5 mg PO DAILY 08/29/17 Famotidine [Pepcid] 20 mg PO BID 03/25/19 Metoprolol Tartrate [Lopressor] 50 mg PO BID 03/25/19 Physical Exam-GI Vital Signs: Vital Signs Temperature 97.4 F L 03/31/19 10:00 Pulse Rate 72 03/31/19 10:00 Respiratory Rate 21 H 03/31/19 10:00 Blood Pressure 138/60 03/31/19 10:00 O2 Sat by Pulse Oximetry (%) 99 03/31/19 08:22 Labs: CBC, BMP 03/28/19 06:05 03/28/19 06:05 INR, PTT INR 1.47 (0.83-1.09) H 03/30/19 05:35
--- NOTE | 2019-03-31 13:55 | CON.GI ---
Consult - History of Present Illness Chief Complaint: Hepatic encephalopathy History of Present Illness: The patient is an 88 year old with a past medical history of pancreatic cancer s /p gemzar abraxane, xeloda/RT, maintenance xeloda and more recently reradiation for recurrent pancreatic mass, CAD with PPM, cardiac catheter, afib (no longer on Eliquis), HTN, HLD, dementia, history of cholangitis s/p stent placement here with abdominal pain. He is here with RUQ pain ,altered mental status CT scan--recurrent pancreatic mass, patent stent, ascites, multiple liver lesions c/w progressive disease CT head -- right parietal infarct ? subacute infarct Discussed case with Dr Schneider , patient was to undergo whipples procedure but he had extensive scar tissue making dissection difficult, since then underwent chemoradiation treatment. - Past Medical History Cardio/Vascular: Yes: AFIB, 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 WHIPPLE BUT ABORTED DUE TO SCAR TISSUE), Prostatectomy - Alcohol/Substance Use Hx Alcohol Use: No History of Substance Use: reports: None - Smoking History Smoking history: Never smoked Have you smoked in the past 12 months: No Aproximately how many cigarettes per day: 0 - Social History Usual Living Arrangement: With Spouse ADL: Family Assistance History of Recent Travel: No Home Medications - Allergies Allergies/Adverse Reactions: Allergies Allergy/AdvReac Type Severity Reaction Status Date / Time No Known Allergies Allergy Verified 03/25/19 10:39 - Home Medications Home Medications: Ambulatory Orders Atorvastatin Ca [Lipitor] 20 mg PO HS #30 tablet 07/29/16 Hydralazine HCl 100 mg PO BID 08/23/17 Lisinopril 5 mg PO DAILY 08/29/17 Famotidine [Pepcid] 20 mg PO BID 01/12/20 Metoprolol Tartrate [Lopressor] 50 mg PO BID 03/25/19 Physical Exam-GI Vital Signs: Vital Signs Temperature 97.4 F L 03/31/19 10:00 Pulse Rate 72 03/31/19 10:00 Respiratory Rate 21 H 03/31/19 10:00 Blood Pressure 138/60 03/31/19 10:00 O2 Sat by Pulse Oximetry (%) 99 03/31/19 08:22 Constitutional: Yes: No Distress Eyes: Yes: Conjunctiva Clear HENT: Yes: Normocephalic Neck: Yes: Trachea Midline Cardiovascular: Yes: Regular Rate and Rhythm Respiratory: Yes: CTA Bilaterally ...Palpate: Yes: Soft, Tenderness, Epigastium. No: Firm/Rigid, Guarding, Hepatomegaly, Mass, Pulsatile Mass, Splenomegaly Neurological: Yes: Confusion, Lethargy Labs: CBC, BMP 03/28/19 06:05 03/28/19 06:05 INR, PTT INR 1.47 (0.83-1.09) H 03/30/19 05:35 Imaging - Results Cat Scan: Report Reviewed Problem List - Problems (1) Metabolic encephalopathy Assessment/Plan: secondary to metastatic pancreatic cancer and CVA R>spoke to her son at length yesterday prognosis is poor, the patient is to have home hospice continue supportive care Code(s): G93.41 - METABOLIC ENCEPHALOPATHY
--- NOTE | 2019-03-31 14:09 | PN ---
Progress Note, Physician Chief Complaint: AMS Elevated troponins Metastatic pancreatic Ca History of Present Illness: NAD Family at bedside had paracentesis yesterday - Current Medication List Current Medications: Active Medications Albuterol Sulfate (Ventolin 0.083% Nebulizer Soln -) 1 amp NEB RQID PRN PRN Reason: SHORT OF BREATH/WHEEZING Atorvastatin Calcium (Lipitor -) 20 mg PO HS [facility] Last Admin: 03/30/19 21:46 Dose: 20 mg Famotidine (Pepcid -) 20 mg PO BID [facility] Last Admin: 03/31/19 10:12 Dose: 20 mg Heparin Sodium (Porcine) (Heparin -) 5,000 unit SQ BID [facility] Last Admin: 03/31/19 10:12 Dose: 5,000 unit Hydralazine HCl (Apresoline -) 100 mg PO BID [facility] Last Admin: 03/31/19 10:12 Dose: 100 mg Potassium Chloride 40 meq/ (Amino Acids) 1,020 mls @ 42 mls/hr IVPB Q24H [facility] Last Admin: 03/30/19 18:01 Dose: 42 mls/hr Lactulose (Cephulac (Oral Use)) 20 gm PO TID [facility] Last Admin: 03/31/19 06:47 Dose: 20 gm Lorazepam (Ativan Injection -) 0.5 mg IVPUSH Q6H PRN PRN Reason: ANXIETY Last Admin: 03/29/19 18:45 Dose: 0.5 mg Metoprolol Tartrate (Lopressor -) 100 mg PO BID [facility] Last Admin: 03/31/19 10:12 Dose: 100 mg Nitroglycerin (Nitro-Bid 2% Paste -) 0.5 inch TD Q6HPO [facility] Last Admin: 03/31/19 06:48 Dose: 0.5 inch Ondansetron HCl (Zofran Injection) 4 mg IVPUSH Q6H PRN PRN Reason: NAUSEA Last Admin: 03/28/19 10:23 Dose: 4 mg Pantoprazole Sodium (Protonix Iv) 40 mg IVPUSH BID [facility] Last Admin: 03/31/19 10:12 Dose: 40 mg - Objective Vital Signs: Vital Signs Temperature 97.4 F L 03/31/19 10:00 Pulse Rate 72 03/31/19 10:00 Respiratory Rate 21 H 03/31/19 10:00 Blood Pressure 138/60 03/31/19 10:00 O2 Sat by Pulse Oximetry (%) 99 03/31/19 08:22 Constitutional: Yes: Well Nourished, Calm, Anxious Cardiovascular: Yes: Regular Rate and Rhythm Respiratory: Yes: Regular Gastrointestinal: Yes: Distention, Hypoactive Bowel Sounds, Tenderness (diffuse) Genitourinary: Yes: Incontinence Musculoskeletal: Yes: Muscle Weakness Extremities: Yes: WNL Edema: No Peripheral Pulses WNL: Yes Neurological: Yes: Alert, Confusion, Pre-Existing Deficit Psychiatric: Yes: Alert Labs: CBC, BMP 03/28/19 06:05 03/28/19 06:05 INR, PTT INR 1.47 (0.83-1.09) H 03/30/19 05:35 Problem List - Problems (1) NSTEMI (non-ST elevated myocardial infarction) Assessment/Plan: -Seen by Cardiology -signed off by cardiology -2/2 to metastatic disease -D/C tele Problems reviewed: Yes Code(s): I21.4 - NON-ST ELEVATION (NSTEMI) MYOCARDIAL INFARCTION (2) Pancreatic neoplasm Assessment/Plan: -Oncology consult -Palliative care -CT abd + metastasis to liver, has been receiving radiation treatment -Family in agreement to home hospice Problems reviewed: Yes Code(s): D49.0 - NEOPLASM OF UNSPECIFIED BEHAVIOR OF DIGESTIVE SYSTEM (3) Transaminitis Problems reviewed: Yes Code(s): R74.0 - NONSPEC ELEV OF LEVELS OF TRANSAMNS & LACTIC ACID DEHYDRGNSE (4) Abdominal pain Assessment/Plan: -GI consult -Oncology consult -Likely 22 to progression of the disease -Not a surgical candidate Problems reviewed: Yes Code(s): R10.9 - UNSPECIFIED ABDOMINAL PAIN (5) Elevated troponin Assessment/Plan: -Seen by Cardiology -signed off by cardiology -2/2 to metastatic disease -D/C tele Problems reviewed: Yes Code(s): R79.89 - OTHER SPECIFIED ABNORMAL FINDINGS OF BLOOD CHEMISTRY (6) CVA (cerebral vascular accident) Assessment/Plan: -CT head- R parietal lobe subacute non hemorrhagic infarct -Seen by Neurology Problems reviewed: Yes Code(s): I63.9 - CEREBRAL INFARCTION, UNSPECIFIED (7) Hospice care Assessment/Plan: -Awaiting eval from [facility], [facility] , and [facility] -Spoke to family, in agreement -Pt with abd pain- trial of fentanyl 12 mcg Q72H Problems reviewed: Yes Assessment/Plan see problem list Spoke to daughters, and son in detail
[2019-03-31] MEDS ORDERED: FENTANYL PATCH WASTE TD PRN (14:38)
--- NOTE | 2019-03-31 15:28 | PN ---
Progress Note (short form) - Note Progress Note: PULMONARY s/p abdominal paracentesis. Low grade temp this AM. Vital Signs Period Temp Pulse Resp BP Sys/[place] Pulse Ox Last 24 Hr 97.4 F-100 F 63-78 20-22 121-148/57-69 99 Gen: less tachypneic Heart: RRR Lung: decreased breath sounds at the bases Abd: softly distended, nontender, +ascites Ext: no edema CBC, BMP 03/28/19 06:05 03/28/19 06:05 Active Medications Albuterol Sulfate (Ventolin 0.083% Nebulizer Soln -) 1 amp NEB RQID PRN PRN Reason: SHORT OF BREATH/WHEEZING Atorvastatin Calcium (Lipitor -) 20 mg PO HS [facility] Last Admin: 03/30/19 21:46 Dose: 20 mg Famotidine (Pepcid -) 20 mg PO BID [facility] Last Admin: 03/31/19 10:12 Dose: 20 mg Fentanyl (Duragesic 12mcg Patch -) 1 patch TD Q72H [facility] Stop: 04/07/19 14:39 Heparin Sodium (Porcine) (Heparin -) 5,000 unit SQ BID [facility] Last Admin: 03/31/19 10:12 Dose: 5,000 unit Hydralazine HCl (Apresoline -) 100 mg PO BID [facility] Last Admin: 03/31/19 10:12 Dose: 100 mg Potassium Chloride 40 meq/ (Amino Acids) 1,020 mls @ 42 mls/hr IVPB Q24H [facility] Last Admin: 03/30/19 18:01 Dose: 42 mls/hr Lactulose (Cephulac (Oral Use)) 20 gm PO TID [facility] Last Admin: 03/31/19 06:47 Dose: 20 gm Lorazepam (Ativan Injection -) 0.5 mg IVPUSH Q6H PRN PRN Reason: ANXIETY Last Admin: 03/29/19 18:45 Dose: 0.5 mg Metoprolol Tartrate (Lopressor -) 100 mg PO BID [facility] Last Admin: 03/31/19 10:12 Dose: 100 mg Miscellaneous (Duragesic Patch Waste) 1 each TD PRN PRN PRN Reason: PAIN Nitroglycerin (Nitro-Bid 2% Paste -) 0.5 inch TD Q6HPO [facility] Last Admin: 03/31/19 06:48 Dose: 0.5 inch Ondansetron HCl (Zofran Injection) 4 mg IVPUSH Q6H PRN PRN Reason: NAUSEA Last Admin: 03/28/19 10:23 Dose: 4 mg Pantoprazole Sodium (Protonix -) 40 mg PO BID [facility] A/P Pancreatic Cancer Abdominal Pain likely progression of disease Ascites/Pleural Effusions CAD +Troponins likely Demand Ischemia Atrial Fibrillation HTN Hyperlipidemia Dementia - f/u ascites cytology - if dyspnea worsens, can consider thoracentesis - agree with palliative care Problem List - Problems (1) Pancreatic cancer Code(s): C25.9 - MALIGNANT NEOPLASM OF PANCREAS, UNSPECIFIED (2) Ascites Code(s): R18.8 - OTHER ASCITES (3) Pleural effusion Code(s): J90 - PLEURAL EFFUSION, NOT ELSEWHERE CLASSIFIED
[2019-03-31] MEDS: fentaNYL 12mcg/hr PATCH.TD72 TD SCH (17:16)
[2019-03-31] MEDS: POTASSIUM CHLORIDE 40 MEQ in AMINO ACIDS 4.25%/D5W 1,000 ML IVPB SCH (17:18)
--- NOTE | 2019-03-31 17:43 | PN ---
Progress Note (short form) - Note Progress Note: 1. Metastatic pancreatic cancer 2. Fluid overload/Ascities 3. CAD/CHF 4. Hypoalbuminemia 5. Anemia 6. Acute kidney injury (baseline CR 0.9, now 1.4/1.5) from intravascular volume depletion +/- hepatorenal syndrome Current Medications Albuterol Sulfate (Ventolin 0.083% Nebulizer Soln -) 1 amp NEB RQID PRN PRN Reason: SHORT OF BREATH/WHEEZING Atorvastatin Calcium (Lipitor -) 20 mg PO HS [facility] Last Admin: 03/30/19 21:46 Dose: 20 mg Famotidine (Pepcid -) 20 mg PO BID [facility] Last Admin: 03/31/19 10:12 Dose: 20 mg Fentanyl (Duragesic 12mcg Patch -) 1 patch TD Q72H [facility] Stop: 04/07/19 14:39 Last Admin: 03/31/19 17:16 Dose: 1 patch Heparin Sodium (Porcine) (Heparin -) 5,000 unit SQ BID [facility] Last Admin: 03/31/19 10:12 Dose: 5,000 unit Hydralazine HCl (Apresoline -) 100 mg PO BID [facility] Last Admin: 03/31/19 10:12 Dose: 100 mg Potassium Chloride 40 meq/ (Amino Acids) 1,020 mls @ 42 mls/hr IVPB Q24H [facility] Last Admin: 03/31/19 17:18 Dose: 42 mls/hr Lactulose (Cephulac (Oral Use)) 20 gm PO TID [facility] Last Admin: 03/31/19 17:18 Dose: 20 gm Lorazepam (Ativan Injection -) 0.5 mg IVPUSH Q6H PRN PRN Reason: ANXIETY Last Admin: 03/29/19 18:45 Dose: 0.5 mg Metoprolol Tartrate (Lopressor -) 100 mg PO BID [facility] Last Admin: 03/31/19 10:12 Dose: 100 mg Miscellaneous (Duragesic Patch Waste) 1 each TD PRN PRN PRN Reason: PAIN Nitroglycerin (Nitro-Bid 2% Paste -) 0.5 inch TD Q6HPO [facility] Last Admin: 03/31/19 17:14 Dose: Not Given Ondansetron HCl (Zofran Injection) 4 mg IVPUSH Q6H PRN PRN Reason: NAUSEA Last Admin: 03/28/19 10:23 Dose: 4 mg Pantoprazole Sodium (Protonix -) 40 mg PO BID [facility] Last Vital Signs Temp Pulse Resp BP Pulse Ox 100 F H 78 22 H 128/57 L 99 03/31/19 14:25 03/31/19 14:25 03/31/19 14:25 03/31/19 14:25 03/31/19 08:22 CBC, BMP 03/28/19 06:05 03/28/19 06:05 Check urine studies for FeNa no acute need for FREIGHT CLERK no overt electrolyte or acid/base disturbance will change IVF to IV Clinimix with KCL 40meq at 42cc per hour. Will avoid aggressive IV hydration so as to prevent rapid reaccumulation of ascities to cause respiratory compromise can consider small dose diuretic if fluid status continues to worsen overall prognosis is poor palliative/comfort care evaluation
--- NOTE | 2019-03-31 18:20 | PN ---
Progress Note, Physician History of Present Illness: Denies pain. No new events. - Current Medication List Current Medications: Active Medications Albuterol Sulfate (Ventolin 0.083% Nebulizer Soln -) 1 amp NEB RQID PRN PRN Reason: SHORT OF BREATH/WHEEZING Atorvastatin Calcium (Lipitor -) 20 mg PO HS [facility] Last Admin: 03/30/19 21:46 Dose: 20 mg Famotidine (Pepcid -) 20 mg PO BID [facility] Last Admin: 03/31/19 10:12 Dose: 20 mg Fentanyl (Duragesic 12mcg Patch -) 1 patch TD Q72H [facility] Stop: 04/07/19 14:39 Last Admin: 03/31/19 17:16 Dose: 1 patch Heparin Sodium (Porcine) (Heparin -) 5,000 unit SQ BID [facility] Last Admin: 03/31/19 10:12 Dose: 5,000 unit Hydralazine HCl (Apresoline -) 100 mg PO BID [facility] Last Admin: 03/31/19 10:12 Dose: 100 mg Potassium Chloride 40 meq/ (Amino Acids) 1,020 mls @ 42 mls/hr IVPB Q24H [facility] Last Admin: 03/31/19 17:18 Dose: 42 mls/hr Lactulose (Cephulac (Oral Use)) 20 gm PO TID [facility] Last Admin: 03/31/19 17:18 Dose: 20 gm Lorazepam (Ativan Injection -) 0.5 mg IVPUSH Q6H PRN PRN Reason: ANXIETY Last Admin: 03/29/19 18:45 Dose: 0.5 mg Metoprolol Tartrate (Lopressor -) 100 mg PO BID [facility] Last Admin: 03/31/19 10:12 Dose: 100 mg Miscellaneous (Duragesic Patch Waste) 1 each TD PRN PRN PRN Reason: PAIN Nitroglycerin (Nitro-Bid 2% Paste -) 0.5 inch TD Q6HPO [facility] Last Admin: 03/31/19 17:51 Dose: Not Given Ondansetron HCl (Zofran Injection) 4 mg IVPUSH Q6H PRN PRN Reason: NAUSEA Last Admin: 03/28/19 10:23 Dose: 4 mg Pantoprazole Sodium (Protonix -) 40 mg PO BID [facility] - Objective Vital Signs: Vital Signs Temperature 98 F 01/18/20 18:00 Pulse Rate 68 03/31/19 18:00 Respiratory Rate 21 H 03/31/19 18:00 Blood Pressure 124/60 03/31/19 18:00 O2 Sat by Pulse Oximetry (%) 99 03/31/19 08:22 Constitutional: Yes: No Distress Eyes: Yes: Conjunctiva Clear Cardiovascular: Yes: Regular Rate and Rhythm Respiratory: Yes: Regular, CTA Bilaterally Gastrointestinal: Yes: Soft Extremities: Yes: WNL Edema: No Labs: CBC, BMP 03/28/19 06:05 03/28/19 06:05 INR, PTT INR 1.47 (0.83-1.09) H 03/30/19 05:35 Assessment/Plan 88M with pancreatic cancer s/p gemzar abraxane, xeloda/RT, maintenance xeloda and more recently reradiation for recurrent pancreatic mass, CAD with PPM, cardiac catheter, afib (no longer on Eliquis), HTN, HLD, dementia, history of cholangitis s/p stent placement here with abdominal pain and AMS. CT scan showed recurrent pancreatic mass, patent stent, ascites, multiple liver lesions c/w progressive disease CT head with right parietal infarct ? 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
[2019-03-31] MEDS ORDERED: PT OWN MED DRAWER 7, Y5N ONE (21:24)
[2019-03-31] MEDS: ATORVASTATIN CA 20 MG TABLET (FP) PO SCH (21:32)
[2019-03-31] MEDS: PANTOPRAZOLE 40 MG TABLET PO SCH (21:32)
[2019-03-31] MEDS: LORazepam 2 MG/ML SDV VIAL IVPUSH PRN (21:50)
[2019-04-01] MEDS: NITROGLYCERIN 2% OINTMENT - 1GM PACKET TD SCH ×2 (01:16→05:47)
[2019-04-01] MEDS: LACTULOSE 20 GM/30 ML UDC (FOR ORAL USE ONLY) PO SCH ×4 (05:47→22:00)
[2019-04-01 07:49] LABS: INR 1.38 (0.83-1.09); PROTHROMBIN TIME (PATIENT) 16.3 SEC (9.7-13.0)
[2019-04-01 07:52] LABS: ACTIVATED PTT 28.5 SECONDS (25.2-36.5)
--- NOTE | 2019-04-01 09:40 | PN ---
Progress Note, Physician Chief Complaint: AMS Elevated troponins Metastatic pancreatic Ca History of Present Illness: NAD, lethargic this AM 2/2 to Ativan IVP overnight for agitation As per RN, pt pain improved on Fentanyl patch yesterday S/P paracentesis on 03/30/19 - Current Medication List Current Medications: Active Medications Albuterol Sulfate (Ventolin 0.083% Nebulizer Soln -) 1 amp NEB RQID PRN PRN Reason: SHORT OF BREATH/WHEEZING Atorvastatin Calcium (Lipitor -) 20 mg PO HS [facility] Last Admin: 03/31/19 21:32 Dose: 20 mg Famotidine (Pepcid -) 20 mg PO BID [facility] Last Admin: 03/31/19 21:33 Dose: 20 mg Fentanyl (Duragesic 12mcg Patch -) 1 patch TD Q72H [facility] Stop: 04/07/19 14:39 Last Admin: 03/31/19 17:16 Dose: 1 patch Heparin Sodium (Porcine) (Heparin -) 5,000 unit SQ BID [facility] Last Admin: 03/31/19 21:32 Dose: 5,000 unit Hydralazine HCl (Apresoline -) 100 mg PO BID [facility] Last Admin: 03/31/19 21:32 Dose: 100 mg Potassium Chloride 40 meq/ (Amino Acids) 1,020 mls @ 42 mls/hr IVPB Q24H [facility] Last Admin: 03/31/19 17:18 Dose: 42 mls/hr Lactulose (Cephulac (Oral Use)) 20 gm PO TID [facility] Last Admin: 04/01/19 05:47 Dose: Not Given Lorazepam (Ativan Injection -) 0.5 mg IVPUSH Q6H PRN PRN Reason: ANXIETY Last Admin: 03/31/19 21:50 Dose: 0.5 mg Metoprolol Tartrate (Lopressor -) 100 mg PO BID [facility] Last Admin: 03/31/19 21:32 Dose: 100 mg Miscellaneous (Duragesic Patch Waste) 1 each TD PRN PRN PRN Reason: PAIN Nitroglycerin (Nitro-Bid 2% Paste -) 0.5 inch TD Q6HPO [facility] Last Admin: 04/01/19 05:47 Dose: Not Given Ondansetron HCl (Zofran Injection) 4 mg IVPUSH Q6H PRN PRN Reason: NAUSEA Last Admin: 03/28/19 10:23 Dose: 4 mg Pantoprazole Sodium (Protonix -) 40 mg PO BID [facility] Last Admin: 03/31/19 21:32 Dose: 40 mg - Objective Vital Signs: Vital Signs Temperature 98 F 04/01/19 01:29 Pulse Rate 73 04/01/19 05:35 Respiratory Rate 20 04/01/19 08:33 Blood Pressure 130/57 L 04/01/19 05:35 O2 Sat by Pulse Oximetry (%) 98 04/01/19 08:33 Constitutional: Yes: Well Nourished, No Distress, Calm Cardiovascular: Yes: Regular Rate and Rhythm Respiratory: Yes: Regular, On Nasal O2 Gastrointestinal: Yes: Normal Bowel Sounds, Soft Genitourinary: Yes: Incontinence Musculoskeletal: Yes: Muscle Weakness Extremities: Yes: WNL Edema: No Peripheral Pulses WNL: Yes Neurological: Yes: Lethargy Labs: CBC, BMP 03/28/19 06:05 03/28/19 06:05 INR, PTT INR 1.38 (0.83-1.09) H 04/01/19 06:10 Problem List - Problems (1) NSTEMI (non-ST elevated myocardial infarction) Assessment/Plan: -Seen by Cardiology -signed off by cardiology -2/2 to metastatic disease -D/C tele Problems reviewed: Yes Code(s): I21.4 - NON-ST ELEVATION (NSTEMI) MYOCARDIAL INFARCTION (2) Pancreatic neoplasm Assessment/Plan: -Oncology consult -Palliative care -CT abd + metastasis to liver, has been receiving radiation treatment -Family in agreement to home hospice Problems reviewed: Yes Code(s): D49.0 - NEOPLASM OF UNSPECIFIED BEHAVIOR OF DIGESTIVE SYSTEM (3) Transaminitis Problems reviewed: Yes Code(s): R74.0 - NONSPEC ELEV OF LEVELS OF TRANSAMNS & LACTIC ACID DEHYDRGNSE (4) Abdominal pain Assessment/Plan: -GI consult -Oncology consult -Likely 2/2 to progression of the disease -Not a surgical candidate Problems reviewed: Yes Code(s): R10.9 - UNSPECIFIED ABDOMINAL PAIN (5) Elevated troponin Assessment/Plan: -Seen by Cardiology -signed off by cardiology -2/2 to metastatic disease -D/C tele Problems reviewed: Yes Code(s): R79.89 - OTHER SPECIFIED ABNORMAL FINDINGS OF BLOOD CHEMISTRY (6) CVA (cerebral vascular accident) Assessment/Plan: -CT head- R parietal lobe subacute non hemorrhagic infarct -Seen by Neurology Problems reviewed: Yes Code(s): I63.9 - CEREBRAL INFARCTION, UNSPECIFIED (7) Hospice care Assessment/Plan: -Awaiting eval from [facility], [facility] [place] , and [facility] -Spoke to family, in agreement -Pt with abd pain-Continue fentanyl 12 mcg Q72H Problems reviewed: Yes Assessment/Plan see problem list
[2019-04-01] MEDS: METOPROLOL TARTRATE 50 MG TABLET (FP) PO SCH ×2 (10:06→21:51)
[2019-04-01] MEDS: HEPARIN NA (PORCINE) 5,000 UNITS/ML 1ML VIAL SQ SCH ×2 (10:07→21:51)
[2019-04-01] MEDS: FAMOTIDINE 20 MG TABLET PO SCH ×2 (10:07→21:52)
[2019-04-01] MEDS: hydrALAZINE HCL 50 MG TABLET (FP) PO SCH ×2 (10:07→21:51)
[2019-04-01] MEDS: PANTOPRAZOLE 40 MG TABLET PO SCH ×2 (10:07→21:51)
[2019-04-01] MEDS: LORazepam 2 MG/ML SDV VIAL IVPUSH SCH ×2 (10:12→21:51)
[2019-04-01] MEDS ORDERED: ACETAMINOPHEN 650 MG SUPP.RECT PR PRN (10:23)
--- NOTE | 2019-04-01 13:34 | PN ---
Progress Note (short form) - Note Progress Note: PULMONARY More lethargic today. Vital Signs Period Temp Pulse Resp BP Sys/[place] Pulse Ox Last 24 Hr 98 F-100.4 F 68-78 20-22 124-141/57-78 96-98 Gen: less tachypneic Heart: RRR Lung: decreased breath sounds at the bases Abd: softly distended, nontender, +ascites Ext: no edema CBC, BMP 03/28/19 06:05 03/28/19 06:05 Active Medications Acetaminophen (Tylenol Suppository -) 650 mg [place] Q4H PRN PRN Reason: FEVER Last Admin: 04/01/19 11:29 Dose: 650 mg Albuterol Sulfate (Ventolin 0.083% Nebulizer Soln -) 1 amp NEB RQID PRN PRN Reason: SHORT OF BREATH/WHEEZING Atorvastatin Calcium (Lipitor -) 20 mg PO HS [facility] Last Admin: 03/31/19 21:32 Dose: 20 mg Famotidine (Pepcid -) 20 mg PO BID [facility] Last Admin: 04/01/19 10:07 Dose: 20 mg Fentanyl (Duragesic 12mcg Patch -) 1 patch TD Q72H [facility] Stop: 04/07/19 14:39 Last Admin: 03/31/19 17:16 Dose: 1 patch Heparin Sodium (Porcine) (Heparin -) 5,000 unit SQ BID [facility] Last Admin: 04/01/19 10:07 Dose: 5,000 unit Hydralazine HCl (Apresoline -) 100 mg PO BID [facility] Last Admin: 04/01/19 10:07 Dose: 100 mg Potassium Chloride 40 meq/ (Amino Acids) 1,020 mls @ 42 mls/hr IVPB Q24H [facility] Last Admin: 03/31/19 17:18 Dose: 42 mls/hr Lactulose (Cephulac (Oral Use)) 20 gm PO TID [facility] Last Admin: 04/01/19 05:47 Dose: Not Given Lorazepam (Ativan Injection -) 0.25 mg IVPUSH BID [facility] Last Admin: 04/01/19 10:12 Dose: 0.25 mg Metoprolol Tartrate (Lopressor -) 100 mg PO BID [facility] Last Admin: 04/01/19 10:06 Dose: 100 mg Miscellaneous (Duragesic Patch Waste) 1 each TD PRN PRN PRN Reason: PAIN Ondansetron HCl (Zofran Injection) 4 mg IVPUSH Q6H PRN PRN Reason: NAUSEA Last Admin: 03/28/19 10:23 Dose: 4 mg Pantoprazole Sodium (Protonix -) 40 mg PO BID [facility] Last Admin: 04/01/19 10:07 Dose: 40 mg A/P Pancreatic Cancer Abdominal Pain likely progression of disease Ascites/Pleural Effusions CAD +Troponins likely Demand Ischemia Atrial Fibrillation HTN Hyperlipidemia Dementia - f/u ascites cytology - if dyspnea worsens, can consider thoracentesis - agree with palliative care Problem List - Problems (1) Pancreatic cancer Code(s): C25.9 - MALIGNANT NEOPLASM OF PANCREAS, UNSPECIFIED (2) Ascites Code(s): R18.8 - OTHER ASCITES (3) Pleural effusion Code(s): J90 - PLEURAL EFFUSION, NOT ELSEWHERE CLASSIFIED
[2019-04-01] MEDS: POTASSIUM CHLORIDE 40 MEQ in AMINO ACIDS 4.25%/D5W 1,000 ML IVPB SCH (14:46)
--- NOTE | 2019-04-01 20:32 | PN ---
Progress Note (short form) - Note Progress Note: 1. Metastatic pancreatic cancer 2. Fluid overload/Ascities 3. CAD/CHF 4. Hypoalbuminemia 5. Anemia 6. Acute kidney injury (baseline CR 0.9, now 1.4/1.5) from intravascular volume depletion +/- hepatorenal syndrome Current Medications Acetaminophen (Tylenol Suppository -) 650 mg [place] Q4H PRN PRN Reason: FEVER Last Admin: 04/01/19 11:29 Dose: 650 mg Albuterol Sulfate (Ventolin 0.083% Nebulizer Soln -) 1 amp NEB RQID PRN PRN Reason: SHORT OF BREATH/WHEEZING Atorvastatin Calcium (Lipitor -) 20 mg PO HS [facility] Last Admin: 03/31/19 21:32 Dose: 20 mg Famotidine (Pepcid -) 20 mg PO BID [facility] Last Admin: 04/01/19 10:07 Dose: 20 mg Fentanyl (Duragesic 12mcg Patch -) 1 patch TD Q72H [facility] Stop: 04/07/19 14:39 Last Admin: 03/31/19 17:16 Dose: 1 patch Heparin Sodium (Porcine) (Heparin -) 5,000 unit SQ BID [facility] Last Admin: 04/01/19 10:07 Dose: 5,000 unit Hydralazine HCl (Apresoline -) 100 mg PO BID [facility] Last Admin: 04/01/19 10:07 Dose: 100 mg Potassium Chloride 40 meq/ (Amino Acids) 1,020 mls @ 42 mls/hr IVPB Q24H [facility] Last Admin: 04/01/19 14:46 Dose: 42 mls/hr Lactulose (Cephulac (Oral Use)) 20 gm PO TID [facility] Last Admin: 04/01/19 14:46 Dose: 20 gm Lorazepam (Ativan Injection -) 0.25 mg IVPUSH BID [facility] Last Admin: 04/01/19 10:12 Dose: 0.25 mg Metoprolol Tartrate (Lopressor -) 100 mg PO BID [facility] Last Admin: 04/01/19 10:06 Dose: 100 mg Miscellaneous (Duragesic Patch Waste) 1 each TD PRN PRN PRN Reason: PAIN Ondansetron HCl (Zofran Injection) 4 mg IVPUSH Q6H PRN PRN Reason: NAUSEA Last Admin: 01/15/20 10:23 Dose: 4 mg Pantoprazole Sodium (Protonix -) 40 mg PO BID [facility] Last Admin: 04/01/19 10:07 Dose: 40 mg Last Vital Signs Temp Pulse Resp BP Pulse Ox 98.0 F 64 20 136/69 98 04/01/19 18:00 04/01/19 18:00 04/01/19 18:00 04/01/19 18:00 04/01/19 08:33 resting calmly no sob lying flat Lungs clear Heart reg Abd soft CBC, BMP 03/28/19 06:05 03/28/19 06:05 Plan update labs in am
--- NOTE | 2019-04-01 21:03 | PN ---
Progress Note, Physician History of Present Illness: No improvement in mental status, per family. - Current Medication List Current Medications: Active Medications Acetaminophen (Tylenol Suppository -) 650 mg [place] Q4H PRN PRN Reason: FEVER Last Admin: 04/01/19 11:29 Dose: 650 mg Albuterol Sulfate (Ventolin 0.083% Nebulizer Soln -) 1 amp NEB RQID PRN PRN Reason: SHORT OF BREATH/WHEEZING Atorvastatin Calcium (Lipitor -) 20 mg PO HS [facility] Last Admin: 03/31/19 21:32 Dose: 20 mg Famotidine (Pepcid -) 20 mg PO BID [facility] Last Admin: 04/01/19 10:07 Dose: 20 mg Fentanyl (Duragesic 12mcg Patch -) 1 patch TD Q72H [facility] Stop: 04/07/19 14:39 Last Admin: 03/31/19 17:16 Dose: 1 patch Heparin Sodium (Porcine) (Heparin -) 5,000 unit SQ BID [facility] Last Admin: 04/01/19 10:07 Dose: 5,000 unit Hydralazine HCl (Apresoline -) 100 mg PO BID [facility] Last Admin: 04/01/19 10:07 Dose: 100 mg Potassium Chloride 40 meq/ (Amino Acids) 1,020 mls @ 42 mls/hr IVPB Q24H [facility] Last Admin: 04/01/19 14:46 Dose: 42 mls/hr Lactulose (Cephulac (Oral Use)) 20 gm PO TID [facility] Last Admin: 04/01/19 14:46 Dose: 20 gm Lorazepam (Ativan Injection -) 0.25 mg IVPUSH BID [facility] Last Admin: 04/01/19 10:12 Dose: 0.25 mg Metoprolol Tartrate (Lopressor -) 100 mg PO BID [facility] Last Admin: 04/01/19 10:06 Dose: 100 mg Miscellaneous (Duragesic Patch Waste) 1 each TD PRN PRN PRN Reason: PAIN Ondansetron HCl (Zofran Injection) 4 mg IVPUSH Q6H PRN PRN Reason: NAUSEA Last Admin: 03/28/19 10:23 Dose: 4 mg Pantoprazole Sodium (Protonix -) 40 mg PO BID [facility] Last Admin: 04/01/19 10:07 Dose: 40 mg - Objective Vital Signs: Vital Signs Temperature 98.0 F 04/01/19 18:00 Pulse Rate 64 04/01/19 18:00 Respiratory Rate 20 04/01/19 18:00 Blood Pressure 136/69 04/01/19 18:00 O2 Sat by Pulse Oximetry (%) 98 04/01/19 08:33 Constitutional: Yes: No Distress Cardiovascular: Yes: Regular Rate and Rhythm Respiratory: Yes: Regular, CTA Bilaterally Gastrointestinal: Yes: Soft. No: Distention Edema: No Labs: CBC, BMP 03/28/19 06:05 03/28/19 06:05 INR, PTT INR 1.38 (0.83-1.09) H 04/01/19 06:10 Assessment/Plan 88M with pancreatic cancer s/p gemzar abraxane, xeloda/RT, maintenance xeloda and more recently reradiation for recurrent pancreatic mass, CAD with PPM, cardiac catheter, afib (no longer on Eliquis), HTN, HLD, dementia, history of cholangitis s/p stent placement here with abdominal pain and AMS. CT scan showed recurrent pancreatic mass, patent stent, ascites, multiple liver lesions c/w progressive disease CT head with right parietal infarct ? 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
[2019-04-01] MEDS: ATORVASTATIN CA 20 MG TABLET (FP) PO SCH (21:51)
[2019-04-02] MEDS: LACTULOSE 20 GM/30 ML UDC (FOR ORAL USE ONLY) PO SCH ×3 (06:27→21:59)
[2019-04-02 07:19] LABS: HEMOGLOBIN 12.2 GM/dL (11.7-16.9); MCH 30.9 pg (25.7-33.7); MCHC 32.2 g/dl (32.0-35.9); MEAN PLT VOLUME 9.9 fl (7.5-11.1); PLATELET COUNT 166 K/MM3 (134-434); RBC 3.96 M/mm3 (4.00-5.60); RDW 19.8 % (11.9-15.9); WHITE BLOOD COUNT 20.5 K/mm3 (4.0-10.0)
[2019-04-02 07:55] LABS: ALBUMIN 2.3 g/dl (3.4-5.0); BLOOD UREA NITROGEN 100.5 mg/dL (7-18); CALCIUM 9.6 mg/dL (8.5-10.1); CREATININE 1.8 mg/dL (0.55-1.3); TOT PROT 5.4 g/dl (6.4-8.2)
[2019-04-02 08:04] LABS: POTASSIUM 6.5 mmol/L (3.5-5.1)
[2019-04-02] MEDS ORDERED: INSULIN (NOVOLOG) ASPART 100 UNITS/ML 10ML VIAL SQ ONE (08:19)
[2019-04-02] MEDS ORDERED: DEXTROSE 50%-WATER - 25 GM/50 ML VIAL IVPUSH ONE ×2 (08:19→09:15)
[2019-04-02] MEDS ORDERED: DEXTROSE 5%-0.45% SALINE 1,000 ML IV SCH (08:30)
[2019-04-02] MEDS ORDERED: DEXTROSE 50%-WATER - 25 GM/50 ML VIAL ONE (09:15)
--- NOTE | 2019-04-02 09:31 | PN ---
Progress Note, Physician - Current Medication List Current Medications: Active Medications Acetaminophen (Tylenol Suppository -) 650 mg [place] Q4H PRN PRN Reason: FEVER Last Admin: 04/01/19 11:29 Dose: 650 mg Albuterol Sulfate (Ventolin 0.083% Nebulizer Soln -) 1 amp NEB RQID PRN PRN Reason: SHORT OF BREATH/WHEEZING Atorvastatin Calcium (Lipitor -) 20 mg PO HS [facility] Last Admin: 04/01/19 21:51 Dose: 20 mg Famotidine (Pepcid -) 20 mg PO BID [facility] Last Admin: 04/01/19 21:52 Dose: 20 mg Fentanyl (Duragesic 12mcg Patch -) 1 patch TD Q72H [facility] Stop: 04/07/19 14:39 Last Admin: 03/31/19 17:16 Dose: 1 patch Heparin Sodium (Porcine) (Heparin -) 5,000 unit SQ BID [facility] Last Admin: 04/01/19 21:51 Dose: 5,000 unit Hydralazine HCl (Apresoline -) 100 mg PO BID [facility] Last Admin: 04/01/19 21:51 Dose: 100 mg Dextrose/Sodium Chloride (D5-1/2ns -) 1,000 mls @ 83 mls/hr IV ASDIR [facility] Last Admin: 04/02/19 08:57 Dose: 83 mls/hr Lactulose (Cephulac (Oral Use)) 20 gm PO TID [facility] Last Admin: 04/02/19 06:27 Dose: Not Given Lorazepam (Ativan Injection -) 0.25 mg IVPUSH BID [facility] Last Admin: 04/01/19 21:51 Dose: Not Given Metoprolol Tartrate (Lopressor -) 100 mg PO BID [facility] Last Admin: 04/01/19 21:51 Dose: 100 mg Miscellaneous (Duragesic Patch Waste) 1 each TD PRN PRN PRN Reason: PAIN Ondansetron HCl (Zofran Injection) 4 mg IVPUSH Q6H PRN PRN Reason: NAUSEA Last Admin: 03/28/19 10:23 Dose: 4 mg Pantoprazole Sodium (Protonix -) 40 mg PO BID [facility] Last Admin: 04/01/19 21:51 Dose: 40 mg - Objective Vital Signs: Vital Signs Temperature 97.4 F L 04/01/19 22:00 Pulse Rate 66 04/02/19 06:00 Respiratory Rate 20 04/02/19 06:00 Blood Pressure 142/56 L 04/02/19 06:00 O2 Sat by Pulse Oximetry (%) 98 04/01/19 08:33 Labs: CBC, BMP 04/02/19 05:10 04/02/19 05:10 INR, PTT INR 1.38 (0.83-1.09) H 04/01/19 06:10 Problem List - Problems (1) Abdominal pain Code(s): R10.9 - UNSPECIFIED ABDOMINAL PAIN (2) Elevated troponin Code(s): R79.89 - OTHER SPECIFIED ABNORMAL FINDINGS OF BLOOD CHEMISTRY (3) Pancreatic cancer Code(s): C25.9 - MALIGNANT NEOPLASM OF PANCREAS, UNSPECIFIED (4) Change in mental status Code(s): R41.82 - ALTERED MENTAL STATUS, UNSPECIFIED Assessment/Plan - Problems (1) NSTEMI (non-ST elevated myocardial infarction) Assessment/Plan: -Seen by Cardiology -signed off by cardiology -2/2 to metastatic disease -D/C tele Problems reviewed: Yes Code(s): I21.4 - NON-ST ELEVATION (NSTEMI) MYOCARDIAL INFARCTION (2) Pancreatic neoplasm Assessment/Plan: -Oncology consult -Palliative care -CT abd + metastasis to liver, has been receiving radiation treatment -Family in agreement to home hospice Problems reviewed: Yes Code(s): D49.0 - NEOPLASM OF UNSPECIFIED BEHAVIOR OF DIGESTIVE SYSTEM (3) Transaminitis Problems reviewed: Yes Code(s): R74.0 - NONSPEC ELEV OF LEVELS OF TRANSAMNS & LACTIC ACID DEHYDRGNSE (4) Abdominal pain Assessment/Plan: -GI consult -Oncology consult -Likely 2/2 to progression of the disease -Not a surgical candidate Problems reviewed: Yes Code(s): R10.9 - UNSPECIFIED ABDOMINAL PAIN (5) Elevated potasium Assessment/Plan: -D50 and insulin -dc clinimex--NS -repeat (6) CVA (cerebral vascular accident) Assessment/Plan: -CT head- R parietal lobe subacute non hemorrhagic infarct -Seen by Neurology Problems reviewed: Yes Code(s): I63.9 - CEREBRAL INFARCTION, UNSPECIFIED (7) Hospice care Assessment/Plan: -Awaiting eval from [facility], [facility] -Spoke to family, in agreement -Pt with abd pain-Continue fentanyl 12 mcg Q72H Problems reviewed: Yes
[2019-04-02] MEDS: FAMOTIDINE 20 MG TABLET PO SCH ×2 (09:46→22:00)
[2019-04-02] MEDS: LORazepam 2 MG/ML SDV VIAL IVPUSH SCH ×2 (09:46→22:01)
[2019-04-02] MEDS: hydrALAZINE HCL 50 MG TABLET (FP) PO SCH ×2 (09:46→22:01)
[2019-04-02] MEDS: METOPROLOL TARTRATE 50 MG TABLET (FP) PO SCH ×2 (09:46→21:59)
[2019-04-02] MEDS: PANTOPRAZOLE 40 MG TABLET PO SCH ×2 (09:46→22:00)
[2019-04-02] MEDS: HEPARIN NA (PORCINE) 5,000 UNITS/ML 1ML VIAL SQ SCH ×2 (09:49→21:58)
[2019-04-02] MEDS ORDERED: SODIUM POLYSTYRENE SULFONATE 15 GM/60 ML BOTTLE RC ONE (11:15)
--- NOTE | 2019-04-02 11:27 | PN ---
Progress Note (short form) - Note Progress Note: Lethargic and confused. Breathing is non-labored. No acute events overnight. Intake & Output 03/30/19 03/31/19 04/01/19 04/02/19 23:59 23:59 23:59 23:59 Intake Total 900 700 504 Balance 900 700 504 Last Vital Signs Temp Pulse Resp BP Pulse Ox 98 F 72 18 131/68 98 04/02/19 09:43 04/02/19 09:43 04/02/19 09:43 04/02/19 09:43 04/01/19 08:33 Active Medications Acetaminophen (Tylenol Suppository -) 650 mg [place] Q4H PRN PRN Reason: FEVER Last Admin: 04/01/19 11:29 Dose: 650 mg Albuterol Sulfate (Ventolin 0.083% Nebulizer Soln -) 1 amp NEB RQID PRN PRN Reason: SHORT OF BREATH/WHEEZING Atorvastatin Calcium (Lipitor -) 20 mg PO HS [facility] Last Admin: 04/01/19 21:51 Dose: 20 mg Famotidine (Pepcid -) 20 mg PO BID [facility] Last Admin: 04/02/19 09:46 Dose: Not Given Fentanyl (Duragesic 12mcg Patch -) 1 patch TD Q72H [facility] Stop: 04/07/19 14:39 Last Admin: 03/31/19 17:16 Dose: 1 patch Heparin Sodium (Porcine) (Heparin -) 5,000 unit SQ BID [facility] Last Admin: 04/02/19 09:49 Dose: 5,000 unit Hydralazine HCl (Apresoline -) 100 mg PO BID [facility] Last Admin: 04/02/19 09:46 Dose: Not Given Dextrose/Sodium Chloride (D5-1/2ns -) 1,000 mls @ 83 mls/hr IV ASDIR [facility] Last Admin: 04/02/19 08:57 Dose: 83 mls/hr Lactulose (Cephulac (Oral Use)) 20 gm PO TID [facility] Last Admin: 04/02/19 06:27 Dose: Not Given Lorazepam (Ativan Injection -) 0.25 mg IVPUSH BID [facility] Last Admin: 04/02/19 09:46 Dose: Not Given Metoprolol Tartrate (Lopressor -) 100 mg PO BID [facility] Last Admin: 01/20/20 09:46 Dose: Not Given Miscellaneous (Duragesic Patch Waste) 1 each TD PRN PRN PRN Reason: PAIN Ondansetron HCl (Zofran Injection) 4 mg IVPUSH Q6H PRN PRN Reason: NAUSEA Last Admin: 03/28/19 10:23 Dose: 4 mg Pantoprazole Sodium (Protonix -) 40 mg PO BID [facility] Last Admin: 04/02/19 09:46 Dose: Not Given Gen: Lethargic, NAD Heart: RRR Lung: decreased breath sounds at the bases Abd: softly distended, nontender, +ascites Ext: no edema Laboratory Results - last 24 hr 04/02/19 04/02/19 05:10 05:10 WBC 20.5 H RBC 3.96 L Hgb 12.2 Hct 38.0 D MCV 96.0 MCH 30.9 MCHC 32.2 RDW 19.8 H Plt Count 166 MPV 9.9 D Sodium 142 Potassium 6.5 H* Chloride 114 H Carbon Dioxide 21 Anion Gap 7 L BUN 100.5 H Creatinine 1.8 H Est GFR (CKD-EPI)AfAm 38.64 Est GFR (CKD-EPI)NonAf 33.34 Random Glucose 138 H Calcium 9.6 Total Bilirubin 2.0 H AST 139 H ALT 74 H Alkaline Phosphatase 827 H Total Protein 5.4 L Albumin 2.3 L Problem List - Problems (1) Pancreatic cancer Code(s): C25.9 - MALIGNANT NEOPLASM OF PANCREAS, UNSPECIFIED (2) Ascites Code(s): R18.8 - OTHER ASCITES (3) Pleural effusion Code(s): J90 - PLEURAL EFFUSION, NOT ELSEWHERE CLASSIFIED A/P Pancreatic Cancer Abdominal Pain likely progression of disease Ascites/Pleural Effusions CAD +Troponins likely Demand Ischemia Atrial Fibrillation HTN Hyperlipidemia Dementia - O2 as needed - Aspiration precautions - agree with home hospice - DNR / DNI Dr Hurst
[2019-04-02 12:07] LABS: BODY FLUID ALBUMIN 1.7 g/dL (Not Estab.)
--- NOTE | 2019-04-02 12:27 | PN ---
Progress Note, AUDITING SPECIALIST - Note Progress Note: CT scan--recurrent pancreatic mass, patent stent, ascites, multiple liver lesions c/w progressive disease CT head -- right parietal infarct ? subacute infarct Selected Entries 03/31/19 03/31/19 03/31/19 08:24 12:19 15:12 Breakfast 25% 25% Diet Tolerated Poor Fair Poor Lunch 25% Supper 03/31/19 04/01/19 04/01/19 22:00 11:45 14:48 Breakfast 25% Diet Tolerated Poor Lunch 0 Supper 25% 04/02/19 09:51 Breakfast 0 Diet Tolerated Refused Lunch Supper Laboratory Tests 04/02/19 05:10 WBC 20.5 H Refusing po. on puree/thin liquid. Suggested to family to try to feed him as he may be more accepting of PO from them. Per PMD- -Oncology consult -Palliative care -CT abd + metastasis to liver, has been receiving radiation treatment -Family in agreement to home hospice
[2019-04-02 14:03] LABS: CALCIUM 9.2 mg/dL (8.5-10.1); CREATININE 1.8 mg/dL (0.55-1.3); POTASSIUM 5.9 mmol/L (3.5-5.1)
[2019-04-02 14:29] LABS: BLOOD UREA NITROGEN 107.3 mg/dL (7-18)
--- NOTE | 2019-04-02 14:29 | PN ---
Progress Note (short form) - Note Progress Note: PAtient seen and examined Confused s/p paracentesis Last Vital Signs Temp Pulse Resp BP Pulse Ox 98 F 72 18 131/68 98 04/02/19 09:43 04/02/19 09:43 04/02/19 09:43 04/02/19 09:43 04/01/19 08:33 Cor: RSR, No murmurs, No gallops Lungs: Clear to P&A Abd: Soft, Normal bowel sounds, No organomegaly Ext:No significant edema Labs/Meds reviewed A/P The patient is an 88 year old with a past medical history of pancreatic cancer s /p gemzar abraxane, xeloda/RT, maintenance xeloda and more recently reradiation for recurrent pancreatic mass, CAD with PPM, cardiac catheter, afib (no longer on Eliquis), HTN, HLD, dementia, history of cholangitis s/p stent placement here with abdominal pain. He is here with RUQ pain ,altered mental status CT scan--recurrent pancreatic mass, patent stent, ascites, multiple liver lesions c/w progressive disease CT head -- right parietal infarct ? 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 They would like to proceed with home hospice
--- NOTE | 2019-04-02 15:43 | PN ---
Progress Note (short form) - Note Progress Note: Renal follow up for RASHEEDA and electrolyte disorder Seen and examined at the bedside lethargic, confused family at the bedside on IVF Vital Signs Temperature 99.9 F H 04/02/19 14:35 Pulse Rate 66 04/02/19 14:35 Respiratory Rate 18 04/02/19 14:35 Blood Pressure 113/76 04/02/19 14:35 O2 Sat by Pulse Oximetry (%) 98 04/01/19 08:33 Intake & Output 03/30/19 03/31/19 04/01/19 04/02/19 23:59 23:59 23:59 23:59 Intake Total 900 700 504 Balance 900 700 504 NAD on NC O2 Lethargic Dry MM Dec BS at lung bases RRR + ascities, not tense no LE edema CBC, BMP 04/02/19 05:10 04/02/19 12:30 Current Medications Acetaminophen (Tylenol Suppository -) 650 mg [place] Q4H PRN PRN Reason: FEVER Last Admin: 04/01/19 11:29 Dose: 650 mg Albuterol Sulfate (Ventolin 0.083% Nebulizer Soln -) 1 amp NEB RQID PRN PRN Reason: SHORT OF BREATH/WHEEZING Atorvastatin Calcium (Lipitor -) 20 mg PO HS [facility] Last Admin: 04/01/19 21:51 Dose: 20 mg Famotidine (Pepcid -) 20 mg PO BID [facility] Last Admin: 04/02/19 09:46 Dose: Not Given Fentanyl (Duragesic 12mcg Patch -) 1 patch TD Q72H [facility] Stop: 04/07/19 14:39 Last Admin: 03/31/19 17:16 Dose: 1 patch Heparin Sodium (Porcine) (Heparin -) 5,000 unit SQ BID [facility] Last Admin: 04/02/19 09:49 Dose: 5,000 unit Hydralazine HCl (Apresoline -) 100 mg PO BID [facility] Last Admin: 04/02/19 09:46 Dose: Not Given Dextrose/Sodium Chloride (D5-1/2ns -) 1,000 mls @ 83 mls/hr IV ASDIR [facility] Last Admin: 04/02/19 08:57 Dose: 83 mls/hr Lactulose (Cephulac (Oral Use)) 20 gm PO TID [facility] Last Admin: 04/02/19 14:52 Dose: Not Given Lorazepam (Ativan Injection -) 0.25 mg IVPUSH BID [facility] Last Admin: 04/02/19 09:46 Dose: Not Given Metoprolol Tartrate (Lopressor -) 100 mg PO BID [facility] Last Admin: 04/02/19 09:46 Dose: Not Given Miscellaneous (Duragesic Patch Waste) 1 each TD PRN PRN PRN Reason: PAIN Ondansetron HCl (Zofran Injection) 4 mg IVPUSH Q6H PRN PRN Reason: NAUSEA Last Admin: 03/28/19 10:23 Dose: 4 mg Pantoprazole Sodium (Protonix -) 40 mg PO BID [facility] Last Admin: 04/02/19 09:46 Dose: Not Given 88 year old gentleman with history of pancreatic cancer s/p recent chemotherapy, hypertension, coronary artery disease who presented from home with abdominal pain and found to have progression of pancreatic cancer with liver lesions with ascities and fluid overload. 1. Metastatic pancreatic cancer 2. Fluid overload/Ascities 3. CAD/CHF 4. Hypoalbuminemia 5. Anemia 6. Acute kidney injury (baseline CR 0.9, now 1.4/1.5) from intravascular volume depletion +/- hepatorenal syndrome 7. Hyperkalemia Renal function noted to have worsened over the past several days likely due to progressive liver dysfunction Hyperkalemia manged medically (Insulin/D50/Kayexalate) with mild improvement Discussion had with the family at the bedside, given poor prognosis they would like to stop any further labs draws and focus on comfort interventions only Pt is DNR/DNI can continue gentle IVF for now Case discussed with PMD. Than you Andrew Burnham Do
[2019-04-02] MEDS: DEXTROSE 5%-0.45% SALINE 1,000 ML IV SCH (17:57)
[2019-04-02] MEDS: ATORVASTATIN CA 20 MG TABLET (FP) PO SCH (21:59)
[2019-04-03] MEDS: LACTULOSE 20 GM/30 ML UDC (FOR ORAL USE ONLY) PO SCH ×3 (06:10→21:07)
--- NOTE | 2019-04-03 08:26 | PN ---
Progress Note, Physician - Current Medication List Current Medications: Active Medications Acetaminophen (Tylenol Suppository -) 650 mg [place] Q4H PRN PRN Reason: FEVER Last Admin: 04/01/19 11:29 Dose: 650 mg Albuterol Sulfate (Ventolin 0.083% Nebulizer Soln -) 1 amp NEB RQID PRN PRN Reason: SHORT OF BREATH/WHEEZING Atorvastatin Calcium (Lipitor -) 20 mg PO HS [facility] Last Admin: 04/02/19 21:59 Dose: Not Given Famotidine (Pepcid -) 20 mg PO BID [facility] Last Admin: 04/02/19 22:00 Dose: Not Given Fentanyl (Duragesic 12mcg Patch -) 1 patch TD Q72H [facility] Stop: 04/07/19 14:39 Last Admin: 03/31/19 17:16 Dose: 1 patch Heparin Sodium (Porcine) (Heparin -) 5,000 unit SQ BID [facility] Last Admin: 04/02/19 21:58 Dose: 5,000 unit Hydralazine HCl (Apresoline -) 100 mg PO BID [facility] Last Admin: 04/02/19 22:01 Dose: Not Given Dextrose/Sodium Chloride (D5-1/2ns -) 1,000 mls @ 50 mls/hr IV ASDIR [facility] Last Admin: 04/02/19 17:57 Dose: 50 mls/hr Lactulose (Cephulac (Oral Use)) 20 gm PO TID [facility] Last Admin: 04/03/19 06:10 Dose: Not Given Lorazepam (Ativan Injection -) 0.25 mg IVPUSH BID [facility] Last Admin: 04/02/19 22:01 Dose: Not Given Metoprolol Tartrate (Lopressor -) 100 mg PO BID [facility] Last Admin: 04/02/19 21:59 Dose: Not Given Miscellaneous (Duragesic Patch Waste) 1 each TD PRN PRN PRN Reason: PAIN Ondansetron HCl (Zofran Injection) 4 mg IVPUSH Q6H PRN PRN Reason: NAUSEA Last Admin: 03/28/19 10:23 Dose: 4 mg Pantoprazole Sodium (Protonix -) 40 mg PO BID [facility] Last Admin: 04/02/19 22:00 Dose: Not Given - Objective Vital Signs: Vital Signs Temperature 100.5 F H 04/02/19 21:00 Pulse Rate 75 04/03/19 05:00 Respiratory Rate 20 04/03/19 05:00 Blood Pressure 147/67 04/03/19 05:00 O2 Sat by Pulse Oximetry (%) 98 04/02/19 09:00 Cardiovascular: Yes: S1, S2 Respiratory: Yes: Regular, CTA Bilaterally Gastrointestinal: Yes: Normal Bowel Sounds, Soft, Abdomen, Obese, Ascites Labs: CBC, BMP 04/02/19 05:10 04/02/19 12:30 INR, PTT INR 1.38 (0.83-1.09) H 04/01/19 06:10 Problem List - Problems (1) Abdominal pain Code(s): R10.9 - UNSPECIFIED ABDOMINAL PAIN (2) Elevated troponin Code(s): R79.89 - OTHER SPECIFIED ABNORMAL FINDINGS OF BLOOD CHEMISTRY (3) Pancreatic cancer Code(s): C25.9 - MALIGNANT NEOPLASM OF PANCREAS, UNSPECIFIED (4) Change in mental status Code(s): R41.82 - ALTERED MENTAL STATUS, UNSPECIFIED Assessment/Plan - Problems (1) NSTEMI (non-ST elevated myocardial infarction) Assessment/Plan: -Seen by Cardiology -signed off by cardiology -2/2 to metastatic disease -D/C tele Problems reviewed: Yes Code(s): I21.4 - NON-ST ELEVATION (NSTEMI) MYOCARDIAL INFARCTION (2) Pancreatic neoplasm Assessment/Plan: -Oncology consult -Palliative care -CT abd + metastasis to liver, has been receiving radiation treatment -Family in agreement to home hospice Problems reviewed: Yes Code(s): D49.0 - NEOPLASM OF UNSPECIFIED BEHAVIOR OF DIGESTIVE SYSTEM (3) Transaminitis Problems reviewed: Yes Code(s): R74.0 - NONSPEC ELEV OF LEVELS OF TRANSAMNS & LACTIC ACID DEHYDRGNSE (4) Abdominal pain Assessment/Plan: -GI consult -Oncology consult -Likely 2/2 to progression of the disease -Not a surgical candidate Problems reviewed: Yes Code(s): R10.9 - UNSPECIFIED ABDOMINAL PAIN (5) Elevated potasium Assessment/Plan: -D50 and insulin -dc clinimex--NS -repeat (6) CVA (cerebral vascular accident) Assessment/Plan: -CT head- R parietal lobe subacute non hemorrhagic infarct -Seen by Neurology Problems reviewed: Yes Code(s): I63.9 - CEREBRAL INFARCTION, UNSPECIFIED (7) Hospice care Assessment/Plan: -Awaiting eval from [facility], [facility] [place] , and [facility] -Spoke to family, in agreement -Pt with abd pain-Continue fentanyl 12 mcg Q72H Problems reviewed: Yes
[2019-04-03] MEDS ORDERED: morphine CARPU-JECT 2 MG/1 ML DISP.SYRIN IM PRN (09:04)
[2019-04-03] MEDS ORDERED: FENTANYL PATCH WASTE TD PRN (09:05)
[2019-04-03] MEDS ORDERED: fentaNYL 25mcg/hr PATCH.TD72 TD SCH (09:15)
[2019-04-03] MEDS: LORazepam 2 MG/ML SDV VIAL IVPUSH SCH ×2 (10:21→21:07)
[2019-04-03] MEDS: HEPARIN NA (PORCINE) 5,000 UNITS/ML 1ML VIAL SQ SCH ×2 (10:21→21:07)
[2019-04-03] MEDS: PANTOPRAZOLE 40 MG TABLET PO SCH ×2 (10:21→21:08)
[2019-04-03] MEDS: FAMOTIDINE 20 MG TABLET PO SCH ×2 (10:21→21:08)
[2019-04-03] MEDS: METOPROLOL TARTRATE 50 MG TABLET (FP) PO SCH ×2 (10:21→21:08)
[2019-04-03] MEDS: hydrALAZINE HCL 50 MG TABLET (FP) PO SCH ×2 (10:21→21:07)
--- NOTE | 2019-04-03 11:49 | PN ---
Progress Note (short form) - Note Progress Note: Lethargic and confused. Breathing is non-labored. No acute events overnight. Intake & Output 03/31/19 04/01/19 04/02/19 04/03/19 23:59 23:59 23:59 23:59 Intake Total 700 504 600 Balance 700 504 600 Last Vital Signs Temp Pulse Resp BP Pulse Ox 99.6 F 80 22 H 132/68 98 04/03/19 09:00 04/03/19 09:00 04/03/19 09:00 04/03/19 09:00 04/02/19 09:00 Active Medications Acetaminophen (Tylenol Suppository -) 650 mg NE Q4H PRN PRN Reason: FEVER Last Admin: 04/01/19 11:29 Dose: 650 mg Albuterol Sulfate (Ventolin 0.083% Nebulizer Soln -) 1 amp NEB RQID PRN PRN Reason: SHORT OF BREATH/WHEEZING Atorvastatin Calcium (Lipitor -) 20 mg PO HS [facility] Last Admin: 04/02/19 21:59 Dose: Not Given Famotidine (Pepcid -) 20 mg PO BID [facility] Last Admin: 04/03/19 10:21 Dose: Not Given Fentanyl (Duragesic 12mcg Patch -) 1 patch TD Q72H [facility] Stop: 04/07/19 14:39 Last Admin: 03/31/19 17:16 Dose: 1 patch Fentanyl (Duragesic 25mcg Patch -) 1 patch TD Q72H [facility] Stop: 04/10/19 09:05 Last Admin: 04/03/19 10:20 Dose: 1 patch Heparin Sodium (Porcine) (Heparin -) 5,000 unit SQ BID [facility] Last Admin: 04/03/19 10:21 Dose: Not Given Hydralazine HCl (Apresoline -) 100 mg PO BID [facility] Last Admin: 04/03/19 10:21 Dose: Not Given Dextrose/Sodium Chloride (D5-1/2ns -) 1,000 mls @ 50 mls/hr IV ASDIR [facility] Last Admin: 04/02/19 17:57 Dose: 50 mls/hr Lactulose (Cephulac (Oral Use)) 20 gm PO TID [facility] Last Admin: 04/03/19 06:10 Dose: Not Given Lorazepam (Ativan Injection -) 0.25 mg IVPUSH BID [facility] Last Admin: 04/03/19 10:21 Dose: Not Given Metoprolol Tartrate (Lopressor -) 100 mg PO BID [facility] Last Admin: 04/03/19 10:21 Dose: Not Given Miscellaneous (Duragesic Patch Waste) 1 each TD PRN PRN PRN Reason: PAIN Morphine Sulfate (Morphine Injection -) 1 mg IM Q4H PRN PRN Reason: PAIN LEVEL 6-10 Ondansetron HCl (Zofran Injection) 4 mg IVPUSH Q6H PRN PRN Reason: NAUSEA Last Admin: 03/28/19 10:23 Dose: 4 mg Pantoprazole Sodium (Protonix -) 40 mg PO BID [facility] Last Admin: 04/03/19 10:21 Dose: Not Given Gen: Lethargic, NAD Heart: RRR Lung: decreased breath sounds at the bases Abd: softly distended, nontender, +ascites Ext: no edema Laboratory Results - last 24 hr 03/30/19 04/02/19 12:17 12:30 Sodium 139 Potassium 5.9 H Chloride 116 H Carbon Dioxide 19 L Anion Gap 4 L BUN 107.3 H* Creatinine 1.8 H Est GFR (CKD-EPI)AfAm 38.64 Est GFR (CKD-EPI)NonAf 33.34 Random Glucose 136 H Calcium 9.2 POC Fluid pH 8.0 Fluid Glucose 149 Fluid Total Protein 3.2 Fluid Albumin 1.7 Body Fluid LDH Source 191 Fluid Amylase 10 Fluid Triglycerides 32 Problem List - Problems (1) Pancreatic cancer Code(s): C25.9 - MALIGNANT NEOPLASM OF PANCREAS, UNSPECIFIED (2) Ascites Code(s): R18.8 - OTHER ASCITES (3) Pleural effusion Code(s): J90 - PLEURAL EFFUSION, NOT ELSEWHERE CLASSIFIED A/P Pancreatic Cancer Abdominal Pain likely progression of disease Ascites/Pleural Effusions CAD +Troponins likely Demand Ischemia Atrial Fibrillation HTN Hyperlipidemia Dementia - O2 as needed - Aspiration precautions - agree with home hospice - DNR / DNI Dr Hurst
--- NOTE | 2019-04-03 15:00 | PN ---
Progress Note (short form) - Note Progress Note: Pt being transferred to Hospice care. will sign off case at this time. Please call if there is any change in clinical management. Andrew Burnham DO
--- NOTE | 2019-04-03 15:38 | PATH ---
Cytology Non-Gynecological Report Patient Name: RAJNI RICARDO [facility]. Rec. #: [id number] /Age/Gender: 1930 (Age: 88) / M Account: [id number] Location: 4 W TELEMETRY U Taken: 03/30/2019 Received: 03/30/2019 Reported: 04/03/2019 Physicians: Roma Parada M.D. Specimen(s) Received A: PERITONEAL FLUID 50CC CLOUDY YELLOW FLUID IN ALCOHOL B: PERITONEAL FLUID 2000CC JAENNE FLUID FRESH Clinical History Ascites Final Diagnosis A AND B: ABDOMINAL FLUID, PARACENTESIS: SATISFACTORY FOR EVALUATION. ATYPICAL CELLS PRESENT, IN A BACKGROUND OF REACTIVE MESOTHELIAL CELLS AND MACROPHAGES. Comment: Rare isolated atypical cells with mildly increased N/C ratio and irregular nuclear membranes are present. Immunohistochemistry staining shows these cells are weakly and focally positive for MIGUELITO, MOC31, and VIVEK (Michael-EP4), in a background of numerous macrophages and reactive mesothelial cells which highlighted by CD68 (macrophages), D2-40 and Calretinin (mesothelial cells). Positive and negative controls (internal if applicable) show appropriate results. CD68, D2-40, Calretinin, MIGUELITO, MOC31, and VIVEK were performed at [place], [place] ([id number]) and interpreted at [facility]. Electronically Signed Demetrius Messer M.D. Gross Description The A. Approximately 50cc of jeanne colored fluid received fixed in 50% alcohol. One cytospin and one cellblock prepared. B. Approximately 2000 cc of jeanne colored fluid received fresh. One cytospin and one cellblock prepared.
[2019-04-03] MEDS: fentaNYL 12mcg/hr PATCH.TD72 TD SCH (15:57)
[2019-04-03] MEDS ORDERED: MORPHINE SULFATE 2 MG/ML VIAL IVPUSH PRN ×2 (17:33→17:34)
[2019-04-03] MEDS: DEXTROSE 5%-0.45% SALINE 1,000 ML IV SCH (18:04)
--- NOTE | 2019-04-03 19:02 | PN ---
Progress Note (short form) - Note Progress Note: patient seen and examined Sleeping after morphine given for agitation Last Vital Signs Temp Pulse Resp BP Pulse Ox 98.6 F 89 21 H 149/69 98 04/03/19 13:00 04/03/19 13:00 04/03/19 13:00 04/03/19 13:00 04/03/19 09:00 lungs - scattered rhonchi RSR No labs family at bedside For Hospice.
[2019-04-03] MEDS: ATORVASTATIN CA 20 MG TABLET (FP) PO SCH (21:07)
[2019-04-04] MEDS: LACTULOSE 20 GM/30 ML UDC (FOR ORAL USE ONLY) PO SCH (05:36)
[2019-04-04 06:19] VITALS: TEMP 98
--- NOTE | 2019-04-04 08:10 | DS ---
Physical Examination Vital Signs: Vital Signs Temperature 98 F 04/04/19 05:00 Pulse Rate 87 04/04/19 05:00 Respiratory Rate 17 04/04/19 05:00 Blood Pressure 135/61 04/04/19 05:00 O2 Sat by Pulse Oximetry (%) 96 04/03/19 21:00 Labs: CBC, BMP 04/02/19 05:10 04/02/19 12:30 Discharge Summary Problems reviewed: Yes Reason For Visit: PANCREATIC NEOPLASM;NON-ST ELEVATION MYOCARDIAL Current Active Problems Abdominal pain (Acute) Abnormal LFTs (liver function tests) (Acute) Ascites (Acute) CVA (cerebral vascular accident) (Acute) Change in mental status (Acute) Elevated troponin (Acute) Hospice care (Acute) Metabolic encephalopathy (Acute) NSTEMI (non-ST elevated myocardial infarction) (Acute) Pancreatic neoplasm (Chronic) Condition: Fair - Instructions Referrals: Danelle Gaytan MD [Primary Care Provider] - - Home Medications Comprehensive Discharge Medication List: Ambulatory Orders Atorvastatin Ca [Lipitor] 20 mg PO HS #30 tablet 07/29/16 Hydralazine HCl 100 mg PO BID 08/23/17 Lisinopril 5 mg PO DAILY 08/29/17 Famotidine [Pepcid] 20 mg PO BID 03/25/19 Metoprolol Tartrate [Lopressor] 50 mg PO BID 03/25/19
[2019-04-04 08:48] VITALS: BP 121/68; PULSE 88
[2019-04-04] MEDS: hydrALAZINE HCL 50 MG TABLET (FP) PO SCH (09:21)
[2019-04-04] MEDS: LORazepam 2 MG/ML SDV VIAL IVPUSH SCH (09:21)
[2019-04-04] MEDS: METOPROLOL TARTRATE 50 MG TABLET (FP) PO SCH (09:22)
[2019-04-04] MEDS: HEPARIN NA (PORCINE) 5,000 UNITS/ML 1ML VIAL SQ SCH (09:22)
[2019-04-04] MEDS: PANTOPRAZOLE 40 MG TABLET PO SCH (09:22)
[2019-04-04] MEDS: FAMOTIDINE 20 MG TABLET PO SCH (09:22)
--- NOTE | 2019-04-04 09:34 | DS ---
Physical Examination Vital Signs: Vital Signs Temperature 98 F 04/04/19 08:47 Pulse Rate 88 04/04/19 08:47 Respiratory Rate 20 04/04/19 08:47 Blood Pressure 121/68 04/04/19 08:47 O2 Sat by Pulse Oximetry (%) 96 04/03/19 21:00 Labs: CBC, BMP 04/02/19 05:10 04/02/19 12:30 Discharge Summary Problems reviewed: Yes Reason For Visit: PANCREATIC NEOPLASM;NON-ST ELEVATION MYOCARDIAL Current Active Problems Abdominal pain (Acute) Abnormal LFTs (liver function tests) (Acute) Ascites (Acute) CVA (cerebral vascular accident) (Acute) Change in mental status (Acute) Elevated troponin (Acute) Hospice care (Acute) Metabolic encephalopathy (Acute) NSTEMI (non-ST elevated myocardial infarction) (Acute) Pancreatic neoplasm (Chronic) Hospital Course: - Problems (1) NSTEMI (non-ST elevated myocardial infarction) Assessment/Plan: -Seen by Cardiology -signed off by cardiology -2/2 to metastatic disease -D/C tele Problems reviewed: Yes Code(s): I21.4 - NON-ST ELEVATION (NSTEMI) MYOCARDIAL INFARCTION (2) Pancreatic neoplasm Assessment/Plan: -Oncology consult -Palliative care -CT abd + metastasis to liver, has been receiving radiation treatment -Family in agreement to home hospice Problems reviewed: Yes Code(s): D49.0 - NEOPLASM OF UNSPECIFIED BEHAVIOR OF DIGESTIVE SYSTEM (3) Transaminitis Problems reviewed: Yes Code(s): R74.0 - NONSPEC ELEV OF LEVELS OF TRANSAMNS & LACTIC ACID DEHYDRGNSE (4) Abdominal pain Assessment/Plan: -GI consult -Oncology consult -Likely 2/2 to progression of the disease -Not a surgical candidate Problems reviewed: Yes Code(s): R10.9 - UNSPECIFIED ABDOMINAL PAIN (5) Elevated potasium Assessment/Plan: -D50 and insulin -dc clinimex--NS -repeat (6) CVA (cerebral vascular accident) Assessment/Plan: -CT head- R parietal lobe subacute non hemorrhagic infarct -Seen by Neurology Problems reviewed: Yes Code(s): I63.9 - CEREBRAL INFARCTION, UNSPECIFIED (7) Hospice care Assessment/Plan: -Awaiting eval from [facility], [facility] , and [facility] -Spoke to family, in agreement -Pt with abd pain-Continue fentanyl 12 mcg Q72H Problems reviewed: Yes Condition: Fair - Instructions Referrals: Danelle Gaytan MD [Primary Care Provider] - - Home Medications Comprehensive Discharge Medication List: Ambulatory Orders Hydralazine HCl 100 mg PO BID 08/23/17 Famotidine [Pepcid] 20 mg PO BID 03/25/19 Metoprolol Tartrate [Lopressor] 50 mg PO BID 03/25/19 Acetaminophen Suppository [Tylenol .Suppository -] 650 mg [place] Q4H PRN supp.rect 04/04/19 Albuterol 0.083% Nebulizer Blanca [Ventolin 0.083% Nebulizer Soln -] 1 amp NEB RQID PRN amp 04/04/19 FENTANYL 25mcg PATCH [DURAGESIC 25mcg PATCH -] 1 patch TD Q72H #5 patch.td72 MDD 1 04/04/19 Morphine Oral Concentrate [Roxanol 20 mg/mL Liquid -] 10 mg PO Q4H #30 ml MDD 40 04/04/19
== END 2019-04-04 10:53 | disposition hospice, home (50) | DRG 435 ==
LOC: JER 10:27 → JERBED 13:05 → J4W 03-26 18:14
PROVIDERS: ADMIT Family Medicine; ATTEND Family Medicine
PROC: 0W9G3ZZ Drainage of Peritoneal Cavity, Percutaneous Approach (ICD-10-PCS; principal; 2019-03-30)
DX: C25.9 Malignant neoplasm of pancreas, unspecified (principal); G93.41 Metabolic encephalopathy; I63.9 Cerebral infarction, unspecified; I21.4 Non-ST elevation (NSTEMI) myocardial infarction; J98.11 Atelectasis; R18.8 Other ascites; J90 Pleural effusion, not elsewhere classified; N17.9 Acute kidney failure, unspecified; I48.91 Unspecified atrial fibrillation; I10 Essential (primary) hypertension; E78.5 Hyperlipidemia, unspecified; I25.10 Atherosclerotic heart disease of native coronary artery without angina pectoris; Z95.0 Presence of cardiac pacemaker; F03.90 Unspecified dementia, unspecified severity, without behavioral disturbance, psychotic disturbance, mood disturbance, and anxiety; D63.8 Anemia in other chronic diseases classified elsewhere; C61 Malignant neoplasm of prostate; R27.8 Other lack of coordination; E88.09 Other disorders of plasma-protein metabolism, not elsewhere classified; E86.9 Volume depletion, unspecified; K72.90 Hepatic failure, unspecified without coma; Z51.5 Encounter for palliative care; E87.5 Hyperkalemia; Z66 Do not resuscitate
CPT/HCPCS: 36415; 70450-TC; 70470-TC; 71045-TC-FY; 74177-TC; 76942-TC; 80048; 80053; 81003; 82042; 82140; 82150; 82465; 82550; 82565; 82945; 83615; 83735; 83986; 84153; 84157; 84300; 84478; 84484; 85025; 85027; 85610; 85730; 87040; 87070; 87075; 87086; 87102; 87116; 87205; 87206; 87210; 88108; 88305-TC; 93005; 93010; 97162-GP; 99285-25; J0131; J1644; Q9967